=== PATIENT | female | born 1950 | race Caucasian/White ===

== ENCOUNTER 2017-02-07 00:13 | Observation (INO) | payer MEDICARE, OTHER ==
[2017-02-07] MEDS ORDERED: Diltiazem 25 MG/5 ML SDV ONE (00:27)
[2017-02-07] MEDS ORDERED: Diltiazem 25 MG/5 ML SDV IVPUSH ONE (00:31)
--- NOTE | 2017-02-07 00:31 | EDM.PDOC ---
ED HPI GENERAL MEDICAL PROBLEM - General Chief Complaint: General Stated Complaint: WEAK Time Seen by Provider: 02/07/17 00:27 - History of Present Illness INITIAL COMMENTS - FREE TEXT/NARRATIVE: HISTORY AND PHYSICAL: History of present illness: Patient 66-year-old white female with past medical history significant for diabetes and atrial fibrillation presents with a concern of palpitations and rapid heart rate she states she's just felt generally poor since this morning she denies chest pain nausea vomiting fever chills patient did have one episode of emesis denies other complaints Review of systems: As per history of present illness and below otherwise all systems reviewed and negative. Past medical history: As per history of present illness and as reviewed below otherwise noncontributory. Surgical history: As per history of present illness and as reviewed below otherwise noncontributory. Social history: No reported history of drug or alcohol abuse. Family history: As per history of present illness and as reviewed below otherwise noncontributory. Physical exam: HEENT: Atraumatic, normocephalic, pupils reactive, negative for conjunctival pallor or scleral icterus, mucous membranes moist, throat clear, neck supple, nontender, trachea midline. Lungs: Clear to auscultation, breath sounds equal bilaterally, chest nontender. Heart: S1S2, irregularly irregular in rate between 140 and 180, negative for clicks, rubs, or JVD. Abdomen: Soft, nondistended, nontender. Negative for masses or hepatosplenomegaly. Negative for costovertebral tenderness. Pelvis: Stable nontender. Genitourinary: Deferred. Rectal: Deferred. Extremities: Atraumatic, negative for cords or calf pain. Neurovascular unremarkable. Neuro: Awake, alert, oriented. Cranial nerves II through XII unremarkable. Cerebellum unremarkable. Motor and sensory unremarkable throughout. Exam nonfocal. Diagnostics: CBC CMP troponin PT/INR chest x-ray EKG Therapeutics: IV O2 monitor Cardizem 25 mg IV Impression: #1 atrial fibrillation with rapid ventricular response Definitive disposition and diagnosis as appropriate pending reevaluation and review of above. - Related Data Allergies Allergy/AdvReac Type Severity Reaction Status Date / Time No Known Allergies Allergy Verified 02/07/17 00:16 Home Meds: Home Meds Allopurinol [Zyloprim] 02/07/17 [History] Warfarin [Coumadin] 6 mg PO DAILY 02/07/17 [History] atorvaSTATin [Lipitor] 10 mg PO BEDTIME 02/07/17 [History] metFORMIN [Glucophage XR] 500 mg PO BIDMEALS 02/07/17 [History] Past Medical History Cardiovascular History: Reports: High Cholesterol Endocrine/Metabolic History: Reports: Diabetes, Type II - Infectious Disease History Infectious Disease History: Reports: Chicken Pox, Measles Social & Family History - Tobacco Use Smoking Status *Q: Never Smoker Second Hand Smoke Exposure: No - Recreational Drug Use Recreational Drug Use: No ED ROS GENERAL - Review of Systems Review Of Systems: ROS reveals no pertinent complaints other than HPI. ED EXAM, GENERAL - Physical Exam Exam: See Below (See dictation) Course - Vital Signs Last Recorded V/S: Last Vital Signs Temp 35.8 C 02/07/17 00:19 Pulse 111 H 02/07/17 02:05 Resp 16 02/07/17 02:05 BP 120/58 L 02/07/17 02:05 Pulse Ox 95 02/07/17 02:05 - Orders/Labs/Meds Orders: Active Orders 24 hr Category Date Time Status Cardiac Monitoring [RC] . DIRECTED Care 02/07/17 00:33 Active EKG 12 Lead [EKG Documentation Completion] [RC] STAT Care 02/07/17 00:36 Active EKG Documentation Completion [RC] STAT Care 02/07/17 00:33 Active Chest 1V Frontal [CR] Stat Exams 02/07/17 00:34 Taken Head wo Cont [CT] Stat Exams 02/07/17 01:09 Taken TYPE AND SCREEN [BBK] Stat Lab 02/07/17 01:40 Received Diltiazem [Cardizem] Med 02/07/17 02:30 Active 30 mg PO Q6HR Diltiazem [Cardizem] 100 mg Med 02/07/17 02:15 Active Sodium Chloride 0.9% [Normal Saline] 100 ml IV TITRATE Magnesium Sulfate/Water [Magnesium Sulfate 4 GM in Med 02/07/17 02:23 Active Water 100 ML] 4 gm Premix Bag 1 bag IV ONETIME Phytonadione [AquaMephyton] Med 02/07/17 02:00 Once 5 mg PO NOW ONE Medication Orders Diltiazem HCl (Cardizem) 30 mg PO Q6HR SOULEYMANE Diltiazem HCl 100 mg/ Sodium (Chloride) 100 mls @ 10 mls/hr IV TITRATE SOULEYMANE; 10 MG/HR PRN Reason: Protocol Magnesium Sulfate 4 gm/ Premix 100 mls @ 50 mls/hr IV ONETIME ONE Stop: 02/07/17 04:22 Phytonadione (Aquamephyton) 5 mg PO NOW ONE Stop: 02/07/17 02:30 Last Admin: 02/07/17 02:05 Dose: 5 mg Labs: Laboratory Tests 02/07/17 02/07/17 02/07/17 Range/Units 00:25 00:25 00:25 WBC 8.77 (4.0-11.0) K/uL RBC 4.46 (4.30-5.90) M/uL Hgb 14.9 (12.0-16.0) g/dL Hct 41.4 (36.0-46.0) % MCV 92.8 (80.0-98.0) fL MCH 33.4 H (27.0-32.0) pg MCHC 36.0 (31.0-37.0) g/dL RDW Std Deviation 46.5 (28.0-62.0) fl RDW Coeff of Aruna 14 (11.0-15.0) % Plt Count 196 (150-400) K/uL MPV 11.60 (7.40-12.00) fL Add Manual Diff YES Neutrophils % (Manual) 79 (48.0-80.0) % Lymphocytes % (Manual) 13 L (16.0-40.0) % Monocytes % (Manual) 7 (0.0-15.0) % Basophils % (Manual) 1 (0.0-1.5) % Absolute Seg Neuts 6.9 Lymphocytes # (Manual) 1.1 Monocytes # (Manual) 0.6 Basophils # (Manual) 0 INR > 12.40 H* (0.86-1.11) Sodium 140 (136-146) mmol/L Potassium 3.7 (3.5-5.1) mmol/L Chloride 97 L (98-110) mmol/L Carbon Dioxide 23 (21-31) mmol/L BUN 9 (6.0-23.0) mg/dL Creatinine 0.8 (0.6-1.5) mg/dL Est Cr Clr Drug Dosing 63.09 mL/min Estimated GFR (MDRD) > 60.0 ml/min Glucose 165 H (60-110) mg/dL Calcium 10.0 (8.8-10.8) mg/dL Magnesium (1.5-2.3) mEq/L Total Bilirubin 2.7 H (0.1-1.5) mg/dL AST 43 H (5-40) IU/L ALT 31 (8-54) IU/L Alkaline Phosphatase 141 (40-150) Creatine Kinase 166 (9-236) IU/L CK-MB (CK-2) 1.1 (0-6.6) ng/ml Troponin I (0.0-0.29) NG/ML Total Protein 8.1 H (6.0-8.0) g/dL Albumin 4.6 (3.4-4.8) g/dL Globulin 3.5 (2.0-3.5) g/dL Albumin/Globulin Ratio 1.3 (1.3-2.8) Digoxin (0.8-2.0) ng/mL 02/07/17 02/07/17 Range/Units 00:25 00:25 WBC (4.0-11.0) K/uL RBC (4.30-5.90) M/uL Hgb (12.0-16.0) g/dL Hct (36.0-46.0) % MCV (80.0-98.0) fL MCH (27.0-32.0) pg MCHC (31.0-37.0) g/dL RDW Std Deviation (28.0-62.0) fl RDW Coeff of Aruna (11.0-15.0) % Plt Count (150-400) K/uL MPV (7.40-12.00) fL Add Manual Diff Neutrophils % (Manual) (48.0-80.0) % Lymphocytes % (Manual) (16.0-40.0) % Monocytes % (Manual) (0.0-15.0) % Basophils % (Manual) (0.0-1.5) % Absolute Seg Neuts Lymphocytes # (Manual) Monocytes # (Manual) Basophils # (Manual) INR (0.86-1.11) Sodium (136-146) mmol/L Potassium (3.5-5.1) mmol/L Chloride (98-110) mmol/L Carbon Dioxide (21-31) mmol/L BUN (6.0-23.0) mg/dL Creatinine (0.6-1.5) mg/dL Est Cr Clr Drug Dosing mL/min Estimated GFR (MDRD) ml/min Glucose (60-110) mg/dL Calcium (8.8-10.8) mg/dL Magnesium 1.1 L (1.5-2.3) mEq/L Total Bilirubin (0.1-1.5) mg/dL AST (5-40) IU/L ALT (8-54) IU/L Alkaline Phosphatase (40-150) Creatine Kinase (9-236) IU/L CK-MB (CK-2) (0-6.6) ng/ml Troponin I < 0.10 (0.0-0.29) NG/ML Total Protein (6.0-8.0) g/dL Albumin (3.4-4.8) g/dL Globulin (2.0-3.5) g/dL Albumin/Globulin Ratio (1.3-2.8) Digoxin < 0.15 L (0.8-2.0) ng/mL Meds: Medications Generic Name Dose Route Start Last Admin Trade Name Freq PRN Reason Stop Dose Admin Diltiazem HCl 30 mg 02/07/17 02:30 Cardizem PO Q6HR SOULEYMANE Diltiazem HCl 100 mg/ Sodium 100 mls @ 10 mls/hr 02/07/17 02:15 Chloride IV TITRATE SOULEYMANE Protocol 10 MG/HR Magnesium Sulfate 4 gm/ Premix 100 mls @ 50 mls/hr 02/07/17 02:23 IV 02/07/17 04:22 ONETIME ONE Phytonadione 5 mg 02/07/17 02:00 02/07/17 02:05 Aquamephyton PO 02/07/17 02:30 5 mg NOW ONE Administration Discontinued Medications Generic Name Dose Route Start Last Admin Trade Name Freq PRN Reason Stop Dose Admin Diltiazem HCl Confirm 02/07/17 00:27 02/07/17 00:36 Diltiazem Administered 02/07/17 00:28 Not Given Dose 25 mg .ROUTE .STK-MED ONE Diltiazem HCl 25 mg 02/07/17 00:31 02/07/17 00:28 Diltiazem IVPUSH 02/07/17 00:32 25 mg ONETIME ONE Administration Diltiazem HCl Confirm 02/07/17 02:21 Cardizem Administered 02/07/17 02:22 Dose 100 mg .ROUTE .STK-MED ONE Sodium Chloride Confirm 02/07/17 02:22 Normal Saline Administered 02/07/17 02:23 Dose 100 mls @ as directed .ROUTE .STK-MED ONE Ondansetron HCl 4 mg 02/07/17 01:30 02/07/17 01:34 Zofran IVPUSH 02/07/17 01:31 4 mg ONETIME ONE Administration Phytonadione 5 mg 02/07/17 01:17 02/07/17 02:06 Mephyton PO 02/07/17 01:18 Not Given ONETIME ONE Departure - Departure Time of Disposition: 02:26 Disposition: Refer to Observation Condition: Good Clinical Impression: Atrial fibrillation with rapid ventricular response, Coumadin toxicity - Discharge Information Referrals: PCP,None [Primary Care Provider] - Forms: ED Department Discharge - My Orders Last 24 Hours: My Active Orders 02/07/17 00:33 Cardiac Monitoring [RC] . DIRECTED EKG Documentation Completion [RC] STAT 02/07/17 00:34 Chest 1V Frontal [CR] Stat 02/07/17 00:36 EKG 12 Lead [EKG Documentation Completion] [RC] STAT 02/07/17 01:09 Head wo Cont [CT] Stat 02/07/17 01:40 TYPE AND SCREEN [BBK] Stat 02/07/17 02:00 Phytonadione [AquaMephyton] 5 mg PO NOW ONE 02/07/17 02:15 Diltiazem [Cardizem] 100 mg Sodium Chloride 0.9% [Normal Saline] 100 ml IV TITRATE - Assessment/Plan Last 24 Hours: My Active Orders 02/07/17 00:33 Cardiac Monitoring [RC] . DIRECTED EKG Documentation Completion [RC] STAT 02/07/17 00:34 Chest 1V Frontal [CR] Stat 02/07/17 00:36 EKG 12 Lead [EKG Documentation Completion] [RC] STAT 02/07/17 01:09 Head wo Cont [CT] Stat 02/07/17 01:40 TYPE AND SCREEN [BBK] Stat 02/07/17 02:00 Phytonadione [AquaMephyton] 5 mg PO NOW ONE 02/07/17 02:15 Diltiazem [Cardizem] 100 mg Sodium Chloride 0.9% [Normal Saline] 100 ml IV TITRATE
[2017-02-07 00:58] LABS: CHLORIDE,CL 97 mmol/L (98-110); SODIUM,NA 140 mmol/L (136-146)
[2017-02-07] MEDS ORDERED: Phytonadione 5 MG Tab PO ONE (01:17)
[2017-02-07] MEDS ORDERED: Ondansetron 4 MG/2 ML SDV IVPUSH ONE (01:30)
[2017-02-07] MEDS ORDERED: Diltiazem 100 MG in Sodium Chloride 0.9% 100 ML IV SCH (02:15)
[2017-02-07] MEDS ORDERED: Diltiazem 100 MG AdvVial ONE (02:21)
[2017-02-07] MEDS ORDERED: Sodium Chloride 0.9% 100 ML ONE (02:22)
[2017-02-07] MEDS ORDERED: Magnesium Sulfate/Water 4 GM in Premix Bag 1 BAG IV ONE (02:23)
[2017-02-07] MEDS ORDERED: Ondansetron 4 MG/2 ML SDV IVPUSH PRN (02:24)
[2017-02-07] MEDS: Diltiazem IR 30 MG Tab PO SCH ×4 (05:08→18:24)
[2017-02-07] MEDS: Insulin Aspart 100 Units/ML 3 ML Pen SUBCUT SCH ×4 (05:08→16:56)
[2017-02-07 05:37] LABS: CHLORIDE,CL 96 mmol/L (98-110); SODIUM,NA 137 mmol/L (136-146)
[2017-02-07] MEDS ORDERED: Levothyroxine 100 MCG Tab PO SCH (07:30)
[2017-02-07] MEDS: Acetaminophen 325 MG Tab PO PRN (07:53)
[2017-02-07] MEDS ORDERED: metFORMIN 500 MG Tab.ER PO SCH (08:00)
[2017-02-07] MEDS ORDERED: Allopurinol 100 MG Tab PO SCH (09:00)
[2017-02-07] MEDS ORDERED: Digoxin 125 MCG Tab PO SCH (09:00)
[2017-02-07] MEDS: METFORMIN 500 MG PO SCH ×2 (10:23→17:09)
[2017-02-07] MEDS ORDERED: LORazepam 2 MG/ML MDV IVPUSH PRN (10:43)
[2017-02-07] MEDS ORDERED: Thiamine 200 MG/2 ML MDV IV SCH (10:45)
--- NOTE | 2017-02-07 11:43 | PCM.HP ---
H&P History of Present Illness - General Admit Problem/Dx: Admission Diagnosis/Problem Admission Diagnosis/Problem Atrial fibrillation - History of Present Illness Initial Comments - Free Text/Narative: 66 yo female with pmh of atrial fibrillation on Coumadin and diabetes who presents with heart palpitations. She also reports nausea but denies any chest pain or shortness of breath. When evaluated in the ED she was noted to be in atrial fibrillation with heart rate on 160s. Her laboratory values were significant for an INR of greater than 12 Her sister is present and is concerned about alcohol use. Family reports patient has been forgetful. She has a history of rehab for alchol use five years ago. Patient reports drinking a 2-3 fingers of liqour 2-3 times a week. Patient reports drinks more than she does but sister reports may be more reliable. Patient's INR the past month has been at times higher than 12 and despite reduction in doses she still remains elevated. Patient has multiple pill bottles of different dosing of coumadin. According to pharmacy who reviewed the medications with her , she is not taking her coumadin as instructed from [facility]. - Related Data Allergies/Adverse Reactions: Allergies Allergy/AdvReac Type Severity Reaction Status Date / Time No Known Allergies Allergy Verified 02/07/17 00:16 Home Medications: Home Meds Allopurinol [Zyloprim] 100 mg PO DAILY 02/07/17 [History] Cholecalciferol (Vitamin D3) [Vitamin D3] 1,000 unit PO BID 02/07/17 [History] Digoxin 0.125 mg PO DAILY 02/07/17 [History] Levothyroxine [Synthroid] 100 mcg PO DAILY 02/07/17 [History] Lisinopril 10 mg PO DAILY 02/07/17 [History] Warfarin [Coumadin] 6 mg PO DAILY 02/07/17 [History] atorvaSTATin [Lipitor] 40 mg PO BEDTIME 02/07/17 [History] metFORMIN [Glucophage] 500 mg PO BIDMEALS 02/07/17 [History] Past Medical History Cardiovascular History: Reports: High Cholesterol 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: Endocrine/Metabolic History: Reports: Diabetes, Type II Hematologic History: Reports: Blood Transfusion(s) - Infectious Disease History Infectious Disease History: Reports: Chicken Pox, Measles - Past Surgical History Other HEENT Surgeries/Procedures: wears eyeglasses Social & Family History - Family History Family Medical History: Noncontributory - Tobacco Use Smoking Status *Q: Never Smoker Second Hand Smoke Exposure: No - Alcohol Use Days Per Week of Alcohol Use: 0 Number of Drinks Per Day: 1 Total Drinks Per Week: 0 - Recreational Drug Use Recreational Drug Use: No H&P Review of Systems - Review of Systems: Review Of Systems: ROS reveals no pertinent complaints other than HPI. Exam - Exam Exam: See Below - Vital Signs Vital Signs: Last Vital Signs Temp 36.9 C 02/07/17 06:00 Pulse 100 02/07/17 05:37 Resp 11 L 02/07/17 10:00 BP 118/76 02/07/17 10:00 Pulse Ox 96 02/07/17 10:00 Weight: 74.5 kg - Exam General: Alert, Cooperative. No: Mild Distress HEENT: Mucosa Moist & [place] Lungs: Clear to Auscultation, Normal Respiratory Effort Cardiovascular: Regular Rate, Irregular Rhythm GI/Abdominal Exam: Normal Bowel Sounds, Soft, Non-Tender, No Organomegaly, No Distention, No Abnormal Bruit, No Mass, Pelvis Stable Extremities: Normal Inspection, Normal Range of Motion, Non-Tender Skin: Warm, Dry, Intact - Patient Data Lab Results Last 24 hrs: Laboratory Results - last 24 hr 02/07/17 02/07/17 02/07/17 Range/Units 05:04 05:04 05:04 WBC 8.81 (4.0-11.0) K/uL RBC 4.22 L (4.30-5.90) M/uL Hgb 14.2 (12.0-16.0) g/dL Hct 39.5 (36.0-46.0) % MCV 93.6 (80.0-98.0) fL MCH 33.6 H (27.0-32.0) pg MCHC 35.9 (31.0-37.0) g/dL RDW Std Deviation 49.0 (28.0-62.0) fl RDW Coeff of Aruna 14 (11.0-15.0) % Plt Count 161 (150-400) K/uL MPV 10.70 (7.40-12.00) fL Neut % (Auto) 86.4 H (48.0-80.0) % Lymph % (Auto) 5.6 L (16.0-40.0) % Caroline % (Auto) 7.7 (0.0-15.0) % Eos % (Auto) 0.0 (0.0-7.0) % Baso % (Auto) 0.3 (0.0-1.5) % Neut # (Auto) 7.6 H (1.4-5.7) K/uL Lymph # (Auto) 0.5 L (0.6-2.4) K/uL Caroline # (Auto) 0.7 (0.0-0.8) K/uL Eos # (Auto) 0.0 (0.0-0.7) K/uL Baso # (Auto) 0.0 (0.0-0.1) K/uL Nucleated RBC % 0.0 /100WBC Nucleated RBCs # 0 K/uL INR 6.62 H (0.86-1.11) Sodium 137 (136-146) mmol/L Potassium 3.8 (3.5-5.1) mmol/L Chloride 96 L (98-110) mmol/L Carbon Dioxide 27 (21-31) mmol/L BUN 10 (6.0-23.0) mg/dL Creatinine 0.7 (0.6-1.5) mg/dL Est Cr Clr Drug Dosing 72.10 mL/min Estimated GFR (MDRD) > 60.0 ml/min Glucose 147 H (60-110) mg/dL POC Glucose (60-110) mg/dL Calcium 9.4 (8.8-10.8) mg/dL 02/07/17 Range/Units 06:18 WBC (4.0-11.0) K/uL RBC (4.30-5.90) M/uL Hgb (12.0-16.0) g/dL Hct (36.0-46.0) % MCV (80.0-98.0) fL MCH (27.0-32.0) pg MCHC (31.0-37.0) g/dL RDW Std Deviation (28.0-62.0) fl RDW Coeff of Aruna (11.0-15.0) % Plt Count (150-400) K/uL MPV (7.40-12.00) fL Neut % (Auto) (48.0-80.0) % Lymph % (Auto) (16.0-40.0) % Caroline % (Auto) (0.0-15.0) % Eos % (Auto) (0.0-7.0) % Baso % (Auto) (0.0-1.5) % Neut # (Auto) (1.4-5.7) K/uL Lymph # (Auto) (0.6-2.4) K/uL Caroline # (Auto) (0.0-0.8) K/uL Eos # (Auto) (0.0-0.7) K/uL Baso # (Auto) (0.0-0.1) K/uL Nucleated RBC % /100WBC Nucleated RBCs # K/uL INR (0.86-1.11) Sodium (136-146) mmol/L Potassium (3.5-5.1) mmol/L Chloride (98-110) mmol/L Carbon Dioxide (21-31) mmol/L BUN (6.0-23.0) mg/dL Creatinine (0.6-1.5) mg/dL Est Cr Clr Drug Dosing mL/min Estimated GFR (MDRD) ml/min Glucose (60-110) mg/dL POC Glucose 145 H (60-110) mg/dL Calcium (8.8-10.8) mg/dL Result Diagrams: 02/07/17 05:04 02/07/17 05:04 *Q Meaningful Use (ADM) - VTE *Q VTE Criteria *Q: - Stroke *Q Stroke Criteria *Q: - AMI *Q AMI Criteria *Q: Problem List Initiated/Reviewed/Updated: Yes Orders Last 24hrs: Active Orders 24 hr Category Date Time Status Consult to Brush Machine Setter [Consult to Diabetic Nurse Cons 02/07/17 10:28 Active Specialist] [CONS] Routine Acetaminophen [Tylenol] Med 02/07/17 07:31 Active 650 mg PO Q6H PRN Diltiazem [Cardizem] Med 02/07/17 10:56 Active 45 mg PO Q6HR Folic Acid Med 02/07/17 10:45 Active 1 mg SUBCUT DAILY LORazepam [Ativan] Med 02/07/17 10:43 Active See Protocol IVPUSH Q4H PRN Patient's Own Medication [Ptom] Med 02/08/17 07:30 Active 1 each PO ACBREAKFAST Patient's Own Medication [Ptom] Med 02/07/17 21:00 Active 1 each PO BEDTIME Patient's Own Medication [Ptom] Med 02/07/17 08:00 Active 1 each PO BIDMEALS Patient's Own Medication [Ptom] Med 02/07/17 09:00 Active 1 each PO DAILY Patient's Own Medication [Ptom] Med 02/07/17 09:00 Active 1 each PO DAILY Thiamine [Vitamin B-1] Med 02/07/17 10:45 Active 100 mg IV DAILY Medication Orders Acetaminophen (Tylenol) 650 mg PO Q6H PRN PRN Reason: Pain Last Admin: 02/07/17 07:53 Dose: 650 mg Diltiazem HCl (Cardizem) 45 mg PO Q6HR SOULEYMANE Folic Acid (Folic Acid) 1 mg SUBCUT DAILY SOULEYMANE Diltiazem HCl 100 mg/ Sodium (Chloride) 100 mls @ 10 mls/hr IV TITRATE SOULEYMANE; 10 MG/HR PRN Reason: Protocol Last Titration: 02/07/17 07:25 Dose: 5 mg/hr, 5 mls/hr Admin: 02/07/17 02:25 Dose: 10 mg/hr, 10 mls/hr Insulin Aspart (Novolog) 0 unit SUBCUT TIDAC SOULEYMANE PRN Reason: Protocol Last Admin: 02/07/17 07:20 Dose: Not Given Admin: 02/07/17 05:08 Dose: Not Given Lorazepam (Ativan) 0 mg IVPUSH Q4H PRN; Protocol PRN Reason: Agitation Ondansetron HCl (Zofran) 4 mg IVPUSH Q4H PRN PRN Reason: Nausea Allopurinol 100 Mg 1 each PO DAILY [facility] Last Admin: 02/07/17 10:23 Dose: 1 each Atorvastatin 40 Mg 1 each PO BEDTIME SOULEYMANE Digoxin 0.125 Mg 1 each PO DAILY [facility] Last Admin: 02/07/17 10:23 Dose: 1 each Metformin 500 Mg 1 each PO BIDMEALS [facility] Last Admin: 02/07/17 10:23 Dose: 1 each Levothyroxine 0.1 Mg 1 each PO ACBREAKFAST SOULEYMANE Thiamine HCl (Vitamin B-1) 100 mg IV DAILY SOULEYMANE Assessment/Plan Comment:: 66 yo female admitted for a.fib with RVR and supratheraputic INR. A.fib with RVR: rate controlled on diltiazem drip with increase oral diltiazem in attempts to wean off drip. continue digoxin Supratheraputic INR: Will hold coumadin, 5mg of Vit K given Alcohol abuse: patient may be drinking more than she admits. Will place on CIWA protocol, thiamin and folic acid. DM: on metformin and sliding scale insulin.
[2017-02-07] MEDS: Folic Acid 50 MG/10 ML MDV SUBCUT SCH (11:58)
[2017-02-07] MEDS: Thiamine 100 MG in Sodium Chloride 0.9% 100 ML IV SCH (12:56)
--- NOTE | 2017-02-07 13:59 | CR ---
EXAM DATE: 02/07/17 PATIENT'S AGE: 66 Patient: JOSÉ ANTONIO SILVA Facility: [place], [place] Site . Site : 1950 Study: XRay Chest [id number]/[id number] 12:53:05 AM Ordering Physician: Foreign De La Garza Final Report: INDICATION: WEAKNESS TECHNIQUE: Chest radiograph 1 view COMPARISON: None FINDINGS: The study is moderately limited by body habitus. Cardiovascular and mediastinum: The cardiac silhouette is normal in appearance and size. Mediastinum is within normal limits. Lungs and pleural space: Both lungs are unremarkable in appearance. No sign of pleural effusion. No pneumothorax is seen. Bones and soft tissues: No significant findings. IMPRESSION: 1. No acute cardiopulmonary disease seen. Dictated by: Refugio Phan MD @ 02/07/2017 00:58:32 (Electronic Signature) Report Signed by Proxy. [facility]ITALJavi
--- NOTE | 2017-02-07 14:00 | CT ---
EXAM DATE: 02/07/17 PATIENT'S AGE: 66 Patient: JOSÉ ANTONIO SILVA Facility: [place], [place] Site . Site : 1950 Study: CT Head [id number]/30/2017 1:27:02 AM Ordering Physician: Foreign De La Garza Final Report: INDICATION: HX OF MEMORY LOSS/WEAKNESS TECHNIQUE: CT Head without i.v. contrast. COMPARISON: None FINDINGS: CSF spaces: Within normal limits for age. Brain parenchyma: The brain parenchyma is normal in appearance with preservation of the hernandez-white matter junction. No sign of mass, hemorrhage, or midline shift. Skull base and calvarium: The visualized paranasal sinuses are well aerated. The mastoid air cells are clear. The visualized orbits are grossly unremarkable. No skull fractures are seen. IMPRESSION: 1. No CT evidence of acute infarct, hemorrhage, or mass effect seen. Dictated by: Refugio Phan MD @ 02/07/2017 01:34:37 (Electronic Signature) Report Signed by Proxy. JUAN ANTONIO
[2017-02-07] MEDS ORDERED: Magnesium Sulfate/Water 2 GM in Premix Bag 1 BAG IV ONE (20:03)
[2017-02-07] MEDS ORDERED: Bisacodyl 5 MG Tab PO PRN (20:23)
[2017-02-07] MEDS ORDERED: Digoxin 500 MCG/2 ML Amp IVPUSH ONE (20:48)
[2017-02-07] MEDS ORDERED: atorvaSTATin 40 MG Tab PO SCH (21:00)
[2017-02-08] MEDS: Diltiazem IR 30 MG Tab PO SCH ×2 (00:03→05:56)
[2017-02-08] MEDS: Acetaminophen 325 MG Tab PO PRN (04:51)
[2017-02-08 05:12] LABS: CHLORIDE,CL 98 mmol/L (98-110); SODIUM,NA 138 mmol/L (136-146)
[2017-02-08] MEDS: Insulin Aspart 100 Units/ML 3 ML Pen SUBCUT SCH (06:43)
[2017-02-08] MEDS ORDERED: LEVOTHYROXINE 0.1 MG PO SCH (07:30)
[2017-02-08] MEDS: Folic Acid 50 MG/10 ML MDV SUBCUT SCH (08:29)
[2017-02-08] MEDS: METFORMIN 500 MG PO SCH (08:31)
[2017-02-08] MEDS: Thiamine 100 MG in Sodium Chloride 0.9% 100 ML IV SCH (08:37)
[2017-02-08 09:21] VITALS: BP 117/51
--- NOTE | 2017-02-08 09:28 | PCM.DCSUM1 ---
Discharge Summary - Discharge Data Discharge Date: 02/08/17 Discharge Disposition: Home, Self-Care 01 Condition: Good - Patient Summary/Data Consults: Consultations 02/07/17 10:28 Consult to Storage Facility Rental Clerk [Consult to Diabetic Nurse Specialist] [CONS] Routine Hospital Course: Admission diagnosis Atrial fibrillation with RVR Supratheraputic INR Hospital Course: 66 yo female with pmh of diabetes, and atrial fibrillation on Coumadin. who presents with heart palpitations. When evaluated in the ED she was noted to be in atrial fibrillation with heart rate on 160s. Her laboratory values were significant for an INR of greater than. Family reports patient has been forgetful and there was some concern of alcohol use. Patient's INR the past month has been at times higher than 12 and despite reduction in doses she still remains elevated. Patient appears not to understand which medications she is taking or how much she should take. Which is likely why she is supratheraputic as well as rate uncontrolled. She was given 5mg of Vitamin K and following day INR was 1.24. She was placed on diltiazem drip and then weened off when her oral diltiazem and digoxin were resumed. Prior to discharge medications were again review with her and will get family to help with medications. Patient is to follow up with her PCP next week. Her coumadin was discontinued and she was switch to Xarelto. - Patient Instructions Diet: Usual Diet as Tolerated Activity: As Tolerated - Discharge Plan Prescriptions/Med Rec: Diltiazem HCl [Cartia Xt] 240 mg PO DAILY #30 cap.er.24h Rivaroxaban [Xarelto] 20 mg PO DAILY #30 tablet Home Medications: Home Meds Allopurinol [Zyloprim] 100 mg PO DAILY 02/07/17 [History] Cholecalciferol (Vitamin D3) [Vitamin D3] 1,000 unit PO BID 02/07/17 [History] Digoxin 0.125 mg PO DAILY 02/07/17 [History] Levothyroxine [Synthroid] 100 mcg PO DAILY 02/07/17 [History] atorvaSTATin [Lipitor] 40 mg PO BEDTIME 02/07/17 [History] metFORMIN [Glucophage] 500 mg PO BIDMEALS 02/07/17 [History] Diltiazem HCl [Cartia Xt] 240 mg PO DAILY #30 cap.er.24h 02/08/17 [Rx] Rivaroxaban [Xarelto] 20 mg PO DAILY #30 tablet 02/08/17 [Rx] Patient Handouts: Warfarin: What You Need to Know, Warfarin tablets, Prothrombin Time, International Normalized Ratio Test, Diltiazem tablets, Atrial Fibrillation, [id number] Referrals: [facility] [Outside] Raheem Mcguire PA [Physician Assistant Principal] - 02/16/17 10:15 am Porfirio Adkins MD [Physician] - 02/16/17 8:30 am - Patient Data Vitals - Most Recent: Last Vital Signs Temp 36.1 C 02/08/17 08:00 Pulse 83 02/07/17 21:10 Resp 17 02/08/17 08:00 BP 119/56 L 02/08/17 08:00 Pulse Ox 96 02/08/17 08:00 Weight - Most Recent: 75.4 kg I&O - Last 24 hours: Intake & Output 02/07/17 02/08/17 02/08/17 22:59 06:59 14:59 Intake Total 1020 950 Output Total 200 855 Balance 820 95 Lab Results - Last 24 hrs: Laboratory Results - last 24 hr 02/07/17 02/07/17 02/07/17 Range/Units 11:50 16:55 18:09 WBC (4.0-11.0) K/uL RBC (4.30-5.90) M/uL Hgb (12.0-16.0) g/dL Hct (36.0-46.0) % MCV (80.0-98.0) fL MCH (27.0-32.0) pg MCHC (31.0-37.0) g/dL RDW Std Deviation (28.0-62.0) fl RDW Coeff of Aruna (11.0-15.0) % Plt Count (150-400) K/uL MPV (7.40-12.00) fL Neut % (Auto) (48.0-80.0) % Lymph % (Auto) (16.0-40.0) % [place] % (Auto) (0.0-15.0) % Eos % (Auto) (0.0-7.0) % Baso % (Auto) (0.0-1.5) % Neut # (Auto) (1.4-5.7) K/uL Lymph # (Auto) (0.6-2.4) K/uL [place] # (Auto) (0.0-0.8) K/uL Eos # (Auto) (0.0-0.7) K/uL Baso # (Auto) (0.0-0.1) K/uL Nucleated RBC % /100WBC Nucleated RBCs # K/uL INR (0.86-1.11) Sodium (136-146) mmol/L Potassium (3.5-5.1) mmol/L Chloride (98-110) mmol/L Carbon Dioxide (21-31) mmol/L BUN (6.0-23.0) mg/dL Creatinine (0.6-1.5) mg/dL Est Cr Clr Drug Dosing mL/min Estimated GFR (MDRD) ml/min Glucose (60-110) mg/dL POC Glucose 141 H 124 H (60-110) mg/dL Calcium (8.8-10.8) mg/dL Magnesium 1.7 (1.5-2.3) mEq/L 02/08/17 02/08/17 02/08/17 Range/Units 04:39 04:39 04:39 WBC 4.56 (4.0-11.0) K/uL RBC 3.86 L (4.30-5.90) M/uL Hgb 12.5 (12.0-16.0) g/dL Hct 37.1 (36.0-46.0) % MCV 96.1 (80.0-98.0) fL MCH 32.4 H (27.0-32.0) pg MCHC 33.7 (31.0-37.0) g/dL RDW Std Deviation 50.2 (28.0-62.0) fl RDW Coeff of Aruna 14 (11.0-15.0) % Plt Count 127 L (150-400) K/uL MPV 10.60 (7.40-12.00) fL Neut % (Auto) 65.7 (48.0-80.0) % Lymph % (Auto) 18.9 (16.0-40.0) % [place] % (Auto) 13.8 (0.0-15.0) % Eos % (Auto) 0.7 (0.0-7.0) % Baso % (Auto) 0.9 (0.0-1.5) % Neut # (Auto) 3.0 (1.4-5.7) K/uL Lymph # (Auto) 0.9 (0.6-2.4) K/uL [place] # (Auto) 0.6 (0.0-0.8) K/uL Eos # (Auto) 0.0 (0.0-0.7) K/uL Baso # (Auto) 0.0 (0.0-0.1) K/uL Nucleated RBC % 0.0 /100WBC Nucleated RBCs # 0 K/uL INR 1.24 H (0.86-1.11) Sodium 138 (136-146) mmol/L Potassium 3.6 (3.5-5.1) mmol/L Chloride 98 (98-110) mmol/L Carbon Dioxide 31 (21-31) mmol/L BUN 9 (6.0-23.0) mg/dL Creatinine 0.7 (0.6-1.5) mg/dL Est Cr Clr Drug Dosing 71.98 mL/min Estimated GFR (MDRD) > 60.0 ml/min Glucose 118 H (60-110) mg/dL POC Glucose (60-110) mg/dL Calcium 9.0 (8.8-10.8) mg/dL Magnesium (1.5-2.3) mEq/L 02/08/17 Range/Units 06:42 WBC (4.0-11.0) K/uL RBC (4.30-5.90) M/uL Hgb (12.0-16.0) g/dL Hct (36.0-46.0) % MCV (80.0-98.0) fL MCH (27.0-32.0) pg MCHC (31.0-37.0) g/dL RDW Std Deviation (28.0-62.0) fl RDW Coeff of Aruna (11.0-15.0) % Plt Count (150-400) K/uL MPV (7.40-12.00) fL Neut % (Auto) (48.0-80.0) % Lymph % (Auto) (16.0-40.0) % [place] % (Auto) (0.0-15.0) % Eos % (Auto) (0.0-7.0) % Baso % (Auto) (0.0-1.5) % Neut # (Auto) (1.4-5.7) K/uL Lymph # (Auto) (0.6-2.4) K/uL [place] # (Auto) (0.0-0.8) K/uL Eos # (Auto) (0.0-0.7) K/uL Baso # (Auto) (0.0-0.1) K/uL Nucleated RBC % /100WBC Nucleated RBCs # K/uL INR (0.86-1.11) Sodium (136-146) mmol/L Potassium (3.5-5.1) mmol/L Chloride (98-110) mmol/L Carbon Dioxide (21-31) mmol/L BUN (6.0-23.0) mg/dL Creatinine (0.6-1.5) mg/dL Est Cr Clr Drug Dosing mL/min Estimated GFR (MDRD) ml/min Glucose (60-110) mg/dL POC Glucose 109 (60-110) mg/dL Calcium (8.8-10.8) mg/dL Magnesium (1.5-2.3) mEq/L Med Orders - Current: Current Medications Acetaminophen (Tylenol) 650 mg PO Q6H PRN PRN Reason: Pain Last Admin: 02/08/17 04:51 Dose: 650 mg Bisacodyl (Dulcolax) 10 mg PO DAILY PRN PRN Reason: Constipation Last Admin: 02/08/17 08:39 Dose: 10 mg Diltiazem HCl (Cardizem) 45 mg PO Q6HR SOULEYMANE Last Admin: 02/08/17 05:56 Dose: 45 mg Folic Acid (Folic Acid) 1 mg SUBCUT DAILY SOULEYMANE Last Admin: 02/08/17 08:29 Dose: 1 mg Diltiazem HCl 100 mg/ Sodium (Chloride) 100 mls @ 10 mls/hr IV TITRATE SOULEYMANE; 10 MG/HR PRN Reason: Protocol Last Titration: 02/07/17 12:30 Dose: 0 mg/hr, 0 mls/hr Thiamine HCl 100 mg/ Sodium (Chloride) 101 mls @ 202 mls/hr IV DAILY SOULEYMANE Last Admin: 02/08/17 08:37 Dose: 202 mls/hr Insulin Aspart (Novolog) 0 unit SUBCUT TIDAC SOULEYMANE PRN Reason: Protocol Last Admin: 02/08/17 06:43 Dose: Not Given Lorazepam (Ativan) 0 mg IVPUSH Q4H PRN; Protocol PRN Reason: Agitation Ondansetron HCl (Zofran) 4 mg IVPUSH Q4H PRN PRN Reason: Nausea Allopurinol 100 Mg 1 each PO DAILY [facility] Last Admin: 02/08/17 08:32 Dose: 1 each Atorvastatin 40 Mg 1 each PO BEDTIME [facility] Last Admin: 02/07/17 21:00 Dose: 1 each Digoxin 0.125 Mg 1 each PO DAILY [facility] Last Admin: 02/08/17 08:33 Dose: 1 each Metformin 500 Mg 1 each PO BIDMEALS [facility] Last Admin: 02/08/17 08:31 Dose: 1 each Levothyroxine 0.1 Mg 1 each PO ACBREAKFAST [facility] Last Admin: 02/08/17 06:36 Dose: 1 each Discontinued Medications Allopurinol (Zyloprim) 100 mg PO DAILY [facility] Atorvastatin Calcium (Lipitor) 40 mg PO BEDTIME [facility] Digoxin (Lanoxin) 125 mcg PO DAILY [facility] Digoxin (Lanoxin) 250 mcg IVPUSH ONETIME ONE Stop: 02/07/17 20:49 Last Admin: 02/07/17 21:10 Dose: 250 mcg Diltiazem HCl (Diltiazem) Confirm Administered Dose 25 mg .ROUTE .STK-MED ONE Stop: 02/07/17 00:28 Last Admin: 02/07/17 00:36 Dose: Not Given Diltiazem HCl (Diltiazem) 25 mg IVPUSH ONETIME ONE Stop: 02/07/17 00:32 Last Admin: 02/07/17 00:28 Dose: 25 mg Diltiazem HCl (Cardizem) 30 mg PO Q6HR [facility] Last Admin: 02/07/17 06:09 Dose: 30 mg Diltiazem HCl (Cardizem) Confirm Administered Dose 100 mg .ROUTE .STK-MED ONE Stop: 02/07/17 02:22 Last Admin: 02/07/17 02:26 Dose: Not Given Magnesium Sulfate 4 gm/ Premix 100 mls @ 50 mls/hr IV ONETIME ONE Stop: 02/07/17 04:22 Last Admin: 02/07/17 02:33 Dose: 50 mls/hr Sodium Chloride (Normal Saline) Confirm Administered Dose 100 mls @ as directed .ROUTE .STK-MED ONE Stop: 02/07/17 02:23 Last Admin: 02/07/17 02:29 Dose: Not Given Magnesium Sulfate 2 gm/ Premix 50 mls @ 50 mls/hr IV ONETIME ONE Stop: 02/07/17 21:02 Last Admin: 02/07/17 20:32 Dose: 50 mls/hr Levothyroxine Sodium (Synthroid) 100 mcg PO ACBREAKFAST SOULEYMANE Last Admin: 02/07/17 07:53 Dose: 100 mcg Ondansetron HCl (Zofran) 4 mg IVPUSH ONETIME ONE Stop: 02/07/17 01:31 Last Admin: 02/07/17 01:34 Dose: 4 mg Phytonadione (Mephyton) 5 mg PO ONETIME ONE Stop: 02/07/17 01:18 Last Admin: 02/07/17 02:06 Dose: Not Given Phytonadione (Aquamephyton) 5 mg PO NOW ONE Stop: 02/07/17 02:30 Last Admin: 02/07/17 02:05 Dose: 5 mg Thiamine HCl (Vitamin B-1) 100 mg IV DAILY SOULEYMANE Last Admin: 02/07/17 13:17 Dose: Not Given *Q Meaningful Use (DIS) - VTE *Q VTE Criteria *Q: - Stroke *Q Stroke Criteria *Q: - AMI *Q AMI Criteria *Q:
== END 2017-02-08 10:49 | disposition home or self-care (01) ==
LOC: MW.ED 00:13 → MW.ICU 02:35
PROVIDERS: ADMIT Internal Medicine; ATTEND Internal Medicine
DX: I48.91 Unspecified atrial fibrillation (principal); E11.9 Type 2 diabetes mellitus without complications; E78.00 Pure hypercholesterolemia, unspecified; Z79.01 Long term (current) use of anticoagulants; Z79.84 Long term (current) use of oral hypoglycemic drugs; Z79.899 Other long term (current) drug therapy
CPT/HCPCS: 36415; 70450; 71010; 80048; 80053; 80162; 82550; 82553; 82962; 83735; 84484; 85025; 85610; 86850; 86900; 86901; 93005; 96365; 96366; 96367; 96368; 96375; 96376; 99285; A9270; G0378; J1160; J1815; J2405; J3411; J3430; J3475; J3490; J7030; 99284

== ENCOUNTER 2017-08-10 11:20 | Observation (INO) | payer MEDICARE, OTHER ==
[2017-08-10] MEDS ORDERED: Sodium Chloride 0.9% 2.5 ML Syringe FLUSH PRN (12:07)
[2017-08-10] MEDS ORDERED: Sodium Chloride 0.9% 10 ML Syringe FLUSH PRN (12:07)
[2017-08-10] MEDS ORDERED: Sodium Chloride 0.9% 1,000 ML IV SCH (12:15)
--- NOTE | 2017-08-10 12:15 | EDM.PDOC ---
ED HPI GENERAL MEDICAL PROBLEM - General Chief Complaint: Neuro Symptoms/Deficits Stated Complaint: CONFUSION Time Seen by Provider: 08/10/17 11:51 - History of Present Illness INITIAL COMMENTS - FREE TEXT/NARRATIVE: HISTORY AND PHYSICAL: History of present illness: The patient is a 67-year-old female with a history of A. 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 Caldwell, hypothyroidism hypercholesterolemia non-insulin dependent diabetes and presents with family initially stating that she started having confusion and "feeling fuzzy" at about 12 midnight last night. In talking with the and sister at bedside this is actually been going on for the last one month waxing and waning in intensity and they feel like it got worse last evening. According to the she woke up at 12 midnight to go to the bathroom and she was picking up the phone trying to make a phone call to her old job in [place]. The patient tells me she thought maybe she would be going to the fair and that's why she felt fuzzy because she knew that the fair was not going on at night. According to the sister she had a conversation with the patient yesterday at 3 PM and the patient thought that the month was January. The sister and her spouse due to me that this waxes and wanes and they've been trying to get her into see a provider and in the past she has seen Lorena Erwin in our clinic but she was being resistant to coming in for help. They feel that it has worsened over the last few days. The patient has not had any falls according to the family nor has she hit her head or passed out. She denies any headache chest pain shortness of breath fever chills nausea vomiting urinary symptoms or diarrhea. She denies any neck or back pain. The family has not noticed any focal weakness and her speech is not slurred nor she had a facial droop. During the course of my evaluation of the patient and examination I did notice some old bruising at the anterior aspect of her left hip and she tells me that she had a fall a few days ago. She must of had a fall a month or 2 ago because in the computer she does have an old healing fibula fracture and according to the family she is supposed to be wearing a walking boot which she is not wearing. The family also tells me she is not eating and drinking much and she has had some nausea according to the in the last few weeks but the patient does not admit to that but says she just doesn't have an appetite. In fact today she has only had one small glass of orange juice. She denies any abdominal pain. The family tells me that this occurred once before in the past and she was diagnosed with a low magnesium level. Review of systems: As per history of present illness and below otherwise all systems reviewed and negative. Past medical history: As per history of present illness and as reviewed below otherwise noncontributory. Surgical history: As per history of present illness and as reviewed below otherwise noncontributory. Social history: No reported history of drug or alcohol abuse. Family history: As per history of present illness and as reviewed below otherwise noncontributory. Physical exam: Gen.: Well-developed well-nourished female who is speaking clearly and easily and vital signs are noted by me. HEENT: Atraumatic, normocephalic, pupils reactive, negative for conjunctival pallor or scleral icterus, mucous membranes moist, throat clear, neck supple, nontender, trachea midline. Lungs: Clear to auscultation, breath sounds equal bilaterally, chest nontender. Heart: S1S2, regular rate on my evaluation but irregular rhythm consistent with her A. fib history, negative for clicks, rubs, or JVD. Abdomen: Soft, nondistended, nontender. Negative for masses or hepatosplenomegaly. Negative for costovertebral tenderness. Pelvis: Stable nontender. Genitourinary: Deferred. Rectal: Deferred. Extremities: Atraumatic, negative for cords or calf pain. Neurovascular unremarkable. Full range of motion without defects or deficits and no pedal edema. At the anterior aspect of the left hip area there is a resolving old looking ecchymosis without any palpable bony deformities and the patient has full range of motion of the left hip. Neuro: Awake, alert, oriented. Cranial nerves II through XII unremarkable. Cerebellum unremarkable. Motor and sensory unremarkable throughout. Exam nonfocal. Paediatric Surgeon strength and motor is intact 5/5 throughout dorsi and plantar flexion is intact 5/5 and patient moves easily without assistance. Back: there are no midline step-offs tenderness defects of the cervical thoracic or lumbar spine no posterior rib or posterior pelvis tenderness and no soft tissue injuries are seen. Skin: Turgor is normal and there is no evidence of any bruising rashes or lesions seen with the exception of the anterior left hip as documented above Diagnostics: EKG CT scan of the head chest x-ray CBC CMP INR magnesium level troponin UA TSH NIHSS digoxin level and phosphorus level Prior EKG from February 07, 2017 was also reviewed Therapeutics: IV O2 monitor gentle IV fluids magnesium 1315: Case was discussed with our hospitalist Dr. Aguilera who would like me to add a phosphorus level to the labs and is aware that the dig level and UA is still pending. He is aware of all testing results and that I will be giving magnesium 2 g IV he requested I place the patient in observation admission Impression: Progressive confusion, poor appetite and by mouth intake, hypomagnesemia, abnormal TSH with history of hypothyroidism Definitive disposition and diagnosis as appropriate pending reevaluation and review of above. - Related Data Allergies Allergy/AdvReac Type Severity Reaction Status Date / Time No Known Allergies Allergy Verified 08/10/17 11:47 Home Meds: Home Meds Allopurinol [Zyloprim] 100 mg PO DAILY 02/07/17 [History] Cholecalciferol (Vitamin D3) [Vitamin D3] 1,000 unit PO BID 02/07/17 [History] Digoxin 0.125 mg PO DAILY 02/07/17 [History] Levothyroxine [Synthroid] 100 mcg PO DAILY 02/07/17 [History] atorvaSTATin [Lipitor] 40 mg PO BEDTIME 02/07/17 [History] metFORMIN [Glucophage] 500 mg PO BIDMEALS 02/07/17 [History] Diltiazem HCl [Cartia Xt] 240 mg PO DAILY #30 cap.er.24h 02/08/17 [Rx] Rivaroxaban [Xarelto] 20 mg PO DAILY #30 tablet 02/08/17 [Rx] Calcium Carbonate [Calcium] 1,200 mg PO BID 08/10/17 [History] Past Medical History Cardiovascular History: Reports: Arrhythmia, High Cholesterol 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: Endocrine/Metabolic History: Reports: Diabetes, Type II Hematologic History: Reports: Blood Transfusion(s) - Infectious Disease History Infectious Disease History: Reports: Chicken Pox, Measles - Past Surgical History HEENT Surgical History: Reports: Other (See Below) Other HEENT Surgeries/Procedures: wears eyeglasses Cardiovascular Surgical History: Reports: None Social & Family History - Family History Family Medical History: Noncontributory - Tobacco Use Smoking Status *Q: Never Smoker Second Hand Smoke Exposure: No - Caffeine Use Caffeine Use: Reports: None - Alcohol Use Days Per Week of Alcohol Use: 0 Number of Drinks Per Day: 1 Total Drinks Per Week: 0 - Recreational Drug Use Recreational Drug Use: No ED ROS GENERAL - Review of Systems Review Of Systems: ROS reveals no pertinent complaints other than HPI. ED EXAM, GENERAL - Physical Exam Exam: See Below (The dictation) Course - Vital Signs Last Recorded V/S: Last Vital Signs Temp 37.0 C 08/10/17 11:48 Pulse 100 08/10/17 11:48 Resp 16 08/10/17 11:48 BP 123/74 08/10/17 11:48 Pulse Ox 95 08/10/17 11:48 - Orders/Labs/Meds Orders: Active Orders 24 hr Category Date Time Status Cardiac Monitoring [RC] . DIRECTED Care 08/10/17 12:06 Active Communication Order [RC] STAT Care 08/10/17 12:07 Active EKG Documentation Completion [RC] STAT Care 08/10/17 12:06 Active Oxygen Therapy, ED [RC] ASDIRECTED Care 08/10/17 12:06 Active Pulse Oximetry [RC] ASDIRECTED Care 08/10/17 12:06 Active DIGOXIN [CHEM] Stat Lab 08/10/17 13:16 Ordered PHOSPHORUS [CHEM] Stat Lab 08/10/17 13:20 Ordered UA W/MICROSCOPIC [URIN] Stat Lab 08/10/17 12:06 Ordered Magnesium Sulfate/Water [Magnesium Sulfate 2 GM in Med 08/10/17 13:14 Active Water 50 ML] 2 gm Premix Bag 1 bag IV ONETIME Sodium Chloride 0.9% [Normal Saline] 1,000 ml Med 08/10/17 12:15 Active IV ASDIRECTED Sodium Chloride 0.9% [Saline Flush] Med 08/10/17 12:07 Active 10 ml FLUSH ASDIRECTED PRN Sodium Chloride 0.9% [Saline Flush] Med 08/10/17 12:07 Active 2.5 ml FLUSH ASDIRECTED PRN Saline Lock Insert [OM.PC] Stat Oth 08/10/17 12:06 Ordered Medication Orders Sodium Chloride (Normal Saline) 1,000 mls @ 125 mls/hr IV ASDIRECTED SOULEYMANE Last Admin: 03/02/18 12:13 Dose: 125 mls/hr Magnesium Sulfate 2 gm/ Premix 50 mls @ 25 mls/hr IV ONETIME ONE Stop: 08/10/17 15:13 Sodium Chloride (Saline Flush) 10 ml FLUSH ASDIRECTED PRN PRN Reason: Keep Vein Open Sodium Chloride (Saline Flush) 2.5 ml FLUSH ASDIRECTED PRN PRN Reason: Keep Vein Open Labs: Laboratory Tests 08/10/17 08/10/17 08/10/17 Range/Units 12:15 12:15 12:15 WBC 7.38 (4.0-11.0) K/uL RBC 4.20 L (4.30-5.90) M/uL Hgb 14.8 (12.0-16.0) g/dL Hct 41.6 (36.0-46.0) % MCV 99.0 H (80.0-98.0) fL MCH 35.2 H (27.0-32.0) pg MCHC 35.6 (31.0-37.0) g/dL RDW Std Deviation 55.2 (28.0-62.0) fl RDW Coeff of Aruna 15 (11.0-15.0) % Plt Count 216 (150-400) K/uL MPV 10.50 (7.40-12.00) fL Neut % (Auto) 81.8 H (48.0-80.0) % Lymph % (Auto) 7.0 L (16.0-40.0) % [place] % (Auto) 11.1 (0.0-15.0) % Eos % (Auto) 0.0 (0.0-7.0) % Baso % (Auto) 0.1 (0.0-1.5) % Neut # (Auto) 6.0 H (1.4-5.7) K/uL Lymph # (Auto) 0.5 L (0.6-2.4) K/uL [place] # (Auto) 0.8 (0.0-0.8) K/uL Eos # (Auto) 0.0 (0.0-0.7) K/uL Baso # (Auto) 0.0 (0.0-0.1) K/uL Nucleated RBC % 0.0 /100WBC Nucleated RBCs # 0 K/uL INR 1.05 Sodium 132 L (136-145) mmol/L Potassium 3.4 L (3.5-5.1) mmol/L Chloride 91 L (98-107) mmol/L Carbon Dioxide 29.9 (21.0-32.0) mmol/L BUN 12 (7.0-18.0) mg/dL Creatinine 0.9 (0.6-1.0) mg/dL Est Cr Clr Drug Dosing TNP Estimated GFR (MDRD) > 60.0 ml/min Glucose 148 H (74-106) mg/dL Calcium 10.6 H (8.5-10.1) mg/dL Magnesium 0.7 L (1.5-2.0) mg/dL Total Bilirubin 1.8 H (0.2-1.0) mg/dL AST 55 H (15-37) U/L ALT 59 (14-63) U/L Alkaline Phosphatase 120 H (46-116) U/L Troponin I < 0.050 (0.000-0.056) ng/mL Total Protein 7.2 (6.4-8.2) g/dL Albumin 4.0 (3.4-5.0) g/dL Globulin 3.2 (2.0-3.5) g/dL Albumin/Globulin Ratio 1.3 (1.3-2.8) TSH 3rd Generation 4.61 H (0.36-3.74) uIU/mL Meds: Medications Generic Name Dose Route Start Last Admin Trade Name Freq PRN Reason Stop Dose Admin Sodium Chloride 1,000 mls @ 125 mls/hr 08/10/17 12:15 08/10/17 12:13 Normal Saline IV 125 mls/hr ASDIRECTED SOULEYMANE Administration Magnesium Sulfate 2 gm/ Premix 50 mls @ 25 mls/hr 08/10/17 13:14 IV 08/10/17 15:13 ONETIME ONE Sodium Chloride 10 ml 08/10/17 12:07 Saline Flush FLUSH ASDIRECTED PRN Keep Vein Open Sodium Chloride 2.5 ml 08/10/17 12:07 Saline Flush FLUSH ASDIRECTED PRN Keep Vein Open Departure - Departure Time of Disposition: 13:23 Disposition: Refer to Observation Condition: Good Clinical Impression: Confusion, Hypomagnesemia, Abnormal thyroid function test - Discharge Information Referrals: PCP,None [Primary Care Provider] - Forms: ED Department Discharge - My Orders Last 24 Hours: My Active Orders 08/10/17 12:06 Cardiac Monitoring [RC] . DIRECTED EKG Documentation Completion [RC] STAT Oxygen Therapy, ED [RC] ASDIRECTED Pulse Oximetry [RC] ASDIRECTED UA W/MICROSCOPIC [URIN] Stat Saline Lock Insert [OM.PC] Stat 08/10/17 12:07 Communication Order [RC] STAT Sodium Chloride 0.9% [Saline Flush] 10 ml FLUSH ASDIRECTED PRN Sodium Chloride 0.9% [Saline Flush] 2.5 ml FLUSH ASDIRECTED PRN 08/10/17 12:15 Sodium Chloride 0.9% [Normal Saline] 1,000 ml IV ASDIRECTED 08/10/17 13:14 Magnesium Sulfate/Water [Magnesium Sulfate 2 GM in Water 50 ML] 2 gm Premix Bag 1 bag IV ONETIME 08/10/17 13:16 DIGOXIN [CHEM] Stat 08/10/17 13:20 PHOSPHORUS [CHEM] Stat - Assessment/Plan Last 24 Hours: My Active Orders 08/10/17 12:06 Cardiac Monitoring [RC] . DIRECTED EKG Documentation Completion [RC] STAT Oxygen Therapy, ED [RC] ASDIRECTED Pulse Oximetry [RC] ASDIRECTED UA W/MICROSCOPIC [URIN] Stat Saline Lock Insert [OM.PC] Stat 08/10/17 12:07 Communication Order [RC] STAT Sodium Chloride 0.9% [Saline Flush] 10 ml FLUSH ASDIRECTED PRN Sodium Chloride 0.9% [Saline Flush] 2.5 ml FLUSH ASDIRECTED PRN 08/10/17 12:15 Sodium Chloride 0.9% [Normal Saline] 1,000 ml IV ASDIRECTED 08/10/17 13:14 Magnesium Sulfate/Water [Magnesium Sulfate 2 GM in Water 50 ML] 2 gm Premix Bag 1 bag IV ONETIME 08/10/17 13:16 DIGOXIN [CHEM] Stat 08/10/17 13:20 PHOSPHORUS [CHEM] Stat
--- NOTE | 2017-08-10 12:55 | CR ---
EXAMINATION: Portable chest radiograph. HISTORY: Shortness of breath. FINDINGS: The trachea is midline. The cardiomediastinal silhouette is within normal limits. No pulmonary infilt rates, effusions or pneumothorax. Osseous structures appear unremarkable. IMPRESSION: No acute cardiopulmonary process.
[2017-08-10 12:56] LABS: CHLORIDE,CL 91 mmol/L (98-107); SODIUM,NA 132 mmol/L (136-145)
--- NOTE | 2017-08-10 12:58 | CT ---
EXAMINATION: Non contrast CT head. Coronal and sagittal reformats. HISTORY: Pain FINDINGS: No evidence of intra or extra axial hemorrhage, mass, midline shift, hydrocephalus or edema. Mild ge neralized atrophy. Old lacunar infarcts are noted. No hypoattenuation changes in the major vascular territories to suggest acute infarct. No abnormal intracranial calcifications are detected. Mild vascular calcifications. Paranasal sinuses and mastoid air cells are well aerated without substantial findings. Moderate dege nerative changes noted within the right temporomandibular joint. Pituitary fossa appears unremarkable. Calvarium is intact. No evidence of skull fracture. IMPRESSION: 1. No acute intracranial findings. 2. Moderate generalized atrophy. 3. Tiny old lacunar infarcts within the basal ganglia.
[2017-08-10] MEDS ORDERED: Magnesium Sulfate/Water 2 GM in Premix Bag 1 BAG IV ONE (13:14)
[2017-08-10] MEDS: Insulin Aspart 100 Units/ML 3 ML Pen SUBCUT SCH (17:05)
[2017-08-10] MEDS ORDERED: Potassium Chloride 20 MEQ Tab.ER PO ONE (17:51)
[2017-08-10] MEDS ORDERED: Magnesium Sulfate/Water 4 GM in Premix Bag 1 BAG IV ONE (17:51)
[2017-08-10] MEDS: Phosphorus #1 250 MG Tab PO SCH (18:19)
[2017-08-10] MEDS ORDERED: LORazepam 2 MG/ML SDV IVPUSH PRN (19:32)
[2017-08-10] MEDS ORDERED: Ondansetron 4 MG/2 ML SDV IVPUSH PRN (19:33)
--- NOTE | 2017-08-10 19:36 | PCM.HP ---
H&P History of Present Illness - History of Present Illness Initial Comments - Free Text/Narative: 67 yo female with pmh of atrial fibrillation who was brought to the ED due to concerns of and sister. They report over the past a decline in her memory and increase in confusion. Today she thought she was in [place]. She does have a history of alcohol use and has been cutting back recently. The reports he took away her alcohol last week. She reports dizziness and generalized weakness. She thinks she has been in the hospital for two days but she has only just been admitted. Family reports she has a poor apatite and has lost weight over the past several months. - Related Data Allergies/Adverse Reactions: Allergies Allergy/AdvReac Type Severity Reaction Status Date / Time No Known Allergies Allergy Verified 08/10/17 11:47 Home Medications: Home Meds Allopurinol [Zyloprim] 100 mg PO DAILY 02/07/17 [History] Cholecalciferol (Vitamin D3) [Vitamin D3] 1,000 unit PO BID 02/07/17 [History] Digoxin 0.125 mg PO DAILY 02/07/17 [History] Levothyroxine [Synthroid] 100 mcg PO DAILY 02/07/17 [History] atorvaSTATin [Lipitor] 40 mg PO BEDTIME 02/07/17 [History] metFORMIN [Glucophage] 500 mg PO BIDMEALS 02/07/17 [History] Diltiazem HCl [Cartia Xt] 240 mg PO DAILY #30 cap.er.24h 02/08/17 [Rx] Rivaroxaban [Xarelto] 20 mg PO DAILY #30 tablet 02/08/17 [Rx] Calcium Carbonate [Calcium] 1,200 mg PO BID 08/10/17 [History] Past Medical History Cardiovascular History: Reports: Arrhythmia, High Cholesterol 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: Endocrine/Metabolic History: Reports: Diabetes, Type II Hematologic History: Reports: Blood Transfusion(s) - Infectious Disease History Infectious Disease History: Reports: Chicken Pox, Measles - Past Surgical History HEENT Surgical History: Reports: Other (See Below) Other HEENT Surgeries/Procedures: wears eyeglasses Cardiovascular Surgical History: Reports: None Social & Family History - Family History Family Medical History: Noncontributory - Tobacco Use Smoking Status *Q: Never Smoker Second Hand Smoke Exposure: No - Caffeine Use Caffeine Use: Reports: None - Alcohol Use Days Per Week of Alcohol Use: 0 Number of Drinks Per Day: 1 Total Drinks Per Week: 0 - Recreational Drug Use Recreational Drug Use: No H&P Review of Systems - Review of Systems: Review Of Systems: ROS reveals no pertinent complaints other than HPI. Exam - Exam Exam: See Below - Vital Signs Vital Signs: Last Vital Signs Temp 36.1 C 08/10/17 16:00 Pulse 67 08/10/17 16:00 Resp 16 08/10/17 16:00 BP 123/74 08/10/17 16:00 Pulse Ox 98 08/10/17 16:00 Weight: 65.272 kg - Exam General: Oriented (to year and town) HEENT: Mucosa Moist & [place] Neck: Supple, Trachea Midline Lungs: Clear to Auscultation, Normal Respiratory Effort - Patient Data Lab Results Last 24 hrs: Laboratory Results - last 24 hr 08/10/17 Range/Units 17:07 Magnesium 1.3 L (1.5-2.0) mg/dL Result Diagrams: 08/12/17 05:37 08/12/17 05:11 *Q Meaningful Use (ADM) - VTE *Q VTE Criteria *Q: - Stroke *Q Stroke Criteria *Q: - AMI *Q AMI Criteria *Q: Problem List Initiated/Reviewed/Updated: Yes Orders Last 24hrs: Active Orders 24 hr Category Date Time Status Antiembolic Devices [RC] PER UNIT ROUTINE Care 08/10/17 19:34 Ordered Blood Glucose Check, Bedside [RC] TIDAC Care 08/10/17 17:00 Active Oxygen Therapy [RC] PRN Care 08/10/17 19:33 Ordered VTE/DVT Education [RC] PER UNIT ROUTINE Care 08/10/17 19:33 Ordered Vital Signs [RC] Q4H Care 08/10/17 19:33 Ordered ADA Diabetic [[place] [employer] Diet] [DIET Diet 08/10/17 Dinner Active ] CBC W/O DIFF,HEMOGRAM [HEME] AM Lab 08/11/17 05:11 Ordered COMPREHENSIVE METABOLIC PN,CMP [CHEM] AM Lab 08/11/17 05:11 Ordered MAGNESIUM [CHEM] AM Lab 08/11/17 05:11 Ordered PHOSPHORUS [CHEM] AM Lab 08/11/17 05:11 Ordered Acetaminophen [Tylenol] Med 08/10/17 19:33 Ordered 650 mg PO Q4H PRN Diltiazem Med 08/11/17 09:00 Ordered 240 mg PO DAILY Folic Acid Med 08/10/17 21:00 Ordered 1 mg PO BEDTIME Insulin Aspart [NovoLOG] Med 08/10/17 17:00 Active See Protocol SUBCUT TIDAC LORazepam [Ativan] Med 08/10/17 19:32 Ordered See Protocol IVPUSH Q4H PRN Levothyroxine [Synthroid] Med 08/11/17 09:00 Ordered 100 mcg PO DAILY Magnesium Sulfate/Water [Magnesium Sulfate 4 GM in Med 08/10/17 17:51 Active Water 100 ML] 4 gm Premix Bag 1 bag IV ONETIME Ondansetron [Zofran] Med 08/10/17 19:33 Ordered 4 mg IVPUSH Q4H PRN Phosphorus #1 [Neutra-Phos] Med 08/10/17 18:00 Active 250 mg PO QID Rivaroxaban [Xarelto] Med 08/11/17 09:00 Ordered 20 mg PO DAILY Thiamine [Vitamin B-1] Med 08/10/17 21:00 Ordered 100 mg PO BEDTIME atorvaSTATin [Lipitor] Med 08/10/17 21:00 Ordered 40 mg PO BEDTIME Sequential Compression Device [OM.PC] Per Unit Routine Oth 08/10/17 19:33 Ordered Resuscitation Status Routine Resus Stat 08/10/17 19:33 Ordered Medication Orders Atorvastatin Calcium (Lipitor) 40 mg PO BEDTIME [facility] Folic Acid (Folic Acid) 1 mg PO BEDTIME [facility] Magnesium Sulfate 4 gm/ Premix 100 mls @ 50 mls/hr IV ONETIME ONE Stop: 08/10/17 19:50 Last Admin: 08/10/17 18:16 Dose: 50 mls/hr Insulin Aspart (Novolog) 0 unit SUBCUT TIDAC [facility] PRN Reason: Protocol Last Admin: 08/10/17 17:05 Dose: Not Given Levothyroxine Sodium (Synthroid) 100 mcg PO DAILY [facility] Lorazepam (Ativan) 0 mg IVPUSH Q4H PRN; Protocol PRN Reason: agitation Non-Formulary Medication (Diltiazem) 240 mg PO DAILY [facility] Non-Formulary Medication (Rivaroxaban [Xarelto]) 20 mg PO DAILY [facility] Sodium Chloride (Saline Flush) 10 ml FLUSH ASDIRECTED PRN PRN Reason: Keep Vein Open Sodium Chloride (Saline Flush) 2.5 ml FLUSH ASDIRECTED PRN PRN Reason: Keep Vein Open Sodium Phosphate (Neutra-Phos) 250 mg PO QID [facility] Last Admin: 08/10/17 18:19 Dose: 250 mg Thiamine HCl (Vitamin B-1) 100 mg PO BEDTIME [facility] Assessment/Plan Comment:: 67 yo female admitted for altered mental status, this could be due to alcohol abuse, metabolic due to electrolyte abnormalities, depression, or beginning of dementia. We will replace her potassium, phosphate and magnesium. Will monitor on CIWA protocol with thiamin and folic acid.
[2017-08-10] MEDS: atorvaSTATin 40 MG Tab PO SCH (20:13)
[2017-08-10] MEDS: Folic Acid 1 MG Tab PO SCH (20:13)
[2017-08-10] MEDS: Thiamine 100 MG Tab PO SCH (20:13)
[2017-08-11] MEDS: Phosphorus #1 250 MG Tab PO SCH ×4 (00:27→17:22)
[2017-08-11] MEDS: Acetaminophen 325 MG Tab PO PRN ×2 (04:53→17:26)
[2017-08-11 06:27] LABS: CHLORIDE,CL 99 mmol/L (98-107); SODIUM,NA 138 mmol/L (136-145)
[2017-08-11] MEDS: Insulin Aspart 100 Units/ML 3 ML Pen SUBCUT SCH ×3 (07:22→17:27)
[2017-08-11] MEDS ORDERED: Levothyroxine 100 MCG Tab PO SCH (09:00)
[2017-08-11] MEDS: Rivaroxaban 10 MG Tab PO SCH (09:39)
[2017-08-11] MEDS: Diltiazem 120 MG Cap.CD PO SCH (09:39)
[2017-08-11] MEDS ORDERED: Potassium Phosphates 20 MMOLE in Sodium Chloride 0.9% 250 ML IV SCH (13:00)
--- NOTE | 2017-08-11 14:15 | PCM.PN ---
- General Info Date of Service: 08/11/17 Admission Dx/Problem (Free Text): Patient is more awake and alert currently, still slightly confused on and off, she and I spoke to her regards to her medication Asking me if I was going to restart after every couple of minutes. She is unsure as to how much alcohol she has been drinking how her family that was present since that she has been drinking quite a lot. She is complaining of left knee pain with a recent abrasion in place. - Review of Systems General: Reports: Weakness, Fatigue - Patient Data Vitals - Most Recent: Last Vital Signs Temp 36.7 C 08/11/17 12:00 Pulse 51 L 08/11/17 12:00 Resp 14 08/11/17 12:00 BP 111/62 08/11/17 12:00 Pulse Ox 93 L 08/11/17 12:00 Weight - Most Recent: 65.272 kg I&O - Last 24 Hours: Intake & Output 08/10/17 08/11/17 08/11/17 22:59 06:59 14:59 Intake Total 150 670 Output Total 550 Balance 150 120 Lab Results Last 24 Hours: Laboratory Results - last 24 hr 08/10/17 08/10/17 08/10/17 Range/Units 16:34 17:07 17:07 WBC (4.0-11.0) K/uL RBC (4.30-5.90) M/uL Hgb (12.0-16.0) g/dL Hct (36.0-46.0) % MCV (80.0-98.0) fL MCH (27.0-32.0) pg MCHC (31.0-37.0) g/dL RDW Std Deviation (28.0-62.0) fl RDW Coeff of Aruna (11.0-15.0) % Plt Count (150-400) K/uL MPV (7.40-12.00) fL Nucleated RBC % /100WBC Nucleated RBCs # K/uL Sodium (136-145) mmol/L Potassium (3.5-5.1) mmol/L Chloride (98-107) mmol/L Carbon Dioxide (21.0-32.0) mmol/L BUN (7.0-18.0) mg/dL Creatinine (0.6-1.0) mg/dL Est Cr Clr Drug Dosing mL/min Estimated GFR (MDRD) ml/min Glucose (74-106) mg/dL POC Glucose 125 H (60-110) mg/dL Calcium (8.5-10.1) mg/dL Phosphorus (2.6-4.7) mg/dL Magnesium 1.3 L (1.5-2.0) mg/dL Total Bilirubin (0.2-1.0) mg/dL AST (15-37) U/L ALT (14-63) U/L Alkaline Phosphatase (46-116) U/L Total Protein (6.4-8.2) g/dL Albumin (3.4-5.0) g/dL Globulin (2.0-3.5) g/dL Albumin/Globulin Ratio (1.3-2.8) Urine Opiates Screen (NEGATIVE) Ur Oxycodone Screen (NEGATIVE) Urine Methadone Screen (NEGATIVE) Ur Barbiturates Screen (NEGATIVE) Ur Phencyclidine Scrn (NEGATIVE) Ur Amphetamine Screen (NEGATIVE) U Methamphetamines Scrn (NEGATIVE) U Benzodiazepines Scrn (NEGATIVE) U Cocaine Metab Screen (NEGATIVE) U Marijuana (THC) Screen (NEGATIVE) Ethyl Alcohol <3 mg/dL 08/11/17 08/11/17 08/11/17 Range/Units 00:20 05:36 05:36 WBC 7.03 (4.0-11.0) K/uL RBC 3.71 L (4.30-5.90) M/uL Hgb 12.9 (12.0-16.0) g/dL Hct 37.3 (36.0-46.0) % MCV 100.5 H (80.0-98.0) fL MCH 34.8 H (27.0-32.0) pg MCHC 34.6 (31.0-37.0) g/dL RDW Std Deviation 56.3 (28.0-62.0) fl RDW Coeff of Aruna 15 (11.0-15.0) % Plt Count 206 (150-400) K/uL MPV 10.80 (7.40-12.00) fL Nucleated RBC % 0.0 /100WBC Nucleated RBCs # 0 K/uL Sodium 138 (136-145) mmol/L Potassium 3.3 L (3.5-5.1) mmol/L Chloride 99 (98-107) mmol/L Carbon Dioxide 33.4 H (21.0-32.0) mmol/L BUN 8 (7.0-18.0) mg/dL Creatinine 0.7 (0.6-1.0) mg/dL Est Cr Clr Drug Dosing 62.53 mL/min Estimated GFR (MDRD) > 60.0 ml/min Glucose 102 (74-106) mg/dL POC Glucose (60-110) mg/dL Calcium 8.8 (8.5-10.1) mg/dL Phosphorus 1.2 L (2.6-4.7) mg/dL Magnesium 1.5 (1.5-2.0) mg/dL Total Bilirubin 1.3 H (0.2-1.0) mg/dL AST 44 H (15-37) U/L ALT 54 (14-63) U/L Alkaline Phosphatase 95 (46-116) U/L Total Protein 6.3 L (6.4-8.2) g/dL Albumin 3.2 L (3.4-5.0) g/dL Globulin 3.1 (2.0-3.5) g/dL Albumin/Globulin Ratio 1.0 L (1.3-2.8) Urine Opiates Screen NEGATIVE (NEGATIVE) Ur Oxycodone Screen NEGATIVE (NEGATIVE) Urine Methadone Screen NEGATIVE (NEGATIVE) Ur Barbiturates Screen NEGATIVE (NEGATIVE) Ur Phencyclidine Scrn NEGATIVE (NEGATIVE) Ur Amphetamine Screen NEGATIVE (NEGATIVE) U Methamphetamines Scrn NEGATIVE (NEGATIVE) U Benzodiazepines Scrn NEGATIVE (NEGATIVE) U Cocaine Metab Screen NEGATIVE (NEGATIVE) U Marijuana (THC) Screen NEGATIVE (NEGATIVE) Ethyl Alcohol mg/dL 08/11/17 Range/Units 06:05 WBC (4.0-11.0) K/uL RBC (4.30-5.90) M/uL Hgb (12.0-16.0) g/dL Hct (36.0-46.0) % MCV (80.0-98.0) fL MCH (27.0-32.0) pg MCHC (31.0-37.0) g/dL RDW Std Deviation (28.0-62.0) fl RDW Coeff of Aruna (11.0-15.0) % Plt Count (150-400) K/uL MPV (7.40-12.00) fL Nucleated RBC % /100WBC Nucleated RBCs # K/uL Sodium (136-145) mmol/L Potassium (3.5-5.1) mmol/L Chloride (98-107) mmol/L Carbon Dioxide (21.0-32.0) mmol/L BUN (7.0-18.0) mg/dL Creatinine (0.6-1.0) mg/dL Est Cr Clr Drug Dosing mL/min Estimated GFR (MDRD) ml/min Glucose (74-106) mg/dL POC Glucose 99 (60-110) mg/dL Calcium (8.5-10.1) mg/dL Phosphorus (2.6-4.7) mg/dL Magnesium (1.5-2.0) mg/dL Total Bilirubin (0.2-1.0) mg/dL AST (15-37) U/L ALT (14-63) U/L Alkaline Phosphatase (46-116) U/L Total Protein (6.4-8.2) g/dL Albumin (3.4-5.0) g/dL Globulin (2.0-3.5) g/dL Albumin/Globulin Ratio (1.3-2.8) Urine Opiates Screen (NEGATIVE) Ur Oxycodone Screen (NEGATIVE) Urine Methadone Screen (NEGATIVE) Ur Barbiturates Screen (NEGATIVE) Ur Phencyclidine Scrn (NEGATIVE) Ur Amphetamine Screen (NEGATIVE) U Methamphetamines Scrn (NEGATIVE) U Benzodiazepines Scrn (NEGATIVE) U Cocaine Metab Screen (NEGATIVE) U Marijuana (THC) Screen (NEGATIVE) Ethyl Alcohol mg/dL Med Orders - Current: Current Medications Acetaminophen (Tylenol) 650 mg PO Q4H PRN PRN Reason: Pain (Mild 1-3)/fever Last Admin: 08/11/17 04:53 Dose: 650 mg Atorvastatin Calcium (Lipitor) 40 mg PO BEDTIME [facility] Last Admin: 08/10/17 20:13 Dose: 40 mg Diltiazem HCl (Cardizem Cd) 240 mg PO DAILY [facility] Last Admin: 08/11/17 09:39 Dose: 240 mg Folic Acid (Folic Acid) 1 mg PO BEDTIME [facility] Last Admin: 08/10/17 20:13 Dose: 1 mg Potassium Phosphate 20 mmole/ (Sodium Chloride) 256.6667 mls @ 42.778 mls/hr IV ONETIME [facility] Last Admin: 08/11/17 12:41 Dose: 42.778 mls/hr Insulin Aspart (Novolog) 0 unit SUBCUT TIDAC [facility] PRN Reason: Protocol Last Admin: 08/11/17 12:08 Dose: Not Given Levothyroxine Sodium (Synthroid) 100 mcg PO ACBREAKFAST [facility] Lorazepam (Ativan) 0 mg IVPUSH Q4H PRN; Protocol PRN Reason: agitation Ondansetron HCl (Zofran) 4 mg IVPUSH Q4H PRN PRN Reason: Nausea Rivaroxaban (Xarelto) 20 mg PO DAILY [facility] Last Admin: 08/11/17 09:39 Dose: 20 mg Sodium Chloride (Saline Flush) 10 ml FLUSH ASDIRECTED PRN PRN Reason: Keep Vein Open Sodium Chloride (Saline Flush) 2.5 ml FLUSH ASDIRECTED PRN PRN Reason: Keep Vein Open Sodium Phosphate (Neutra-Phos) 250 mg PO QID [facility] Last Admin: 08/11/17 11:05 Dose: 250 mg Thiamine HCl (Vitamin B-1) 100 mg PO BEDTIME [facility] Last Admin: 08/10/17 20:13 Dose: 100 mg Discontinued Medications Sodium Chloride (Normal Saline) 1,000 mls @ 125 mls/hr IV ASDIRECTED [facility] Last Infusion: 08/10/17 13:45 Dose: 999 mls/hr Magnesium Sulfate 2 gm/ Premix 50 mls @ 25 mls/hr IV ONETIME ONE Stop: 08/10/17 15:13 Last Admin: 08/10/17 13:51 Dose: 25 mls/hr Magnesium Sulfate 4 gm/ Premix 100 mls @ 50 mls/hr IV ONETIME ONE Stop: 08/10/17 19:50 Last Admin: 08/10/17 18:16 Dose: 50 mls/hr Levothyroxine Sodium (Synthroid) 100 mcg PO DAILY [facility] Last Admin: 08/11/17 09:39 Dose: 100 mcg Potassium Chloride (Klor-Con M20) 40 meq PO ONETIME ONE Stop: 08/10/17 17:52 Last Admin: 08/10/17 18:19 Dose: 40 meq - Exam Quality Assessment: Supplemental Oxygen General: Alert, Cooperative HEENT: Pupils Equal Lungs: Clear to Auscultation, Normal Respiratory Effort Cardiovascular: Regular Rate GI/Abdominal Exam: Normal Bowel Sounds Extremities: Other (Left knee abrasion) - Problem List Review Problem List Initiated/Reviewed/Updated: Yes - Plan Plan:: 67 yo female admitted for altered mental status, this could be due to alcohol abuse, metabolic due to electrolyte abnormalities, depression, or beginning of dementia. We will replace her potassium, phosphate and magnesium. Will monitor on CIWA protocol with thiamin and folic acid. Patient's low magnesium has corrected, Hypophosphatemia/hypokalemia:phosphorus at 1.2, potassium at 3.3, patient getting potassium phosphate 20 mmol IV Shall repeat a phosphorus level later in the day to assess levels. Shall continue to follow.
[2017-08-11] MEDS: atorvaSTATin 40 MG Tab PO SCH (20:07)
[2017-08-11] MEDS: Folic Acid 1 MG Tab PO SCH (20:07)
[2017-08-11] MEDS: Thiamine 100 MG Tab PO SCH (20:07)
[2017-08-12 06:02] LABS: CHLORIDE,CL 104 mmol/L (98-107); SODIUM,NA 143 mmol/L (136-145)
[2017-08-12] MEDS: Insulin Aspart 100 Units/ML 3 ML Pen SUBCUT SCH ×2 (06:47→11:51)
[2017-08-12] MEDS ORDERED: Levothyroxine 100 MCG Tab PO SCH (07:30)
[2017-08-12] MEDS: Rivaroxaban 10 MG Tab PO SCH (09:08)
[2017-08-12] MEDS: Diltiazem 120 MG Cap.CD PO SCH (09:08)
--- NOTE | 2017-08-12 12:20 | PCM.DCSUM1 ---
Discharge Summary - Discharge Data Discharge Date: 08/12/17 Discharge Disposition: Home, Self-Care 01 Condition: Good - Patient Summary/Data Hospital Course: 67 yo female with pmh of atrial fibrillation and alcohol abuse who was brought to the ED by her and sister due to concerns of altered mental status . They report over the past several months a decline in her memory and increase in confusion. She also has had a poor apatite and weight loss. Work up included a CT head, CXR, UA which were unremarkable. She was noted to have low potassium, magnesium and phosphate. Her took her alcohol away last week. She was placed on CIWA protocol but did not require any ativan or express withdrawal symptoms. Her confusion did improve but she did continue to have cognitive impairment. Family today is requesting her to be discharge home. She is to follow up with the family residency [facility]. - Patient Instructions Diet: Regular Diet as Tolerated, No Alcoholic Beverages - Discharge Plan Home Medications: Home Meds Allopurinol [Zyloprim] 100 mg PO DAILY 02/07/17 [History] Cholecalciferol (Vitamin D3) [Vitamin D3] 1,000 unit PO BID 02/07/17 [History] Digoxin 0.125 mg PO DAILY 02/07/17 [History] Levothyroxine [Synthroid] 100 mcg PO DAILY 02/07/17 [History] atorvaSTATin [Lipitor] 40 mg PO BEDTIME 02/07/17 [History] metFORMIN [Glucophage] 500 mg PO BIDMEALS 02/07/17 [History] Diltiazem HCl [Cartia Xt] 240 mg PO DAILY #30 cap.er.24h 02/08/17 [Rx] Rivaroxaban [Xarelto] 20 mg PO DAILY #30 tablet 02/08/17 [Rx] Calcium Carbonate [Calcium] 1,200 mg PO BID 08/10/17 [History] Forms: ED Department Discharge Referrals: PCP,None [Primary Care Provider] - - Patient Data Vitals - Most Recent: Last Vital Signs Temp 36.4 C 08/12/17 08:00 Pulse 69 08/12/17 09:08 Resp 12 08/12/17 08:00 BP 125/82 08/12/17 09:08 Pulse Ox 98 08/12/17 08:00 Weight - Most Recent: 65.272 kg I&O - Last 24 hours: Intake & Output 08/11/17 08/12/17 08/12/17 22:59 06:59 14:59 Intake Total 250 100 Output Total 800 Balance 250 -700 Lab Results - Last 24 hrs: Laboratory Results - last 24 hr 08/11/17 08/11/17 08/11/17 Range/Units 11:33 16:18 17:21 WBC (4.0-11.0) K/uL RBC (4.30-5.90) M/uL Hgb (12.0-16.0) g/dL Hct (36.0-46.0) % MCV (80.0-98.0) fL MCH (27.0-32.0) pg MCHC (31.0-37.0) g/dL RDW Std Deviation (28.0-62.0) fl RDW Coeff of Aruna (11.0-15.0) % Plt Count (150-400) K/uL MPV (7.40-12.00) fL Neut % (Auto) (48.0-80.0) % Lymph % (Auto) (16.0-40.0) % Leon % (Auto) (0.0-15.0) % Eos % (Auto) (0.0-7.0) % Baso % (Auto) (0.0-1.5) % Neut # (Auto) (1.4-5.7) K/uL Lymph # (Auto) (0.6-2.4) K/uL Leon # (Auto) (0.0-0.8) K/uL Eos # (Auto) (0.0-0.7) K/uL Baso # (Auto) (0.0-0.1) K/uL Nucleated RBC % /100WBC Nucleated RBCs # K/uL Sodium (136-145) mmol/L Potassium (3.5-5.1) mmol/L Chloride (98-107) mmol/L Carbon Dioxide (21.0-32.0) mmol/L BUN (7.0-18.0) mg/dL Creatinine (0.6-1.0) mg/dL Est Cr Clr Drug Dosing mL/min Estimated GFR (MDRD) ml/min Glucose (74-106) mg/dL POC Glucose 136 H 109 (60-110) mg/dL Calcium (8.5-10.1) mg/dL Phosphorus 4.2 (2.6-4.7) mg/dL 08/12/17 08/12/17 08/12/17 Range/Units 05:11 05:37 05:49 WBC 7.99 (4.0-11.0) K/uL RBC 3.90 L (4.30-5.90) M/uL Hgb 13.8 (12.0-16.0) g/dL Hct 39.9 (36.0-46.0) % MCV 102.3 H (80.0-98.0) fL MCH 35.4 H (27.0-32.0) pg MCHC 34.6 (31.0-37.0) g/dL RDW Std Deviation 57.9 (28.0-62.0) fl RDW Coeff of Aruna 15 (11.0-15.0) % Plt Count 191 (150-400) K/uL MPV 10.80 (7.40-12.00) fL Neut % (Auto) 76.7 (48.0-80.0) % Lymph % (Auto) 12.6 L (16.0-40.0) % Leon % (Auto) 8.9 (0.0-15.0) % Eos % (Auto) 1.3 (0.0-7.0) % Baso % (Auto) 0.5 (0.0-1.5) % Neut # (Auto) 6.1 H (1.4-5.7) K/uL Lymph # (Auto) 1.0 (0.6-2.4) K/uL Leon # (Auto) 0.7 (0.0-0.8) K/uL Eos # (Auto) 0.1 (0.0-0.7) K/uL Baso # (Auto) 0.0 (0.0-0.1) K/uL Nucleated RBC % 0.0 /100WBC Nucleated RBCs # 0 K/uL Sodium 143 (136-145) mmol/L Potassium 3.7 (3.5-5.1) mmol/L Chloride 104 (98-107) mmol/L Carbon Dioxide 32.7 H (21.0-32.0) mmol/L BUN 6 L (7.0-18.0) mg/dL Creatinine 0.8 (0.6-1.0) mg/dL Est Cr Clr Drug Dosing 54.71 mL/min Estimated GFR (MDRD) > 60.0 ml/min Glucose 109 H (74-106) mg/dL POC Glucose 115 H (60-110) mg/dL Calcium 9.0 (8.5-10.1) mg/dL Phosphorus (2.6-4.7) mg/dL 08/12/17 Range/Units 11:10 WBC (4.0-11.0) K/uL RBC (4.30-5.90) M/uL Hgb (12.0-16.0) g/dL Hct (36.0-46.0) % MCV (80.0-98.0) fL MCH (27.0-32.0) pg MCHC (31.0-37.0) g/dL RDW Std Deviation (28.0-62.0) fl RDW Coeff of Aruna (11.0-15.0) % Plt Count (150-400) K/uL MPV (7.40-12.00) fL Neut % (Auto) (48.0-80.0) % Lymph % (Auto) (16.0-40.0) % Leon % (Auto) (0.0-15.0) % Eos % (Auto) (0.0-7.0) % Baso % (Auto) (0.0-1.5) % Neut # (Auto) (1.4-5.7) K/uL Lymph # (Auto) (0.6-2.4) K/uL Leon # (Auto) (0.0-0.8) K/uL Eos # (Auto) (0.0-0.7) K/uL Baso # (Auto) (0.0-0.1) K/uL Nucleated RBC % /100WBC Nucleated RBCs # K/uL Sodium (136-145) mmol/L Potassium (3.5-5.1) mmol/L Chloride (98-107) mmol/L Carbon Dioxide (21.0-32.0) mmol/L BUN (7.0-18.0) mg/dL Creatinine (0.6-1.0) mg/dL Est Cr Clr Drug Dosing mL/min Estimated GFR (MDRD) ml/min Glucose (74-106) mg/dL POC Glucose 124 H (60-110) mg/dL Calcium (8.5-10.1) mg/dL Phosphorus (2.6-4.7) mg/dL Med Orders - Current: Current Medications Acetaminophen (Tylenol) 650 mg PO Q4H PRN PRN Reason: Pain (Mild 1-3)/fever Last Admin: 08/11/17 17:26 Dose: 650 mg Atorvastatin Calcium (Lipitor) 40 mg PO BEDTIME [facility] Last Admin: 08/11/17 20:07 Dose: 40 mg Diltiazem HCl (Cardizem Cd) 240 mg PO DAILY [facility] Last Admin: 08/12/17 09:08 Dose: 240 mg Folic Acid (Folic Acid) 1 mg PO BEDTIME [facility] Last Admin: 08/11/17 20:07 Dose: 1 mg Potassium Phosphate 20 mmole/ (Sodium Chloride) 256.6667 mls @ 42.778 mls/hr IV ONETIME [facility] Last Admin: 08/11/17 12:41 Dose: 42.778 mls/hr Insulin Aspart (Novolog) 0 unit SUBCUT TIDAC [facility] PRN Reason: Protocol Last Admin: 08/12/17 11:51 Dose: Not Given Levothyroxine Sodium (Synthroid) 100 mcg PO ACBREAKFAST [facility] Last Admin: 08/12/17 07:04 Dose: 100 mcg Lorazepam (Ativan) 0 mg IVPUSH Q4H PRN; Protocol PRN Reason: agitation Ondansetron HCl (Zofran) 4 mg IVPUSH Q4H PRN PRN Reason: Nausea Rivaroxaban (Xarelto) 20 mg PO DAILY [facility] Last Admin: 08/12/17 09:08 Dose: 20 mg Sodium Chloride (Saline Flush) 10 ml FLUSH ASDIRECTED PRN PRN Reason: Keep Vein Open Sodium Chloride (Saline Flush) 2.5 ml FLUSH ASDIRECTED PRN PRN Reason: Keep Vein Open Thiamine HCl (Vitamin B-1) 100 mg PO BEDTIME [facility] Last Admin: 08/11/17 20:07 Dose: 100 mg Discontinued Medications Sodium Chloride (Normal Saline) 1,000 mls @ 125 mls/hr IV ASDIRECTED [facility] Last Infusion: 08/10/17 13:45 Dose: 999 mls/hr Magnesium Sulfate 2 gm/ Premix 50 mls @ 25 mls/hr IV ONETIME ONE Stop: 08/10/17 15:13 Last Admin: 08/10/17 13:51 Dose: 25 mls/hr Magnesium Sulfate 4 gm/ Premix 100 mls @ 50 mls/hr IV ONETIME ONE Stop: 08/10/17 19:50 Last Admin: 08/10/17 18:16 Dose: 50 mls/hr Levothyroxine Sodium (Synthroid) 100 mcg PO DAILY [facility] Last Admin: 08/11/17 09:39 Dose: 100 mcg Potassium Chloride (Klor-Con M20) 40 meq PO ONETIME ONE Stop: 08/10/17 17:52 Last Admin: 08/10/17 18:19 Dose: 40 meq Sodium Phosphate (Neutra-Phos) 250 mg PO QID [facility] Last Admin: 08/11/17 17:22 Dose: 250 mg *Q Meaningful Use (DIS) - VTE *Q VTE Criteria *Q: - Stroke *Q Stroke Criteria *Q: - AMI *Q AMI Criteria *Q:
[2017-08-12 12:45] VITALS: BP 113/64
== END 2017-08-12 13:30 | disposition home or self-care (01) ==
LOC: MW.ED 11:20 → MW.MS 13:38
PROVIDERS: ADMIT Internal Medicine; ATTEND Internal Medicine
DX: E87.6 Hypokalemia (principal); E11.9 Type 2 diabetes mellitus without complications; E78.00 Pure hypercholesterolemia, unspecified; Z79.84 Long term (current) use of oral hypoglycemic drugs; Z79.899 Other long term (current) drug therapy; Z79.01 Long term (current) use of anticoagulants
CPT/HCPCS: 36415; 70450; 71045; 80048; 80053; 80162; 80305; 81001; 82962; 83735; 84100; 84443; 84484; 85025; 85027; 85610; 93005; 96361; 96365; 96366; 99285; A9270; G0378; G0480; J3475; J7040; J7050; 99284

== ENCOUNTER 2017-08-28 17:14 | Emergency (ER) | payer MEDICARE, OTHER ==
--- NOTE | 2017-08-28 17:19 | EDM.PDOC ---
ED HPI GENERAL MEDICAL PROBLEM - General Chief Complaint: Head Injury Stated Complaint: FALL/HIT HEAD Time Seen by Provider: 08/28/17 17:18 Source of Information: Reports: Patient - History of Present Illness INITIAL COMMENTS - FREE TEXT/NARRATIVE: HISTORY AND PHYSICAL: History of present illness: [Patient was awaiting an MRI of her head while in the dressing room where/ change room she fell striking her head presents to ER as such No fever nausea vomiting chills sweats no known loss of consciousness ] Review of systems: As per history of present illness and below otherwise all systems reviewed and negative. Past medical history: As per history of present illness and as reviewed below otherwise noncontributory. Surgical history: As per history of present illness and as reviewed below otherwise noncontributory. Social history: No reported history of drug or alcohol abuse. Family history: As per history of present illness and as reviewed below otherwise noncontributory. Physical exam: HEENT: Atraumatic, normocephalic, pupils reactive, negative for conjunctival pallor or scleral icterus, mucous membranes moist, throat clear, neck supple, nontender, trachea midline. Lungs: Clear to auscultation, breath sounds equal bilaterally, chest nontender. Heart: S1S2, regular, negative for clicks, rubs, or JVD. Abdomen: Soft, nondistended, nontender. Negative for masses or hepatosplenomegaly. Negative for costovertebral tenderness. Pelvis: Stable nontender. Genitourinary: Deferred. Rectal: Deferred. Extremities: Atraumatic, negative for cords or calf pain. Neurovascular unremarkable. Neuro: Awake, alert, oriented. Cranial nerves II through XII unremarkable. Cerebellum unremarkable. Motor and sensory unremarkable throughout. Exam nonfocal. Diagnostics: [Head CT ] Therapeutics: [] Impression: [Contusion Probable concussion] Definitive disposition and diagnosis as appropriate pending reevaluation and review of above. - Related Data Allergies Allergy/AdvReac Type Severity Reaction Status Date / Time No Known Allergies Allergy Verified 08/28/17 17:34 Home Meds: Home Meds Allopurinol [Zyloprim] 100 mg PO DAILY 02/07/17 [History] Cholecalciferol (Vitamin D3) [Vitamin D3] 1,000 unit PO BID 02/07/17 [History] Digoxin 0.125 mg PO DAILY 02/07/17 [History] Levothyroxine [Synthroid] 100 mcg PO DAILY 02/07/17 [History] atorvaSTATin [Lipitor] 40 mg PO BEDTIME 02/07/17 [History] metFORMIN [Glucophage] 500 mg PO BIDMEALS 02/07/17 [History] Diltiazem HCl [Cartia Xt] 240 mg PO DAILY #30 cap.er.24h 02/08/17 [Rx] Rivaroxaban [Xarelto] 20 mg PO DAILY #30 tablet 02/08/17 [Rx] Calcium Carbonate [Calcium] 1,200 mg PO BID 08/10/17 [History] Past Medical History Cardiovascular History: Reports: Arrhythmia, High Cholesterol 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: Endocrine/Metabolic History: Reports: Diabetes, Type II Hematologic History: Reports: Blood Transfusion(s) - Infectious Disease History Infectious Disease History: Reports: Chicken Pox, Measles - Past Surgical History HEENT Surgical History: Reports: Other (See Below) Other HEENT Surgeries/Procedures: wears eyeglasses Cardiovascular Surgical History: Reports: None Social & Family History - Family History Family Medical History: Noncontributory - Tobacco Use Smoking Status *Q: Never Smoker Second Hand Smoke Exposure: No - Caffeine Use Caffeine Use: Reports: None - Alcohol Use Days Per Week of Alcohol Use: 0 Number of Drinks Per Day: 1 Total Drinks Per Week: 0 - Recreational Drug Use Recreational Drug Use: No ED ROS GENERAL - Review of Systems Review Of Systems: ROS reveals no pertinent complaints other than HPI. ED EXAM, HEAD INJURY - Physical Exam Exam: See Below Course - Vital Signs Last Recorded V/S: Last Vital Signs Temp 97.4 F 08/28/17 17:45 Pulse 97 08/28/17 17:45 Resp 18 08/28/17 17:45 BP 120/69 08/28/17 17:45 Pulse Ox 92 L 08/28/17 17:45 - Orders/Labs/Meds Orders: Active Orders 24 hr Category Date Time Status Head wo Cont [CT] Stat Exams 08/28/17 17:15 Taken Departure - Departure Time of Disposition: 18:34 Disposition: Home, Self-Care 01 Condition: Good Clinical Impression: Contusion, Concussion with no loss of consciousness - Discharge Information Forms: ED Department Discharge Additional Instructions: Standard head injury precaution Follow-up with primary care as scheduled The following information is given to patients seen in the emergency department who are being discharged to home. This information is to outline your options for follow-up care. We provide all patients seen in our emergency department with a follow-up referral. The need for follow-up, as well as the timing and circumstances, are variable depending upon the specifics of your emergency department visit. If you don't have a primary care physician on staff, we will provide you with a referral. We always advise you to contact your personal physician following an emergency department visit to inform them of the circumstance of the visit and for follow-up with them and/or the need for any referrals to a consulting specialist. The emergency department will also refer you to a specialist when appropriate. This referral assures that you have the opportunity for follow-up care with a specialist. All of these measure are taken in an effort to provide you with optimal care, which includes your follow-up. Under all circumstances we always encourage you to contact your private physician who remains a resource for coordinating your care. When calling for follow-up care, please make the office aware that this follow-up is from your recent emergency room visit. If for any reason you are refused follow-up, please contact the [facility] emergency department at and asked to speak to the emergency department charge nurse. - My Orders Last 24 Hours: My Active Orders 08/28/17 17:15 Head wo Cont [CT] Stat - Assessment/Plan Last 24 Hours: My Active Orders 08/28/17 17:15 Head wo Cont [CT] Stat
[2017-08-28 18:49] VITALS: BP 125/85
--- NOTE | 2017-08-29 10:32 | CT ---
EXAM DATE: 08/28/17 PATIENT'S AGE: 67 Patient: JOSÉ ANTONIO SILVA Facility: [place], [place] Site . Site : [id number] Study: CT Head [id number] 5:37:38 PM Ordering Physician: Doctor Zacarias Final Report: HISTORY: Fell while changing. TECHNIQUE: Head was scanned in axial plane at 3 mm intervals without IV contrast. Reconstructed bone windows were obtained as well as sagittal and coronal reconstructions. COMPARISON: 10 August 2017. FINDINGS: The visualized paranasal sinuses and mastoid air cells are well aerated. The calvarium is intact. The ventricles and sulci are enlarged. Stable lacunar infarcts are present within bilateral basal ganglia. No intra-axial mass, edema or midline shift is identified. No extra-axial fluid collections are seen. Val[place]- white differentiation is preserved. IMPRESSION: 1. Atrophy with stable lacunar infarcts within bilateral basal ganglia. 2. No acute intracranial pathology or bleed. Dictated by Radha Patel MD @ 08/28/2017 6:32:18 PM Dictated by: Radha Patel MD @ 08/28/2017 18:32:42 (Electronic Signature) Report Signed by Proxy. JUAN ANTONIO
== END 2017-08-28 18:39 | disposition home or self-care (01) ==
LOC: MW.ED 17:14
DX: S06.0X0A Concussion without loss of consciousness, initial encounter (principal); T14.8XXA Other injury of unspecified body region, initial encounter; E78.00 Pure hypercholesterolemia, unspecified; E11.9 Type 2 diabetes mellitus without complications; Z79.84 Long term (current) use of oral hypoglycemic drugs; Z79.899 Other long term (current) drug therapy; W17.89XA Other fall from one level to another, initial encounter; W22.8XXA Striking against or struck by other objects, initial encounter
CPT/HCPCS: 70450; 70450-26; 70553; 70553-26; 99283; 99284-25; A9577

== ENCOUNTER 2017-11-04 13:26 | Emergency (ER) | payer MEDICARE, OTHER ==
[2017-11-04] MEDS ORDERED: Sodium Chloride 0.9% 2.5 ML Syringe FLUSH PRN (13:36)
[2017-11-04] MEDS ORDERED: Sodium Chloride 0.9% 10 ML Syringe FLUSH PRN (13:36)
--- NOTE | 2017-11-04 14:10 | EDM.PDOC ---
ED HPI GENERAL MEDICAL PROBLEM - General Chief Complaint: General Stated Complaint: SHAKINESS ALL OVER Time Seen by Provider: 11/04/17 13:39 Source of Information: Reports: Patient, Family History Limitations: Reports: No Limitations - History of Present Illness INITIAL COMMENTS - FREE TEXT/NARRATIVE: HISTORY AND PHYSICAL: []67-year-old female presenting with shakiness edema to her lower legs seen dementia History of Present Illness: []Patient has been shaky today edema in lower legs is not as prevalent as it was 2 days ago and sister in the lobby and have answered questions Review of Systems: As per history of present illness and below otherwise all systems reviewed and negative. Patient has history of atrial fibrillation Dementia Hypertension Diabetes mellitus type 2 Anticoagulant therapy Hypo-magnesium Hypothyroid Past medical history: As per history of present illness and as reviewed below otherwise noncontributory. Surgical history: As per history of present illness and as reviewed below otherwise noncontributory. Social history: No reported history of drug or alcohol abuse. Family history: As per history of present illness and as reviewed below otherwise noncontributory. Physical exam: Alert female who has confusion increased dementia is has difficulty answering questions asks for her and her sister that they can answer them. She is not short of breath when speaking and is nontoxic in appearance. Skin unenhanced is tenting when pinched together HEENT: Atraumatic, normocehpalic, pupils reactive, negative for conjunctival pallor or scleral icterus, mucous membranes dry, throat clear, neck supple, nontender, trachea midline. Lungs: Clear to auscultation, breath sounds equal bilaterally, chest non tender. Heart: S1S2, regular, negative for clicks, rubs, or JVD. Abdomen: Soft, nondistended, nontender. Negative for masses or hepatossplenmegaly. Negative for costovertebral tenderness. Pelvis: Stable nontender. Genitourinary: Deferred. Rectal: Deferred Extremities: Atraumatic, negative for cords or calf pain. 1+ edema to bilateral lower legs Neurovascular unremarkable. Neuro: Awake, alert, oriented. Cranial nerves II through XII unremarkable. Cerebellum unremarkable. Motor and sensory unremarkable throughout. Exam nonfocal. Improves with fluid given Diagnostics: []CBC CMP amylase lipase magnesium chest x-ray EKG digoxin level TSH bnp Therapeutics: [] IV fluid 500 mg Impression: []Dehydration Plan: []Discharged to home Ensure adequate intake of fluids Follow-up with your primary care provider next week/3 days Return to the emergency department distracted and discussed Definitive disposition and diagnosis as appropriate pending reevaluation and review of above. Onset: Gradual Duration: Day(s):, Getting Worse Location: Reports: Generalized Bilateral Feet Pain Score (Numeric/FACES): 5 - Related Data Allergies Allergy/AdvReac Type Severity Reaction Status Date / Time No Known Allergies Allergy Verified 11/04/17 13:42 Home Meds: Home Meds Allopurinol [Zyloprim] 100 mg PO DAILY 02/07/17 [History] Cholecalciferol (Vitamin D3) [Vitamin D3] 1,000 unit PO BID 02/07/17 [History] Digoxin 0.125 mg PO DAILY 02/07/17 [History] Levothyroxine [Synthroid] 100 mcg PO DAILY 02/07/17 [History] metFORMIN [Glucophage] 500 mg PO BIDMEALS 02/07/17 [History] Diltiazem HCl [Cartia Xt] 240 mg PO DAILY #30 cap.er.24h 02/08/17 [Rx] Rivaroxaban [Xarelto] 20 mg PO DAILY #30 tablet 02/08/17 [Rx] Calcium Carbonate [Calcium] 1,200 mg PO BID 08/10/17 [History] Allopurinol [Zyloprim] 100 mg PO DAILY 11/04/17 [History] Calcium Carbonate 600 mg PO BIDMEALS 11/04/17 [History] Gabapentin [Neurontin] 600 mg PO BID 11/04/17 [History] Rosuvastatin [Crestor] 5 mg PO DAILY 11/04/17 [History] Vitamin E 400 unit PO DAILY 11/04/17 [History] Past Medical History Cardiovascular History: Reports: Arrhythmia, High Cholesterol [employer] History: Reports: Neurological History: Reports: CVA Endocrine/Metabolic History: Reports: Diabetes, Type II Hematologic History: Reports: Blood Transfusion(s) - Infectious Disease History Infectious Disease History: Reports: Chicken Pox, Measles, Mumps - Past Surgical History HEENT Surgical History: Reports: Other (See Below) Other HEENT Surgeries/Procedures: wears eyeglasses Cardiovascular Surgical History: Reports: None Social & Family History - Family History Family Medical History: Noncontributory - Tobacco Use Smoking Status *Q: Former Smoker Used Tobacco, but Quit: Yes Month/Year Tobacco Last Used: 06/2007 Second Hand Smoke Exposure: Yes - Caffeine Use Caffeine Use: Reports: Coffee - Alcohol Use Days Per Week of Alcohol Use: 1 Number of Drinks Per Day: 2 Total Drinks Per Week: 2 - Recreational Drug Use Recreational Drug Use: No ED ROS GENERAL - Review of Systems Review Of Systems: ROS reveals no pertinent complaints other than HPI. ED EXAM, GENERAL - Physical Exam Exam: See Below (see dictation) EKG INTERPRETATION EKG Date: 11/04/17 Rhythm: A-Fib Comparison: No Change Course - Vital Signs Last Recorded V/S: Last Vital Signs Temp 37.1 C 11/04/17 13:37 Pulse 107 H 11/04/17 14:54 Resp 18 11/04/17 14:54 BP 146/91 H 11/04/17 14:54 Pulse Ox 94 L 11/04/17 14:54 - Orders/Labs/Meds Orders: Active Orders 24 hr Category Date Time Status EKG Documentation Completion [RC] STAT Care 11/04/17 13:37 Active CULTURE URINE [RM] Stat Lab 11/04/17 14:45 Ordered UA W/MICROSCOPIC [URIN] Stat Lab 11/04/17 14:45 Ordered Sodium Chloride 0.9% [Normal Saline] 500 ml Med 11/04/17 14:15 Active IV STAT Sodium Chloride 0.9% [Normal Saline] 500 ml Med 11/04/17 15:00 Active IV STAT Sodium Chloride 0.9% [Saline Flush] Med 11/04/17 13:36 Active 10 ml FLUSH ASDIRECTED PRN Sodium Chloride 0.9% [Saline Flush] Med 11/04/17 13:36 Active 2.5 ml FLUSH ASDIRECTED PRN Saline Lock Insert [OM.PC] Stat Oth 11/04/17 13:36 Ordered Medication Orders Sodium Chloride (Normal Saline) 500 mls @ 999 mls/hr IV STAT SOULEYMANE Last Admin: 11/04/17 14:07 Dose: 999 mls/hr Sodium Chloride (Normal Saline) 500 mls @ 999 mls/hr IV STAT SOULEYMANE Last Admin: 11/04/17 14:53 Dose: 999 mls/hr Sodium Chloride (Saline Flush) 10 ml FLUSH ASDIRECTED PRN PRN Reason: Keep Vein Open Sodium Chloride (Saline Flush) 2.5 ml FLUSH ASDIRECTED PRN PRN Reason: Keep Vein Open Labs: Laboratory Tests 11/04/17 11/04/17 11/04/17 Range/Units 13:51 13:51 13:51 WBC 4.58 (4.0-11.0) K/uL RBC 3.87 L (4.30-5.90) M/uL Hgb 13.7 (12.0-16.0) g/dL Hct 40.5 (36.0-46.0) % MCV 104.7 H (80.0-98.0) fL MCH 35.4 H (27.0-32.0) pg MCHC 33.8 (31.0-37.0) g/dL RDW Std Deviation 55.2 (28.0-62.0) fl RDW Coeff of Aruna 15 (11.0-15.0) % Plt Count 220 (150-400) K/uL MPV 9.90 (7.40-12.00) fL Neut % (Auto) 67.6 (48.0-80.0) % Lymph % (Auto) 17.5 (16.0-40.0) % [place] % (Auto) 13.8 (0.0-15.0) % Eos % (Auto) 0.2 (0.0-7.0) % Baso % (Auto) 0.9 (0.0-1.5) % Neut # (Auto) 3.1 (1.4-5.7) K/uL Lymph # (Auto) 0.8 (0.6-2.4) K/uL [place] # (Auto) 0.6 (0.0-0.8) K/uL Eos # (Auto) 0.0 (0.0-0.7) K/uL Baso # (Auto) 0.0 (0.0-0.1) K/uL Nucleated RBC % 0.0 /100WBC Nucleated RBCs # 0 K/uL Sodium 138 (136-145) mmol/L Potassium 4.7 (3.5-5.1) mmol/L Chloride 100 (98-107) mmol/L Carbon Dioxide 29.9 (21.0-32.0) mmol/L BUN 7 (7.0-18.0) mg/dL Creatinine 1.0 (0.6-1.0) mg/dL Est Cr Clr Drug Dosing 47.79 mL/min Estimated GFR (MDRD) 55.5 ml/min Glucose 129 H (74-106) mg/dL Calcium 9.6 (8.5-10.1) mg/dL Magnesium 1.4 L (1.5-2.0) mg/dL Total Bilirubin 0.8 (0.2-1.0) mg/dL AST 50 H (15-37) IU/L ALT 45 (14-63) IU/L Alkaline Phosphatase 159 H (46-116) U/L Troponin I < 0.050 (0.000-0.056) ng/mL B-Natriuretic Peptide 66 (<100) PG/ML Total Protein 7.7 (6.4-8.2) g/dL Albumin 3.7 (3.4-5.0) g/dL Globulin 4.0 H (2.0-3.5) g/dL Albumin/Globulin Ratio 0.9 L (1.3-2.8) Amylase 27 (25-115) U/L Lipase 127 (73-393) U/L TSH 3rd Generation 0.91 (0.36-3.74) uIU/mL Urine Color Urine Appearance Urine pH (5.0-8.0) Ur Specific [place] (1.001-1.035) Urine Protein (NEGATIVE) mg/dL Urine Glucose (UA) (NEGATIVE) mg/dL Urine Ketones (NEGATIVE) mg/dL Urine Occult Blood (NEGATIVE) Urine Nitrite (NEGATIVE) Urine Bilirubin (NEGATIVE) Urine Urobilinogen (<2.0) EU/dL Ur Leukocyte Esterase (NEGATIVE) Urine RBC (0-2/HPF) Urine WBC (0-5/HPF) Ur Epithelial Cells (NONE-FEW) Urine Bacteria (NEGATIVE) Digoxin (0.9-2.0) ng/mL 11/04/17 11/04/17 Range/Units 13:57 14:45 WBC (4.0-11.0) K/uL RBC (4.30-5.90) M/uL Hgb (12.0-16.0) g/dL Hct (36.0-46.0) % MCV (80.0-98.0) fL MCH (27.0-32.0) pg MCHC (31.0-37.0) g/dL RDW Std Deviation (28.0-62.0) fl RDW Coeff of Aruna (11.0-15.0) % Plt Count (150-400) K/uL MPV (7.40-12.00) fL Neut % (Auto) (48.0-80.0) % Lymph % (Auto) (16.0-40.0) % [place] % (Auto) (0.0-15.0) % Eos % (Auto) (0.0-7.0) % Baso % (Auto) (0.0-1.5) % Neut # (Auto) (1.4-5.7) K/uL Lymph # (Auto) (0.6-2.4) K/uL [place] # (Auto) (0.0-0.8) K/uL Eos # (Auto) (0.0-0.7) K/uL Baso # (Auto) (0.0-0.1) K/uL Nucleated RBC % /100WBC Nucleated RBCs # K/uL Sodium (136-145) mmol/L Potassium (3.5-5.1) mmol/L Chloride (98-107) mmol/L Carbon Dioxide (21.0-32.0) mmol/L BUN (7.0-18.0) mg/dL Creatinine (0.6-1.0) mg/dL Est Cr Clr Drug Dosing mL/min Estimated GFR (MDRD) ml/min Glucose (74-106) mg/dL Calcium (8.5-10.1) mg/dL Magnesium (1.5-2.0) mg/dL Total Bilirubin (0.2-1.0) mg/dL AST (15-37) IU/L ALT (14-63) IU/L Alkaline Phosphatase (46-116) U/L Troponin I (0.000-0.056) ng/mL B-Natriuretic Peptide (<100) PG/ML Total Protein (6.4-8.2) g/dL Albumin (3.4-5.0) g/dL Globulin (2.0-3.5) g/dL Albumin/Globulin Ratio (1.3-2.8) Amylase (25-115) U/L Lipase (73-393) U/L TSH 3rd Generation (0.36-3.74) uIU/mL Urine Color YELLOW Urine Appearance CLEAR Urine pH 7.5 (5.0-8.0) Ur Specific [place] 1.010 (1.001-1.035) Urine Protein NEGATIVE (NEGATIVE) mg/dL Urine Glucose (UA) NEGATIVE (NEGATIVE) mg/dL Urine Ketones NEGATIVE (NEGATIVE) mg/dL Urine Occult Blood NEGATIVE (NEGATIVE) Urine Nitrite NEGATIVE (NEGATIVE) Urine Bilirubin NEGATIVE (NEGATIVE) Urine Urobilinogen 0.2 (<2.0) EU/dL Ur Leukocyte Esterase TRACE (NEGATIVE) Urine RBC 0-1 (0-2/HPF) Urine WBC 0-2 (0-5/HPF) Ur Epithelial Cells FEW (NONE-FEW) Urine Bacteria FEW (NEGATIVE) Digoxin 0.8 L (0.9-2.0) ng/mL Meds: Medications Generic Name Dose Route Start Last Admin Trade Name Freq PRN Reason Stop Dose Admin Sodium Chloride 500 mls @ 999 mls/hr 11/04/17 14:15 11/04/17 14:07 Normal Saline IV 999 mls/hr STAT SOULEYMANE Administration Sodium Chloride 500 mls @ 999 mls/hr 11/04/17 15:00 11/04/17 14:53 Normal Saline IV 999 mls/hr STAT SOULEYMANE Administration Sodium Chloride 10 ml 11/04/17 13:36 Saline Flush FLUSH ASDIRECTED PRN Keep Vein Open Sodium Chloride 2.5 ml 11/04/17 13:36 Saline Flush FLUSH ASDIRECTED PRN Keep Vein Open Departure - Departure Time of Disposition: 15:21 Disposition: Home, Self-Care 01 Clinical Impression: Mild dehydration, Confusion - Discharge Information Instructions: Dehydration, Adult, [id number] Referrals: Herman Alvarez MD [Primary Care Provider] - Forms: ED Department Discharge Additional Instructions: The following information is given to patients seen in the emergency department who are being discharged to home. This information is to outline your options for follow-up care. We provide all patients seen in our emergency department with a follow-up referral. The need for follow-up, as well as the timing and circumstances, are variable depending upon the specifics of your emergency department visit. If you don't have a primary care physician on staff, we will provide you with a referral. We always advise you to contact your personal physician following an emergency department visit to inform them of the circumstance of the visit and for follow-up with them and/or the need for any referrals to a consulting specialist. The emergency department will also refer you to a specialist when appropriate. This referral assures that you have the opportunity for followup care with a specialist. All of these measure are taken in an effort to provide you with optimal care, which includes your followup. Under all circumstances we always encourage you to contact your private physician who remains a resource for coordinating your care. When calling for followup care, please make the office aware that this follow-up is from your recent emergency room visit. If for any reason you are refused follow-up, please contact the [facility] emergency department at and asked to speak to the emergency department charge nurse. Here found to be mildly dehydrated Follow-up with Dr. alvarez in the next 3 days Return to the emergency department as directed and discussed - My Orders Last 24 Hours: My Active Orders 11/04/17 13:36 Sodium Chloride 0.9% [Saline Flush] 10 ml FLUSH ASDIRECTED PRN Sodium Chloride 0.9% [Saline Flush] 2.5 ml FLUSH ASDIRECTED PRN Saline Lock Insert [OM.PC] Stat 11/04/17 13:37 EKG Documentation Completion [RC] STAT 11/04/17 14:15 Sodium Chloride 0.9% [Normal Saline] 500 ml IV STAT 11/04/17 14:45 CULTURE URINE [RM] Stat UA W/MICROSCOPIC [URIN] Stat 11/04/17 15:00 Sodium Chloride 0.9% [Normal Saline] 500 ml IV STAT - Assessment/Plan Last 24 Hours: My Active Orders 11/04/17 13:36 Sodium Chloride 0.9% [Saline Flush] 10 ml FLUSH ASDIRECTED PRN Sodium Chloride 0.9% [Saline Flush] 2.5 ml FLUSH ASDIRECTED PRN Saline Lock Insert [OM.PC] Stat 11/04/17 13:37 EKG Documentation Completion [RC] STAT 11/04/17 14:15 Sodium Chloride 0.9% [Normal Saline] 500 ml IV STAT 11/04/17 14:45 CULTURE URINE [RM] Stat UA W/MICROSCOPIC [URIN] Stat 11/04/17 15:00 Sodium Chloride 0.9% [Normal Saline] 500 ml IV STAT
[2017-11-04] MEDS ORDERED: Sodium Chloride 0.9% 500 ML IV SCH ×2 (14:15→15:00)
[2017-11-04 14:27] LABS: CHLORIDE,CL 100 mmol/L (98-107); SODIUM,NA 138 mmol/L (136-145)
[2017-11-04 15:53] VITALS: BP 146/89
== END 2017-11-04 15:40 | disposition home or self-care (01) ==
LOC: MW.ED 13:26
DX: E86.0 Dehydration (principal); R41.0 Disorientation, unspecified; E11.9 Type 2 diabetes mellitus without complications; Z79.84 Long term (current) use of oral hypoglycemic drugs; E78.00 Pure hypercholesterolemia, unspecified; Z87.891 Personal history of nicotine dependence; Z79.899 Other long term (current) drug therapy
CPT/HCPCS: 80053; 80162; 81001; 82150; 83690; 83735; 83880; 84443; 84484; 85025; 87086; 93005; 96360; 99284; J7040

== ENCOUNTER 2018-02-13 11:14 | Emergency (ER) | payer MEDICARE, OTHER ==
--- NOTE | 2018-02-13 11:30 | EDM.PDOC ---
ED HPI GENERAL MEDICAL PROBLEM - General Chief Complaint: Upper Extremity Injury/Pain Stated Complaint: RIGHT WRIST AND LEG PAIN Time Seen by Provider: 02/13/18 11:18 - History of Present Illness INITIAL COMMENTS - FREE TEXT/NARRATIVE: HISTORY AND PHYSICAL: History of present illness: Patient is 67-year-old white female who presents 3 weeks status post fall which injured her right wrist and right ankle she's had persistent pain and some small swelling since and was concerned about possible fracture she denies any head or neck pain or trauma or other concern. Review of systems: As per history of present illness and below otherwise all systems reviewed and negative. Past medical history: As per history of present illness and as reviewed below otherwise noncontributory. Surgical history: As per history of present illness and as reviewed below otherwise noncontributory. Social history: No reported history of drug or alcohol abuse. Family history: As per history of present illness and as reviewed below otherwise noncontributory. Physical exam: HEENT: Atraumatic, normocephalic, pupils reactive, negative for conjunctival pallor or scleral icterus, mucous membranes moist, throat clear, neck supple, nontender, trachea midline. Lungs: Clear to auscultation, breath sounds equal bilaterally, chest nontender. Heart: S1S2, negative for clicks, rubs, or JVD. Abdomen: Soft, nondistended, nontender. Negative for masses or hepatosplenomegaly. Negative for costovertebral tenderness. Pelvis: Stable nontender. Genitourinary: Deferred. Rectal: Deferred. Extremities: Patient is a mild tenderness and swelling over the dorsal lateral aspect of her right wrist is no gross deformity no point tenderness neurovascular exams unremarkable right ankle also has some small swelling in the lateral aspect of dictation or point tenderness Achilles tendons intact CMS and neurovascular exam is also unremarkable Neuro: Awake, alert, oriented. Cranial nerves II through XII unremarkable. Cerebellum unremarkable. Motor and sensory unremarkable throughout. Exam nonfocal. Diagnostics: X-ray right wrist/ankle Therapeutics: To be determined Impression: #1 right wrist/ankle injury Definitive disposition and diagnosis as appropriate pending reevaluation and review of above. right wrist Pain Score (Numeric/FACES): 5 - Related Data Allergies Allergy/AdvReac Type Severity Reaction Status Date / Time No Known Allergies Allergy Verified 02/13/18 11:26 Home Meds: Home Meds Allopurinol [Zyloprim] 100 mg PO DAILY 02/07/17 [History] Cholecalciferol (Vitamin D3) [Vitamin D3] 1,000 unit PO BID 02/07/17 [History] Digoxin 0.125 mg PO DAILY 02/07/17 [History] Levothyroxine [Synthroid] 100 mcg PO DAILY 02/07/17 [History] metFORMIN [Glucophage] 500 mg PO BIDMEALS 02/07/17 [History] Diltiazem HCl [Cartia Xt] 240 mg PO DAILY #30 cap.er.24h 02/08/17 [Rx] Rivaroxaban [Xarelto] 20 mg PO DAILY #30 tablet 02/08/17 [Rx] Calcium Carbonate [Calcium] 1,200 mg PO BID 08/10/17 [History] Allopurinol [Zyloprim] 100 mg PO DAILY 11/04/17 [History] Calcium Carbonate 600 mg PO BIDMEALS 11/04/17 [History] Gabapentin [Neurontin] 600 mg PO BID 11/04/17 [History] Rosuvastatin [Crestor] 5 mg PO DAILY 11/04/17 [History] Vitamin E 400 unit PO DAILY 11/04/17 [History] Past Medical History Cardiovascular History: Reports: Afib, Arrhythmia, High Cholesterol 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: Neurological History: Reports: CVA Psychiatric History: Reports: Dementia Endocrine/Metabolic History: Reports: Diabetes, Type II Hematologic History: Reports: Blood Transfusion(s) - Infectious Disease History Infectious Disease History: Reports: Chicken Pox, Measles, Mumps - Past Surgical History HEENT Surgical History: Reports: Tonsillectomy, Other (See Below) Other HEENT Surgeries/Procedures: wears eyeglasses Cardiovascular Surgical History: Reports: None Female Surgical History: Reports: Hysterectomy Social & Family History - Family History Family Medical History: Noncontributory - Caffeine Use Caffeine Use: Reports: Coffee Review of Systems - Review of Systems Review Of Systems: ROS reveals no pertinent complaints other than HPI. ED EXAM, GENERAL - Physical Exam Exam: See Below (See dictated) Course - Vital Signs Last Recorded V/S: Last Vital Signs Temp 35.8 C 02/13/18 11:26 Pulse 94 02/13/18 11:26 Resp 20 02/13/18 11:26 BP 132/68 02/13/18 11:26 Pulse Ox 96 02/13/18 11:26 Departure - Departure Time of Disposition: 12:10 Disposition: Home, Self-Care 01 Condition: Good Clinical Impression: Wrist injury, Ankle injury - Discharge Information *PRESCRIPTION DRUG MONITORING PROGRAM REVIEWED*: Not Applicable *COPY OF PRESCRIPTION DRUG MONITORING REPORT IN PATIENT CLEM: Not Applicable Referrals: PCP,None [Primary Care Provider] - Forms: ED Department Discharge Additional Instructions: The following information is given to patients seen in the emergency department who are being discharged to home. This information is to outline your options for follow-up care. We provide all patients seen in our emergency department with a follow-up referral. The need for follow-up, as well as the timing and circumstances, are variable depending upon the specifics of your emergency department visit. If you don't have a primary care physician on staff, we will provide you with a referral. We always advise you to contact your personal physician following an emergency department visit to inform them of the circumstance of the visit and for follow-up with them and/or the need for any referrals to a consulting specialist. The emergency department will also refer you to a specialist when appropriate. This referral assures that you have the opportunity for followup care with a specialist. All of these measure are taken in an effort to provide you with optimal care, which includes your followup. Under all circumstances we always encourage you to contact your private physician who remains a resource for coordinating your care. When calling for followup care, please make the office aware that this follow-up is from your recent emergency room visit. If for any reason you are refused follow-up, please contact the [facility] emergency department at and asked to speak to the emergency department charge nurse. Follow-up primary medical doctor as needed as discussed return as needed as discussed
[2018-02-13 11:40] VITALS: BP 132/68
--- NOTE | 2018-02-13 12:01 | CR ---
EXAMINATION: Right wrist HISTORY: Injury COMPARISON: None TECHNIQUE: 3 views FINDINGS: There is no acute osseous abnormality, dislocation, or fracture. Bone mineralization appear s mildly osteopenic. Advanced joint space narrowing and degenerative changes noted at the first CMC j oint. Radiocarpal alignment is preserved. IMPRESSION: 1. Advanced degenerative changes at the first CMC joint without acute osseous abnormality.
--- NOTE | 2018-02-13 12:04 | CR ---
EXAMINATION: Right ankle HISTORY: Pain COMPARISON: 07/17/2017 TECHNIQUE: 3 views FINDINGS/IMPRESSION: There is no acute osseous abnormality, dislocation, or fracture. Old healed dist al fibular injury noted. Ankle mortise and talar dome appear preserved. Generalized osteopenia.
== END 2018-02-13 12:25 | disposition home or self-care (01) ==
LOC: MW.ED 11:14
DX: S99.911A Unspecified injury of right ankle, initial encounter (principal); S69.91XA Unspecified injury of right wrist, hand and finger(s), initial encounter; E11.9 Type 2 diabetes mellitus without complications; Z79.899 Other long term (current) drug therapy; W19.XXXA Unspecified fall, initial encounter
CPT/HCPCS: 73110-26-RT; 73110-RT; 73610-26-RT; 73610-RT; 99283

== ENCOUNTER 2018-07-01 10:40 | Inpatient (IN) | payer MEDICARE, OTHER ==
--- NOTE | 2018-07-01 11:02 | EDM.PDOC ---
ED HPI GENERAL MEDICAL PROBLEM - General Chief Complaint: Lower Extremity Injury/Pain Stated Complaint: leg pain and swelling Time Seen by Provider: 07/01/18 10:44 - History of Present Illness INITIAL COMMENTS - FREE TEXT/NARRATIVE: HISTORY AND PHYSICAL: History of present illness: Patient history 67-year-old white female with an extensive past medical history including alcohol abuse atrial fibrillation who presents with a concern of multiple falls and altered mental status both these problems have been subacute but if worsened recently. She is on Xarelto amongst multiple other medications for her chronic medical problems. She is here at the request of her sister for this altered mental status she does not recall recent falls including last night. She denies headache denies neck pain denies known head trauma or other concern no chest pain or shortness of breath Review of systems: As per history of present illness and below otherwise all systems reviewed and negative. Past medical history: As per history of present illness and as reviewed below otherwise noncontributory. Surgical history: As per history of present illness and as reviewed below otherwise noncontributory. Social history: No reported history of drug or alcohol abuse. Family history: As per history of present illness and as reviewed below otherwise noncontributory. Physical exam: HEENT: Atraumatic, normocephalic, pupils reactive, mild conjunctival pallor and mild scleral icterus, mucous membranes moist, throat clear, neck supple, nontender, trachea midline. Lungs: Clear to auscultation, breath sounds equal bilaterally, chest nontender. Heart: S1S2, regular, negative for clicks, rubs, or JVD. Abdomen: Soft, nondistended, nontender. Negative for masses or hepatosplenomegaly. Negative for costovertebral tenderness. Pelvis: Stable nontender. Genitourinary: Deferred. Rectal: Deferred. Extremities: Atraumatic, negative for cords or calf pain. Neurovascular unremarkable. 1-2+ peripheral edema noted Neuro: Awake, alert, follows commands moves all extremities limited grossly nonfocal exam Diagnostics: CBC CMP troponin PT/INR ammonia level urine drug screen EtOH chest x-ray EKG CT brain blood culture 2 lactic acid UA magnesium and ammonia x-ray pelvis Therapeutics: IV O2 monitor Impression: #1 altered mental status #2 history of alcohol abuse #3 history of non-insulin diabetes #4 history of intervertebral #5 history of frequent falls Definitive disposition and diagnosis as appropriate pending reevaluation and review of above. - Related Data Allergies Allergy/AdvReac Type Severity Reaction Status Date / Time No Known Allergies Allergy Verified 02/13/18 11:26 Home Meds: Home Meds Cholecalciferol (Vitamin D3) [Vitamin D3] 1,000 unit PO DAILY 02/07/17 [History] Digoxin 125 mcg PO DAILY 02/07/17 [History] Levothyroxine [Synthroid] 100 mcg PO DAILY 02/07/17 [History] metFORMIN [Glucophage] 500 mg PO DAILY 02/07/17 [History] Calcium Carbonate 600 mg PO BID 11/04/17 [History] Gabapentin [Neurontin] 600 mg PO TID 11/04/17 [History] Vitamin E 400 unit PO DAILY 11/04/17 [History] Diltiazem HCl [Diltiazem ER] 360 mg PO DAILY 07/01/18 [History] Furosemide 20 mg PO DAILY PRN 07/01/18 [History] Magnesium Oxide 500 mg PO TID 07/01/18 [History] Potassium Chloride [Klor-Con 10] 10 meq PO DAILY 07/01/18 [History] Rivaroxaban [Xarelto] 20 mg PO DAILY 07/01/18 [History] Past Medical History Cardiovascular History: Reports: Afib, 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: Neurological History: Reports: CVA Other Neuro History: demenita Psychiatric History: Reports: Dementia Endocrine/Metabolic History: Reports: Diabetes, Type II Hematologic History: Reports: Blood Transfusion(s) - Infectious Disease History Infectious Disease History: Reports: Chicken Pox, Measles, Mumps - Past Surgical History HEENT Surgical History: Reports: Tonsillectomy, Other (See Below) Other HEENT Surgeries/Procedures: wears eyeglasses Cardiovascular Surgical History: Reports: None Female Surgical History: Reports: Hysterectomy Social & Family History - Family History Family Medical History: Noncontributory - Caffeine Use Caffeine Use: Reports: Tea Review of Systems - Review of Systems Review Of Systems: ROS reveals no pertinent complaints other than HPI. ED EXAM, GENERAL - Physical Exam Exam: See Below (See dictation) Course - Vital Signs Last Recorded V/S: Last Vital Signs Temp 36.8 C 07/01/18 10:54 Pulse 101 H 07/01/18 10:54 Resp 18 07/01/18 10:54 BP 111/83 07/01/18 10:54 Pulse Ox 99 07/01/18 10:54 - Orders/Labs/Meds Orders: Active Orders 24 hr Category Date Time Status Cardiac Monitoring [RC] . DIRECTED Care 07/01/18 11:03 Active EKG 12 Lead [EKG Documentation Completion] [RC] STAT Care 07/01/18 11:02 Active CULTURE BLOOD [BC] Stat Lab 07/01/18 11:10 Received CULTURE BLOOD [BC] Stat Lab 07/01/18 11:30 Received CULTURE URINE [RM] Stat Lab 07/01/18 11:40 Received Blood Culture x2 Reflex Set [OM.PC] Stat Oth 07/01/18 10:58 Ordered Labs: Laboratory Tests 07/01/18 07/01/18 07/01/18 Range/Units 11:10 11:10 11:10 WBC 6.56 (4.0-11.0) K/uL RBC 2.87 L (4.30-5.90) M/uL Hgb 11.1 L (12.0-16.0) g/dL Hct 31.8 L (36.0-46.0) % MCV 110.8 H (80.0-98.0) fL MCH 38.7 H (27.0-32.0) pg MCHC 34.9 (31.0-37.0) g/dL RDW Std Deviation 57.6 (28.0-62.0) fl RDW Coeff of Aruna 14 (11.0-15.0) % Plt Count 197 (150-400) K/uL MPV 10.70 (7.40-12.00) fL Nucleated RBC % 0.0 /100WBC Nucleated RBCs # 0 K/uL INR 1.70 Sodium 134 L (136-145) mmol/L Potassium 4.3 (3.5-5.1) mmol/L Chloride 98 (98-107) mmol/L Carbon Dioxide 28.7 (21.0-32.0) mmol/L BUN 9 (7.0-18.0) mg/dL Creatinine 1.2 H (0.6-1.0) mg/dL Est Cr Clr Drug Dosing 41.50 mL/min Estimated GFR (MDRD) 44.9 ml/min Glucose 107 H (74-106) mg/dL Calcium 9.3 (8.5-10.1) mg/dL Magnesium 1.8 (1.8-2.4) mg/dL Total Bilirubin 3.4 H (0.2-1.0) mg/dL AST 69 H (15-37) IU/L ALT 53 (14-63) IU/L Alkaline Phosphatase 298 H (46-116) U/L Ammonia (19-54) ug/dL Creatine Kinase 172 (26-308) U/L Troponin I < 0.050 (0.000-0.056) ng/mL Total Protein 5.9 L (6.4-8.2) g/dL Albumin 2.3 L (3.4-5.0) g/dL Globulin 3.6 (2.6-4.0) g/dL Albumin/Globulin Ratio 0.6 L (0.9-1.6) Urine Color Urine Appearance Urine pH (5.0-8.0) Ur Specific Cliff (1.001-1.035) Urine Protein (NEGATIVE) mg/dL Urine Glucose (UA) (NEGATIVE) mg/dL Urine Ketones (NEGATIVE) mg/dL Urine Occult Blood (NEGATIVE) Urine Nitrite (NEGATIVE) Urine Bilirubin (NEGATIVE) Urine Urobilinogen (<2.0) EU/dL Ur Leukocyte Esterase (NEGATIVE) Urine RBC (0-2/HPF) Urine WBC (0-5/HPF) Ur Epithelial Cells (NONE-FEW) Urine Bacteria (NEGATIVE) Digoxin 2.2 H (0.9-2.0) ng/mL Urine Opiates Screen (NEGATIVE) Ur Oxycodone Screen (NEGATIVE) Urine Methadone Screen (NEGATIVE) Ur Barbiturates Screen (NEGATIVE) Ur Phencyclidine Scrn (NEGATIVE) Ur Amphetamine Screen (NEGATIVE) U Methamphetamines Scrn (NEGATIVE) U Benzodiazepines Scrn (NEGATIVE) U Cocaine Metab Screen (NEGATIVE) U Marijuana (THC) Screen (NEGATIVE) Ethyl Alcohol < 3.0 mg/dL 07/01/18 07/01/18 07/01/18 Range/Units 11:10 11:40 11:40 WBC (4.0-11.0) K/uL RBC (4.30-5.90) M/uL Hgb (12.0-16.0) g/dL Hct (36.0-46.0) % MCV (80.0-98.0) fL MCH (27.0-32.0) pg MCHC (31.0-37.0) g/dL RDW Std Deviation (28.0-62.0) fl RDW Coeff of Aruna (11.0-15.0) % Plt Count (150-400) K/uL MPV (7.40-12.00) fL Nucleated RBC % /100WBC Nucleated RBCs # K/uL INR Sodium (136-145) mmol/L Potassium (3.5-5.1) mmol/L Chloride (98-107) mmol/L Carbon Dioxide (21.0-32.0) mmol/L BUN (7.0-18.0) mg/dL Creatinine (0.6-1.0) mg/dL Est Cr Clr Drug Dosing mL/min Estimated GFR (MDRD) ml/min Glucose (74-106) mg/dL Calcium (8.5-10.1) mg/dL Magnesium (1.8-2.4) mg/dL Total Bilirubin (0.2-1.0) mg/dL AST (15-37) IU/L ALT (14-63) IU/L Alkaline Phosphatase (46-116) U/L Ammonia 42 (19-54) ug/dL Creatine Kinase (26-308) U/L Troponin I (0.000-0.056) ng/mL Total Protein (6.4-8.2) g/dL Albumin (3.4-5.0) g/dL Globulin (2.6-4.0) g/dL Albumin/Globulin Ratio (0.9-1.6) Urine Color YELLOW Urine Appearance CLEAR Urine pH 6.5 (5.0-8.0) Ur Specific Cliff 1.010 (1.001-1.035) Urine Protein NEGATIVE (NEGATIVE) mg/dL Urine Glucose (UA) NEGATIVE (NEGATIVE) mg/dL Urine Ketones NEGATIVE (NEGATIVE) mg/dL Urine Occult Blood SMALL H (NEGATIVE) Urine Nitrite NEGATIVE (NEGATIVE) Urine Bilirubin NEGATIVE (NEGATIVE) Urine Urobilinogen 0.2 (<2.0) EU/dL Ur Leukocyte Esterase NEGATIVE (NEGATIVE) Urine RBC 0-1 (0-2/HPF) Urine WBC 1-2 (0-5/HPF) Ur Epithelial Cells RARE (NONE-FEW) Urine Bacteria RARE (NEGATIVE) Digoxin (0.9-2.0) ng/mL Urine Opiates Screen NEGATIVE (NEGATIVE) Ur Oxycodone Screen NEGATIVE (NEGATIVE) Urine Methadone Screen NEGATIVE (NEGATIVE) Ur Barbiturates Screen NEGATIVE (NEGATIVE) Ur Phencyclidine Scrn NEGATIVE (NEGATIVE) Ur Amphetamine Screen NEGATIVE (NEGATIVE) U Methamphetamines Scrn NEGATIVE (NEGATIVE) U Benzodiazepines Scrn NEGATIVE (NEGATIVE) U Cocaine Metab Screen NEGATIVE (NEGATIVE) U Marijuana (THC) Screen NEGATIVE (NEGATIVE) Ethyl Alcohol mg/dL Departure - Departure Time of Disposition: 13:00 Disposition: Refer to Observation Condition: Good Clinical Impression: Altered mental status, Falls frequently - Discharge Information Referrals: PCP,Unknown [Primary Care Provider] - Forms: ED Department Discharge - My Orders Last 24 Hours: My Active Orders 07/01/18 10:58 Blood Culture x2 Reflex Set [OM.PC] Stat 07/01/18 11:02 EKG 12 Lead [EKG Documentation Completion] [RC] STAT 07/01/18 11:03 Cardiac Monitoring [RC] . DIRECTED 07/01/18 11:10 CULTURE BLOOD [BC] Stat 07/01/18 11:30 CULTURE BLOOD [BC] Stat 07/01/18 11:40 CULTURE URINE [RM] Stat - Assessment/Plan Last 24 Hours: My Active Orders 07/01/18 10:58 Blood Culture x2 Reflex Set [OM.PC] Stat 07/01/18 11:02 EKG 12 Lead [EKG Documentation Completion] [RC] STAT 07/01/18 11:03 Cardiac Monitoring [RC] . DIRECTED 07/01/18 11:10 CULTURE BLOOD [BC] Stat 07/01/18 11:30 CULTURE BLOOD [BC] Stat 07/01/18 11:40 CULTURE URINE [RM] Stat
[2018-07-01 11:57] LABS: CHLORIDE,CL 98 mmol/L (98-107); SODIUM,NA 134 mmol/L (136-145)
--- NOTE | 2018-07-01 12:26 | CR ---
EXAMINATION: Portable chest radiograph. HISTORY: Chest pain. FINDINGS: The trachea is midline. The cardiomediastinal silhouette is within normal limits. No pulmonary infiltrates, effusions or pneumothorax. Osseous structures appear unremarkable. IMPRESSION: No acute cardiopulmonary process.
--- NOTE | 2018-07-01 12:32 | CT ---
EXAMINATION: Non contrast CT head. Coronal and sagittal reformats. HISTORY: Recurrent falls FINDINGS: No evidence of intra or extra axial hemorrhage, mass, midline shift, hydrocephalus or edema. Moderate generalized atrophy and mild periventricular and subcortical white matter hypodensities noted. Likely old right lacunar infarct in the subinsular region. No hypoattenuation changes in the major vascular territories to suggest acute infarct. No abnormal intracranial calcifications are detected. No evidence of substantial vascular calcifications. Small amount of fluid within the right maxillary sinus. Pituitary fossa appears unremarkable. The calvarium is intact. No evidence of skull fracture. IMPRESSION: 1. No acute intracranial findings. 2. Moderate generalized atrophy and mild small vessel ischemic changes. 3. Trace fluid within the right maxillary sinus.
--- NOTE | 2018-07-01 12:57 | CR ---
EXAMINATION: Pelvis HISTORY: Fall COMPARISON: None TECHNIQUE: AP view FINDINGS: There is no acute osseous abnormality, dislocation, or fracture. Bone mineralization and joint spaces are preserved. Mild degenerative changes noted within the lower lumbar spine. Rounded calcification projects over the right flank. IMPRESSION: No acute osseous abnormality identified.
[2018-07-01] MEDS ORDERED: Ondansetron 4 MG/2 ML SDV IVPUSH PRN (14:33)
[2018-07-01] MEDS ORDERED: Furosemide 20 MG Tab PO PRN (14:40)
[2018-07-01] MEDS ORDERED: Non-Formulary Medication 1 Each (Calcium Carbonate 600 MG) PO SCH (14:45)
[2018-07-01] MEDS ORDERED: Non-Formulary Medication 1 Each (Cholecalciferol (Vitamin D3) [Vitamin D3] 1,000 UNIT) PO SCH (14:45)
[2018-07-01] MEDS ORDERED: LORazepam 2 MG/ML SDV IVPUSH PRN (14:55)
--- NOTE | 2018-07-01 15:08 | PCM.HP ---
H&P History of Present Illness - General Date of Service: 07/01/18 Admit Problem/Dx: Admission Diagnosis/Problem Admission Diagnosis/Problem Altered mental status Source of Information: Family History Limitations: Reports: Altered Mental Status - History of Present Illness Initial Comments - Free Text/Narative: 67F hx of A. Fibrillation, ambulatory dysfunction, alcohol abuse that presented to the ER w/ family after having a fall late last night. Patient's daughter in law was at the bedside. She tells me that the patient has a history of dementia and increasing # of falls over the past week. She says that her found her down on the floor last night; unaware of how long she was down for or reason for the fall. Patient also has increasing urinary incontinence. Patient also has a lengthy hx of alcohol misuse, drinking upwards to 2 8oz glasses of wine daily as per daughter in law. Patient denies fever, chills, pain. bilateral legs Pain Score (Numeric/FACES): 10 - Related Data Allergies/Adverse Reactions: Allergies Allergy/AdvReac Type Severity Reaction Status Date / Time No Known Allergies Allergy Verified 02/13/18 11:26 Home Medications: Home Meds Cholecalciferol (Vitamin D3) [Vitamin D3] 1,000 unit PO DAILY 02/07/17 [History] Digoxin 125 mcg PO DAILY 02/07/17 [History] Levothyroxine [Synthroid] 100 mcg PO DAILY 02/07/17 [History] metFORMIN [Glucophage] 500 mg PO DAILY 02/07/17 [History] Calcium Carbonate 600 mg PO BID 11/04/17 [History] Gabapentin [Neurontin] 600 mg PO TID 11/04/17 [History] Vitamin E 400 unit PO DAILY 11/04/17 [History] Diltiazem HCl [Diltiazem ER] 360 mg PO DAILY 07/01/18 [History] Furosemide 20 mg PO DAILY PRN 07/01/18 [History] Magnesium Oxide 500 mg PO TID 07/01/18 [History] Potassium Chloride [Klor-Con 10] 10 meq PO DAILY 07/01/18 [History] Rivaroxaban [Xarelto] 20 mg PO DAILY 07/01/18 [History] Past Medical History Cardiovascular History: Reports: Afib, Arrhythmia [employer] History: Reports: Neurological History: Reports: CVA Other Neuro History: demenita Psychiatric History: Reports: Dementia Endocrine/Metabolic History: Reports: Diabetes, Type II Hematologic History: Reports: Blood Transfusion(s) - Infectious Disease History Infectious Disease History: Reports: Chicken Pox, Measles, Mumps - Past Surgical History HEENT Surgical History: Reports: Tonsillectomy, Other (See Below) Other HEENT Surgeries/Procedures: wears eyeglasses Cardiovascular Surgical History: Reports: None Female Surgical History: Reports: Hysterectomy Social & Family History - Family History Family Medical History: Noncontributory - Tobacco Use Smoking Status *Q: Never Smoker - Caffeine Use Caffeine Use: Reports: Tea - Recreational Drug Use Recreational Drug Use: No H&P Review of Systems - Review of Systems: Review Of Systems: ROS reveals no pertinent complaints other than HPI. Exam - Exam Exam: See Below - Vital Signs Vital Signs: Last Vital Signs Temp 36.8 C 07/01/18 10:54 Pulse 101 H 07/01/18 10:54 Resp 18 07/01/18 10:54 BP 111/83 07/01/18 10:54 Pulse Ox 99 07/01/18 10:54 Weight: 68.039 kg - Exam General: Alert, Oriented, Lethargic HEENT: PERRLA, Hearing Intact, Mucosa Moist & Colon, Nares Patent, Normal Nasal Septum, Posterior Pharynx Clear, Conjunctiva Clear, EOMI, EACs Clear, TMs Clear Neck: Supple, Trachea Midline, 2 Lungs: Clear to Auscultation, Normal Respiratory Effort Cardiovascular: Regular Rate, Regular Rhythm GI/Abdominal Exam: Normal Bowel Sounds, Soft, Non-Tender, No Organomegaly, No Distention, No Abnormal Bruit, No Mass, Pelvis Stable (Female) Exam: Normal External Exam, Normal Speculum Exam, Normal Bimanual Exam Back Exam: Normal Inspection, Full Range of Motion, NT Extremities: Normal Inspection, Normal Range of Motion, Non-Tender, Normal Capillary Refill, Other (1+ pitting edema bilaterally ) Skin: Warm, Dry, Intact Neuro Extensive - Motor, Sensory, Reflexes: CN II-XII Intact, Normal Gait, Normal Reflexes Psychiatric: Alert, Normal Affect, Normal Mood - Patient Data Lab Results Last 24 hrs: Laboratory Results - last 24 hr 07/01/18 07/01/18 07/01/18 Range/Units 11:10 11:10 11:10 WBC 6.56 (4.0-11.0) K/uL RBC 2.87 L (4.30-5.90) M/uL Hgb 11.1 L (12.0-16.0) g/dL Hct 31.8 L (36.0-46.0) % MCV 110.8 H (80.0-98.0) fL MCH 38.7 H (27.0-32.0) pg MCHC 34.9 (31.0-37.0) g/dL RDW Std Deviation 57.6 (28.0-62.0) fl RDW Coeff of Aruna 14 (11.0-15.0) % Plt Count 197 (150-400) K/uL MPV 10.70 (7.40-12.00) fL Nucleated RBC % 0.0 /100WBC Nucleated RBCs # 0 K/uL INR 1.70 Sodium 134 L (136-145) mmol/L Potassium 4.3 (3.5-5.1) mmol/L Chloride 98 (98-107) mmol/L Carbon Dioxide 28.7 (21.0-32.0) mmol/L BUN 9 (7.0-18.0) mg/dL Creatinine 1.2 H (0.6-1.0) mg/dL Est Cr Clr Drug Dosing 41.50 mL/min Estimated GFR (MDRD) 44.9 ml/min Glucose 107 H (74-106) mg/dL Calcium 9.3 (8.5-10.1) mg/dL Magnesium 1.8 (1.8-2.4) mg/dL Total Bilirubin 3.4 H (0.2-1.0) mg/dL AST 69 H (15-37) IU/L ALT 53 (14-63) IU/L Alkaline Phosphatase 298 H (46-116) U/L Ammonia (19-54) ug/dL Creatine Kinase 172 (26-308) U/L Troponin I < 0.050 (0.000-0.056) ng/mL Total Protein 5.9 L (6.4-8.2) g/dL Albumin 2.3 L (3.4-5.0) g/dL Globulin 3.6 (2.6-4.0) g/dL Albumin/Globulin Ratio 0.6 L (0.9-1.6) Urine Color Urine Appearance Urine pH (5.0-8.0) Ur Specific [place] (1.001-1.035) Urine Protein (NEGATIVE) mg/dL Urine Glucose (UA) (NEGATIVE) mg/dL Urine Ketones (NEGATIVE) mg/dL Urine Occult Blood (NEGATIVE) Urine Nitrite (NEGATIVE) Urine Bilirubin (NEGATIVE) Urine Urobilinogen (<2.0) EU/dL Ur Leukocyte Esterase (NEGATIVE) Urine RBC (0-2/HPF) Urine WBC (0-5/HPF) Ur Epithelial Cells (NONE-FEW) Urine Bacteria (NEGATIVE) Digoxin 2.2 H (0.9-2.0) ng/mL Urine Opiates Screen (NEGATIVE) Ur Oxycodone Screen (NEGATIVE) Urine Methadone Screen (NEGATIVE) Ur Barbiturates Screen (NEGATIVE) Ur Phencyclidine Scrn (NEGATIVE) Ur Amphetamine Screen (NEGATIVE) U Methamphetamines Scrn (NEGATIVE) U Benzodiazepines Scrn (NEGATIVE) U Cocaine Metab Screen (NEGATIVE) U Marijuana (THC) Screen (NEGATIVE) Ethyl Alcohol < 3.0 mg/dL 07/01/18 07/01/18 07/01/18 Range/Units 11:10 11:40 11:40 WBC (4.0-11.0) K/uL RBC (4.30-5.90) M/uL Hgb (12.0-16.0) g/dL Hct (36.0-46.0) % MCV (80.0-98.0) fL MCH (27.0-32.0) pg MCHC (31.0-37.0) g/dL RDW Std Deviation (28.0-62.0) fl RDW Coeff of Aruna (11.0-15.0) % Plt Count (150-400) K/uL MPV (7.40-12.00) fL Nucleated RBC % /100WBC Nucleated RBCs # K/uL INR Sodium (136-145) mmol/L Potassium (3.5-5.1) mmol/L Chloride (98-107) mmol/L Carbon Dioxide (21.0-32.0) mmol/L BUN (7.0-18.0) mg/dL Creatinine (0.6-1.0) mg/dL Est Cr Clr Drug Dosing mL/min Estimated GFR (MDRD) ml/min Glucose (74-106) mg/dL Calcium (8.5-10.1) mg/dL Magnesium (1.8-2.4) mg/dL Total Bilirubin (0.2-1.0) mg/dL AST (15-37) IU/L ALT (14-63) IU/L Alkaline Phosphatase (46-116) U/L Ammonia 42 (19-54) ug/dL Creatine Kinase (26-308) U/L Troponin I (0.000-0.056) ng/mL Total Protein (6.4-8.2) g/dL Albumin (3.4-5.0) g/dL Globulin (2.6-4.0) g/dL Albumin/Globulin Ratio (0.9-1.6) Urine Color YELLOW Urine Appearance CLEAR Urine pH 6.5 (5.0-8.0) Ur Specific [place] 1.010 (1.001-1.035) Urine Protein NEGATIVE (NEGATIVE) mg/dL Urine Glucose (UA) NEGATIVE (NEGATIVE) mg/dL Urine Ketones NEGATIVE (NEGATIVE) mg/dL Urine Occult Blood SMALL H (NEGATIVE) Urine Nitrite NEGATIVE (NEGATIVE) Urine Bilirubin NEGATIVE (NEGATIVE) Urine Urobilinogen 0.2 (<2.0) EU/dL Ur Leukocyte Esterase NEGATIVE (NEGATIVE) Urine RBC 0-1 (0-2/HPF) Urine WBC 1-2 (0-5/HPF) Ur Epithelial Cells RARE (NONE-FEW) Urine Bacteria RARE (NEGATIVE) Digoxin (0.9-2.0) ng/mL Urine Opiates Screen NEGATIVE (NEGATIVE) Ur Oxycodone Screen NEGATIVE (NEGATIVE) Urine Methadone Screen NEGATIVE (NEGATIVE) Ur Barbiturates Screen NEGATIVE (NEGATIVE) Ur Phencyclidine Scrn NEGATIVE (NEGATIVE) Ur Amphetamine Screen NEGATIVE (NEGATIVE) U Methamphetamines Scrn NEGATIVE (NEGATIVE) U Benzodiazepines Scrn NEGATIVE (NEGATIVE) U Cocaine Metab Screen NEGATIVE (NEGATIVE) U Marijuana (THC) Screen NEGATIVE (NEGATIVE) Ethyl Alcohol mg/dL Result Diagrams: 07/01/18 11:10 07/01/18 11:10 Problem List Initiated/Reviewed/Updated: Yes Orders Last 24hrs: Active Orders 24 hr Category Date Time Status Patient Status [ADT] Stat ADT 07/01/18 14:57 Ordered Cardiac Monitoring [RC] . DIRECTED Care 07/01/18 11:03 Active EKG 12 Lead [EKG Documentation Completion] [RC] STAT Care 07/01/18 11:02 Active Oxygen Therapy [RC] PRN Care 07/01/18 14:38 Ordered Up With Assistance [RC] ASDIRECTED Care 07/01/18 14:33 Ordered VTE/DVT Education [RC] PER UNIT ROUTINE Care 07/01/18 14:38 Ordered Vital Signs [RC] Q4H Care 07/01/18 14:38 Ordered Heart Healthy Diet [DIET] Diet 07/01/18 Dinner Ordered CBC W/O DIFF,HEMOGRAM [HEME] AM Lab 07/02/18 05:11 Ordered COMPREHENSIVE METABOLIC PN,CMP [CHEM] AM Lab 07/02/18 05:11 Ordered CULTURE BLOOD [BC] Stat Lab 07/01/18 11:10 Received CULTURE BLOOD [BC] Stat Lab 07/01/18 11:30 Received CULTURE URINE [RM] Stat Lab 07/01/18 11:40 Received VITAMIN B12 [CHEM] Stat Lab 07/01/18 14:43 Ordered Calcium Carbonate Med 07/01/18 14:45 Ordered 600 mg PO BID Cholecalciferol (Vitamin D3) [Vitamin D3] Med 07/01/18 14:45 Ordered 1,000 unit PO DAILY Digoxin [Lanoxin] Med 07/02/18 09:00 Ordered 125 mcg PO DAILY Diltiazem HCl [Diltiazem ER] Med 07/02/18 09:00 Ordered 360 mg PO DAILY Folic Acid Med 07/01/18 14:45 Ordered 1 mg PO DAILY Furosemide [Lasix] Med 07/01/18 14:40 Ordered 20 mg PO DAILY PRN Gabapentin Med 07/01/18 22:00 Ordered 600 mg PO TID LORazepam [Ativan] Med 07/01/18 14:55 Ordered See Protocol IVPUSH Q4H PRN Levothyroxine [Synthroid] Med 07/02/18 09:00 Ordered 100 mcg PO DAILY Magnesium Oxide Med 07/01/18 22:00 Ordered 500 mg PO TID Ondansetron [Zofran] Med 07/01/18 14:33 Ordered 4 mg IVPUSH Q4H PRN Rivaroxaban [Xarelto] Med 07/02/18 09:00 Ordered 20 mg PO DAILY Sodium Chloride 0.9% [Normal Saline] 1,000 ml Med 07/01/18 15:00 Active IV ASDIRECTED Thiamine [Vitamin B-1] Med 07/01/18 21:00 Ordered 100 mg PO BEDTIME Vitamin E [Vitamin E] Med 07/02/18 09:00 Ordered 400 unit PO DAILY metFORMIN [Glucophage] Med 07/02/18 09:00 Ordered 500 mg PO DAILY Blood Culture x2 Reflex Set [OM.PC] Stat Oth 07/01/18 10:58 Ordered Resuscitation Status Routine Resus Stat 07/01/18 14:33 Ordered Medication Orders Digoxin (Lanoxin) 125 mcg PO DAILY [facility] Folic Acid (Folic Acid) 1 mg PO DAILY [facility] Furosemide (Lasix) 20 mg PO DAILY PRN PRN Reason: Edema Sodium Chloride (Normal Saline) 1,000 mls @ 125 mls/hr IV ASDIRECTED [facility] Levothyroxine Sodium (Synthroid) 100 mcg PO DAILY [facility] Lorazepam (Ativan) 0 mg IVPUSH Q4H PRN; Protocol PRN Reason: Withdrawal Symptoms Metformin HCl (Glucophage) 500 mg PO DAILY [facility] Non-Formulary Medication (Calcium Carbonate) 600 mg PO BID [facility] Non-Formulary Medication (Cholecalciferol (Vitamin D3) [Vitamin D3]) 1,000 unit PO DAILY [facility] Non-Formulary Medication (Diltiazem Hcl [Diltiazem Er]) 360 mg PO DAILY [facility] Non-Formulary Medication (Gabapentin) 600 mg PO TID [facility] Non-Formulary Medication (Magnesium Oxide) 500 mg PO TID [facility] Non-Formulary Medication (Rivaroxaban [Xarelto]) 20 mg PO DAILY [facility] Non-Formulary Medication (Vitamin E [Vitamin E]) 400 unit PO DAILY [facility] Ondansetron HCl (Zofran) 4 mg IVPUSH Q4H PRN PRN Reason: Nausea Thiamine HCl (Vitamin B-1) 100 mg PO BEDTIME [facility] Assessment/Plan Comment:: Assessment: #1. Ambulatory dysfunction #2. Altered mental status #3. GIDEON from acute dehydration #4. History of A. Fibrillation, alcohol abuse, t2dm, neuropathy Plan: #1. Admit to the floor as inpatient. Vitals per floor. Continue Xarelto for DVT Prophylaxis. Cardiac telemetry. #2. Thiamine, folic acid. Ativan per [facility] protocol #3. PT for evaluation/treatment #4. Continue home medications, hold metformin #5. Anticipate assisted living facility disposition
[2018-07-01] MEDS: Folic Acid 1 MG Tab PO SCH (16:41)
[2018-07-01] MEDS: Sodium Chloride 0.9% 1,000 ML IV SCH (18:47)
[2018-07-01] MEDS: Thiamine 100 MG Tab PO SCH (20:47)
[2018-07-01] MEDS: Calcium Carbonate/Vitamin D3 1500 MG-400 Units Tab PO SCH (20:52)
[2018-07-01] MEDS: Gabapentin 300 MG Cap PO SCH (21:04)
[2018-07-01] MEDS: Magnesium Oxide 400 MG Tab PO SCH (21:04)
[2018-07-02] MEDS: Sodium Chloride 0.9% 1,000 ML IV SCH ×2 (02:42→11:17)
[2018-07-02 06:19] LABS: CHLORIDE,CL 104 mmol/L (98-107); SODIUM,NA 139 mmol/L (136-145)
[2018-07-02] MEDS: Magnesium Oxide 400 MG Tab PO SCH ×3 (07:23→21:17)
[2018-07-02] MEDS: Levothyroxine 100 MCG Tab PO SCH (07:23)
[2018-07-02] MEDS: Gabapentin 300 MG Cap PO SCH ×3 (07:23→21:17)
[2018-07-02] MEDS ORDERED: Potassium Chloride 20 MEQ Tab.ER PO ONE (07:56)
[2018-07-02] MEDS ORDERED: Magnesium Sulfate/Water 4 GM in Premix Bag 1 BAG IV ONE (07:57)
[2018-07-02] MEDS ORDERED: Sodium Chloride 0.9% 1,000 ML IV ONE (08:08)
[2018-07-02] MEDS: Cholecalciferol (Vitamin D3) 1,000 Unit Tab PO SCH (08:48)
[2018-07-02] MEDS: Rivaroxaban 10 MG Tab PO SCH (08:48)
[2018-07-02] MEDS: Vitamin E (dl-alpha-tocopherol acetate) 400 Unit Cap PO SCH (08:48)
[2018-07-02] MEDS: Folic Acid 1 MG Tab PO SCH (08:48)
[2018-07-02] MEDS: Calcium Carbonate/Vitamin D3 1500 MG-400 Units Tab PO SCH ×2 (08:49→21:17)
[2018-07-02] MEDS ORDERED: Diltiazem 180 MG Cap.CD PO SCH (09:00)
[2018-07-02] MEDS ORDERED: Digoxin 125 MCG Tab PO SCH (09:00)
[2018-07-02] MEDS ORDERED: metFORMIN 500 MG Tab PO SCH (09:00)
--- NOTE | 2018-07-02 11:43 | PCM.PN ---
- General Info Date of Service: 07/02/18 Subjective Update: Says she feels better today. Was notified by nursing staff about her low blood pressure. Was given IV fluid bolus. Patient denies headache, lightheadedness, dizziness, chest pain. - Review of Systems General: Reports: Other (negative except for hpi) - Patient Data Vitals - Most Recent: Last Vital Signs Temp 37.1 C 07/02/18 07:45 Pulse 60 07/02/18 08:47 Resp 18 07/02/18 07:45 BP 86/40 L 07/02/18 07:45 Pulse Ox 94 L 07/02/18 07:45 Orthostatic Blood Pressure [ 90/65 Supine] Weight - Most Recent: 68.039 kg I&O - Last 24 Hours: Intake & Output 07/01/18 07/02/18 07/02/18 22:59 06:59 14:59 Intake Total 220 1500 Output Total 300 320 Balance -80 1180 Lab Results Last 24 Hours: Laboratory Results - last 24 hr 07/01/18 07/01/18 07/01/18 Range/Units 11:10 11:10 11:10 WBC (4.0-11.0) K/uL RBC (4.30-5.90) M/uL Hgb (12.0-16.0) g/dL Hct (36.0-46.0) % MCV (80.0-98.0) fL MCH (27.0-32.0) pg MCHC (31.0-37.0) g/dL RDW Std Deviation (28.0-62.0) fl RDW Coeff of Aruna (11.0-15.0) % Plt Count (150-400) K/uL MPV (7.40-12.00) fL Nucleated RBC % /100WBC Nucleated RBCs # K/uL INR 1.70 Sodium 134 L (136-145) mmol/L Potassium 4.3 (3.5-5.1) mmol/L Chloride 98 (98-107) mmol/L Carbon Dioxide 28.7 (21.0-32.0) mmol/L BUN 9 (7.0-18.0) mg/dL Creatinine 1.2 H (0.6-1.0) mg/dL Est Cr Clr Drug Dosing 41.50 mL/min Estimated GFR (MDRD) 44.9 ml/min Glucose 107 H (74-106) mg/dL Calcium 9.3 (8.5-10.1) mg/dL Magnesium 1.8 (1.8-2.4) mg/dL Total Bilirubin 3.4 H (0.2-1.0) mg/dL AST 69 H (15-37) IU/L ALT 53 (14-63) IU/L Alkaline Phosphatase 298 H (46-116) U/L Ammonia 42 (19-54) ug/dL Creatine Kinase 172 (26-308) U/L Troponin I < 0.050 (0.000-0.056) ng/mL Total Protein 5.9 L (6.4-8.2) g/dL Albumin 2.3 L (3.4-5.0) g/dL Globulin 3.6 (2.6-4.0) g/dL Albumin/Globulin Ratio 0.6 L (0.9-1.6) Vitamin B12 (193-986) pg/mL Urine Color Urine Appearance Urine pH (5.0-8.0) Ur Specific [place] (1.001-1.035) Urine Protein (NEGATIVE) mg/dL Urine Glucose (UA) (NEGATIVE) mg/dL Urine Ketones (NEGATIVE) mg/dL Urine Occult Blood (NEGATIVE) Urine Nitrite (NEGATIVE) Urine Bilirubin (NEGATIVE) Urine Urobilinogen (<2.0) EU/dL Ur Leukocyte Esterase (NEGATIVE) Urine RBC (0-2/HPF) Urine WBC (0-5/HPF) Ur Epithelial Cells (NONE-FEW) Urine Bacteria (NEGATIVE) Digoxin 2.2 H (0.9-2.0) ng/mL Urine Opiates Screen (NEGATIVE) Ur Oxycodone Screen (NEGATIVE) Urine Methadone Screen (NEGATIVE) Ur Barbiturates Screen (NEGATIVE) Ur Phencyclidine Scrn (NEGATIVE) Ur Amphetamine Screen (NEGATIVE) U Methamphetamines Scrn (NEGATIVE) U Benzodiazepines Scrn (NEGATIVE) U Cocaine Metab Screen (NEGATIVE) U Marijuana (THC) Screen (NEGATIVE) Ethyl Alcohol < 3.0 mg/dL 07/01/18 07/01/18 07/01/18 Range/Units 11:10 11:40 11:40 WBC (4.0-11.0) K/uL RBC (4.30-5.90) M/uL Hgb (12.0-16.0) g/dL Hct (36.0-46.0) % MCV (80.0-98.0) fL MCH (27.0-32.0) pg MCHC (31.0-37.0) g/dL RDW Std Deviation (28.0-62.0) fl RDW Coeff of Aruna (11.0-15.0) % Plt Count (150-400) K/uL MPV (7.40-12.00) fL Nucleated RBC % /100WBC Nucleated RBCs # K/uL INR Sodium (136-145) mmol/L Potassium (3.5-5.1) mmol/L Chloride (98-107) mmol/L Carbon Dioxide (21.0-32.0) mmol/L BUN (7.0-18.0) mg/dL Creatinine (0.6-1.0) mg/dL Est Cr Clr Drug Dosing mL/min Estimated GFR (MDRD) ml/min Glucose (74-106) mg/dL Calcium (8.5-10.1) mg/dL Magnesium (1.8-2.4) mg/dL Total Bilirubin (0.2-1.0) mg/dL AST (15-37) IU/L ALT (14-63) IU/L Alkaline Phosphatase (46-116) U/L Ammonia (19-54) ug/dL Creatine Kinase (26-308) U/L Troponin I (0.000-0.056) ng/mL Total Protein (6.4-8.2) g/dL Albumin (3.4-5.0) g/dL Globulin (2.6-4.0) g/dL Albumin/Globulin Ratio (0.9-1.6) Vitamin B12 1559 H (193-986) pg/mL Urine Color YELLOW Urine Appearance CLEAR Urine pH 6.5 (5.0-8.0) Ur Specific [place] 1.010 (1.001-1.035) Urine Protein NEGATIVE (NEGATIVE) mg/dL Urine Glucose (UA) NEGATIVE (NEGATIVE) mg/dL Urine Ketones NEGATIVE (NEGATIVE) mg/dL Urine Occult Blood SMALL H (NEGATIVE) Urine Nitrite NEGATIVE (NEGATIVE) Urine Bilirubin NEGATIVE (NEGATIVE) Urine Urobilinogen 0.2 (<2.0) EU/dL Ur Leukocyte Esterase NEGATIVE (NEGATIVE) Urine RBC 0-1 (0-2/HPF) Urine WBC 1-2 (0-5/HPF) Ur Epithelial Cells RARE (NONE-FEW) Urine Bacteria RARE (NEGATIVE) Digoxin (0.9-2.0) ng/mL Urine Opiates Screen NEGATIVE (NEGATIVE) Ur Oxycodone Screen NEGATIVE (NEGATIVE) Urine Methadone Screen NEGATIVE (NEGATIVE) Ur Barbiturates Screen NEGATIVE (NEGATIVE) Ur Phencyclidine Scrn NEGATIVE (NEGATIVE) Ur Amphetamine Screen NEGATIVE (NEGATIVE) U Methamphetamines Scrn NEGATIVE (NEGATIVE) U Benzodiazepines Scrn NEGATIVE (NEGATIVE) U Cocaine Metab Screen NEGATIVE (NEGATIVE) U Marijuana (THC) Screen NEGATIVE (NEGATIVE) Ethyl Alcohol mg/dL 07/02/18 07/02/18 07/02/18 Range/Units 05:20 05:20 05:20 WBC 5.69 (4.0-11.0) K/uL RBC 2.47 L (4.30-5.90) M/uL Hgb 9.4 L (12.0-16.0) g/dL Hct 27.7 L (36.0-46.0) % MCV 112.1 H (80.0-98.0) fL MCH 38.1 H (27.0-32.0) pg MCHC 33.9 (31.0-37.0) g/dL RDW Std Deviation 59.0 (28.0-62.0) fl RDW Coeff of Aruna 15 (11.0-15.0) % Plt Count 174 (150-400) K/uL MPV 11.20 (7.40-12.00) fL Nucleated RBC % 0.0 /100WBC Nucleated RBCs # 0 K/uL INR Sodium 139 (136-145) mmol/L Potassium 3.0 L (3.5-5.1) mmol/L Chloride 104 (98-107) mmol/L Carbon Dioxide 31.5 (21.0-32.0) mmol/L BUN 7 (7.0-18.0) mg/dL Creatinine 0.8 (0.6-1.0) mg/dL Est Cr Clr Drug Dosing 62.14 mL/min Estimated GFR (MDRD) > 60.0 ml/min Glucose 91 (74-106) mg/dL Calcium 8.5 (8.5-10.1) mg/dL Magnesium 1.7 L (1.8-2.4) mg/dL Total Bilirubin 2.4 H (0.2-1.0) mg/dL AST 53 H (15-37) IU/L ALT 44 (14-63) IU/L Alkaline Phosphatase 219 H (46-116) U/L Ammonia (19-54) ug/dL Creatine Kinase (26-308) U/L Troponin I (0.000-0.056) ng/mL Total Protein 4.5 L (6.4-8.2) g/dL Albumin 1.7 L (3.4-5.0) g/dL Globulin 2.8 (2.6-4.0) g/dL Albumin/Globulin Ratio 0.6 L (0.9-1.6) Vitamin B12 (193-986) pg/mL Urine Color Urine Appearance Urine pH (5.0-8.0) Ur Specific [place] (1.001-1.035) Urine Protein (NEGATIVE) mg/dL Urine Glucose (UA) (NEGATIVE) mg/dL Urine Ketones (NEGATIVE) mg/dL Urine Occult Blood (NEGATIVE) Urine Nitrite (NEGATIVE) Urine Bilirubin (NEGATIVE) Urine Urobilinogen (<2.0) EU/dL Ur Leukocyte Esterase (NEGATIVE) Urine RBC (0-2/HPF) Urine WBC (0-5/HPF) Ur Epithelial Cells (NONE-FEW) Urine Bacteria (NEGATIVE) Digoxin (0.9-2.0) ng/mL Urine Opiates Screen (NEGATIVE) Ur Oxycodone Screen (NEGATIVE) Urine Methadone Screen (NEGATIVE) Ur Barbiturates Screen (NEGATIVE) Ur Phencyclidine Scrn (NEGATIVE) Ur Amphetamine Screen (NEGATIVE) U Methamphetamines Scrn (NEGATIVE) U Benzodiazepines Scrn (NEGATIVE) U Cocaine Metab Screen (NEGATIVE) U Marijuana (THC) Screen (NEGATIVE) Ethyl Alcohol mg/dL [place] Results Last 24 Hours: Microbiology 07/01/18 11:30 Aerobic Blood Culture - Preliminary Blood - Venous - Lab Draw NO GROWTH AFTER 1 DAY Anaerobic Blood Culture - Preliminary NO GROWTH AFTER 1 DAY 07/01/18 11:10 Aerobic Blood Culture - Preliminary Blood - Venous NO GROWTH AFTER 1 DAY Anaerobic Blood Culture - Preliminary NO GROWTH AFTER 1 DAY Med Orders - Current: Current Medications Calcium Carbonate (Caltrate 600+D 1500 Mg-400 Units) 1 tab PO BID [facility] Last Admin: 07/02/18 08:49 Dose: 1 tab Cholecalciferol (Vitamin D3) 1,000 units PO DAILY [facility] Last Admin: 07/02/18 08:48 Dose: 1,000 units Folic Acid (Folic Acid) 1 mg PO DAILY [facility] Last Admin: 07/02/18 08:48 Dose: 1 mg Gabapentin (Neurontin) 600 mg PO TID [facility] Last Admin: 07/02/18 07:23 Dose: 600 mg Sodium Chloride (Normal Saline) 1,000 mls @ 125 mls/hr IV ASDIRECTED [facility] Last Admin: 07/02/18 11:17 Dose: 125 mls/hr Levothyroxine Sodium (Synthroid) 100 mcg PO ACBREAKFAST [facility] Last Admin: 07/02/18 07:23 Dose: 100 mcg Lorazepam (Ativan) 0 mg IVPUSH Q4H PRN; Protocol PRN Reason: Withdrawal Symptoms Magnesium Oxide (Magnesium Oxide) 400 mg PO TID [facility] Last Admin: 07/02/18 07:23 Dose: 400 mg Ondansetron HCl (Zofran) 4 mg IVPUSH Q4H PRN PRN Reason: Nausea Rivaroxaban (Xarelto) 20 mg PO DAILY@0800 [facility] Last Admin: 07/02/18 08:48 Dose: 20 mg Thiamine HCl (Vitamin B-1) 100 mg PO BEDTIME [facility] Last Admin: 07/01/18 20:47 Dose: 100 mg Vitamin E (Vitamin E) 400 units PO DAILY [facility] Last Admin: 07/02/18 08:48 Dose: 400 units Discontinued Medications Digoxin (Lanoxin) 125 mcg PO DAILY [facility] Last Admin: 07/02/18 08:47 Dose: 125 mcg Diltiazem HCl (Cardizem Cd) 360 mg PO DAILY [facility] Last Admin: 07/02/18 10:59 Dose: Not Given Furosemide (Lasix) 20 mg PO DAILY PRN PRN Reason: Edema Stop: 07/01/18 23:59 Last Admin: 07/01/18 16:41 Dose: 20 mg Magnesium Sulfate 4 gm/ Premix 100 mls @ 50 mls/hr IV ONETIME ONE Stop: 07/02/18 09:56 Last Admin: 07/02/18 08:50 Dose: 50 mls/hr Sodium Chloride (Normal Saline) 1,000 mls @ 999 mls/hr IV STAT ONE Stop: 07/02/18 09:08 Last Admin: 07/02/18 08:47 Dose: 999 mls/hr Metformin HCl (Glucophage) 500 mg PO DAILY [facility] Non-Formulary Medication (Calcium Carbonate) 600 mg PO BID [facility] Last Admin: 07/01/18 17:44 Dose: Not Given Non-Formulary Medication (Cholecalciferol (Vitamin D3) [Vitamin D3]) 1,000 unit PO DAILY [facility] Last Admin: 07/01/18 17:44 Dose: Not Given Potassium Chloride (Klor-Con M20) 40 meq PO ONETIME ONE Stop: 07/02/18 07:57 Last Admin: 07/02/18 08:48 Dose: 40 meq - Exam General: Alert, Oriented HEENT: Pupils Equal, Pupils Reactive, EOMI, Mucous Membr. Moist/[place] Neck: Supple Lungs: Clear to Auscultation, Normal Respiratory Effort Cardiovascular: Regular Rate, Regular Rhythm GI/Abdominal Exam: Normal Bowel Sounds, Soft, Non-Tender, No Organomegaly, No Distention, No Abnormal Bruit, No Mass, Pelvis Stable (Female) Exam: Normal Speculum Exam Back Exam: Normal Inspection, Full Range of Motion Extremities: Normal Inspection, Normal Range of Motion, Non-Tender, No Pedal Edema, Normal Capillary Refill Peripheral Pulses: 2+: Dorsalis Pedis (L), Dorsalis Pedis (R) Skin: Warm, Dry, Intact Psy/Mental Status: Alert, Normal Affect, Normal Mood - Problem List Review Problem List Initiated/Reviewed/Updated: Yes - My Orders Last 24 Hours: My Active Orders 07/01/18 14:33 Up With Assistance [RC] ASDIRECTED Ondansetron [Zofran] 4 mg IVPUSH Q4H PRN Resuscitation Status Routine 07/01/18 14:38 Oxygen Therapy [RC] PRN VTE/DVT Education [RC] PER UNIT ROUTINE Vital Signs [RC] Q4H 07/01/18 14:45 Folic Acid 1 mg PO DAILY 07/01/18 14:55 LORazepam [Ativan] See Protocol IVPUSH Q4H PRN 07/01/18 14:57 Patient Status [ADT] Stat 07/01/18 15:00 Sodium Chloride 0.9% [Normal Saline] 1,000 ml IV ASDIRECTED 07/01/18 15:10 Consult to Physical Therapy [PT Evaluation and Treatment] [CONS] Stat 07/01/18 16:26 Calcium Carbonate/Vitamin D3 [Caltrate 600+D 1500 MG-400 Units] 1 tab PO BID 07/01/18 16:27 Cholecalciferol (Vitamin D3) [Vitamin D3] 1,000 units PO DAILY 07/01/18 19:00 Telemetry Monitoring [Cardiac Monitoring] [RC] Q8H 07/01/18 21:00 Thiamine [Vitamin B-1] 100 mg PO BEDTIME 07/01/18 22:00 Gabapentin [Neurontin] 600 mg PO TID Magnesium Oxide 400 mg PO TID 07/01/18 Dinner Heart Healthy Diet [DIET] 07/02/18 07:30 Levothyroxine [Synthroid] 100 mcg PO ACBREAKFAST 07/02/18 08:00 Rivaroxaban [Xarelto] 20 mg PO DAILY@0800 07/02/18 09:00 Vitamin E (dl, acetate) [Vitamin E] 400 units PO DAILY 07/03/18 05:11 BASIC METABOLIC PANEL,BMP [CHEM] AM CBC WITH AUTO DIFF [HEME] AM MAGNESIUM [CHEM] AM - Plan Plan:: Assessment: #1. Ambulatory dysfunction #2. Altered mental status #3. GIDEON from acute dehydration #4. History of A. Fibrillation, alcohol abuse, t2dm, neuropathy. Plan: #1. Continue IVF, hold anti-hypertensives #2. Work with PT #3. Anticipate discharge to SNF for temporary rehabilitation #4. CBC, BMP, magnesium tomorrow AM #5. It is to note that the patient tells me that she drinks 2-3 glasses of wine daily, and hasn't drank in over a week. She is not showing any signs of withdrawal.
[2018-07-02] MEDS: Thiamine 100 MG Tab PO SCH (21:17)
[2018-07-03] MEDS: Magnesium Oxide 400 MG Tab PO SCH ×3 (05:19→21:30)
[2018-07-03] MEDS: Gabapentin 300 MG Cap PO SCH ×3 (05:19→21:30)
[2018-07-03] MEDS: Levothyroxine 100 MCG Tab PO SCH (06:35)
[2018-07-03 06:37] LABS: CHLORIDE,CL 102 mmol/L (98-107); SODIUM,NA 138 mmol/L (136-145)
[2018-07-03] MEDS: Vitamin E (dl-alpha-tocopherol acetate) 400 Unit Cap PO SCH (08:04)
[2018-07-03] MEDS: Calcium Carbonate/Vitamin D3 1500 MG-400 Units Tab PO SCH ×2 (08:04→21:30)
[2018-07-03] MEDS: Rivaroxaban 10 MG Tab PO SCH (08:04)
[2018-07-03] MEDS: Folic Acid 1 MG Tab PO SCH (08:05)
[2018-07-03] MEDS: Cholecalciferol (Vitamin D3) 1,000 Unit Tab PO SCH (08:05)
--- NOTE | 2018-07-03 09:13 | PCM.PN ---
- General Info Date of Service: 07/03/18 Subjective Update: Appears to be more confused today, she was unaware of what city she's in and why shes in the hospital. Patient does have a history of underlying dementia. She denies any other complaints. - Review of Systems General: Reports: Other (see hpi) - Patient Data Vitals - Most Recent: Last Vital Signs Temp 36.2 C 07/03/18 07:00 Pulse 86 07/03/18 07:00 Resp 16 07/03/18 07:00 BP 114/72 07/03/18 07:00 Pulse Ox 96 07/03/18 07:00 Orthostatic Blood Pressure [ 84/50 Standing] Orthostatic Blood Pressure [ 87/48 Sitting] Orthostatic Blood Pressure [ 90/65 Supine] Weight - Most Recent: 68.039 kg I&O - Last 24 Hours: Intake & Output 07/02/18 07/03/18 07/03/18 22:59 06:59 14:59 Intake Total 3215 1958 Balance 3215 195 Lab Results Last 24 Hours: Laboratory Results - last 24 hr 07/03/18 07/03/18 Range/Units 05:30 06:00 WBC 5.79 (4.0-11.0) K/uL RBC 2.87 L (4.30-5.90) M/uL Hgb 11.1 L (12.0-16.0) g/dL Hct 32.6 L (36.0-46.0) % MCV 113.6 H (80.0-98.0) fL MCH 38.7 H (27.0-32.0) pg MCHC 34.0 (31.0-37.0) g/dL RDW Std Deviation 61.0 (28.0-62.0) fl RDW Coeff of Aruna 15 (11.0-15.0) % Plt Count 208 (150-400) K/uL MPV 10.60 (7.40-12.00) fL Neut % (Auto) 76.7 (48.0-80.0) % Lymph % (Auto) 10.2 L (16.0-40.0) % Kleberg % (Auto) 11.9 (0.0-15.0) % Eos % (Auto) 0.7 (0.0-7.0) % Baso % (Auto) 0.5 (0.0-1.5) % Neut # (Auto) 4.4 (1.4-5.7) K/uL Lymph # (Auto) 0.6 (0.6-2.4) K/uL Kleberg # (Auto) 0.7 (0.0-0.8) K/uL Eos # (Auto) 0.0 (0.0-0.7) K/uL Baso # (Auto) 0.0 (0.0-0.1) K/uL Nucleated RBC % 0.0 /100WBC Nucleated RBCs # 0 K/uL Sodium 138 (136-145) mmol/L Potassium 3.5 (3.5-5.1) mmol/L Chloride 102 (98-107) mmol/L Carbon Dioxide 28.5 (21.0-32.0) mmol/L BUN 5 L (7.0-18.0) mg/dL Creatinine 0.9 (0.6-1.0) mg/dL Est Cr Clr Drug Dosing 55.24 mL/min Estimated GFR (MDRD) > 60.0 ml/min Glucose 130 H (74-106) mg/dL Calcium 8.8 (8.5-10.1) mg/dL Magnesium 2.0 (1.8-2.4) mg/dL Anibal Results Last 24 Hours: Microbiology 07/01/18 11:40 Urine Culture - Final Urine, Clean Catch MIXED DAMIAN <1000 CFU/ML 07/01/18 11:30 Aerobic Blood Culture - Preliminary Blood - Venous - Lab Draw NO GROWTH AFTER 1 DAY Anaerobic Blood Culture - Preliminary NO GROWTH AFTER 1 DAY 07/01/18 11:10 Aerobic Blood Culture - Preliminary Blood - Venous NO GROWTH AFTER 1 DAY Anaerobic Blood Culture - Preliminary NO GROWTH AFTER 1 DAY Med Orders - Current: Current Medications Calcium Carbonate (Caltrate 600+D 1500 Mg-400 Units) 1 tab PO BID [facility] Last Admin: 07/03/18 08:04 Dose: 1 tab Cholecalciferol (Vitamin D3) 1,000 units PO DAILY [facility] Last Admin: 07/03/18 08:05 Dose: 1,000 units Folic Acid (Folic Acid) 1 mg PO DAILY [facility] Last Admin: 07/03/18 08:05 Dose: 1 mg Gabapentin (Neurontin) 600 mg PO TID [facility] Last Admin: 07/03/18 05:19 Dose: 600 mg Levothyroxine Sodium (Synthroid) 100 mcg PO ACBREAKFAST [facility] Last Admin: 07/03/18 06:35 Dose: 100 mcg Lorazepam (Ativan) 0 mg IVPUSH Q4H PRN; Protocol PRN Reason: Withdrawal Symptoms Magnesium Oxide (Magnesium Oxide) 400 mg PO TID [facility] Last Admin: 07/03/18 05:19 Dose: 400 mg Ondansetron HCl (Zofran) 4 mg IVPUSH Q4H PRN PRN Reason: Nausea Rivaroxaban (Xarelto) 20 mg PO DAILY@0800 [facility] Last Admin: 07/03/18 08:04 Dose: 20 mg Thiamine HCl (Vitamin B-1) 100 mg PO BEDTIME [facility] Last Admin: 07/02/18 21:17 Dose: 100 mg Vitamin E (Vitamin E) 400 units PO DAILY [facility] Last Admin: 07/03/18 08:04 Dose: 400 units Discontinued Medications Digoxin (Lanoxin) 125 mcg PO DAILY [facility] Last Admin: 07/02/18 08:47 Dose: 125 mcg Diltiazem HCl (Cardizem Cd) 360 mg PO DAILY [facility] Last Admin: 07/02/18 10:59 Dose: Not Given Furosemide (Lasix) 20 mg PO DAILY PRN PRN Reason: Edema Stop: 07/01/18 23:59 Last Admin: 07/01/18 16:41 Dose: 20 mg Sodium Chloride (Normal Saline) 1,000 mls @ 125 mls/hr IV ASDIRECTED [facility] Last Admin: 07/02/18 11:17 Dose: 125 mls/hr Magnesium Sulfate 4 gm/ Premix 100 mls @ 50 mls/hr IV ONETIME ONE Stop: 07/02/18 09:56 Last Admin: 07/02/18 08:50 Dose: 50 mls/hr Sodium Chloride (Normal Saline) 1,000 mls @ 999 mls/hr IV STAT ONE Stop: 07/02/18 09:08 Last Admin: 07/02/18 08:47 Dose: 999 mls/hr Metformin HCl (Glucophage) 500 mg PO DAILY [facility] Non-Formulary Medication (Calcium Carbonate) 600 mg PO BID [facility] Last Admin: 07/01/18 17:44 Dose: Not Given Non-Formulary Medication (Cholecalciferol (Vitamin D3) [Vitamin D3]) 1,000 unit PO DAILY [facility] Last Admin: 07/01/18 17:44 Dose: Not Given Potassium Chloride (Klor-Con M20) 40 meq PO ONETIME ONE Stop: 07/02/18 07:57 Last Admin: 07/02/18 08:48 Dose: 40 meq - Exam General: Alert, Oriented HEENT: Pupils Equal, Pupils Reactive, EOMI, Mucous Membr. Moist/Ranger Neck: Supple Lungs: Clear to Auscultation, Normal Respiratory Effort Cardiovascular: Regular Rate, Regular Rhythm GI/Abdominal Exam: Normal Bowel Sounds, Soft, Non-Tender, No Organomegaly, No Distention, No Abnormal Bruit, No Mass, Pelvis Stable Peripheral Pulses: 2+: Dorsalis Pedis (L), Dorsalis Pedis (R) Skin: Warm, Dry, Intact Neurological: No New Focal Deficit Psy/Mental Status: Alert, Normal Affect, Normal Mood - Problem List Review Problem List Initiated/Reviewed/Updated: Yes - My Orders Last 24 Hours: My Active Orders 07/02/18 09:00 Vitamin E (dl, acetate) [Vitamin E] 400 units PO DAILY - Plan Plan:: Assessment: #1. Ambulatory dysfunction #2. Altered mental status with a history of dementia #3. GIDEON from acute dehydration - resolved #4. History of A. Fibrillation, alcohol abuse, t2dm, neuropathy. Plan: #1. Obtain digoxin level - will start on digoxin 125mcg PO q48h, continue vital signs and monitor HR. Stop IV fluids. #2. Anticipate discharge tomorrow to [facility]
[2018-07-03] MEDS ORDERED: LORazepam 1 MG Tab PO ONE (13:49)
[2018-07-03] MEDS ORDERED: Digoxin 125 MCG Tab PO SCH (16:30)
[2018-07-03] MEDS: Thiamine 100 MG Tab PO SCH (21:29)
[2018-07-04] MEDS: Gabapentin 300 MG Cap PO SCH (06:24)
[2018-07-04] MEDS: Magnesium Oxide 400 MG Tab PO SCH (06:24)
[2018-07-04] MEDS: Levothyroxine 100 MCG Tab PO SCH (06:35)
[2018-07-04] MEDS: Calcium Carbonate/Vitamin D3 1500 MG-400 Units Tab PO SCH (09:06)
[2018-07-04] MEDS: Rivaroxaban 10 MG Tab PO SCH (09:06)
[2018-07-04] MEDS: Cholecalciferol (Vitamin D3) 1,000 Unit Tab PO SCH (09:06)
[2018-07-04] MEDS: Vitamin E (dl-alpha-tocopherol acetate) 400 Unit Cap PO SCH (09:06)
[2018-07-04] MEDS: Folic Acid 1 MG Tab PO SCH (09:06)
[2018-07-04 09:13] VITALS: BP 113/75
--- NOTE | 2018-07-04 12:28 | PCM.DCSUM1 ---
Discharge Summary - Hospital Course Free Text/Narrative:: Admission date: 07/01/2018 Discharge date: 07/04/2018 Admission diagnosis: #1. GIDEON from acute dehydration #2. Ambulatory dysfunction #3. Underlying dementia, unspecified #4. A. Fib #5. History of alcohol misuse Discharge diagnosis: #1. GIDEON from acute dehydration - resolved #2. Ambulatory dysfunction #3. Underlying dementia, unspecified #4. A. Fib #5. History of alcohol misuse #6. Macrocytic anemia - stable Hospital course: 67F with the above history was brought to the ER by her family w/ concerns of frequent falls, increased confusion beyond her baseline found to be acutely dehydrated w/ elevated creatinine. She was admitted for IVF, work with physical therapy. Given her underlying dementia, she does require a higher level of care w/ concerns of frequent falls on Xarelto. It was stated by PT that they feel she has reached her maximum point of improvement. She was started on daily folic acid. She does appear to have an underlying dementia that is unspecified, with an appointment scheduled w neurology in the near future. Disposition: [facility]. Dr. Alvarez will be following her there. - Discharge Data Discharge Date: 07/04/18 Discharge Disposition: DC/Tfer to SNF 03 Condition: Fair - Patient Summary/Data Consults: Consultations 07/01/18 15:10 Consult to Physical Therapy [PT Evaluation and Treatment] [CONS] Stat - Patient Instructions Diet: Usual Diet as Tolerated Activity: As Tolerated Notify Provider of: Fever, Increased Pain, Swelling and Redness, Drainage, Nausea and/or Vomiting - Discharge Plan Prescriptions/Med Rec: Digoxin 125 mcg PO DAILY 30 Days #30 tablet Diltiazem HCl [Diltiazem ER] 240 mg PO DAILY 14 Days #28 cap.er.deg Folic Acid 1 mg PO DAILY 30 Days #30 tablet Thiamine [Vitamin B-1] 100 mg PO BEDTIME 30 Days #30 tablet Home Medications: Home Meds Cholecalciferol (Vitamin D3) [Vitamin D3] 1,000 unit PO DAILY 02/07/17 [History] Levothyroxine [Synthroid] 100 mcg PO DAILY 02/07/17 [History] metFORMIN [Glucophage] 500 mg PO DAILY 02/07/17 [History] Calcium Carbonate 600 mg PO BID 11/04/17 [History] Gabapentin [Neurontin] 600 mg PO TID 11/04/17 [History] Furosemide 20 mg PO DAILY PRN 07/01/18 [History] Magnesium Oxide 500 mg PO TID 07/01/18 [History] Potassium Chloride [Klor-Con 10] 10 meq PO DAILY 07/01/18 [History] Rivaroxaban [Xarelto] 20 mg PO DAILY 07/01/18 [History] Digoxin 125 mcg PO DAILY 30 Days #30 tablet 07/04/18 [Rx] Diltiazem HCl [Diltiazem ER] 240 mg PO DAILY 14 Days #28 cap.er.deg 07/04/18 [Rx ] Folic Acid 1 mg PO DAILY 30 Days #30 tablet 07/04/18 [Rx] Thiamine [Vitamin B-1] 100 mg PO BEDTIME 30 Days #30 tablet 07/04/18 [Rx] Referrals: Herman Alvarez MD [Physician] - - Discharge Summary/Plan Comment DC Time >30 min.: No - Patient Data Vitals - Most Recent: Last Vital Signs Temp 36.8 C 07/04/18 09:00 Pulse 84 07/04/18 09:00 Resp 16 07/04/18 09:00 BP 113/75 07/04/18 09:00 Pulse Ox 99 07/04/18 09:00 Orthostatic Blood Pressure [ 84/50 Standing] Orthostatic Blood Pressure [ 87/48 Sitting] Orthostatic Blood Pressure [ 90/65 Supine] Weight - Most Recent: 68.039 kg I&O - Last 24 hours: Intake & Output 07/03/18 07/04/18 07/04/18 22:59 06:59 14:59 Intake Total 950 300 Balance 950 300 ANN-MARIE Results - Last 24 hrs: Microbiology 07/01/18 11:30 Aerobic Blood Culture - Preliminary Blood - Venous - Lab Draw NO GROWTH AFTER 3 DAYS Anaerobic Blood Culture - Preliminary NO GROWTH AFTER 3 DAYS 07/01/18 11:10 Aerobic Blood Culture - Preliminary Blood - Venous NO GROWTH AFTER 3 DAYS Anaerobic Blood Culture - Preliminary NO GROWTH AFTER 3 DAYS 07/01/18 11:40 Urine Culture - Final Urine, Clean Catch MIXED DAMIAN <1000 CFU/ML Med Orders - Current: Current Medications Calcium Carbonate (Caltrate 600+D 1500 Mg-400 Units) 1 tab PO BID [facility] Last Admin: 07/04/18 09:06 Dose: 1 tab Cholecalciferol (Vitamin D3) 1,000 units PO DAILY [facility] Last Admin: 07/04/18 09:06 Dose: 1,000 units Digoxin (Lanoxin) 125 mcg PO Q48H [facility] Last Admin: 07/03/18 17:24 Dose: 125 mcg Folic Acid (Folic Acid) 1 mg PO DAILY [facility] Last Admin: 07/04/18 09:06 Dose: 1 mg Gabapentin (Neurontin) 600 mg PO TID [facility] Last Admin: 07/04/18 06:24 Dose: 600 mg Levothyroxine Sodium (Synthroid) 100 mcg PO ACBREAKFAST [facility] Last Admin: 07/04/18 06:35 Dose: 100 mcg Lorazepam (Ativan) 0 mg IVPUSH Q4H PRN; Protocol PRN Reason: Withdrawal Symptoms Magnesium Oxide (Magnesium Oxide) 400 mg PO TID [facility] Last Admin: 07/04/18 06:24 Dose: 400 mg Ondansetron HCl (Zofran) 4 mg IVPUSH Q4H PRN PRN Reason: Nausea Rivaroxaban (Xarelto) 20 mg PO DAILY@0800 [facility] Last Admin: 07/04/18 09:06 Dose: 20 mg Thiamine HCl (Vitamin B-1) 100 mg PO BEDTIME [facility] Last Admin: 07/03/18 21:29 Dose: 100 mg Vitamin E (Vitamin E) 400 units PO DAILY [facility] Last Admin: 07/04/18 09:06 Dose: 400 units Discontinued Medications Digoxin (Lanoxin) 125 mcg PO DAILY [facility] Last Admin: 07/02/18 08:47 Dose: 125 mcg Diltiazem HCl (Cardizem Cd) 360 mg PO DAILY [facility] Last Admin: 07/02/18 10:59 Dose: Not Given Furosemide (Lasix) 20 mg PO DAILY PRN PRN Reason: Edema Stop: 07/01/18 23:59 Last Admin: 07/01/18 16:41 Dose: 20 mg Sodium Chloride (Normal Saline) 1,000 mls @ 125 mls/hr IV ASDIRECTED [facility] Last Admin: 07/02/18 11:17 Dose: 125 mls/hr Magnesium Sulfate 4 gm/ Premix 100 mls @ 50 mls/hr IV ONETIME ONE Stop: 07/02/18 09:56 Last Admin: 07/02/18 08:50 Dose: 50 mls/hr Sodium Chloride (Normal Saline) 1,000 mls @ 999 mls/hr IV STAT ONE Stop: 07/02/18 09:08 Last Admin: 07/02/18 08:47 Dose: 999 mls/hr Lorazepam (Ativan) 1 mg PO ONETIME ONE Stop: 07/03/18 13:50 Last Admin: 07/03/18 14:13 Dose: 1 mg Metformin HCl (Glucophage) 500 mg PO DAILY [facility] Non-Formulary Medication (Calcium Carbonate) 600 mg PO BID [facility] Last Admin: 07/01/18 17:44 Dose: Not Given Non-Formulary Medication (Cholecalciferol (Vitamin D3) [Vitamin D3]) 1,000 unit PO DAILY [facility] Last Admin: 07/01/18 17:44 Dose: Not Given Potassium Chloride (Klor-Con M20) 40 meq PO ONETIME ONE Stop: 07/02/18 07:57 Last Admin: 07/02/18 08:48 Dose: 40 meq
== END 2018-07-04 13:30 | DRG 684 ==
LOC: MW.ED 10:40 → MW.MS 13:02 → OBSVTOIN 14:57
PROVIDERS: ADMIT Internal Medicine; ATTEND Internal Medicine
DX: N17.9 Acute kidney failure, unspecified (principal); R41.82 Altered mental status, unspecified; R29.6 Repeated falls; F10.10 Alcohol abuse, uncomplicated; E11.9 Type 2 diabetes mellitus without complications; I48.91 Unspecified atrial fibrillation; R32 Unspecified urinary incontinence; E86.0 Dehydration; E11.40 Type 2 diabetes mellitus with diabetic neuropathy, unspecified; D53.9 Nutritional anemia, unspecified; F03.90 Unspecified dementia, unspecified severity, without behavioral disturbance, psychotic disturbance, mood disturbance, and anxiety; Z91.81 History of falling; Z79.899 Other long term (current) drug therapy; Z79.01 Long term (current) use of anticoagulants; Z79.84 Long term (current) use of oral hypoglycemic drugs; Z86.73 Personal history of transient ischemic attack (TIA), and cerebral infarction without residual deficits; Z90.710 Acquired absence of both cervix and uterus
CPT/HCPCS: 36415; 70450; 70450-26; 71045; 71045-26; 72170; 72170-26; 80048; 80053; 80162; 80305-QW; 81001; 82140; 82550; 82607; 83735; 84484; 85025; 85027; 85610; 87040; 87086; 93005; 97161-GP; 99285-25; A9270-GY; G0480; J3475; J7040

== ENCOUNTER 2018-07-05 08:43 | Emergency (ER) | payer MEDICARE, OTHER ==
--- NOTE | 2018-07-05 08:47 | EDM.PDOC ---
ED HPI GENERAL MEDICAL PROBLEM - General Chief Complaint: Laceration Stated Complaint: FELL Time Seen by Provider: 07/05/18 08:46 Source of Information: Reports: Patient - History of Present Illness INITIAL COMMENTS - FREE TEXT/NARRATIVE: HISTORY AND PHYSICAL: History of present illness: []A shunt [facility] today she did hit her head and sustained 5 mm simple laceration, she does take several though daily for atrial fibrillation No loss of consciousness no fever nausea vomiting chills sweats Review of systems: As per history of present illness and below otherwise all systems reviewed and negative. Past medical history: As per history of present illness and as reviewed below otherwise noncontributory. Surgical history: As per history of present illness and as reviewed below otherwise noncontributory. Social history: No reported history of drug or alcohol abuse. Family history: As per history of present illness and as reviewed below otherwise noncontributory. Physical exam: HEENT: Atraumatic, normocephalic, pupils reactive, negative for conjunctival pallor or scleral icterus, mucous membranes moist, throat clear, neck supple, nontender, trachea midline. Lungs: Clear to auscultation, breath sounds equal bilaterally, chest nontender. Heart: S1S2, regular, negative for clicks, rubs, or JVD. Abdomen: Soft, nondistended, nontender. Negative for masses or hepatosplenomegaly. Negative for costovertebral tenderness. Pelvis: Stable nontender. Genitourinary: Deferred. Rectal: Deferred. Extremities: Atraumatic, negative for cords or calf pain. Neurovascular unremarkable. Neuro: Awake, alert, oriented. Cranial nerves II through XII unremarkable. Cerebellum unremarkable. Motor and sensory unremarkable throughout. Exam nonfocal. Diagnostics: [Head and cervical spine no contrast ] Therapeutics: [Tetanus status up to date ] Is cleansed and explored #6 tone placed without complication Lidocaine for anesthesia Nigel on 5-7 days Impression: [Laceration ] lives centimeter simple laceration right temporal Definitive disposition and diagnosis as appropriate pending reevaluation and review of above. Right Frontal Head Pain Score (Numeric/FACES): 8 - Related Data Allergies Allergy/AdvReac Type Severity Reaction Status Date / Time No Known Allergies Allergy Verified 07/05/18 08:56 Home Meds: Home Meds Cholecalciferol (Vitamin D3) [Vitamin D3] 1,000 unit PO DAILY 02/07/17 [History] Levothyroxine [Synthroid] 100 mcg PO DAILY 02/07/17 [History] metFORMIN [Glucophage] 500 mg PO DAILY 02/07/17 [History] Calcium Carbonate 600 mg PO BID 11/04/17 [History] Gabapentin [Neurontin] 600 mg PO TID 11/04/17 [History] Furosemide 20 mg PO DAILY PRN 07/01/18 [History] Magnesium Oxide 500 mg PO TID 07/01/18 [History] Potassium Chloride [Klor-Con 10] 10 meq PO DAILY 07/01/18 [History] Rivaroxaban [Xarelto] 20 mg PO DAILY 07/01/18 [History] Digoxin 125 mcg PO DAILY 30 Days #30 tablet 07/04/18 [Rx] Diltiazem HCl [Diltiazem ER] 240 mg PO DAILY 14 Days #28 cap.er.deg 07/04/18 [Rx ] Folic Acid 1 mg PO DAILY 30 Days #30 tablet 07/04/18 [Rx] Thiamine [Vitamin B-1] 100 mg PO BEDTIME 30 Days #30 tablet 07/04/18 [Rx] Past Medical History Cardiovascular History: Reports: Afib, Arrhythmia 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: Neurological History: Reports: CVA Other Neuro History: demenita Psychiatric History: Reports: Dementia Endocrine/Metabolic History: Reports: Diabetes, Type II Hematologic History: Reports: Blood Transfusion(s) - Infectious Disease History Infectious Disease History: Reports: Chicken Pox, Measles, Mumps - Past Surgical History HEENT Surgical History: Reports: Tonsillectomy, Other (See Below) Other HEENT Surgeries/Procedures: wears eyeglasses Cardiovascular Surgical History: Reports: None Female Surgical History: Reports: Hysterectomy Social & Family History - Family History Family Medical History: Noncontributory - Caffeine Use Caffeine Use: Reports: Tea ED ROS GENERAL - Review of Systems Review Of Systems: See Below ED EXAM, SKIN/RASH Exam: See Below Course - Vital Signs Last Recorded V/S: Last Vital Signs Temp 97.1 F 07/05/18 08:54 Pulse 77 07/05/18 08:54 Resp 18 07/05/18 08:54 BP 131/87 07/05/18 08:54 Pulse Ox 98 07/05/18 08:54 - Orders/Labs/Meds Meds: Medications Discontinued Medications Generic Name Dose Route Start Last Admin Trade Name Saleem PRN Reason Stop Dose Admin Lidocaine HCl 10 ml 07/05/18 09:59 07/05/18 10:19 Xylocaine 1% INJECT 07/05/18 10:00 Not Given ONETIME ONE Lidocaine HCl 5 ml 07/05/18 10:18 Xylocaine-Mpf 1% INJECT 07/05/18 10:19 ONETIME ONE Departure - Departure Time of Disposition: 10:50 Disposition: Home, Self-Care 01 Condition: Good Clinical Impression: Laceration - Discharge Information Forms: ED Department Discharge Additional Instructions: Standard wound care tone out in 5-7 days The following information is given to patients seen in the emergency department who are being discharged to home. This information is to outline your options for follow-up care. We provide all patients seen in our emergency department with a follow-up referral. The need for follow-up, as well as the timing and circumstances, are variable depending upon the specifics of your emergency department visit. If you don't have a primary care physician on staff, we will provide you with a referral. We always advise you to contact your personal physician following an emergency department visit to inform them of the circumstance of the visit and for follow-up with them and/or the need for any referrals to a consulting specialist. The emergency department will also refer you to a specialist when appropriate. This referral assures that you have the opportunity for follow-up care with a specialist. All of these measure are taken in an effort to provide you with optimal care, which includes your follow-up. Under all circumstances we always encourage you to contact your private physician who remains a resource for coordinating your care. When calling for follow-up care, please make the office aware that this follow-up is from your recent emergency room visit. If for any reason you are refused follow-up, please contact the [facility] emergency department at and asked to speak to the emergency department charge nurse.
[2018-07-05 09:00] VITALS: BP 131/87
[2018-07-05] MEDS ORDERED: Lidocaine 1% 10 ML MDV INJECT ONE (09:59)
--- NOTE | 2018-07-05 10:11 | CT ---
EXAMINATION: Non contrast CT head. Coronal and sagittal reformats. HISTORY: Pain FINDINGS: No evidence of intra or extra axial hemorrhage, mass, midline shift, hydrocephalus or edema. Moderate generalized atrophy. Periventricular and subcortical white matter hypodensities are noted. Several small old lacunar infarcts noted bilaterally. No hypoattenuation changes in the major vascular territories to suggest acute infarct. No abnormal intracranial calcifications are detected. No evidence of substantial vascular calcifications. Air-fluid level noted within the right maxillary sinus. Orbits and globes appear symmetric. Pituitary fossa appears unremarkable. Calvarium is intact. No evidence of skull fracture. IMPRESSION: 1. No acute intracranial findings. 2. Generalized atrophy and small vessel ischemic changes noted. 3. Old lacunar infarcts bilaterally. 4. Air-fluid level within the right maxillary sinus, correlate for an injury versus sinusitis.
--- NOTE | 2018-07-05 10:17 | CT ---
EXAMINATION: CT cervical spine HISTORY: Pain COMPARISON: None TECHNIQUE: Axial CT imaging obtained through the cervical spine without contrast. Coronal and sagittal reconstructions obtained. FINDINGS: There is straightening of the normal cervical lordosis. The vertebral body heights appear maintained. There is no fracture or acute osseous abnormality. Bone mineralization and joint spaces are preserved. Disc space narrowing and osteophyte formation noted at multiple levels. Paravertebral soft tissues are normal. Mild scarring within the lung apices. IMPRESSION: Degenerative changes without acute findings.
== END 2018-07-05 11:18 | disposition home or self-care (01) ==
LOC: MW.ED 08:43
DX: S01.01XA Laceration without foreign body of scalp, initial encounter (principal); E11.9 Type 2 diabetes mellitus without complications; W18.00XA Striking against unspecified object with subsequent fall, initial encounter; Z79.899 Other long term (current) drug therapy
CPT/HCPCS: 70450; 70450-26; 72125; 72125-26; 99283-25

== ENCOUNTER 2019-04-01 12:42 | Emergency (ER) | payer MEDICARE, OTHER ==
[2019-04-01] MEDS ORDERED: Sodium Chloride 0.9% 2.5 ML Syringe FLUSH PRN (12:47)
[2019-04-01] MEDS ORDERED: Sodium Chloride 0.9% 10 ML Syringe FLUSH PRN (12:47)
--- NOTE | 2019-04-01 12:49 | EDM.PDOC ---
ED HPI GENERAL MEDICAL PROBLEM - General Chief Complaint: Respiratory Problem Stated Complaint: FALL Time Seen by Provider: 04/01/19 12:48 Source of Information: Reports: EMS, Family History Limitations: Reports: No Limitations - History of Present Illness INITIAL COMMENTS - FREE TEXT/NARRATIVE: HISTORY AND PHYSICAL: History of present illness: Patient is a 68-year-old female presents to the ED via EMS after being found down in bathroom. Per EMS, patient had gone to the bathroom last night, was found by the this morning in the shower approximately 14 hours later. Patient has history of dementia, atrial fibrillation on xarelto, diabetes. Patient has no complaints at this time and denies chest pain, abdominal pain, back pain, shortness of breath, headache. Unable to gather history of patient secondary to dementia. states he heard her in the bathroom around 2am, this morning he had to get up early to go to an appointment, came home and she was still in the bathroom this morning. He is uncertain if she fell. He states in the last 3 weeks she has been needing to use her walker. She did have a fall 3 weeks ago, did not seek care at that time. Patient has not seen her PCP in at least a year. Patient had been seeing oncology some time ago due to concern of possible cancer. is unable to elaborate on this but she does not have a cancer diagnosis and is not on chemotherapy or other IV therapy. Review of systems: As per history of present illness and below otherwise all systems reviewed and negative. Past medical history: As per history of present illness and as reviewed below otherwise noncontributory. Surgical history: As per history of present illness and as reviewed below otherwise noncontributory. Social history: No reported history of drug or alcohol abuse. Family history: As per history of present illness and as reviewed below otherwise noncontributory. Physical exam: General: Patient sitting comfortably in no acute distress and nontoxic appearing HEENT: Atraumatic, normocephalic, pupils reactive, negative for conjunctival pallor or scleral icterus, mucous membranes moist, throat clear, neck supple, nontender, trachea midline. No meningeal signs. Lungs: Clear to auscultation, breath sounds equal bilaterally, chest nontender. There is ecchymosis to the right posterior chest wall. Heart: S1S2, regular, negative for clicks, rubs, or overt murmur. Abdomen: There is a large umbilical hernia that is tender to palpation and non- reducible at this time. Negative for masses or hepatosplenomegaly. Negative for costovertebral tenderness. No rigidity, rebound, guarding. Pelvis: Stable nontender. Genitourinary: Deferred. Rectal: Deferred. Extremities: Atraumatic, negative for cords or calf pain. Neurovascular unremarkable. Neuro: Awake, alert, oriented. Cranial nerves II through XII unremarkable. Cerebellum unremarkable. Motor and sensory unremarkable throughout. Exam nonfocal. Notes: Discussed with Dr. Baez, he advised patient be transferred as she will likely need and longer post op admission and ICU following surgery. Diagnostics: CBC, CMP, troponin, CK, UA, EKG, CXR, pelvis x-ray, CT abdomen/pelvis Therapeutics: 1L NS IV Prescriptions: Impression: Abdominal free air, umbilical hernia Plan: Dr. Deras, general surgery, has accepted patient for transfer via ground EMS. Definitive disposition and diagnosis as appropriate pending reevaluation and review of above. - Related Data Allergies Allergy/AdvReac Type Severity Reaction Status Date / Time No Known Allergies Allergy Verified 07/05/18 08:56 Home Meds: Home Meds Cholecalciferol (Vitamin D3) [Vitamin D3] 1,000 unit PO DAILY 02/07/17 [History] Levothyroxine [Synthroid] 100 mcg PO DAILY 02/07/17 [History] metFORMIN [Glucophage] 500 mg PO DAILY 02/07/17 [History] Calcium Carbonate 600 mg PO BID 11/04/17 [History] Gabapentin [Neurontin] 600 mg PO TID 11/04/17 [History] Furosemide 20 mg PO DAILY PRN 07/01/18 [History] Magnesium Oxide 500 mg PO TID 07/01/18 [History] Potassium Chloride [Klor-Con 10] 10 meq PO DAILY 07/01/18 [History] Rivaroxaban [Xarelto] 20 mg PO DAILY 07/01/18 [History] Digoxin 125 mcg PO DAILY 30 Days #30 tablet 07/04/18 [Rx] Folic Acid 1 mg PO DAILY 30 Days #30 tablet 07/04/18 [Rx] Thiamine [Vitamin B-1] 100 mg PO BEDTIME 30 Days #30 tablet 07/04/18 [Rx] dilTIAZem HCl [Diltiazem 24Hr ER (Xr)] 240 mg PO DAILY 14 Days #28 cap.er.deg [Rx] Past Medical History Cardiovascular History: Reports: Afib, Arrhythmia [employer]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: Neurological History: Reports: CVA Other Neuro History: demenita Psychiatric History: Reports: Dementia Endocrine/Metabolic History: Reports: Diabetes, Type II Hematologic History: Reports: Blood Transfusion(s) - Infectious Disease History Infectious Disease History: Reports: Chicken Pox, Measles, Mumps - Past Surgical History HEENT Surgical History: Reports: Tonsillectomy, Other (See Below) Other HEENT Surgeries/Procedures: wears eyeglasses Cardiovascular Surgical History: Reports: None Female Surgical History: Reports: Hysterectomy Social & Family History - Family History Family Medical History: Noncontributory - Caffeine Use Caffeine Use: Reports: Tea ED ROS GENERAL - Review of Systems Review Of Systems: ROS reveals no pertinent complaints other than HPI. ED EXAM, GENERAL - Physical Exam Exam: See Below (see dictation) Course - Vital Signs Last Recorded V/S: Last Vital Signs Temp 96.1 F 04/01/19 12:45 Pulse 83 04/01/19 14:21 Resp 18 04/01/19 14:21 BP 117/86 04/01/19 14:21 Pulse Ox 97 04/01/19 14:21 - Orders/Labs/Meds Orders: Active Orders 24 hr Category Date Time Status EKG Documentation Completion [RC] STAT Care 04/01/19 12:46 Active Sodium Chloride 0.9% [Saline Flush] Med 04/01/19 12:47 Active 10 ml FLUSH ASDIRECTED PRN Sodium Chloride 0.9% [Saline Flush] Med 04/01/19 12:47 Active 2.5 ml FLUSH ASDIRECTED PRN Saline Lock Insert [OM.PC] Stat Oth 04/01/19 12:46 Ordered Medication Orders Sodium Chloride (Saline Flush) 10 ml FLUSH ASDIRECTED PRN PRN Reason: Keep Vein Open Last Admin: 04/01/19 14:34 Dose: 10 ml Sodium Chloride (Saline Flush) 2.5 ml FLUSH ASDIRECTED PRN PRN Reason: Keep Vein Open Last Admin: 04/01/19 14:33 Dose: 2.5 ml Labs: Laboratory Tests 10/22/19 10/22/19 10/22/19 Range/Units 12:56 12:56 14:21 WBC 7.11 (4.0-11.0) K/uL RBC 4.52 (4.30-5.90) M/uL Hgb 16.5 H (12.0-16.0) g/dL Hct 47.0 H (36.0-46.0) % MCV 104.0 H (80.0-98.0) fL MCH 36.5 H (27.0-32.0) pg MCHC 35.1 (31.0-37.0) g/dL RDW Std Deviation 57.6 (28.0-62.0) fl RDW Coeff of Aruna 15 (11.0-15.0) % Plt Count 119 L (150-400) K/uL MPV 11.60 (7.40-12.00) fL Add Manual Diff YES Neutrophils % (Manual) 77 (48.0-80.0) % Band Neutrophils % 1 % Lymphocytes % (Manual) 1 L (16.0-40.0) % Monocytes % (Manual) 21 H (0.0-15.0) % Nucleated RBC % 0.4 /100WBC Absolute Seg Neuts 5.5 (1.4-5.7) Band Neutrophils # 0.1 Lymphocytes # (Manual) 0.1 L (0.6-2.4) Monocytes # (Manual) 1.5 H (0.0-0.8) Nucleated RBCs # 0 K/uL Sodium 135 L (136-145) mmol/L Potassium 4.0 (3.5-5.1) mmol/L Chloride 92 L (98-107) mmol/L Carbon Dioxide 28.5 (21.0-32.0) mmol/L BUN 54 H (7.0-18.0) mg/dL Creatinine 1.2 H (0.6-1.0) mg/dL Est Cr Clr Drug Dosing 42.59 mL/min Estimated GFR (MDRD) 44.8 ml/min Glucose 137 H (74-106) mg/dL Calcium 13.6 H (8.5-10.1) mg/dL Magnesium 2.1 (1.8-2.4) mg/dL Total Bilirubin 4.4 H (0.2-1.0) mg/dL AST 109 H (15-37) IU/L ALT 91 H (14-63) IU/L Alkaline Phosphatase 275 H (46-116) U/L Creatine Kinase 250 (26-308) U/L Troponin I < 0.050 (0.000-0.056) ng/mL Total Protein 6.9 (6.4-8.2) g/dL Albumin 3.0 L (3.4-5.0) g/dL Globulin 3.9 (2.6-4.0) g/dL Albumin/Globulin Ratio 0.8 L (0.9-1.6) Urine Color DARK YELLOW Urine Appearance SLT CLOUDY Urine pH 7.5 (5.0-8.0) Ur Specific [place] 1.015 (1.001-1.035) Urine Protein NEGATIVE (NEGATIVE) mg/dL Urine Glucose (UA) NEGATIVE (NEGATIVE) mg/dL Urine Ketones TRACE H (NEGATIVE) mg/dL Urine Occult Blood NEGATIVE (NEGATIVE) Urine Nitrite NEGATIVE (NEGATIVE) Urine Bilirubin SMALL H (NEGATIVE) Urine Ictotest POSITIVE Urine Urobilinogen 0.2 (<2.0) EU/dL Ur Leukocyte Esterase NEGATIVE (NEGATIVE) Meds: Medications Generic Name Dose Route Start Last Admin Trade Name Freq PRN Reason Stop Dose Admin Sodium Chloride 10 ml 04/01/19 12:47 04/01/19 14:34 Saline Flush FLUSH 10 ml ASDIRECTED PRN Administration Keep Vein Open Sodium Chloride 2.5 ml 04/01/19 12:47 04/01/19 14:33 Saline Flush FLUSH 2.5 ml ASDIRECTED PRN Administration Keep Vein Open Discontinued Medications Generic Name Dose Route Start Last Admin Trade Name Freq PRN Reason Stop Dose Admin Sodium Chloride 1,000 mls @ 999 mls/hr 04/01/19 13:54 04/01/19 14:33 Normal Saline IV 04/01/19 14:54 999 mls/hr STAT ONE Administration Departure - Departure Time of Disposition: 15:03 Disposition: DC/Tfer to Acute Hospital 02 Condition: Good Clinical Impression: Peritoneal free air, Umbilical hernia - Discharge Information Referrals: Herman Alvarez MD [Primary Care Provider] - Forms: ED Department Discharge - My Orders Last 24 Hours: My Active Orders 04/01/19 12:46 EKG Documentation Completion [RC] STAT Saline Lock Insert [OM.PC] Stat 04/01/19 12:47 Sodium Chloride 0.9% [Saline Flush] 10 ml FLUSH ASDIRECTED PRN Sodium Chloride 0.9% [Saline Flush] 2.5 ml FLUSH ASDIRECTED PRN - Assessment/Plan Last 24 Hours: My Active Orders 04/01/19 12:46 EKG Documentation Completion [RC] STAT Saline Lock Insert [OM.PC] Stat 04/01/19 12:47 Sodium Chloride 0.9% [Saline Flush] 10 ml FLUSH ASDIRECTED PRN Sodium Chloride 0.9% [Saline Flush] 2.5 ml FLUSH ASDIRECTED PRN
[2019-04-01 13:36] LABS: BLOOD UREA NITROGEN,BUN 54 mg/dL (7.0-18.0); CARBON DIOXIDE,CO2 28.5 mmol/L (21.0-32.0); CHLORIDE,CL 92 mmol/L (98-107); GLUCOSE RANDOM 137 mg/dL (74-106); SODIUM,NA 135 mmol/L (136-145)
--- NOTE | 2019-04-01 13:47 | CR ---
Chest: Frontal view of the chest was obtained. Comparison: Prior chest x-ray of 07/01/18. Findings: Free air is identified below the right hemidiaphragm. Heart size appears within normal limits for portable technique. Upper mediastinum is normal. Lungs show no acute parenchymal change. Scoliosis is noted within the spine. No acute osseous abnormality is seen. Impression: 1. Free air beneath right hemidiaphragm. Please correlate if patient has had recent abdominal surgery. If no abdominal surgery is present, ruptured viscus is a strong possibility. 2. Other findings as noted above which are believed to be incidental. Diagnostic code #5 MTDD
--- NOTE | 2019-04-01 13:47 | CR ---
Pelvis: AP view of the pelvis was obtained. Comparison: No previous study. Joint spaces within both hips are maintained. Sacroiliac joints are slightly narrowed. Osteopenia is seen. No acute fracture or other bony abnormality is identified. Impression: 1. Slight joint space narrowing within the sacroiliac joints and osteopenia. 2. Nothing acute is seen on AP pelvis study. Diagnostic code #2 MTDD
[2019-04-01] MEDS ORDERED: Sodium Chloride 0.9% 1,000 ML IV ONE (13:54)
--- NOTE | 2019-04-01 14:36 | CT ---
Head CT Technique: Multiple axial sections through the brain were obtained. Intravenous contrast was not utilized. Comparison: No prior intracranial imaging. Findings: Ventricles along with basal cisterns and sulci over the convexities are moderately prominent. Symmetric low density findings are seen within the posterior basal ganglia on both sides. No other abnormal parenchymal densities are seen. No evidence of intracranial hemorrhage. No midline shift or mass effect is seen. Bone window settings were reviewed which show nothing acute within the mastoid sinuses or within the visualized paranasal sinuses. No acute calvarial abnormality is seen. Impression: 1. Moderate generalized atrophy. 2. Symmetric low-density findings within the posterior basal ganglia on both sides either due to symmetric old lacunar infarcts or prominent perivascular spaces. 3. No acute intracranial abnormality is appreciated. Diagnostic code #2 MTDD
--- NOTE | 2019-04-01 14:39 | CT ---
CT abdomen and pelvis Technique: Multiple axial sections were obtained from above the dome of the diaphragm inferiorly through the pubic symphysis. Intravenous and oral contrast not utilized. Findings: Areas of atelectasis are noted within both lung bases. Heart is enlarged. Prominent amount of free air is seen within the abdomen. There is bowel being seen within an anterior abdominal wall hernia with subcutaneous air being seen. There is extension of the air to the skin surface. This presumably is the etiology of the free air. Please correlate of this opening is due to chronic infection or due to previous surgery or due to necrosis from incarcerated hernia. Liver shows fatty infiltration without focal abnormality being seen within the liver. Layering gallstones seen within the gallbladder. Spleen appears within normal limits. Adrenal glands show no discrete nodule. Kidneys show no abnormal calcifications or hydronephrosis. Pancreas appears within normal limits. Aorta and iliac vessels shows atherosclerotic calcification without aneurysm. No retroperitoneal adenopathy or mesenteric abnormalities are seen. No pelvic mass or adenopathy is seen. Bone window settings were reviewed which shows mild scattered degenerative change within the spine. Impression: 1. Large amount of free air. 2. Subcutaneous air within the anterior abdomen. Abdominal wall hernia is noted. There is a loop of bowel laterally appears to extend into this hernia. There is air seen to extend to the surface of the skin. This presumably is the etiology of the free air. As mentioned above, uncertain if this is due to chronic infection or due to previous surgery or due to soft tissue necrosis due to incarcerated hernia. No bowel dilatation is seen. 3. Other findings which are felt to be of no acute significance. Diagnostic code #5 MTDD
--- NOTE | 2019-04-01 14:47 | CT ---
CT cervical spine Technique: Multiple axial sections through the cervical spine were obtained. Reconstructed coronal and sagittal images were obtained. Comparison: No prior cervical spine imaging. Findings: Block vertebra is noted between C2 and C3. Severe disc space narrowing with anterior and posterior osteophytes are seen at C4-5, C5-6 and C6- 7. Slightly lesser disc space narrowing is noted at C7-T1, T1-2 and T2-3. Diffuse anterior osteophytes are seen. Mild diffuse degenerative apophyseal change is seen. No fracture is identified. Visualized lung apices are clear. Neural foramina are fairly well preserved. No central canal stenosis is seen. No abnormal subluxation is appreciated. Degenerative change is noted within the right temporomandibular joint. Minimal scoliosis is noted. Impression: 1. Degenerative change as noted above. Other findings which are believed to be incidental. 2. Nothing acute is appreciated on CT study of the cervical spine. Diagnostic code #2 MTDD
[2019-04-01 15:20] VITALS: BP 117/75; PULSE 88
== END 2019-04-01 16:00 ==
LOC: MW.ED 12:42
DX: K42.9 Umbilical hernia without obstruction or gangrene (principal); S20.211A Contusion of right front wall of thorax, initial encounter; F03.90 Unspecified dementia, unspecified severity, without behavioral disturbance, psychotic disturbance, mood disturbance, and anxiety; E11.9 Type 2 diabetes mellitus without complications; I48.91 Unspecified atrial fibrillation; Z79.01 Long term (current) use of anticoagulants; Z79.84 Long term (current) use of oral hypoglycemic drugs; Z86.73 Personal history of transient ischemic attack (TIA), and cerebral infarction without residual deficits; X58.XXXA Exposure to other specified factors, initial encounter
CPT/HCPCS: 36415; 70450; 71045; 72125; 72170; 74176; 80053; 81003; 82550; 83735; 84484; 85025; 93005; 96360; 99285; J7040

== ENCOUNTER 2019-06-20 13:54 | Inpatient (IN) | payer MEDICARE, OTHER ==
[2019-06-20 14:52] LABS: BLOOD UREA NITROGEN,BUN 5 mg/dL (7.0-18.0); CARBON DIOXIDE,CO2 29.7 mmol/L (21.0-32.0); CHLORIDE,CL 105 mmol/L (98-107); GLUCOSE RANDOM 119 mg/dL (74-106); POTASSIUM,K 3.7 mmol/L (3.5-5.1); SODIUM,NA 145 mmol/L (136-145)
--- NOTE | 2019-06-20 14:56 | CT ---
CT cervical spine Technique: Multiple axial sections were obtained from above C1 inferiorly to the bottom of T2. Reconstructed sagittal and coronal images were reviewed. Comparison: Previous cervical spine CT study of 04/01/19. Findings: Mild spondylolisthesis is noted C2-3 due to degenerative apophyseal change. Severe disc space narrowing at C3-4, C4-5, C5-6, C6-7, C7-T1 and T1-2. Moderate disc space narrowing is partially visualized T2-3. Anterior osteophytes are seen throughout the cervical spine. Posterior osteophytes are also noted throughout the cervical spine. Scattered degenerative change is also noted throughout cervical spine. No fracture is identified. Neural foramina are fairly well patent. No bony central canal stenosis is seen. Degenerative change is also noted within the right temporomandibular joint. Impression: 1. Diffuse degenerative as noted above. 2. Nothing acute is appreciated on CT study of the cervical spine. No significant change is seen from prior CT cervical spine study. Diagnostic code #2 This report was dictated in [place] Standard Time
--- NOTE | 2019-06-20 14:56 | CT ---
Head CT Technique: Multiple axial sections through the brain were obtained. Intravenous contrast was not utilized. Comparison: No prior intracranial imaging is available. Findings: Ventricles along with basal cisterns and sulci the convexities are moderately prominent. Low density areas are seen within both posterior basal ganglia. These findings either represents symmetric old lacunar infarcts or prominent perivascular spaces. No other abnormal parenchymal densities are seen. No evidence of intracranial hemorrhage. No midline shift or mass effect is seen. Bone window settings were reviewed which showed no acute calvarial abnormality. Mastoid sinuses are clear. No acute paranasal sinus findings are appreciated. Impression: 1. Senescent change as described above. 2. No acute intracranial abnormality is identified. No evidence of intracranial hemorrhage. Diagnostic code #2 This report was dictated in [place] Standard Time
[2019-06-20] MEDS ORDERED: Sodium Chloride 0.9% 1,000 ML IV ONE (15:09)
[2019-06-20] MEDS ORDERED: Lidocaine 1% with EPINEPHrine 1:100,000 20 ML MDV INJECT ONE (15:21)
--- NOTE | 2019-06-20 15:51 | EDM.PDOC ---
ED HPI GENERAL MEDICAL PROBLEM - General Chief Complaint: Head Injury Stated Complaint: FELL AND HIT HEAD ON ASPRIN Time Seen by Provider: 06/20/19 15:00 Source of Information: Reports: Family History Limitations: Reports: Other (history of dementia) - History of Present Illness Onset: Sudden Duration: Other (unknown. Found by sitting in chair around 11:00 AM.) Location: Reports: Face (2 cm laceration to left eyebrow.) Worsens with: Reports: Other (Dementia) Associated Symptoms: Reports: Syncope (possible syncope) - Related Data Allergies Allergy/AdvReac Type Severity Reaction Status Date / Time No Known Allergies Allergy Verified 06/20/19 14:06 Home Meds: Home Meds Cholecalciferol (Vitamin D3) [Vitamin D3] 1,000 unit PO DAILY 02/07/17 [History] metFORMIN [Glucophage] 500 mg PO DAILY 02/07/17 [History] Calcium Carbonate 600 mg PO BID 11/04/17 [History] Gabapentin [Neurontin] 600 mg PO TID 11/04/17 [History] Furosemide 20 mg PO DAILY PRN 07/01/18 [History] Potassium Chloride [Klor-Con 10] 10 meq PO DAILY 07/01/18 [History] Rivaroxaban [Xarelto] 20 mg PO DAILY 07/01/18 [History] Digoxin 125 mcg PO DAILY 30 Days #30 tablet 07/04/18 [Rx] Folic Acid 1 mg PO DAILY 30 Days #30 tablet 07/04/18 [Rx] Thiamine [Vitamin B-1] 100 mg PO BEDTIME 30 Days #30 tablet 07/04/18 [Rx] dilTIAZem HCl [Diltiazem 24Hr ER (Xr)] 240 mg PO DAILY 14 Days #28 cap.er.deg [Rx] Ondansetron HCl [Ondansetron] 1 tab PO Q6H PRN 06/20/19 [History] traMADol HCl [Tramadol HCl] 1 tab PO Q6HR PRN 06/20/19 [History] Past Medical History Cardiovascular History: Reports: Afib, Arrhythmia [employer]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: Neurological History: Reports: CVA Other Neuro History: demenita Psychiatric History: Reports: Dementia Endocrine/Metabolic History: Reports: Diabetes, Type II Hematologic History: Reports: Blood Transfusion(s) - Infectious Disease History Infectious Disease History: Reports: Chicken Pox, Measles, Mumps - Past Surgical History HEENT Surgical History: Reports: Tonsillectomy, Other (See Below) Other HEENT Surgeries/Procedures: wears eyeglasses Cardiovascular Surgical History: Reports: None Female Surgical History: Reports: Hysterectomy Social & Family History - Family History Family Medical History: Noncontributory - Tobacco Use Smoking Status *Q: Former Smoker Used Tobacco, but Quit: Yes Month/Year Tobacco Last Used: unknown - Caffeine Use Caffeine Use: Reports: Tea - Recreational Drug Use Recreational Drug Use: No ED ROS GENERAL - Review of Systems Review Of Systems: See Below Constitutional: Reports: No Symptoms HEENT: Reports: No Symptoms Respiratory: Reports: No Symptoms Cardiovascular: Reports: No Symptoms Endocrine: Reports: No Symptoms GI/Abdominal: Reports: No Symptoms : Reports: No Symptoms Musculoskeletal: Reports: No Symptoms Skin: Reports: No Symptoms Neurological: Reports: Other (unable to access due to dementia.) ED EXAM, HEAD INJURY - Physical Exam Exam: See Below Exam Limited By: Altered Mental Status (dementia) General Appearance: Alert, WD/WN, No Apparent Distress Head: Normocephalic, Facial Lacerations (2 cm laceration that is superficial over the left eyebrow.) Nexus Criteria: Altered Level of Consciousness. No: Posterior, Midline Cervical Tenderness, Evidence of Intoxication, Focal Neurological Deficit, Painful Distraction Injuries Eyes: Bilateral Eye: EOMI, PERRL Ears: Normal External Exam, Normal Canal, Hearing Grossly Normal, Normal TMs Nose: Normal Inspection, Normal Mucousa, No Blood Throat/Mouth: Normal Inspection, Normal Lips, Normal Teeth, Normal Gums, Normal Oropharynx, Normal Voice, No Airway Compromise Neck: Non-Tender, Full Range of Motion, Normal Alignment, Normal Inspection Respiratory: No Respiratory Distress, Lungs Clear, Normal Breath Sounds, No Accessory Muscle Use, Chest Non-Tender Cardiovascular: Normal Peripheral Pulses, Regular Rate, Rhythm, No Edema, No Gallop, No JVD, No Murmur, No Rub GI/Abdominal Exam: Normal Bowel Sounds, Soft, Non-Tender, No Organomegaly, No Distention, No Abnormal Bruit, No Mass Back Exam: Full Range of Motion, Normal Inspection, NT Extremities: Normal Inspection, Normal Range of Motion, Non-Tender, No Pedal Edema, Normal Capillary Refill Neurologic: Other (unable to evaluate due to dementia) DTR: 2+: Patella (R), Patella (L) Skin: Normal Color, Warm/Dry - [place] Coma Score Best Eye Response ([place]): (4) Open Spontaneously Best Verbal Response ([place]): (4) Confused Conversation (has dementia) Best Motor Response ([place]): (6) Obeys Commands [place] Total: 14 ED LACERATION/WOUND & YAYA PROC - Laceration/Wound Repair Left Face Lac/wound length in cm: 2.2 Appearance: Superficial, Clean Distal NVT: Neuro & Vascular Intact Anesthetic Type: Local Local Anesthesia - Lidocaine (Xylocaine): 1% with EPI Local Anesthetic Volume: 3cc Skin Prep: Saline, Sterile Drape Exploration/Debridement/Repair: Wound Explored Suture Size: 5-0 # of Sutures: 4 Suture Type: Nylon, Running Course - Vital Signs Last Recorded V/S: Last Vital Signs Temp 97.4 F 06/20/19 13:58 Pulse 66 06/20/19 16:45 Resp 18 06/20/19 16:45 BP 101/51 L 06/20/19 16:45 Pulse Ox 98 06/20/19 16:45 - Orders/Labs/Meds Orders: Active Orders 24 hr Category Date Time Status EKG Documentation Completion [RC] STAT Care 06/20/19 16:39 Active Labs: Laboratory Tests 06/20/19 06/20/19 06/20/19 Range/Units 14:18 14:18 14:18 WBC 3.88 L (4.0-11.0) K/uL RBC 4.13 L (4.30-5.90) M/uL Hgb 13.7 (12.0-16.0) g/dL Hct 40.7 (36.0-46.0) % MCV 98.5 H (80.0-98.0) fL MCH 33.2 H (27.0-32.0) pg MCHC 33.7 (31.0-37.0) g/dL RDW Std Deviation 63.5 H (28.0-62.0) fl RDW Coeff of Aruna 18 H (11.0-15.0) % Plt Count 219 (150-400) K/uL MPV 10.20 (7.40-12.00) fL Neut % (Auto) 54.1 (48.0-80.0) % Lymph % (Auto) 34.3 (16.0-40.0) % [place] % (Auto) 9.5 (0.0-15.0) % Eos % (Auto) 0.8 (0.0-7.0) % Baso % (Auto) 1.3 (0.0-1.5) % Neut # (Auto) 2.1 (1.4-5.7) K/uL Lymph # (Auto) 1.3 (0.6-2.4) K/uL [place] # (Auto) 0.4 (0.0-0.8) K/uL Eos # (Auto) 0.0 (0.0-0.7) K/uL Baso # (Auto) 0.1 (0.0-0.1) K/uL Nucleated RBC % 0.0 /100WBC Nucleated RBCs # 0 K/uL INR 1.08 Sodium 145 (136-145) mmol/L Potassium 3.7 (3.5-5.1) mmol/L Chloride 105 (98-107) mmol/L Carbon Dioxide 29.7 (21.0-32.0) mmol/L BUN 5 L (7.0-18.0) mg/dL Creatinine 0.7 (0.6-1.0) mg/dL Est Cr Clr Drug Dosing 67.34 mL/min Estimated GFR (MDRD) > 60.0 ml/min Glucose 119 H (74-106) mg/dL Calcium 9.0 (8.5-10.1) mg/dL Total Bilirubin 0.4 (0.2-1.0) mg/dL AST 53 H (15-37) IU/L ALT 42 (14-63) IU/L Alkaline Phosphatase 186 H (46-116) U/L Troponin I (0.000-0.056) ng/mL Total Protein 7.0 (6.4-8.2) g/dL Albumin 2.9 L (3.4-5.0) g/dL Globulin 4.1 H (2.6-4.0) g/dL Albumin/Globulin Ratio 0.7 L (0.9-1.6) Digoxin (0.9-2.0) ng/mL 06/20/19 Range/Units 14:18 WBC (4.0-11.0) K/uL RBC (4.30-5.90) M/uL Hgb (12.0-16.0) g/dL Hct (36.0-46.0) % MCV (80.0-98.0) fL MCH (27.0-32.0) pg MCHC (31.0-37.0) g/dL RDW Std Deviation (28.0-62.0) fl RDW Coeff of Aruna (11.0-15.0) % Plt Count (150-400) K/uL MPV (7.40-12.00) fL Neut % (Auto) (48.0-80.0) % Lymph % (Auto) (16.0-40.0) % [place] % (Auto) (0.0-15.0) % Eos % (Auto) (0.0-7.0) % Baso % (Auto) (0.0-1.5) % Neut # (Auto) (1.4-5.7) K/uL Lymph # (Auto) (0.6-2.4) K/uL [place] # (Auto) (0.0-0.8) K/uL Eos # (Auto) (0.0-0.7) K/uL Baso # (Auto) (0.0-0.1) K/uL Nucleated RBC % /100WBC Nucleated RBCs # K/uL INR Sodium (136-145) mmol/L Potassium (3.5-5.1) mmol/L Chloride (98-107) mmol/L Carbon Dioxide (21.0-32.0) mmol/L BUN (7.0-18.0) mg/dL Creatinine (0.6-1.0) mg/dL Est Cr Clr Drug Dosing mL/min Estimated GFR (MDRD) ml/min Glucose (74-106) mg/dL Calcium (8.5-10.1) mg/dL Total Bilirubin (0.2-1.0) mg/dL AST (15-37) IU/L ALT (14-63) IU/L Alkaline Phosphatase (46-116) U/L Troponin I < 0.050 (0.000-0.056) ng/mL Total Protein (6.4-8.2) g/dL Albumin (3.4-5.0) g/dL Globulin (2.6-4.0) g/dL Albumin/Globulin Ratio (0.9-1.6) Digoxin 1.0 (0.9-2.0) ng/mL Meds: Medications Discontinued Medications Generic Name Dose Route Start Last Admin Trade Name Richardsonq PRN Reason Stop Dose Admin Sodium Chloride 1,000 mls @ 999 mls/hr 06/20/19 15:09 06/20/19 15:12 Normal Saline IV 06/20/19 16:09 999 mls/hr .Bolus ONE Administration Lidocaine/Epinephrine 20 ml 06/20/19 15:21 06/20/19 16:42 Xylocaine 1% With Epinephrine 1:100,000 INJECT 06/20/19 15:22 20 ml ONETIME ONE Administration Departure - Departure Time of Disposition: 17:26 Disposition: Refer to Observation Condition: Fair Clinical Impression: Bradycardia Atrial fibrillation Qualifiers: Atrial fibrillation type: unspecified chronic Qualified Code(s): I48.20 - Chronic atrial fibrillation, unspecified; I48.2 - Chronic atrial fibrillation Syncope Qualifiers: Syncope type: unspecified Qualified Code(s): R55 - Syncope and collapse Facial laceration Qualifiers: Encounter type: initial encounter Qualified Code(s): S01.81XA - Laceration without foreign body of other part of head, initial encounter Blunt head trauma Qualifiers: Encounter type: initial encounter Qualified Code(s): S09.8XXA - Other specified injuries of head, initial encounter - Discharge Information *PRESCRIPTION DRUG MONITORING PROGRAM REVIEWED*: Yes *COPY OF PRESCRIPTION DRUG MONITORING REPORT IN PATIENT CLEM: Yes Sepsis Event Note - Evaluation Sepsis Screening Result: No Definite Risk - Focused Exam Vital Signs: Vital Signs Temp Pulse Resp BP Pulse Ox 06/20/19 16:45 66 18 101/51 L 98 06/20/19 16:15 62 18 104/54 L 97 06/20/19 15:30 60 15 96/56 L 96 06/20/19 15:00 63 15 99/64 99 06/20/19 14:50 66 17 94/54 L 95 06/20/19 14:45 63 16 86/49 L 86 L 06/20/19 14:35 57 L 16 84/54 L 88 L 06/20/19 14:30 58 L 17 98/49 L 94 L 06/20/19 13:58 97.4 F 68 16 108/58 L 95 Date Exam was Performed: 06/20/19 Time Exam was Performed: 17:26 - My Orders Last 24 Hours: My Active Orders 06/20/19 16:39 EKG Documentation Completion [RC] STAT - Assessment/Plan Last 24 Hours: My Active Orders 06/20/19 16:39 EKG Documentation Completion [RC] STAT
[2019-06-20] MEDS ORDERED: Furosemide 20 MG Tab PO PRN (17:39)
[2019-06-20] MEDS ORDERED: Thiamine 100 MG in Sodium Chloride 0.9% 100 ML IV ONE ×2 (17:42→18:00)
--- NOTE | 2019-06-20 17:46 | PCM.HP.2 ---
<Neisha Tucker - Last Filed: 06/21/19 09:19> H&P History of Present Illness - General Date of Service: 06/20/19 Admit Problem/Dx: Admission Diagnosis/Problem Admission Diagnosis/Problem Syncope Source of Information: Family, Old Records History Limitations: Reports: Other (Dementia ) - History of Present Illness Initial Comments - Free Text/Narative: A 68-year-old female with a significant past medical history of dementia, atrial fibrillation rate controlled on diltiazem/digoxin, hypothyroidism, history of frequent falls on Eliquis; and concerns for EtOH misuse. Patient has dementia and is an unreliable historian; information is being relayed to me by patient's , Vahid. Vahid states: This morning waking up and noticing his sitting at the kitchen table, sitting upright, with a opened laceration over the left side of the face. Patient herself was unaware of mechanism of injury, whether she fell or when this had occurred. Vahid states that patient could also have been drinking some alcohol on the previous night; however states " since her last fall I have taken all the alcohol out of the house" (patient's sister however on subsequent exam questions whether this is true as she has seen alcohol in the house but cannot prove/disprove that patient has been drinking as well.) Otherwise no appreciable history on this current event could be gathered from present sources. Bedside: Patient has dementia; believes she is in the hospital for appendicitis. (Patient recently had an appendectomy after falling and being transferred from [place] to [place], [place] on previous admission) Patient does not look distressed and or concerns at this time. Sister no any changes to her medical history as far as medications are concerned. There is also some concern about CODE STATUS: Vahid, ; power of claims attorney is suggesting full code; however daughter is unsure of exact CODE STATUS. - Related Data Allergies/Adverse Reactions: Allergies Allergy/AdvReac Type Severity Reaction Status Date / Time No Known Allergies Allergy Verified 06/21/19 07:33 Home Medications: Home Meds Cholecalciferol (Vitamin D3) [Vitamin D3] 1,000 unit PO DAILY 02/07/17 [History] metFORMIN [Glucophage] 500 mg PO DAILY 02/07/17 [History] Calcium Carbonate 600 mg PO BID 11/04/17 [History] Gabapentin [Neurontin] 600 mg PO TID 11/04/17 [History] Furosemide 20 mg PO DAILY PRN 07/01/18 [History] Potassium Chloride [Klor-Con 10] 20 meq PO BID 07/01/18 [History] Rivaroxaban [Xarelto] 20 mg PO DAILY 07/01/18 [History] Digoxin 125 mcg PO DAILY 30 Days #30 tablet 07/04/18 [Rx] Folic Acid 1 mg PO DAILY 30 Days #30 tablet 07/04/18 [Rx] Thiamine [Vitamin B-1] 100 mg PO BEDTIME 30 Days #30 tablet 07/04/18 [Rx] dilTIAZem HCl [Diltiazem 24Hr ER (Xr)] 240 mg PO DAILY 14 Days #28 cap.er.deg [Rx] traMADol HCl [Tramadol HCl] 1 tab PO Q6HR PRN 06/20/19 [History] Past Medical History Cardiovascular History: Reports: Afib, 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 [employer]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: Neurological History: Reports: CVA Other Neuro History: demenita Psychiatric History: Reports: Dementia Endocrine/Metabolic History: Reports: Diabetes, Type II Hematologic History: Reports: Blood Transfusion(s) - Infectious Disease History Infectious Disease History: Reports: Chicken Pox, Measles, Mumps - Past Surgical History HEENT Surgical History: Reports: Tonsillectomy, Other (See Below) Other HEENT Surgeries/Procedures: wears eyeglasses Cardiovascular Surgical History: Reports: None Female Surgical History: Reports: Hysterectomy Social & Family History - Family History Family Medical History: Noncontributory - Tobacco Use Smoking Status *Q: Former Smoker Used Tobacco, but Quit: Yes Month/Year Tobacco Last Used: unknown - Caffeine Use Caffeine Use: Reports: Tea - Recreational Drug Use Recreational Drug Use: No H&P Review of Systems - Review of Systems: Review Of Systems: See Below Free Text/Narrative: Patient is unreliable secondary to dementia; however does answer some straightforward questions when asked; unsure of reliability however. General: Denies: Fever, Chills HEENT: Denies: Headaches, Vertigo Pulmonary: Denies: Shortness of Breath, Cough Cardiovascular: Denies: Chest Pain Gastrointestinal: Denies: Abdominal Pain, Constipation, Diarrhea Genitourinary: Denies: No Symptoms, Dysuria Musculoskeletal: Reports: No Symptoms Neurological: Reports: Pre-Existing Deficit Hematologic/Lymphatic: Reports: Easy Bleeding (unsure of reliability of information; will continue to assess ROS during stay. ) Exam - Exam Exam: See Below - Vital Signs Vital Signs: Last Vital Signs Temp 97.4 F 06/20/19 13:58 Pulse 66 06/20/19 16:45 Resp 18 06/20/19 16:45 BP 101/51 L 06/20/19 16:45 Pulse Ox 98 06/20/19 16:45 Orthostatic Blood Pressure [ 118/64 Standing] Orthostatic Blood Pressure [ 123/50 Sitting] Orthostatic Blood Pressure [ 103/60 Supine] Weight: 65.771 kg - Exam Quality Assessment: Supplemental Oxygen General: Alert, Cooperative HEENT: EOMI, TMs Clear, Other (sutures over left eye w. ecchymosis; EOM intact; no nystagmus appreciated. midl soft tissue swelling ; no orbit encrouchment. ), PERRLA Neck: Supple, Trachea Midline Lungs: Clear to Auscultation, Normal Respiratory Effort Cardiovascular: Irregular Rhythm, Bradycardia GI/Abdominal Exam: Soft, Non-Tender Extremities: Normal Inspection Neuro Extensive - Mental Status: Alert. No: Oriented x3 Psychiatric: Alert, Normal Mood. No: Anxious - Patient Data Lab Results Last 24 hrs: Laboratory Results - last 24 hr 06/20/19 06/20/19 06/20/19 Range/Units 14:18 14:18 14:18 WBC 3.88 L (4.0-11.0) K/uL RBC 4.13 L (4.30-5.90) M/uL Hgb 13.7 (12.0-16.0) g/dL Hct 40.7 (36.0-46.0) % MCV 98.5 H (80.0-98.0) fL MCH 33.2 H (27.0-32.0) pg MCHC 33.7 (31.0-37.0) g/dL RDW Std Deviation 63.5 H (28.0-62.0) fl RDW Coeff of Aruna 18 H (11.0-15.0) % Plt Count 219 (150-400) K/uL MPV 10.20 (7.40-12.00) fL Neut % (Auto) 54.1 (48.0-80.0) % Lymph % (Auto) 34.3 (16.0-40.0) % [place] % (Auto) 9.5 (0.0-15.0) % Eos % (Auto) 0.8 (0.0-7.0) % Baso % (Auto) 1.3 (0.0-1.5) % Neut # (Auto) 2.1 (1.4-5.7) K/uL Lymph # (Auto) 1.3 (0.6-2.4) K/uL [place] # (Auto) 0.4 (0.0-0.8) K/uL Eos # (Auto) 0.0 (0.0-0.7) K/uL Baso # (Auto) 0.1 (0.0-0.1) K/uL Nucleated RBC % 0.0 /100WBC Nucleated RBCs # 0 K/uL INR 1.08 Sodium 145 (136-145) mmol/L Potassium 3.7 (3.5-5.1) mmol/L Chloride 105 (98-107) mmol/L Carbon Dioxide 29.7 (21.0-32.0) mmol/L BUN 5 L (7.0-18.0) mg/dL Creatinine 0.7 (0.6-1.0) mg/dL Est Cr Clr Drug Dosing 67.34 mL/min Estimated GFR (MDRD) > 60.0 ml/min Glucose 119 H (74-106) mg/dL Calcium 9.0 (8.5-10.1) mg/dL Total Bilirubin 0.4 (0.2-1.0) mg/dL AST 53 H (15-37) IU/L ALT 42 (14-63) IU/L Alkaline Phosphatase 186 H (46-116) U/L Troponin I (0.000-0.056) ng/mL Total Protein 7.0 (6.4-8.2) g/dL Albumin 2.9 L (3.4-5.0) g/dL Globulin 4.1 H (2.6-4.0) g/dL Albumin/Globulin Ratio 0.7 L (0.9-1.6) Digoxin (0.9-2.0) ng/mL 06/20/19 Range/Units 14:18 WBC (4.0-11.0) K/uL RBC (4.30-5.90) M/uL Hgb (12.0-16.0) g/dL Hct (36.0-46.0) % MCV (80.0-98.0) fL MCH (27.0-32.0) pg MCHC (31.0-37.0) g/dL RDW Std Deviation (28.0-62.0) fl RDW Coeff of Aruna (11.0-15.0) % Plt Count (150-400) K/uL MPV (7.40-12.00) fL Neut % (Auto) (48.0-80.0) % Lymph % (Auto) (16.0-40.0) % [place] % (Auto) (0.0-15.0) % Eos % (Auto) (0.0-7.0) % Baso % (Auto) (0.0-1.5) % Neut # (Auto) (1.4-5.7) K/uL Lymph # (Auto) (0.6-2.4) K/uL [place] # (Auto) (0.0-0.8) K/uL Eos # (Auto) (0.0-0.7) K/uL Baso # (Auto) (0.0-0.1) K/uL Nucleated RBC % /100WBC Nucleated RBCs # K/uL INR Sodium (136-145) mmol/L Potassium (3.5-5.1) mmol/L Chloride (98-107) mmol/L Carbon Dioxide (21.0-32.0) mmol/L BUN (7.0-18.0) mg/dL Creatinine (0.6-1.0) mg/dL Est Cr Clr Drug Dosing mL/min Estimated GFR (MDRD) ml/min Glucose (74-106) mg/dL Calcium (8.5-10.1) mg/dL Total Bilirubin (0.2-1.0) mg/dL AST (15-37) IU/L ALT (14-63) IU/L Alkaline Phosphatase (46-116) U/L Troponin I < 0.050 (0.000-0.056) ng/mL Total Protein (6.4-8.2) g/dL Albumin (3.4-5.0) g/dL Globulin (2.6-4.0) g/dL Albumin/Globulin Ratio (0.9-1.6) Digoxin 1.0 (0.9-2.0) ng/mL Result Diagrams: 06/20/19 14:18 06/20/19 14:18 Sepsis Event Note - Evaluation Sepsis Screening Result: No Definite Risk - Focused Exam Vital Signs: Vital Signs Temp Pulse Resp BP Pulse Ox 06/20/19 16:45 66 18 101/51 L 98 06/20/19 16:15 62 18 104/54 L 97 06/20/19 15:30 60 15 96/56 L 96 06/20/19 15:00 63 15 99/64 99 06/20/19 14:50 66 17 94/54 L 95 06/20/19 14:45 63 16 86/49 L 86 L 06/20/19 14:35 57 L 16 84/54 L 88 L 06/20/19 14:30 58 L 17 98/49 L 94 L 06/20/19 13:58 97.4 F 68 16 108/58 L 95 Date Exam was Performed: 06/21/19 Time Exam was Performed: 09:19 Problem List Initiated/Reviewed/Updated: Yes Orders Last 24hrs: Active Orders 24 hr Category Date Time Status Admission Status [Patient Status] [ADT] Stat ADT 06/20/19 17:33 Active Antiembolic Devices [RC] PER UNIT ROUTINE Care 06/20/19 17:35 Active CIWAA Assessment [RC] ASDIRECTED Care 06/20/19 17:37 Active EKG Documentation Completion [RC] STAT Care 06/20/19 16:39 Active Telemetry Monitoring [Cardiac Monitoring] [RC] . Care 06/20/19 17:38 Active DIRECTED Up With Assistance [RC] ASDIRECTED Care 06/20/19 17:35 Active Consult to Physical Therapy [PT Evaluation and Cons 06/20/19 17:44 Ordered Treatment] [CONS] Urgent AMMONIA VENOUS [CHEM] Urgent Lab 06/20/19 17:43 Ordered CBC WITH AUTO DIFF [HEME] AM Lab 06/21/19 05:11 Ordered COMPREHENSIVE METABOLIC PN,CMP [CHEM] AM Lab 06/21/19 05:11 Ordered ETHANOL BLOOD MEDICAL [CHEM] Routine Lab 06/20/19 17:41 Ordered MAGNESIUM [CHEM] Routine Lab 06/20/19 17:41 Ordered URINALYSIS W/MICROSCOPIC [UA W/MICROSCOPIC] [URIN] Stat Lab 06/20/19 17:39 Ordered Digoxin [Lanoxin] Med 06/21/19 09:00 Active 125 mcg PO DAILY Folic Acid Med 06/20/19 21:00 Active 1 mg PO BEDTIME Furosemide [Lasix] Med 06/20/19 17:39 Active 20 mg PO DAILY PRN Gabapentin Med 06/20/19 22:00 Active 600 mg PO TID LORazepam [Ativan] Med 06/20/19 17:36 Active See Protocol IVPUSH Q4H PRN Rivaroxaban [Xarelto] Med 06/21/19 09:00 Active 20 mg PO DAILY dilTIAZem HCl [Diltiazem 24Hr ER (Xr)] Med 06/21/19 09:00 Active 240 mg PO DAILY traMADol [Ultram] Med 06/20/19 17:39 Active 50 mg PO Q6HR PRN SCD [Sequential Compression Device] [OM.PC] Stat Oth 06/20/19 17:35 Ordered Medication Orders Digoxin (Lanoxin) 125 mcg PO DAILY SOULEYMANE Folic Acid (Folic Acid) 1 mg PO BEDTIME SOULEYMANE Furosemide (Lasix) 20 mg PO DAILY PRN PRN Reason: Edema Lorazepam (Ativan) 0 mg IVPUSH Q4H PRN; Protocol PRN Reason: Agitation Non-Formulary Medication (Diltiazem Hcl [Diltiazem 24hr Er (Xr)]) 240 mg PO DAILY SOULEYMANE Non-Formulary Medication (Gabapentin) 600 mg PO TID SOULEYMANE Non-Formulary Medication (Rivaroxaban [Xarelto]) 20 mg PO DAILY SOULEYMANE Tramadol HCl (Ultram) 50 mg PO Q6HR PRN PRN Reason: Pain Assessment/Plan Comment:: Assessment: 1. Unwitnessed syncopal episode 2. Status post blunt head trauma with laceration 3. Chronic anticoagulant therapy secondary to A. fib; rate controlled 4. Concerns for alcohol misuse. 5. Dementia Plan Admit to observation. CODE STATUS: awaiting paperwork; family giving inconsistent requests. DVT prophylaxis: Continue Eliquis, SCDs. GI prophylaxis ; pantoprazole 40 daily. Up with assistance. Diet: Diabetic. 1. Head CT negative. Labs unremarkable. Will check digoxin levels and continue to monitor on telemetry with concerns for symptomatic bradycardia. Orthostatics: (Post 1 L bolus in ED): Supine 103/60 pulse rate of 65. Sitting BP 123/50 pulse rate 71 standing BP 118/64 pulse rate of 77; EKG: irregular w/ rate of 48 ; no st/elevations or depressions appreciated. 2. Continue Eliquis for now; next dose is tomorrow; 3. Continue rate controlling medications; will continue to monitor on Telemetry. Ordered Dig levels 4. Inconsistent ETOH use history: CIWAA and Ativan protocol; thiamine/folate daily. 5. Ambulatory dysfunction: PT/OT ordered for balance/ambulation. pt. lives at home currently. UA ordered. 6. Laceration : stable ; sutures in-situ ; no obvious sign of infection <Ed Alejo - Last Filed: 06/23/19 20:53> H&P History of Present Illness - General Admit Problem/Dx: Admission Diagnosis/Problem Admission Diagnosis/Problem Syncope Exam - Vital Signs Vital Signs: Last Vital Signs Temp 36.9 C 06/22/19 11:00 Pulse 41 L 06/21/19 23:15 Resp 9 L 06/22/19 12:00 BP 98/50 L 06/22/19 12:00 Pulse Ox 99 06/22/19 12:00 Orthostatic Blood Pressure [ 118/64 Standing] Orthostatic Blood Pressure [ 123/50 Sitting] Orthostatic Blood Pressure [ 103/60 Supine] - Patient Data Result Diagrams: 06/22/19 06:05 06/22/19 10:06 Assessment/Plan Comment:: I performed a history and physical exam of the patient and discussed management with resident. I have reviewed the residents note and agree with documented findings and plan unless otherwise specified in my note.
[2019-06-20] MEDS: traMADol 50 MG Tab PO PRN (18:43)
[2019-06-20] MEDS ORDERED: Magnesium Sulfate/Water 2 GM in Premix Bag 1 BAG IV ONE (19:50)
[2019-06-20] MEDS: Folic Acid 1 MG Tab PO SCH (20:10)
[2019-06-20] MEDS: Gabapentin 300 MG Cap PO SCH (21:55)
[2019-06-21] MEDS: LORazepam 2 MG/ML SDV IVPUSH PRN ×2 (00:37→20:16)
[2019-06-21] MEDS: Gabapentin 300 MG Cap PO SCH ×4 (05:19→22:08)
[2019-06-21 06:26] LABS: BLOOD UREA NITROGEN,BUN 8 mg/dL (7.0-18.0); CARBON DIOXIDE,CO2 30.5 mmol/L (21.0-32.0); CHLORIDE,CL 106 mmol/L (98-107); GLUCOSE RANDOM 109 mg/dL (74-106); POTASSIUM,K 4.5 mmol/L (3.5-5.1); SODIUM,NA 145 mmol/L (136-145)
[2019-06-21] MEDS: Insulin Aspart 100 Units/ML 3 ML Pen SUBCUT SCH ×3 (06:43→17:22)
[2019-06-21] MEDS: Rivaroxaban 10 MG Tab PO SCH (08:32)
[2019-06-21] MEDS ORDERED: Diltiazem 120 MG Cap.CD PO SCH (09:00)
[2019-06-21] MEDS ORDERED: Digoxin 125 MCG Tab PO SCH (09:00)
[2019-06-21] MEDS: Ondansetron 4 MG/2 ML SDV IVPUSH PRN ×2 (09:21→16:14)
--- NOTE | 2019-06-21 11:49 | PCM.PN ---
<Neisha Tucker - Last Filed: 06/21/19 11:50> - General Info Date of Service: 06/21/19 Subjective Update: pt. is a poor historian w. dementia at baseline; no acute distress appreciated. Functional Status: Reports: Pain Controlled - Review of Systems General: Denies: Fever, Chills HEENT: Reports: No Symptoms Pulmonary: Reports: No Symptoms Cardiovascular: Reports: No Symptoms. Denies: Chest Pain, Palpitations Gastrointestinal: Reports: No Symptoms Genitourinary: Reports: No Symptoms Musculoskeletal: Reports: No Symptoms Neurological: Reports: Pre-Existing Deficit Psychiatric: Reports: Confusion. Denies: Anxiety, Agitation - Patient Data Vitals - Most Recent: Last Vital Signs Temp 97.7 F 06/21/19 11:37 Pulse 68 06/21/19 11:37 Resp 16 06/21/19 11:37 BP 114/64 06/21/19 11:37 Pulse Ox 92 L 06/21/19 11:37 Orthostatic Blood Pressure [ 118/64 Standing] Orthostatic Blood Pressure [ 123/50 Sitting] Orthostatic Blood Pressure [ 103/60 Supine] Weight - Most Recent: 65.771 kg I&O - Last 24 Hours: Intake & Output 06/20/19 06/21/19 06/21/19 22:59 06:59 14:59 Intake Total 750 Output Total 150 Balance 600 Lab Results Last 24 Hours: Laboratory Results - last 24 hr 06/20/19 06/20/19 06/20/19 Range/Units 14:18 14:18 14:18 WBC 3.88 L (4.0-11.0) K/uL RBC 4.13 L (4.30-5.90) M/uL Hgb 13.7 (12.0-16.0) g/dL Hct 40.7 (36.0-46.0) % MCV 98.5 H (80.0-98.0) fL MCH 33.2 H (27.0-32.0) pg MCHC 33.7 (31.0-37.0) g/dL RDW Std Deviation 63.5 H (28.0-62.0) fl RDW Coeff of Aruna 18 H (11.0-15.0) % Plt Count 219 (150-400) K/uL MPV 10.20 (7.40-12.00) fL Neut % (Auto) 54.1 (48.0-80.0) % Lymph % (Auto) 34.3 (16.0-40.0) % [place] % (Auto) 9.5 (0.0-15.0) % Eos % (Auto) 0.8 (0.0-7.0) % Baso % (Auto) 1.3 (0.0-1.5) % Neut # (Auto) 2.1 (1.4-5.7) K/uL Lymph # (Auto) 1.3 (0.6-2.4) K/uL [place] # (Auto) 0.4 (0.0-0.8) K/uL Eos # (Auto) 0.0 (0.0-0.7) K/uL Baso # (Auto) 0.1 (0.0-0.1) K/uL Nucleated RBC % 0.0 /100WBC Nucleated RBCs # 0 K/uL INR 1.08 Sodium 145 (136-145) mmol/L Potassium 3.7 (3.5-5.1) mmol/L Chloride 105 (98-107) mmol/L Carbon Dioxide 29.7 (21.0-32.0) mmol/L BUN 5 L (7.0-18.0) mg/dL Creatinine 0.7 (0.6-1.0) mg/dL Est Cr Clr Drug Dosing 67.34 mL/min Estimated GFR (MDRD) > 60.0 ml/min Glucose 119 H (74-106) mg/dL POC Glucose (60-110) mg/dL Calcium 9.0 (8.5-10.1) mg/dL Phosphorus (2.6-4.7) mg/dL Magnesium (1.8-2.4) mg/dL Total Bilirubin 0.4 (0.2-1.0) mg/dL AST 53 H (15-37) IU/L ALT 42 (14-63) IU/L Alkaline Phosphatase 186 H (46-116) U/L Ammonia (19-54) ug/dL Troponin I (0.000-0.056) ng/mL Total Protein 7.0 (6.4-8.2) g/dL Albumin 2.9 L (3.4-5.0) g/dL Globulin 4.1 H (2.6-4.0) g/dL Albumin/Globulin Ratio 0.7 L (0.9-1.6) Free T4 (0.76-1.46) ng/dL Free T3 (2.18-3.98) pg/mL TSH 3rd Generation (0.36-3.74) uIU/mL Urine Color Urine Appearance Urine pH (5.0-8.0) Ur Specific [place] (1.001-1.035) Urine Protein (NEGATIVE) mg/dL Urine Glucose (UA) (NEGATIVE) mg/dL Urine Ketones (NEGATIVE) mg/dL Urine Occult Blood (NEGATIVE) Urine Nitrite (NEGATIVE) Urine Bilirubin (NEGATIVE) Urine Urobilinogen (<2.0) EU/dL Ur Leukocyte Esterase (NEGATIVE) Urine RBC (0-2/HPF) Urine WBC (0-5/HPF) Ur Epithelial Cells (NONE-FEW) Urine Bacteria (NEGATIVE) Digoxin (0.9-2.0) ng/mL Ethyl Alcohol mg/dL 06/20/19 06/20/19 06/20/19 Range/Units 14:18 17:10 17:10 WBC (4.0-11.0) K/uL RBC (4.30-5.90) M/uL Hgb (12.0-16.0) g/dL Hct (36.0-46.0) % MCV (80.0-98.0) fL MCH (27.0-32.0) pg MCHC (31.0-37.0) g/dL RDW Std Deviation (28.0-62.0) fl RDW Coeff of Aruna (11.0-15.0) % Plt Count (150-400) K/uL MPV (7.40-12.00) fL Neut % (Auto) (48.0-80.0) % Lymph % (Auto) (16.0-40.0) % [place] % (Auto) (0.0-15.0) % Eos % (Auto) (0.0-7.0) % Baso % (Auto) (0.0-1.5) % Neut # (Auto) (1.4-5.7) K/uL Lymph # (Auto) (0.6-2.4) K/uL Valencia # (Auto) (0.0-0.8) K/uL Eos # (Auto) (0.0-0.7) K/uL Baso # (Auto) (0.0-0.1) K/uL Nucleated RBC % /100WBC Nucleated RBCs # K/uL INR Sodium (136-145) mmol/L Potassium (3.5-5.1) mmol/L Chloride (98-107) mmol/L Carbon Dioxide (21.0-32.0) mmol/L BUN (7.0-18.0) mg/dL Creatinine (0.6-1.0) mg/dL Est Cr Clr Drug Dosing mL/min Estimated GFR (MDRD) ml/min Glucose (74-106) mg/dL POC Glucose (60-110) mg/dL Calcium (8.5-10.1) mg/dL Phosphorus (2.6-4.7) mg/dL Magnesium 1.5 L (1.8-2.4) mg/dL Total Bilirubin (0.2-1.0) mg/dL AST (15-37) IU/L ALT (14-63) IU/L Alkaline Phosphatase (46-116) U/L Ammonia (19-54) ug/dL Troponin I < 0.050 (0.000-0.056) ng/mL Total Protein (6.4-8.2) g/dL Albumin (3.4-5.0) g/dL Globulin (2.6-4.0) g/dL Albumin/Globulin Ratio (0.9-1.6) Free T4 (0.76-1.46) ng/dL Free T3 (2.18-3.98) pg/mL TSH 3rd Generation 0.13 L (0.36-3.74) uIU/mL Urine Color Urine Appearance Urine pH (5.0-8.0) Ur Specific [place] (1.001-1.035) Urine Protein (NEGATIVE) mg/dL Urine Glucose (UA) (NEGATIVE) mg/dL Urine Ketones (NEGATIVE) mg/dL Urine Occult Blood (NEGATIVE) Urine Nitrite (NEGATIVE) Urine Bilirubin (NEGATIVE) Urine Urobilinogen (<2.0) EU/dL Ur Leukocyte Esterase (NEGATIVE) Urine RBC (0-2/HPF) Urine WBC (0-5/HPF) Ur Epithelial Cells (NONE-FEW) Urine Bacteria (NEGATIVE) Digoxin 1.0 (0.9-2.0) ng/mL Ethyl Alcohol 124 mg/dL 06/20/19 06/20/19 06/21/19 Range/Units 17:50 19:30 06:00 WBC 5.08 (4.0-11.0) K/uL RBC 3.76 L (4.30-5.90) M/uL Hgb 12.2 (12.0-16.0) g/dL Hct 37.6 (36.0-46.0) % MCV 100.0 H (80.0-98.0) fL MCH 32.4 H (27.0-32.0) pg MCHC 32.4 (31.0-37.0) g/dL RDW Std Deviation 66.0 H (28.0-62.0) fl RDW Coeff of Aruna 18 H (11.0-15.0) % Plt Count 216 (150-400) K/uL MPV 10.10 (7.40-12.00) fL Neut % (Auto) 61.6 (48.0-80.0) % Lymph % (Auto) 21.3 (16.0-40.0) % [place] % (Auto) 15.9 H (0.0-15.0) % Eos % (Auto) 0.2 (0.0-7.0) % Baso % (Auto) 1.0 (0.0-1.5) % Neut # (Auto) 3.1 (1.4-5.7) K/uL Lymph # (Auto) 1.1 (0.6-2.4) K/uL [place] # (Auto) 0.8 (0.0-0.8) K/uL Eos # (Auto) 0.0 (0.0-0.7) K/uL Baso # (Auto) 0.1 (0.0-0.1) K/uL Nucleated RBC % 0.0 /100WBC Nucleated RBCs # 0 K/uL INR Sodium (136-145) mmol/L Potassium (3.5-5.1) mmol/L Chloride (98-107) mmol/L Carbon Dioxide (21.0-32.0) mmol/L BUN (7.0-18.0) mg/dL Creatinine (0.6-1.0) mg/dL Est Cr Clr Drug Dosing mL/min Estimated GFR (MDRD) ml/min Glucose (74-106) mg/dL POC Glucose (60-110) mg/dL Calcium (8.5-10.1) mg/dL Phosphorus (2.6-4.7) mg/dL Magnesium (1.8-2.4) mg/dL Total Bilirubin (0.2-1.0) mg/dL AST (15-37) IU/L ALT (14-63) IU/L Alkaline Phosphatase (46-116) U/L Ammonia < 17 L (19-54) ug/dL Troponin I (0.000-0.056) ng/mL Total Protein (6.4-8.2) g/dL Albumin (3.4-5.0) g/dL Globulin (2.6-4.0) g/dL Albumin/Globulin Ratio (0.9-1.6) Free T4 (0.76-1.46) ng/dL Free T3 (2.18-3.98) pg/mL TSH 3rd Generation (0.36-3.74) uIU/mL Urine Color YELLOW Urine Appearance CLEAR Urine pH 6.0 (5.0-8.0) Ur Specific [place] 1.020 (1.001-1.035) Urine Protein NEGATIVE (NEGATIVE) mg/dL Urine Glucose (UA) NEGATIVE (NEGATIVE) mg/dL Urine Ketones NEGATIVE (NEGATIVE) mg/dL Urine Occult Blood TRACE-INTACT H (NEGATIVE) Urine Nitrite NEGATIVE (NEGATIVE) Urine Bilirubin NEGATIVE (NEGATIVE) Urine Urobilinogen 0.2 (<2.0) EU/dL Ur Leukocyte Esterase NEGATIVE (NEGATIVE) Urine RBC 0-1 (0-2/HPF) Urine WBC 0-1 (0-5/HPF) Ur Epithelial Cells RARE (NONE-FEW) Urine Bacteria RARE (NEGATIVE) Digoxin (0.9-2.0) ng/mL Ethyl Alcohol mg/dL 06/21/19 06/21/19 06/21/19 Range/Units 06:00 06:00 06:39 WBC (4.0-11.0) K/uL RBC (4.30-5.90) M/uL Hgb (12.0-16.0) g/dL Hct (36.0-46.0) % MCV (80.0-98.0) fL MCH (27.0-32.0) pg MCHC (31.0-37.0) g/dL RDW Std Deviation (28.0-62.0) fl RDW Coeff of Aruna (11.0-15.0) % Plt Count (150-400) K/uL MPV (7.40-12.00) fL Neut % (Auto) (48.0-80.0) % Lymph % (Auto) (16.0-40.0) % [place] % (Auto) (0.0-15.0) % Eos % (Auto) (0.0-7.0) % Baso % (Auto) (0.0-1.5) % Neut # (Auto) (1.4-5.7) K/uL Lymph # (Auto) (0.6-2.4) K/uL [place] # (Auto) (0.0-0.8) K/uL Eos # (Auto) (0.0-0.7) K/uL Baso # (Auto) (0.0-0.1) K/uL Nucleated RBC % /100WBC Nucleated RBCs # K/uL INR Sodium 145 (136-145) mmol/L Potassium 4.5 (3.5-5.1) mmol/L Chloride 106 (98-107) mmol/L Carbon Dioxide 30.5 (21.0-32.0) mmol/L BUN 8 (7.0-18.0) mg/dL Creatinine 0.8 (0.6-1.0) mg/dL Est Cr Clr Drug Dosing 58.93 mL/min Estimated GFR (MDRD) > 60.0 ml/min Glucose 109 H (74-106) mg/dL POC Glucose 116 H (60-110) mg/dL Calcium 9.0 (8.5-10.1) mg/dL Phosphorus 4.4 (2.6-4.7) mg/dL Magnesium 2.1 (1.8-2.4) mg/dL Total Bilirubin (0.2-1.0) mg/dL AST (15-37) IU/L ALT (14-63) IU/L Alkaline Phosphatase (46-116) U/L Ammonia (19-54) ug/dL Troponin I < 0.050 (0.000-0.056) ng/mL Total Protein (6.4-8.2) g/dL Albumin (3.4-5.0) g/dL Globulin (2.6-4.0) g/dL Albumin/Globulin Ratio (0.9-1.6) Free T4 0.77 (0.76-1.46) ng/dL Free T3 2.98 (2.18-3.98) pg/mL TSH 3rd Generation (0.36-3.74) uIU/mL Urine Color Urine Appearance Urine pH (5.0-8.0) Ur Specific [place] (1.001-1.035) Urine Protein (NEGATIVE) mg/dL Urine Glucose (UA) (NEGATIVE) mg/dL Urine Ketones (NEGATIVE) mg/dL Urine Occult Blood (NEGATIVE) Urine Nitrite (NEGATIVE) Urine Bilirubin (NEGATIVE) Urine Urobilinogen (<2.0) EU/dL Ur Leukocyte Esterase (NEGATIVE) Urine RBC (0-2/HPF) Urine WBC (0-5/HPF) Ur Epithelial Cells (NONE-FEW) Urine Bacteria (NEGATIVE) Digoxin (0.9-2.0) ng/mL Ethyl Alcohol mg/dL 06/21/19 Range/Units 11:27 WBC (4.0-11.0) K/uL RBC (4.30-5.90) M/uL Hgb (12.0-16.0) g/dL Hct (36.0-46.0) % MCV (80.0-98.0) fL MCH (27.0-32.0) pg MCHC (31.0-37.0) g/dL RDW Std Deviation (28.0-62.0) fl RDW Coeff of Aruna (11.0-15.0) % Plt Count (150-400) K/uL MPV (7.40-12.00) fL Neut % (Auto) (48.0-80.0) % Lymph % (Auto) (16.0-40.0) % [place] % (Auto) (0.0-15.0) % Eos % (Auto) (0.0-7.0) % Baso % (Auto) (0.0-1.5) % Neut # (Auto) (1.4-5.7) K/uL Lymph # (Auto) (0.6-2.4) K/uL [place] # (Auto) (0.0-0.8) K/uL Eos # (Auto) (0.0-0.7) K/uL Baso # (Auto) (0.0-0.1) K/uL Nucleated RBC % /100WBC Nucleated RBCs # K/uL INR Sodium (136-145) mmol/L Potassium (3.5-5.1) mmol/L Chloride (98-107) mmol/L Carbon Dioxide (21.0-32.0) mmol/L BUN (7.0-18.0) mg/dL Creatinine (0.6-1.0) mg/dL Est Cr Clr Drug Dosing mL/min Estimated GFR (MDRD) ml/min Glucose (74-106) mg/dL POC Glucose 128 H (60-110) mg/dL Calcium (8.5-10.1) mg/dL Phosphorus (2.6-4.7) mg/dL Magnesium (1.8-2.4) mg/dL Total Bilirubin (0.2-1.0) mg/dL AST (15-37) IU/L ALT (14-63) IU/L Alkaline Phosphatase (46-116) U/L Ammonia (19-54) ug/dL Troponin I (0.000-0.056) ng/mL Total Protein (6.4-8.2) g/dL Albumin (3.4-5.0) g/dL Globulin (2.6-4.0) g/dL Albumin/Globulin Ratio (0.9-1.6) Free T4 (0.76-1.46) ng/dL Free T3 (2.18-3.98) pg/mL TSH 3rd Generation (0.36-3.74) uIU/mL Urine Color Urine Appearance Urine pH (5.0-8.0) Ur Specific [place] (1.001-1.035) Urine Protein (NEGATIVE) mg/dL Urine Glucose (UA) (NEGATIVE) mg/dL Urine Ketones (NEGATIVE) mg/dL Urine Occult Blood (NEGATIVE) Urine Nitrite (NEGATIVE) Urine Bilirubin (NEGATIVE) Urine Urobilinogen (<2.0) EU/dL Ur Leukocyte Esterase (NEGATIVE) Urine RBC (0-2/HPF) Urine WBC (0-5/HPF) Ur Epithelial Cells (NONE-FEW) Urine Bacteria (NEGATIVE) Digoxin (0.9-2.0) ng/mL Ethyl Alcohol mg/dL Med Orders - Current: Current Medications Diltiazem HCl (Cardizem Cd) 240 mg PO DAILY [facility] Last Admin: 06/21/19 08:32 Dose: 240 mg Folic Acid (Folic Acid) 1 mg PO BEDTIME [facility] Last Admin: 06/20/19 20:10 Dose: 1 mg Furosemide (Lasix) 20 mg PO DAILY PRN PRN Reason: Edema Gabapentin (Neurontin) 600 mg PO TID [facility] Last Admin: 06/21/19 05:19 Dose: 600 mg Insulin Aspart (Novolog) 0 unit SUBCUT TIDAC [facility]; Protocol Last Admin: 06/21/19 06:43 Dose: Not Given Lorazepam (Ativan) 0 mg IVPUSH Q4H PRN; Protocol PRN Reason: Agitation Last Admin: 06/21/19 00:37 Dose: 1 mg Metoprolol Tartrate (Lopressor) 50 mg PO Q12H [facility] Ondansetron HCl (Zofran) 4 mg IVPUSH Q4H PRN PRN Reason: Nausea/Vomiting Last Admin: 06/21/19 09:21 Dose: 4 mg Rivaroxaban (Xarelto) 20 mg PO DAILY [facility] Last Admin: 06/21/19 08:32 Dose: 20 mg Tramadol HCl (Ultram) 50 mg PO Q6HR PRN PRN Reason: Pain Last Admin: 06/20/19 18:43 Dose: 50 mg Discontinued Medications Digoxin (Lanoxin) 125 mcg PO DAILY [facility] Last Admin: 06/21/19 08:32 Dose: 125 mcg Sodium Chloride (Normal Saline) 1,000 mls @ 999 mls/hr IV .Bolus ONE Stop: 06/20/19 16:09 Last Admin: 06/20/19 15:12 Dose: 999 mls/hr Thiamine HCl 100 mg/ Sodium (Chloride) 101 mls @ 202 mls/hr IV ONETIME ONE Stop: 06/20/19 17:43 Last Admin: 06/20/19 18:32 Dose: Not Given Thiamine HCl 100 mg/ Sodium (Chloride) 101 mls @ 202 mls/hr IV ONETIME ONE Stop: 06/20/19 18:29 Last Admin: 06/20/19 18:40 Dose: 202 mls/hr Magnesium Sulfate 2 gm/ Premix 50 mls @ 50 mls/hr IV ONETIME ONE Stop: 06/20/19 20:49 Last Admin: 06/20/19 20:12 Dose: 50 mls/hr Lidocaine/Epinephrine (Xylocaine 1% With Epinephrine 1:100,000) 20 ml INJECT ONETIME ONE Stop: 06/20/19 15:22 Last Admin: 06/20/19 16:42 Dose: 20 ml - Exam General: Alert, Oriented, Cooperative HEENT: Pupils Equal, EOMI Neck: Supple Lungs: Clear to Auscultation, Normal Respiratory Effort Cardiovascular: Irregular Rhythm, Tachycardia GI/Abdominal Exam: Soft, Non-Tender Back Exam: Full Range of Motion Wound/Incisions: Healing Well, Other (ecchymosis around left orbit stable; FROM ; sutures in-situ x 5 ) Psy/Mental Status: Alert, Normal Affect, Normal Mood, Other (demntia; confued but oriented to place and person; still thinking it was from her previous hospitilization. ) Sepsis Event Note - Evaluation Sepsis Screening Result: No Definite Risk - Focused Exam Vital Signs: Vital Signs Temp Pulse Pulse Resp BP BP Pulse Ox 06/21/19 11:37 97.7 F 68 16 114/64 92 L 06/21/19 08:32 130 H 105/60 06/21/19 07:44 97.6 F 73 15 97/56 L 93 L 06/21/19 04:00 97.8 F 79 17 139/77 93 L 06/21/19 00:00 97.5 F 99 14 123/64 91 L Date Exam was Performed: 06/21/19 Time Exam was Performed: 11:50 - Problem List Review Problem List Initiated/Reviewed/Updated: Yes - My Orders Last 24 Hours: My Active Orders 06/20/19 17:35 Antiembolic Devices [RC] PER UNIT ROUTINE Up With Assistance [RC] ASDIRECTED SCD [Sequential Compression Device] [OM.PC] Stat 06/20/19 17:36 LORazepam [Ativan] See Protocol IVPUSH Q4H PRN 06/20/19 17:37 CIWAA Assessment [RC] Q4H 06/20/19 17:38 Telemetry Monitoring [Cardiac Monitoring] [RC] Q8H 06/20/19 17:39 Furosemide [Lasix] 20 mg PO DAILY PRN traMADol [Ultram] 50 mg PO Q6HR PRN 06/20/19 17:44 Consult to Physical Therapy [PT Evaluation and Treatment] [CONS] Urgent 06/20/19 17:58 Accu Check [Blood Glucose Check, Bedside] [RC] TIDMEALS 06/20/19 21:00 Folic Acid 1 mg PO BEDTIME 06/20/19 22:00 Gabapentin [Neurontin] 600 mg PO TID 06/21/19 07:30 Insulin Aspart [NovoLOG] See Protocol SUBCUT TIDAC 06/21/19 09:00 Diltiazem [Cardizem CD] 240 mg PO DAILY Rivaroxaban [Xarelto] 20 mg PO DAILY 06/21/19 09:12 Ondansetron [Zofran] 4 mg IVPUSH Q4H PRN 06/21/19 18:00 Metoprolol Tartrate [Lopressor] 50 mg PO Q12H 06/21/19 Breakfast [employer] Diet [DIET] - Plan Plan:: Assessment: 1. Unwitnessed syncopal episode 2. Status post blunt head trauma with laceration 3. Chronic anticoagulant therapy secondary to A. fib; rate controlled 4. Concerns for alcohol misuse. 5. Dementia 6. Low TSH Plan Admit to observation. Switched to Impatient CODE STATUS: full code DVT prophylaxis: Continue Eliquis, SCDs. GI prophylaxis; pantoprazole 40 daily. Up with assistance. Diet: Diabetic. Patient might require NH placement for strengthening moving forward; will reassess in 48 hours for appropriate disposition. 1. Head CT negative. Labs unremarkable. Will check digoxin levels and continue to monitor on telemetry with concerns for symptomatic bradycardia. Orthostatics: (Post 1 L bolus in ED): Supine 103/60 pulse rate of 65. Sitting BP 123/50 pulse rate 71 standing BP 118/64 pulse rate of 77; EKG: irregular w/ rate of 48 ; no st/elevations or depressions appreciated. repeat EKG : concerns for Dig toxicity (despite normal labs) vs. ETOH use vs ETOH interaction; will continue to monitor. 2. Continue Eliquis for now; next dose is tomorrow; 3. Discontinue Digoxin for now; switch to Metoprolol 50 mg tartrate bid ; first dose tonight; continue watch on telemetry. Will add a second troponin; no hx. of CP but pt. is an unreliable historian. Concern for depressed TSH: ordered t3/t4 to evaluate for hyperthyroidism 4. Inconsistent ETOH use history: CIWAA and Ativan protocol; thiamine/folate daily. 5. Ambulatory dysfunction: PT/OT ordered for balance/ambulation:continue use of walker . pt. lives at home currently. UA ordered: negative 6. Laceration : stable ; sutures in-situ ; no obvious sign of infection:monitor ; remove in 5-7 days <Ed Alejo - Last Filed: 06/23/19 20:53> - Patient Data Vitals - Most Recent: Last Vital Signs Temp 36.9 C 06/22/19 11:00 Pulse 41 L 06/21/19 23:15 Resp 9 L 06/22/19 12:00 BP 98/50 L 06/22/19 12:00 Pulse Ox 99 06/22/19 12:00 Orthostatic Blood Pressure [ 118/64 Standing] Orthostatic Blood Pressure [ 123/50 Sitting] Orthostatic Blood Pressure [ 103/60 Supine] Med Orders - Current: Current Medications Discontinued Medications Atropine Sulfate (Atropine 0.1 Mg/Ml) 0.5 mg IVPUSH ONETIME ONE Stop: 06/21/19 22:21 Last Admin: 06/21/19 22:45 Dose: 0.5 mg Digoxin (Lanoxin) 125 mcg PO DAILY [facility] Last Admin: 06/21/19 08:32 Dose: 125 mcg Diltiazem HCl (Cardizem Cd) 240 mg PO DAILY [facility] Last Admin: 06/21/19 08:32 Dose: 240 mg Folic Acid (Folic Acid) 1 mg PO BEDTIME [facility] Last Admin: 06/21/19 22:08 Dose: Not Given Furosemide (Lasix) 20 mg PO DAILY PRN PRN Reason: Edema Gabapentin (Neurontin) 600 mg PO TID [facility] Last Admin: 06/21/19 22:08 Dose: Not Given Glucagon (Glucagen) 1 mg IVPUSH ONETIME ONE Stop: 06/21/19 21:40 Last Admin: 06/21/19 22:30 Dose: 1 mg Glucagon (Glucagen) 5 mg IVPUSH ONETIME ONE Stop: 06/21/19 23:43 Last Admin: 06/22/19 00:34 Dose: 5 mg Sodium Chloride (Normal Saline) 1,000 mls @ 999 mls/hr IV .Bolus ONE Stop: 06/20/19 16:09 Last Admin: 06/20/19 15:12 Dose: 999 mls/hr Thiamine HCl 100 mg/ Sodium (Chloride) 101 mls @ 202 mls/hr IV ONETIME ONE Stop: 06/20/19 17:43 Last Admin: 06/20/19 18:32 Dose: Not Given Thiamine HCl 100 mg/ Sodium (Chloride) 101 mls @ 202 mls/hr IV ONETIME ONE Stop: 06/20/19 18:29 Last Admin: 06/20/19 18:40 Dose: 202 mls/hr Magnesium Sulfate 2 gm/ Premix 50 mls @ 50 mls/hr IV ONETIME ONE Stop: 06/20/19 20:49 Last Admin: 06/20/19 20:12 Dose: 50 mls/hr Sodium Chloride (Normal Saline) 1,000 mls @ 999 mls/hr IV .Bolus ONE Stop: 06/21/19 23:11 Last Admin: 06/21/19 22:31 Dose: 999 mls/hr Sodium Chloride (Normal Saline) 1,000 mls @ 125 mls/hr IV ASDIRECTED [facility] Last Admin: 06/22/19 00:38 Dose: 125 mls/hr Sodium Chloride (Normal Saline) 500 mls @ 500 mls/hr IV .BOLUS [facility] Last Admin: 06/22/19 02:58 Dose: 500 mls/hr Dopamine HCl/Dextrose (Dopamine In D5w 400 Mg/250 Ml) 400 mg in 250 mls @ 4.933 mls/hr IV ASDIRECTED [facility]; Protocol Last Titration: 06/22/19 09:19 Dose: 2 mcg/kg/min, 4.933 mls/hr Potassium Chloride 20 meq/ (Premix) 50 mls @ 25 mls/hr IV ONETIME ONE Stop: 06/22/19 11:32 Last Admin: 06/22/19 09:59 Dose: 25 mls/hr Lactated Ringer's (Ringers, Lactated) 1,000 mls @ 125 mls/hr IV ASDIRECTED [facility] Last Admin: 06/22/19 09:59 Dose: 125 mls/hr Thiamine HCl 100 mg/ Sodium (Chloride) 101 mls @ 202 mls/hr IV DAILY SOULEYMANE Last Admin: 06/22/19 09:59 Dose: 202 mls/hr Insulin Aspart (Novolog) 0 unit SUBCUT TIDAC [facility]; Protocol Last Admin: 06/22/19 13:29 Dose: Not Given Lidocaine/Epinephrine (Xylocaine 1% With Epinephrine 1:100,000) 20 ml INJECT ONETIME ONE Stop: 06/20/19 15:22 Last Admin: 06/20/19 16:42 Dose: 20 ml Lorazepam (Ativan) 0 mg IVPUSH Q4H PRN; Protocol PRN Reason: Agitation Last Admin: 06/22/19 10:59 Dose: 1 mg Metoprolol Tartrate (Lopressor) 50 mg PO Q12H [facility] Last Admin: 06/21/19 17:28 Dose: 50 mg Metoprolol Tartrate (Lopressor) 25 mg PO Q12H [facility] Last Admin: 06/21/19 20:12 Dose: Not Given Ondansetron HCl (Zofran) 4 mg IVPUSH Q4H PRN PRN Reason: Nausea/Vomiting Last Admin: 06/21/19 16:14 Dose: 4 mg Promethazine HCl (Phenergan) 25 mg PO Q6H PRN PRN Reason: Nausea/Vomiting Last Admin: 06/21/19 17:31 Dose: 25 mg Rivaroxaban (Xarelto) 20 mg PO DAILY [facility] Last Admin: 06/22/19 11:00 Dose: Not Given Tramadol HCl (Ultram) 50 mg PO Q6HR PRN PRN Reason: Pain Last Admin: 06/21/19 12:48 Dose: 50 mg - Plan Plan:: I have seen and evaluated the patient and agree with the residents note unless specified in my note
[2019-06-21] MEDS: traMADol 50 MG Tab PO PRN (12:48)
[2019-06-21] MEDS ORDERED: Promethazine 25 MG Tab PO PRN (16:15)
--- NOTE | 2019-06-21 17:25 | CT ---
Head CT Technique: Multiple axial sections through the brain were obtained. Intravenous contrast was not utilized. Comparison: Prior head CT study of 06/20/19. Findings: Ventricles along with basal cisterns and sulci over the convexities are moderately prominent. Well defined low density areas are seen within the posterior basal ganglia both sides which remain stable. No other abnormal parenchymal densities are seen. No evidence of intracranial hemorrhage. No midline shift or mass effect is seen. Bone window settings were reviewed. Minimal areas of mucosal thickening is seen within the ethmoid sinuses. Visualized paranasal sinuses are otherwise clear. Visualized mastoid sinuses show nothing acute. No acute calvarial abnormality is identified. Impression: 1. Minimal sinus findings which are believed to be incidental. 2. Generalized atrophy and other stable findings. 3. Nothing acute is appreciated on noncontrast head CT exam. Diagnostic code #2 This report was dictated in [place] [employer] Time
[2019-06-21] MEDS ORDERED: Metoprolol Tartrate 50 MG Tab PO SCH ×2 (18:00→19:12)
[2019-06-21] MEDS: Folic Acid 1 MG Tab PO SCH ×2 (20:11→22:08)
[2019-06-21] MEDS ORDERED: Glucagon,Human Recombinant 1 MG Vial IVPUSH ONE ×2 (21:39→23:42)
[2019-06-21] MEDS ORDERED: Sodium Chloride 0.9% 1,000 ML IV ONE (22:11)
[2019-06-21] MEDS ORDERED: Atropine 0.1 MG/ML 10 ML Syringe IVPUSH ONE (22:20)
[2019-06-21 23:03] LABS: BLOOD UREA NITROGEN,BUN 11 mg/dL (7.0-18.0); CARBON DIOXIDE,CO2 31.1 mmol/L (21.0-32.0); CHLORIDE,CL 103 mmol/L (98-107); GLUCOSE RANDOM 128 mg/dL (74-106); POTASSIUM,K 3.9 mmol/L (3.5-5.1); SODIUM,NA 141 mmol/L (136-145)
[2019-06-21] MEDS: Sodium Chloride 0.9% 1,000 ML IV SCH (23:37)
[2019-06-22] MEDS: Sodium Chloride 0.9% 1,000 ML IV SCH (00:38)
[2019-06-22 01:29] VITALS: PULSE 41
[2019-06-22] MEDS ORDERED: Sodium Chloride 0.9% 500 ML IV SCH (02:15)
[2019-06-22] MEDS: LORazepam 2 MG/ML SDV IVPUSH PRN ×2 (02:50→10:59)
[2019-06-22] MEDS ORDERED: DOPamine/Dextrose 5%-Water 400 MG/250 ML BAG IV SCH (05:30)
--- NOTE | 2019-06-22 06:32 | PN ---
[facility] Physician - Brief Progress [id number]/12/2020 06:01[facility] [place], [place] [facility] - MWN JOSÉ ANTONIO ARCEODate of Service 06/22/2019 06:01HPI/Events of Note Chart reviewed and case d/w Dr Alejo. On camera, the patient is lying in bed, asleep in NAD. Mrs Garber is a 68 yr old lady brought in after being found sitting in the kitchen with a laceration o n her forehead - therefore presumed to have fallen. The patient has dementia and cannot give any reli able history. Of note, she has been in the ER for falls several times in 2019. The patient has h/o a fib and was found in RVR, rec'd DIltiazem IV 10 mg in ED and anotehr dose eventually on the floor. On 04/11, there was some concern about possible Dig toxicity based on EKG, though the level was normal. Therefore, this was stopped and Metoprolol po was started. On 04/11 evening, the patient became bradyc ardic as low as 30s, with pauses, and intermittently hypotensive. She rec'd a total of 2L IV fluid selina luses. She rec'd Glucagon in attempt to counter the beta-london, and rec'd 0.5 mg IV Atropine htough unclear that that has helped. She was trsf to the ICU and started external pacing.PMH: dementia, a f ib on Xarelto, alcohol use.Investigations reviewed - pertinent: BMP and Mag drawn, unremarkable. TSH mildly decreased but free T4 and T3 normal.Troponin negative x2. EKG d/w Dr Alejo - a fib with slow V rate, ST depressions unchanged from previous.A/P:1. A fib, was in RVR, now bradycardic.This could be related to medications (DIltiazem, Dig, Metoprolol), vs underlying tachy-thanh syndrome.By now, I have ordered another 500 mL of NS bolus without improvement in her BP, therefore ordered Dopamine gtt .Needs Echo in AM and back sewer evaluation/possible transfer for pacemaker placement.Of note: due to multiple falls within one year, recommend re-assessing long-term anticoagulation which may not be appropriate for this patient, due to significant risk of bleeding when falling. Strongly recommend r e-evaluation of anticoagulation and discussing high risk with her family.2. ETOHPatient's alcohol lev el was 124 on admission. Unclear when and how much she is drinking.This should be addressed with her , whom she lives with. It should be discussed whether it is appropriate for the patinet to ret urn home without 24/7 supervision.Interventions Major-Arrhythmia - evaluation and management, Other: alcohol use
[2019-06-22 06:51] LABS: BLOOD UREA NITROGEN,BUN 10 mg/dL (7.0-18.0); CARBON DIOXIDE,CO2 29.4 mmol/L (21.0-32.0); CHLORIDE,CL 111 mmol/L (98-107); GLUCOSE RANDOM 107 mg/dL (74-106); POTASSIUM,K 3.3 mmol/L (3.5-5.1); SODIUM,NA 147 mmol/L (136-145)
[2019-06-22] MEDS: Insulin Aspart 100 Units/ML 3 ML Pen SUBCUT SCH ×2 (08:16→13:29)
[2019-06-22] MEDS ORDERED: Potassium Chloride Riders 20 MEQ in Premix Bag 1 BAG IV ONE (09:33)
[2019-06-22] MEDS ORDERED: Lactated Ringers 1,000 ML IV SCH (09:45)
[2019-06-22] MEDS ORDERED: Thiamine 100 MG in Sodium Chloride 0.9% 100 ML IV SCH (09:45)
--- NOTE | 2019-06-22 09:45 | PN ---
[facility] Physician - Brief Progress [id number]/12/2020 09:38[facility] Travis [place], [place] [facility] - MWN JOHNYJOSÉ ANTONIO SILVASilasDate of Service 06/22/2019 09:38HPI/Events of Note eICU Progress [id number] found to have head wound, confused, admitted to ICU with ETOH withdraw al. Patient also had hypotension and bradycardia, was on lopressor PO, diltiazem CD 240 mg, digoxin. Digoxin level 1.0. Atropine given 0.5 mg @ 2221 Dementia w/ suspected fall r/t ETOH. Remained hy potensive, bradycardia overnight, was on ext pacer and was started on Dopamine at 0500. > 500ml PVR per nurse, who I discussed the case with. Seen on camera, dev.eICU Recommendations:1. If br adycardia persists, suggest transfer for evaluation for possible pacemaker.2. Continue holding beta- blockers, calcium channel blockers, and digoxin.3. On Xarelto, no need for further DVT prophylaxis.4 . Change IVF to LR with hypokalemia and hypernatremia.5. Replete low K+, recheck labs at 1200.6. R ule out ACS, check echo.7. Continue thiamine + folic acid + CIWA with PRN Ativan per protocol.Thank you for allowing us to participate in the care of your patient.Interventions Intermediate-Arrhythmia - evaluation and management, Communication with other healthcare providers and/or family, Diagnostic test evaluation, Electrolyte abnormality - evaluation and management, Medication change / dose adjust ment
[2019-06-22 10:41] LABS: CARBON DIOXIDE,CO2 30.2 mmol/L (21.0-32.0); POTASSIUM,K 3.1 mmol/L (3.5-5.1)
--- NOTE | 2019-06-22 10:43 | PCM.PN ---
- General Info Date of Service: 06/22/19 - Patient Data Vitals - Most Recent: Last Vital Signs Temp 36.7 C 06/22/19 04:00 Pulse 41 L 06/21/19 23:15 Resp 14 06/22/19 07:00 BP 91/43 L 06/22/19 07:00 Pulse Ox 98 06/22/19 07:00 Orthostatic Blood Pressure [ 118/64 Standing] Orthostatic Blood Pressure [ 123/50 Sitting] Orthostatic Blood Pressure [ 103/60 Supine] Weight - Most Recent: 65.771 kg I&O - Last 24 Hours: Intake & Output 06/21/19 06/22/19 06/22/19 22:59 06:59 14:59 Intake Total 1200 4024 Output Total 1500 250 Balance -300 3774 Lab Results Last 24 Hours: Laboratory Results - last 24 hr 06/21/19 06/21/19 06/21/19 Range/Units 06:00 11:27 17:17 WBC (4.0-11.0) K/uL RBC (4.30-5.90) M/uL Hgb (12.0-16.0) g/dL Hct (36.0-46.0) % MCV (80.0-98.0) fL MCH (27.0-32.0) pg MCHC (31.0-37.0) g/dL RDW Std Deviation (28.0-62.0) fl RDW Coeff of Aruna (11.0-15.0) % Plt Count (150-400) K/uL MPV (7.40-12.00) fL Neut % (Auto) (48.0-80.0) % Lymph % (Auto) (16.0-40.0) % Price % (Auto) (0.0-15.0) % Eos % (Auto) (0.0-7.0) % Baso % (Auto) (0.0-1.5) % Neut # (Auto) (1.4-5.7) K/uL Lymph # (Auto) (0.6-2.4) K/uL Price # (Auto) (0.0-0.8) K/uL Eos # (Auto) (0.0-0.7) K/uL Baso # (Auto) (0.0-0.1) K/uL Sodium (136-145) mmol/L Potassium (3.5-5.1) mmol/L Chloride (98-107) mmol/L Carbon Dioxide (21.0-32.0) mmol/L BUN (7.0-18.0) mg/dL Creatinine (0.6-1.0) mg/dL Est Cr Clr Drug Dosing mL/min Estimated GFR (MDRD) ml/min Glucose (74-106) mg/dL POC Glucose 128 H 130 H (60-110) mg/dL Calcium (8.5-10.1) mg/dL Magnesium (1.8-2.4) mg/dL Total Bilirubin (0.2-1.0) mg/dL AST (15-37) IU/L ALT (14-63) IU/L Alkaline Phosphatase (46-116) U/L Troponin I < 0.050 (0.000-0.056) ng/mL Total Protein (6.4-8.2) g/dL Albumin (3.4-5.0) g/dL Globulin (2.6-4.0) g/dL Albumin/Globulin Ratio (0.9-1.6) Free T4 0.77 (0.76-1.46) ng/dL Free T3 2.98 (2.18-3.98) pg/mL 06/21/19 06/21/19 06/21/19 Range/Units 22:18 22:45 22:45 WBC (4.0-11.0) K/uL RBC (4.30-5.90) M/uL Hgb (12.0-16.0) g/dL Hct (36.0-46.0) % MCV (80.0-98.0) fL MCH (27.0-32.0) pg MCHC (31.0-37.0) g/dL RDW Std Deviation (28.0-62.0) fl RDW Coeff of Aruna (11.0-15.0) % Plt Count (150-400) K/uL MPV (7.40-12.00) fL Neut % (Auto) (48.0-80.0) % Lymph % (Auto) (16.0-40.0) % Price % (Auto) (0.0-15.0) % Eos % (Auto) (0.0-7.0) % Baso % (Auto) (0.0-1.5) % Neut # (Auto) (1.4-5.7) K/uL Lymph # (Auto) (0.6-2.4) K/uL Price # (Auto) (0.0-0.8) K/uL Eos # (Auto) (0.0-0.7) K/uL Baso # (Auto) (0.0-0.1) K/uL Sodium 141 (136-145) mmol/L Potassium 3.9 (3.5-5.1) mmol/L Chloride 103 (98-107) mmol/L Carbon Dioxide 31.1 (21.0-32.0) mmol/L BUN 11 (7.0-18.0) mg/dL Creatinine 0.9 (0.6-1.0) mg/dL Est Cr Clr Drug Dosing 52.38 mL/min Estimated GFR (MDRD) > 60.0 ml/min Glucose 128 H (74-106) mg/dL POC Glucose 108 (60-110) mg/dL Calcium 9.7 (8.5-10.1) mg/dL Magnesium (1.8-2.4) mg/dL Total Bilirubin (0.2-1.0) mg/dL AST (15-37) IU/L ALT (14-63) IU/L Alkaline Phosphatase (46-116) U/L Troponin I < 0.050 (0.000-0.056) ng/mL Total Protein (6.4-8.2) g/dL Albumin (3.4-5.0) g/dL Globulin (2.6-4.0) g/dL Albumin/Globulin Ratio (0.9-1.6) Free T4 (0.76-1.46) ng/dL Free T3 (2.18-3.98) pg/mL 06/21/19 06/22/19 06/22/19 Range/Units 22:45 00:32 06:05 WBC 3.22 L (4.0-11.0) K/uL RBC 3.44 L (4.30-5.90) M/uL Hgb 11.6 L (12.0-16.0) g/dL Hct 33.5 L (36.0-46.0) % MCV 97.4 (80.0-98.0) fL MCH 33.7 H (27.0-32.0) pg MCHC 34.6 (31.0-37.0) g/dL RDW Std Deviation 60.8 (28.0-62.0) fl RDW Coeff of Aruna 18 H (11.0-15.0) % Plt Count 165 (150-400) K/uL MPV 10.50 (7.40-12.00) fL Neut % (Auto) 48.1 (48.0-80.0) % Lymph % (Auto) 32.0 (16.0-40.0) % Price % (Auto) 17.1 H (0.0-15.0) % Eos % (Auto) 1.6 (0.0-7.0) % Baso % (Auto) 1.2 (0.0-1.5) % Neut # (Auto) 1.6 (1.4-5.7) K/uL Lymph # (Auto) 1.0 (0.6-2.4) K/uL Price # (Auto) 0.6 (0.0-0.8) K/uL Eos # (Auto) 0.1 (0.0-0.7) K/uL Baso # (Auto) 0.0 (0.0-0.1) K/uL Sodium (136-145) mmol/L Potassium (3.5-5.1) mmol/L Chloride (98-107) mmol/L Carbon Dioxide (21.0-32.0) mmol/L BUN (7.0-18.0) mg/dL Creatinine (0.6-1.0) mg/dL Est Cr Clr Drug Dosing mL/min Estimated GFR (MDRD) ml/min Glucose (74-106) mg/dL POC Glucose 122 H (60-110) mg/dL Calcium (8.5-10.1) mg/dL Magnesium 2.1 (1.8-2.4) mg/dL Total Bilirubin (0.2-1.0) mg/dL AST (15-37) IU/L ALT (14-63) IU/L Alkaline Phosphatase (46-116) U/L Troponin I (0.000-0.056) ng/mL Total Protein (6.4-8.2) g/dL Albumin (3.4-5.0) g/dL Globulin (2.6-4.0) g/dL Albumin/Globulin Ratio (0.9-1.6) Free T4 (0.76-1.46) ng/dL Free T3 (2.18-3.98) pg/mL 06/22/19 06/22/19 Range/Units 06:05 07:37 WBC (4.0-11.0) K/uL RBC (4.30-5.90) M/uL Hgb (12.0-16.0) g/dL Hct (36.0-46.0) % MCV (80.0-98.0) fL MCH (27.0-32.0) pg MCHC (31.0-37.0) g/dL RDW Std Deviation (28.0-62.0) fl RDW Coeff of Aruna (11.0-15.0) % Plt Count (150-400) K/uL MPV (7.40-12.00) fL Neut % (Auto) (48.0-80.0) % Lymph % (Auto) (16.0-40.0) % Price % (Auto) (0.0-15.0) % Eos % (Auto) (0.0-7.0) % Baso % (Auto) (0.0-1.5) % Neut # (Auto) (1.4-5.7) K/uL Lymph # (Auto) (0.6-2.4) K/uL Price # (Auto) (0.0-0.8) K/uL Eos # (Auto) (0.0-0.7) K/uL Baso # (Auto) (0.0-0.1) K/uL Sodium 147 H (136-145) mmol/L Potassium 3.3 L (3.5-5.1) mmol/L Chloride 111 H (98-107) mmol/L Carbon Dioxide 29.4 (21.0-32.0) mmol/L BUN 10 (7.0-18.0) mg/dL Creatinine 0.7 (0.6-1.0) mg/dL Est Cr Clr Drug Dosing 67.34 mL/min Estimated GFR (MDRD) > 60.0 ml/min Glucose 107 H (74-106) mg/dL POC Glucose 90 (60-110) mg/dL Calcium 8.5 (8.5-10.1) mg/dL Magnesium (1.8-2.4) mg/dL Total Bilirubin 0.5 (0.2-1.0) mg/dL AST 30 (15-37) IU/L ALT 28 (14-63) IU/L Alkaline Phosphatase 139 H (46-116) U/L Troponin I (0.000-0.056) ng/mL Total Protein 5.1 L (6.4-8.2) g/dL Albumin 2.1 L (3.4-5.0) g/dL Globulin 3.0 (2.6-4.0) g/dL Albumin/Globulin Ratio 0.7 L (0.9-1.6) Free T4 (0.76-1.46) ng/dL Free T3 (2.18-3.98) pg/mL Med Orders - Current: Current Medications Folic Acid (Folic Acid) 1 mg PO BEDTIME SOULEYMANE Last Admin: 06/21/19 22:08 Dose: Not Given Furosemide (Lasix) 20 mg PO DAILY PRN PRN Reason: Edema Sodium Chloride (Normal Saline) 500 mls @ 500 mls/hr IV .BOLUS SOULEYMANE Last Admin: 06/22/19 02:58 Dose: 500 mls/hr Dopamine HCl/Dextrose (Dopamine In D5w 400 Mg/250 Ml) 400 mg in 250 mls @ 4.933 mls/hr IV ASDIRECTED SOULEYMANE; Protocol Last Titration: 06/22/19 07:26 Dose: 4 mcg/kg/min, 9.866 mls/hr Potassium Chloride 20 meq/ (Premix) 50 mls @ 25 mls/hr IV ONETIME ONE Stop: 06/22/19 11:32 Last Admin: 06/22/19 09:59 Dose: 25 mls/hr Lactated Ringer's (Ringers, Lactated) 1,000 mls @ 125 mls/hr IV ASDIRECTED SOULEYMANE Last Admin: 06/22/19 09:59 Dose: 125 mls/hr Thiamine HCl 100 mg/ Sodium (Chloride) 101 mls @ 202 mls/hr IV DAILY SOULEYMANE Last Admin: 06/22/19 09:59 Dose: 202 mls/hr Insulin Aspart (Novolog) 0 unit SUBCUT TIDAC [facility]; Protocol Last Admin: 06/22/19 08:16 Dose: Not Given Lorazepam (Ativan) 0 mg IVPUSH Q4H PRN; Protocol PRN Reason: Agitation Last Admin: 06/22/19 02:50 Dose: 2 mg Ondansetron HCl (Zofran) 4 mg IVPUSH Q4H PRN PRN Reason: Nausea/Vomiting Last Admin: 06/21/19 16:14 Dose: 4 mg Promethazine HCl (Phenergan) 25 mg PO Q6H PRN PRN Reason: Nausea/Vomiting Last Admin: 06/21/19 17:31 Dose: 25 mg Rivaroxaban (Xarelto) 20 mg PO DAILY [facility] Last Admin: 06/21/19 08:32 Dose: 20 mg Tramadol HCl (Ultram) 50 mg PO Q6HR PRN PRN Reason: Pain Last Admin: 06/21/19 12:48 Dose: 50 mg Discontinued Medications Atropine Sulfate (Atropine 0.1 Mg/Ml) 0.5 mg IVPUSH ONETIME ONE Stop: 06/21/19 22:21 Last Admin: 06/21/19 22:45 Dose: 0.5 mg Digoxin (Lanoxin) 125 mcg PO DAILY [facility] Last Admin: 06/21/19 08:32 Dose: 125 mcg Diltiazem HCl (Cardizem Cd) 240 mg PO DAILY [facility] Last Admin: 06/21/19 08:32 Dose: 240 mg Gabapentin (Neurontin) 600 mg PO TID [facility] Last Admin: 06/21/19 22:08 Dose: Not Given Glucagon (Glucagen) 1 mg IVPUSH ONETIME ONE Stop: 06/21/19 21:40 Last Admin: 06/21/19 22:30 Dose: 1 mg Glucagon (Glucagen) 5 mg IVPUSH ONETIME ONE Stop: 06/21/19 23:43 Last Admin: 06/22/19 00:34 Dose: 5 mg Sodium Chloride (Normal Saline) 1,000 mls @ 999 mls/hr IV .Bolus ONE Stop: 06/20/19 16:09 Last Admin: 06/20/19 15:12 Dose: 999 mls/hr Thiamine HCl 100 mg/ Sodium (Chloride) 101 mls @ 202 mls/hr IV ONETIME ONE Stop: 06/20/19 17:43 Last Admin: 06/20/19 18:32 Dose: Not Given Thiamine HCl 100 mg/ Sodium (Chloride) 101 mls @ 202 mls/hr IV ONETIME ONE Stop: 06/20/19 18:29 Last Admin: 06/20/19 18:40 Dose: 202 mls/hr Magnesium Sulfate 2 gm/ Premix 50 mls @ 50 mls/hr IV ONETIME ONE Stop: 06/20/19 20:49 Last Admin: 06/20/19 20:12 Dose: 50 mls/hr Sodium Chloride (Normal Saline) 1,000 mls @ 999 mls/hr IV .Bolus ONE Stop: 06/21/19 23:11 Last Admin: 06/21/19 22:31 Dose: 999 mls/hr Sodium Chloride (Normal Saline) 1,000 mls @ 125 mls/hr IV ASDIRECTED [facility] Last Admin: 06/22/19 00:38 Dose: 125 mls/hr Lidocaine/Epinephrine (Xylocaine 1% With Epinephrine 1:100,000) 20 ml INJECT ONETIME ONE Stop: 06/20/19 15:22 Last Admin: 06/20/19 16:42 Dose: 20 ml Metoprolol Tartrate (Lopressor) 50 mg PO Q12H [facility] Last Admin: 06/21/19 17:28 Dose: 50 mg Metoprolol Tartrate (Lopressor) 25 mg PO Q12H [facility] Last Admin: 06/21/19 20:12 Dose: Not Given Sepsis Event Note - Evaluation Sepsis Screening Result: No Definite Risk - Focused Exam Vital Signs: Vital Signs Temp Pulse Resp BP Pulse Ox 06/22/19 07:00 14 91/43 L 98 06/22/19 06:00 14 87/47 L 96 06/22/19 05:00 14 75/40 L 96 06/22/19 04:00 36.7 C 14 78/47 L 96 06/22/19 03:00 19 112/56 L 93 L 06/22/19 02:00 12 87/47 L 92 L 06/22/19 01:00 12 90/50 L 100 06/22/19 00:00 36.8 C 12 103/58 L 95 06/21/19 23:15 41 L 12 103/51 L 94 L Date Exam was Performed: 06/22/19 Time Exam was Performed: 10:43 - My Orders Last 24 Hours: My Active Orders 06/21/19 22:36 Echo 2D wo Cont [US] Routine - Plan Plan:: Assessment: 1. Unwitnessed syncopal episode 2. Status post blunt head trauma with laceration 3. Chronic anticoagulant therapy secondary to A. fib; rate controlled 4. Concerns for alcohol misuse. 5. Dementia 6. Low TSH Plan Admit to observation. Switched to Impatient CODE STATUS: full code DVT prophylaxis: Continue Eliquis, SCDs. GI prophylaxis; pantoprazole 40 daily. Up with assistance. Diet: Diabetic. Patient might require NH placement for strengthening moving forward; will reassess in 48 hours for appropriate disposition. 1. Head CT negative. Labs unremarkable. Will check digoxin levels and continue to monitor on telemetry with concerns for symptomatic bradycardia. Orthostatics: (Post 1 L bolus in ED): Supine 103/60 pulse rate of 65. Sitting BP 123/50 pulse rate 71 standing BP 118/64 pulse rate of 77; EKG: irregular w/ rate of 48 ; no st/elevations or depressions appreciated. repeat EKG : concerns for Dig toxicity (despite normal labs) vs. ETOH use vs ETOH interaction; will continue to monitor. 2. Continue Eliquis for now; next dose is tomorrow; 3. Discontinue Digoxin for now; switch to Metoprolol 50 mg tartrate bid ; first dose tonight; continue watch on telemetry. Will add a second troponin; no hx. of CP but pt. is an unreliable historian. Concern for depressed TSH: ordered t3/t4 to evaluate for hyperthyroidism 4. Inconsistent ETOH use history: CIWAA and Ativan protocol; thiamine/folate daily. 5. Ambulatory dysfunction: PT/OT ordered for balance/ambulation:continue use of walker . pt. lives at home currently. UA ordered: negative 6. Laceration : stable ; sutures in-situ ; no obvious sign of infection:monitor ; remove in 5-7 days
--- NOTE | 2019-06-22 10:59 | PCM.DCSUM1 ---
Discharge Summary - Hospital Course HPI Initial Comments: Patient is a 68 y/o F with PMH of Afib on Xarelto, dementia, alcohol abuse who was bought in after unwitnessed fall and laceration to forehead. Patient has early stages on dementia per family and is a poor historian. CT scan of head in ER was negative for acute bleed. Patient was found to be in Afib RVR, received Diltiazem IV 10 mg in ED and another dose on the med-surg floor for rate control. On 06/21 morning there was a concern of digitoxicity due to ST changes on tele which improved in next few hours, patient also had an episode of vomiting, repeat CT was done to r/o delayed bleeding, which was negative. Troponin was negative, no complains of chest pain, Dig level was 1.0. Dig was held, and therefore Metoprolol tartrate po was started for rate control. In the evening patient started to be bradycardic to 30s -40s, BP was 80/60, patient was lethargic. Patient received glucagon, atropine and IV Fluid bolus for resuscitation and transferred to ICU, Family was updated. EKG was done showing anterolateral ST depressions, which was unchanged from admission EKG, Repeat Troponin was negative. BP improved with fluids. Started on External pacing due to persistent bradycardia.Electrolytes were checked, all came back normal. Overnight patient became hypotensive again, was not responsive to fluid bolus so dopamine gtt was started to help the low BP. Patient responded well to the dopamine. After discussion with E-ICU decision as made that patient likely needs a pacemaker for persistent bradycardia. Spoke to [facility] cardiology , he agrees with the transfer. Family was updated about the transfer,agree with the plan. - Discharge Data Discharge Date: 06/22/19 Discharge Disposition: DC/Tfer to Acute Hospital 02 Condition: Serious - Referral to Home Health Primary Care Physician: Herman Alvarez MD - Patient Summary/Data Consults: Consultations 06/20/19 17:44 Consult to Physical Therapy [PT Evaluation and Treatment] [CONS] Urgent - Discharge Plan *PRESCRIPTION DRUG MONITORING PROGRAM REVIEWED*: Yes *COPY OF PRESCRIPTION DRUG MONITORING REPORT IN PATIENT CLEM: Yes Home Medications: Home Meds Cholecalciferol (Vitamin D3) [Vitamin D3] 1,000 unit PO DAILY 02/07/17 [History] metFORMIN [Glucophage] 500 mg PO DAILY 02/07/17 [History] Calcium Carbonate 600 mg PO BID 11/04/17 [History] Gabapentin [Neurontin] 600 mg PO TID 11/04/17 [History] Furosemide 20 mg PO DAILY PRN 07/01/18 [History] Potassium Chloride [Klor-Con 10] 20 meq PO BID 07/01/18 [History] Rivaroxaban [Xarelto] 20 mg PO DAILY 07/01/18 [History] Digoxin 125 mcg PO DAILY 30 Days #30 tablet 07/04/18 [Rx] Folic Acid 1 mg PO DAILY 30 Days #30 tablet 07/04/18 [Rx] Thiamine [Vitamin B-1] 100 mg PO BEDTIME 30 Days #30 tablet 07/04/18 [Rx] dilTIAZem HCl [Diltiazem 24Hr ER (Xr)] 240 mg PO DAILY 14 Days #28 cap.er.deg [Rx] traMADol HCl [Tramadol HCl] 1 tab PO Q6HR PRN 06/20/19 [History] - Discharge Summary/Plan Comment DC Time >30 min.: Yes - General Info Admission Dx/Problem (Free Text: Admission Diagnosis/Problem Admission Diagnosis/Problem Syncope Subjective Update: More awake this AM, denied any c/p, sob - Patient Data Vitals - Most Recent: Last Vital Signs Temp 36.7 C 06/22/19 04:00 Pulse 41 L 06/21/19 23:15 Resp 14 06/22/19 07:00 BP 91/43 L 06/22/19 07:00 Pulse Ox 98 06/22/19 07:00 Orthostatic Blood Pressure [ 118/64 Standing] Orthostatic Blood Pressure [ 123/50 Sitting] Orthostatic Blood Pressure [ 103/60 Supine] Weight - Most Recent: 65.771 kg I&O - Last 24 hours: Intake & Output 06/21/19 06/22/19 06/22/19 22:59 06:59 14:59 Intake Total 1200 4024 Output Total 1500 250 Balance -300 3774 Lab Results - Last 24 hrs: Laboratory Results - last 24 hr 06/21/19 06/21/19 06/21/19 Range/Units 06:00 11:27 17:17 WBC (4.0-11.0) K/uL RBC (4.30-5.90) M/uL Hgb (12.0-16.0) g/dL Hct (36.0-46.0) % MCV (80.0-98.0) fL MCH (27.0-32.0) pg MCHC (31.0-37.0) g/dL RDW Std Deviation (28.0-62.0) fl RDW Coeff of Aruna (11.0-15.0) % Plt Count (150-400) K/uL MPV (7.40-12.00) fL Neut % (Auto) (48.0-80.0) % Lymph % (Auto) (16.0-40.0) % [place] % (Auto) (0.0-15.0) % Eos % (Auto) (0.0-7.0) % Baso % (Auto) (0.0-1.5) % Neut # (Auto) (1.4-5.7) K/uL Lymph # (Auto) (0.6-2.4) K/uL [place] # (Auto) (0.0-0.8) K/uL Eos # (Auto) (0.0-0.7) K/uL Baso # (Auto) (0.0-0.1) K/uL Sodium (136-145) mmol/L Potassium (3.5-5.1) mmol/L Chloride (98-107) mmol/L Carbon Dioxide (21.0-32.0) mmol/L Anion Gap BUN (7.0-18.0) mg/dL Creatinine (0.6-1.0) mg/dL Est Cr Clr Drug Dosing mL/min Estimated GFR (MDRD) ml/min Glucose (74-106) mg/dL POC Glucose 128 H 130 H (60-110) mg/dL Calcium (8.5-10.1) mg/dL Phosphorus (2.6-4.7) mg/dL Magnesium (1.8-2.4) mg/dL Total Bilirubin (0.2-1.0) mg/dL AST (15-37) IU/L ALT (14-63) IU/L Alkaline Phosphatase (46-116) U/L Troponin I < 0.050 (0.000-0.056) ng/mL Total Protein (6.4-8.2) g/dL Albumin (3.4-5.0) g/dL Globulin (2.6-4.0) g/dL Albumin/Globulin Ratio (0.9-1.6) Free T4 0.77 (0.76-1.46) ng/dL Free T3 2.98 (2.18-3.98) pg/mL 06/21/19 06/21/19 06/21/19 Range/Units 22:18 22:45 22:45 WBC (4.0-11.0) K/uL RBC (4.30-5.90) M/uL Hgb (12.0-16.0) g/dL Hct (36.0-46.0) % MCV (80.0-98.0) fL MCH (27.0-32.0) pg MCHC (31.0-37.0) g/dL RDW Std Deviation (28.0-62.0) fl RDW Coeff of Aruna (11.0-15.0) % Plt Count (150-400) K/uL MPV (7.40-12.00) fL Neut % (Auto) (48.0-80.0) % Lymph % (Auto) (16.0-40.0) % [place] % (Auto) (0.0-15.0) % Eos % (Auto) (0.0-7.0) % Baso % (Auto) (0.0-1.5) % Neut # (Auto) (1.4-5.7) K/uL Lymph # (Auto) (0.6-2.4) K/uL [place] # (Auto) (0.0-0.8) K/uL Eos # (Auto) (0.0-0.7) K/uL Baso # (Auto) (0.0-0.1) K/uL Sodium 141 (136-145) mmol/L Potassium 3.9 (3.5-5.1) mmol/L Chloride 103 (98-107) mmol/L Carbon Dioxide 31.1 (21.0-32.0) mmol/L Anion Gap BUN 11 (7.0-18.0) mg/dL Creatinine 0.9 (0.6-1.0) mg/dL Est Cr Clr Drug Dosing 52.38 mL/min Estimated GFR (MDRD) > 60.0 ml/min Glucose 128 H (74-106) mg/dL POC Glucose 108 (60-110) mg/dL Calcium 9.7 (8.5-10.1) mg/dL Phosphorus (2.6-4.7) mg/dL Magnesium (1.8-2.4) mg/dL Total Bilirubin (0.2-1.0) mg/dL AST (15-37) IU/L ALT (14-63) IU/L Alkaline Phosphatase (46-116) U/L Troponin I < 0.050 (0.000-0.056) ng/mL Total Protein (6.4-8.2) g/dL Albumin (3.4-5.0) g/dL Globulin (2.6-4.0) g/dL Albumin/Globulin Ratio (0.9-1.6) Free T4 (0.76-1.46) ng/dL Free T3 (2.18-3.98) pg/mL 06/21/19 06/22/19 06/22/19 Range/Units 22:45 00:32 06:05 WBC 3.22 L (4.0-11.0) K/uL RBC 3.44 L (4.30-5.90) M/uL Hgb 11.6 L (12.0-16.0) g/dL Hct 33.5 L (36.0-46.0) % MCV 97.4 (80.0-98.0) fL MCH 33.7 H (27.0-32.0) pg MCHC 34.6 (31.0-37.0) g/dL RDW Std Deviation 60.8 (28.0-62.0) fl RDW Coeff of Aruna 18 H (11.0-15.0) % Plt Count 165 (150-400) K/uL MPV 10.50 (7.40-12.00) fL Neut % (Auto) 48.1 (48.0-80.0) % Lymph % (Auto) 32.0 (16.0-40.0) % [place] % (Auto) 17.1 H (0.0-15.0) % Eos % (Auto) 1.6 (0.0-7.0) % Baso % (Auto) 1.2 (0.0-1.5) % Neut # (Auto) 1.6 (1.4-5.7) K/uL Lymph # (Auto) 1.0 (0.6-2.4) K/uL [place] # (Auto) 0.6 (0.0-0.8) K/uL Eos # (Auto) 0.1 (0.0-0.7) K/uL Baso # (Auto) 0.0 (0.0-0.1) K/uL Sodium (136-145) mmol/L Potassium (3.5-5.1) mmol/L Chloride (98-107) mmol/L Carbon Dioxide (21.0-32.0) mmol/L Anion Gap BUN (7.0-18.0) mg/dL Creatinine (0.6-1.0) mg/dL Est Cr Clr Drug Dosing mL/min Estimated GFR (MDRD) ml/min Glucose (74-106) mg/dL POC Glucose 122 H (60-110) mg/dL Calcium (8.5-10.1) mg/dL Phosphorus (2.6-4.7) mg/dL Magnesium 2.1 (1.8-2.4) mg/dL Total Bilirubin (0.2-1.0) mg/dL AST (15-37) IU/L ALT (14-63) IU/L Alkaline Phosphatase (46-116) U/L Troponin I (0.000-0.056) ng/mL Total Protein (6.4-8.2) g/dL Albumin (3.4-5.0) g/dL Globulin (2.6-4.0) g/dL Albumin/Globulin Ratio (0.9-1.6) Free T4 (0.76-1.46) ng/dL Free T3 (2.18-3.98) pg/mL 06/22/19 06/22/19 06/22/19 Range/Units 06:05 07:37 10:06 WBC (4.0-11.0) K/uL RBC (4.30-5.90) M/uL Hgb (12.0-16.0) g/dL Hct (36.0-46.0) % MCV (80.0-98.0) fL MCH (27.0-32.0) pg MCHC (31.0-37.0) g/dL RDW Std Deviation (28.0-62.0) fl RDW Coeff of Aruna (11.0-15.0) % Plt Count (150-400) K/uL MPV (7.40-12.00) fL Neut % (Auto) (48.0-80.0) % Lymph % (Auto) (16.0-40.0) % [place] % (Auto) (0.0-15.0) % Eos % (Auto) (0.0-7.0) % Baso % (Auto) (0.0-1.5) % Neut # (Auto) (1.4-5.7) K/uL Lymph # (Auto) (0.6-2.4) K/uL [place] # (Auto) (0.0-0.8) K/uL Eos # (Auto) (0.0-0.7) K/uL Baso # (Auto) (0.0-0.1) K/uL Sodium 147 H (136-145) mmol/L Potassium 3.3 L (3.5-5.1) mmol/L Chloride 111 H (98-107) mmol/L Carbon Dioxide 29.4 (21.0-32.0) mmol/L Anion Gap BUN 10 (7.0-18.0) mg/dL Creatinine 0.7 (0.6-1.0) mg/dL Est Cr Clr Drug Dosing 67.34 mL/min Estimated GFR (MDRD) > 60.0 ml/min Glucose 107 H (74-106) mg/dL POC Glucose 90 (60-110) mg/dL Calcium 8.5 (8.5-10.1) mg/dL Phosphorus (2.6-4.7) mg/dL Magnesium (1.8-2.4) mg/dL Total Bilirubin 0.5 (0.2-1.0) mg/dL AST 30 (15-37) IU/L ALT 28 (14-63) IU/L Alkaline Phosphatase 139 H (46-116) U/L Troponin I < 0.050 (0.000-0.056) ng/mL Total Protein 5.1 L (6.4-8.2) g/dL Albumin 2.1 L (3.4-5.0) g/dL Globulin 3.0 (2.6-4.0) g/dL Albumin/Globulin Ratio 0.7 L (0.9-1.6) Free T4 (0.76-1.46) ng/dL Free T3 (2.18-3.98) pg/mL 06/22/19 Range/Units 10:06 WBC (4.0-11.0) K/uL RBC (4.30-5.90) M/uL Hgb (12.0-16.0) g/dL Hct (36.0-46.0) % MCV (80.0-98.0) fL MCH (27.0-32.0) pg MCHC (31.0-37.0) g/dL RDW Std Deviation (28.0-62.0) fl RDW Coeff of Aruna (11.0-15.0) % Plt Count (150-400) K/uL MPV (7.40-12.00) fL Neut % (Auto) (48.0-80.0) % Lymph % (Auto) (16.0-40.0) % [place] % (Auto) (0.0-15.0) % Eos % (Auto) (0.0-7.0) % Baso % (Auto) (0.0-1.5) % Neut # (Auto) (1.4-5.7) K/uL Lymph # (Auto) (0.6-2.4) K/uL [place] # (Auto) (0.0-0.8) K/uL Eos # (Auto) (0.0-0.7) K/uL Baso # (Auto) (0.0-0.1) K/uL Sodium 145 (136-145) mmol/L Potassium 3.1 L (3.5-5.1) mmol/L Chloride 108 H (98-107) mmol/L Carbon Dioxide 30.2 (21.0-32.0) mmol/L Anion Gap 9.9 BUN (7.0-18.0) mg/dL Creatinine (0.6-1.0) mg/dL Est Cr Clr Drug Dosing mL/min Estimated GFR (MDRD) ml/min Glucose (74-106) mg/dL POC Glucose (60-110) mg/dL Calcium (8.5-10.1) mg/dL Phosphorus 3.2 (2.6-4.7) mg/dL Magnesium 1.7 L (1.8-2.4) mg/dL Total Bilirubin (0.2-1.0) mg/dL AST (15-37) IU/L ALT (14-63) IU/L Alkaline Phosphatase (46-116) U/L Troponin I (0.000-0.056) ng/mL Total Protein (6.4-8.2) g/dL Albumin (3.4-5.0) g/dL Globulin (2.6-4.0) g/dL Albumin/Globulin Ratio (0.9-1.6) Free T4 (0.76-1.46) ng/dL Free T3 (2.18-3.98) pg/mL Med Orders - Current: Current Medications Folic Acid (Folic Acid) 1 mg PO BEDTIME SOULEYMANE Last Admin: 06/21/19 22:08 Dose: Not Given Furosemide (Lasix) 20 mg PO DAILY PRN PRN Reason: Edema Sodium Chloride (Normal Saline) 500 mls @ 500 mls/hr IV .BOLUS SOULEYMANE Last Admin: 06/22/19 02:58 Dose: 500 mls/hr Dopamine HCl/Dextrose (Dopamine In D5w 400 Mg/250 Ml) 400 mg in 250 mls @ 4.933 mls/hr IV ASDIRECTED [facility]; Protocol Last Titration: 06/22/19 07:26 Dose: 4 mcg/kg/min, 9.866 mls/hr Potassium Chloride 20 meq/ (Premix) 50 mls @ 25 mls/hr IV ONETIME ONE Stop: 06/22/19 11:32 Last Admin: 06/22/19 09:59 Dose: 25 mls/hr Lactated Ringer's (Ringers, Lactated) 1,000 mls @ 125 mls/hr IV ASDIRECTED [facility] Last Admin: 06/22/19 09:59 Dose: 125 mls/hr Thiamine HCl 100 mg/ Sodium (Chloride) 101 mls @ 202 mls/hr IV DAILY SOULEYMANE Last Admin: 06/22/19 09:59 Dose: 202 mls/hr Insulin Aspart (Novolog) 0 unit SUBCUT TIDAC [facility]; Protocol Last Admin: 06/22/19 08:16 Dose: Not Given Lorazepam (Ativan) 0 mg IVPUSH Q4H PRN; Protocol PRN Reason: Agitation Last Admin: 06/22/19 02:50 Dose: 2 mg Ondansetron HCl (Zofran) 4 mg IVPUSH Q4H PRN PRN Reason: Nausea/Vomiting Last Admin: 06/21/19 16:14 Dose: 4 mg Promethazine HCl (Phenergan) 25 mg PO Q6H PRN PRN Reason: Nausea/Vomiting Last Admin: 06/21/19 17:31 Dose: 25 mg Rivaroxaban (Xarelto) 20 mg PO DAILY [facility] Last Admin: 06/21/19 08:32 Dose: 20 mg Tramadol HCl (Ultram) 50 mg PO Q6HR PRN PRN Reason: Pain Last Admin: 06/21/19 12:48 Dose: 50 mg Discontinued Medications Atropine Sulfate (Atropine 0.1 Mg/Ml) 0.5 mg IVPUSH ONETIME ONE Stop: 06/21/19 22:21 Last Admin: 06/21/19 22:45 Dose: 0.5 mg Digoxin (Lanoxin) 125 mcg PO DAILY [facility] Last Admin: 06/21/19 08:32 Dose: 125 mcg Diltiazem HCl (Cardizem Cd) 240 mg PO DAILY [facility] Last Admin: 06/21/19 08:32 Dose: 240 mg Gabapentin (Neurontin) 600 mg PO TID [facility] Last Admin: 06/21/19 22:08 Dose: Not Given Glucagon (Glucagen) 1 mg IVPUSH ONETIME ONE Stop: 06/21/19 21:40 Last Admin: 06/21/19 22:30 Dose: 1 mg Glucagon (Glucagen) 5 mg IVPUSH ONETIME ONE Stop: 06/21/19 23:43 Last Admin: 06/22/19 00:34 Dose: 5 mg Sodium Chloride (Normal Saline) 1,000 mls @ 999 mls/hr IV .Bolus ONE Stop: 06/20/19 16:09 Last Admin: 06/20/19 15:12 Dose: 999 mls/hr Thiamine HCl 100 mg/ Sodium (Chloride) 101 mls @ 202 mls/hr IV ONETIME ONE Stop: 06/20/19 17:43 Last Admin: 06/20/19 18:32 Dose: Not Given Thiamine HCl 100 mg/ Sodium (Chloride) 101 mls @ 202 mls/hr IV ONETIME ONE Stop: 06/20/19 18:29 Last Admin: 06/20/19 18:40 Dose: 202 mls/hr Magnesium Sulfate 2 gm/ Premix 50 mls @ 50 mls/hr IV ONETIME ONE Stop: 06/20/19 20:49 Last Admin: 06/20/19 20:12 Dose: 50 mls/hr Sodium Chloride (Normal Saline) 1,000 mls @ 999 mls/hr IV .Bolus ONE Stop: 06/21/19 23:11 Last Admin: 06/21/19 22:31 Dose: 999 mls/hr Sodium Chloride (Normal Saline) 1,000 mls @ 125 mls/hr IV ASDIRECTED [facility] Last Admin: 06/22/19 00:38 Dose: 125 mls/hr Lidocaine/Epinephrine (Xylocaine 1% With Epinephrine 1:100,000) 20 ml INJECT ONETIME ONE Stop: 06/20/19 15:22 Last Admin: 06/20/19 16:42 Dose: 20 ml Metoprolol Tartrate (Lopressor) 50 mg PO Q12H [facility] Last Admin: 06/21/19 17:28 Dose: 50 mg Metoprolol Tartrate (Lopressor) 25 mg PO Q12H [facility] Last Admin: 06/21/19 20:12 Dose: Not Given
[2019-06-22] MEDS: Rivaroxaban 10 MG Tab PO SCH (11:00)
[2019-06-22 15:19] VITALS: BP 98/50
== END 2019-06-22 12:15 | DRG 897 ==
LOC: MW.ED 13:54 → MW.MS 17:33 → MW.ED 18:16 → OBSVTOIN 06-21 11:49 → MW.ICU 06-21 23:20
PROVIDERS: ADMIT Student in an Organized Health Care Education/Training Program; ATTEND Student in an Organized Health Care Education/Training Program
DX: S01.112A Laceration without foreign body of left eyelid and periocular area, initial encounter (principal); F10.239 Alcohol dependence with withdrawal, unspecified; X58.XXXA Exposure to other specified factors, initial encounter; R55 Syncope and collapse; I48.20 Chronic atrial fibrillation, unspecified; E87.0 Hyperosmolality and hypernatremia; R00.1 Bradycardia, unspecified; I95.9 Hypotension, unspecified; Z79.84 Long term (current) use of oral hypoglycemic drugs; S01.81XA Laceration without foreign body of other part of head, initial encounter; Z90.710 Acquired absence of both cervix and uterus; Z87.891 Personal history of nicotine dependence; F03.90 Unspecified dementia, unspecified severity, without behavioral disturbance, psychotic disturbance, mood disturbance, and anxiety; E87.6 Hypokalemia; E11.9 Type 2 diabetes mellitus without complications; Y90.6 Blood alcohol level of 120-199 mg/100 ml; Z79.01 Long term (current) use of anticoagulants; Z86.73 Personal history of transient ischemic attack (TIA), and cerebral infarction without residual deficits; Z79.899 Other long term (current) drug therapy; W01.10XA Fall on same level from slipping, tripping and stumbling with subsequent striking against unspecified object, initial encounter
CPT/HCPCS: 36415 ×2; 70450; 72125; 80048; 80053; 80162; 81001; 82140; 82962 ×2; 83735 ×2; 84100; 84439; 84443; 84481; 84484 ×2; 85025 ×2; 85610; 93005; 97161; A9270 ×7; G0480; J2060; J2405; J3411; J3475; J7030; J7050; 12011; 51702; 80051; 96360; 96361; 96365; 96366; 96367; 96375; 99284-25; G0378; J0461; J1265; J1610; J3480; J7040; J7120

== ENCOUNTER 2020-11-08 20:01 | Inpatient (IN) | payer MEDICARE, OTHER ==
--- NOTE | 2020-11-08 20:19 | EDM.PDOC ---
ED HPI GENERAL MEDICAL PROBLEM - General Chief Complaint: Head Injury Stated Complaint: FALL Time Seen by Provider: 11/08/20 20:06 Source of Information: Reports: Patient History Limitations: Reports: No Limitations - History of Present Illness INITIAL COMMENTS - FREE TEXT/NARRATIVE: Patient is a 70-year-old female who presents today for a fall from likely standing. Police arrived and saw glass on the floor and she is with her in the house is unclear with the fall happened yesterday and few hours ago. Patient has some blood running over her left eye. Patient states that the bedside states the patient has been really drinking she really falls as well. Patient on exam seems to be slightly intoxicated but was not complaining of any localized points of pain. - Related Data Allergies Allergy/AdvReac Type Severity Reaction Status Date / Time No Known Allergies Allergy Verified 11/08/20 20:14 Home Meds: Home Meds Cholecalciferol (Vitamin D3) [Vitamin D3] 1,000 unit PO DAILY 02/07/17 [History] metFORMIN [Glucophage] 500 mg PO DAILY 02/07/17 [History] Calcium Carbonate 600 mg PO BID 11/04/17 [History] Gabapentin [Neurontin] 600 mg PO TID 11/04/17 [History] Furosemide 20 mg PO DAILY PRN 07/01/18 [History] Potassium Chloride [Klor-Con 10] 20 meq PO BID 07/01/18 [History] Rivaroxaban [Xarelto] 20 mg PO DAILY 07/01/18 [History] Digoxin 125 mcg PO DAILY 30 Days #30 tablet 07/04/18 [Rx] Folic Acid 1 mg PO DAILY 30 Days #30 tablet 07/04/18 [Rx] Thiamine [Vitamin B-1] 100 mg PO BEDTIME 30 Days #30 tablet 07/04/18 [Rx] dilTIAZem HCl [Diltiazem 24Hr ER (Xr)] 240 mg PO DAILY 14 Days #28 cap.er.deg 07/04/18 [Rx] traMADol HCl [Tramadol HCl] 1 tab PO Q6HR PRN 06/20/19 [History] Past Medical History Cardiovascular History: Reports: Afib, Arrhythmia [employer]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: Neurological History: Reports: CVA Other Neuro History: demenita Psychiatric History: Reports: Dementia Endocrine/Metabolic History: Reports: Diabetes, Type II Hematologic History: Reports: Blood Transfusion(s) - Infectious Disease History Infectious Disease History: Reports: Chicken Pox, Measles, Mumps - Past Surgical History HEENT Surgical History: Reports: Tonsillectomy, Other (See Below) Other HEENT Surgeries/Procedures: wears eyeglasses Cardiovascular Surgical History: Reports: None Female Surgical History: Reports: Hysterectomy Social & Family History - Family History Family Medical History: No Pertinent Family History Cardiac: Reports: Afib, Hypertension GI: Reports: Irritable Bowel Syndrome OBGYN: Reports: Musculoskeletal: Reports: Arthritis Neurological: Reports: CVA, TIA Endocrine/Metabolic: Reports: Diabetes, Type I, Diabetes, type II Oncologic: Reports: Colon, Liver - Caffeine Use Caffeine Use: Reports: Tea ED ROS GENERAL - Review of Systems Review Of Systems: Unable To Obtain Reason Not Obtained: etoh use ED EXAM, HEAD INJURY - Physical Exam Exam: See Below Exam Limited By: Intoxication General Appearance: Other Ears: Normal External Exam, Normal TMs Respiratory: No Respiratory Distress, Lungs Clear, Normal Breath Sounds Cardiovascular: Normal Peripheral Pulses, Regular Rate, Rhythm GI/Abdominal Exam: Normal Bowel Sounds, Soft, Non-Tender Back Exam: Normal Inspection, Full Range of Motion. 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 As Tested, No Motor/Sensory Deficits, Alert, Normal Mood/Affect, Oriented x 3 - Sylvain Coma Score Best Eye Response (Sylvain): (4) Open Spontaneously Best Verbal Response ([place]): (5) Oriented Best Motor Response (Sylvain): (6) Obeys Commands #1 Interpretation EKG Date: 11/08/20 Time: 19:59 Rhythm: A-Fib Rate (Beats/Min): 73 ST-T: Normal Course - Vital Signs Last Recorded V/S: Last Vital Signs Temp 97.8 F 11/08/20 20:05 Pulse 60 11/08/20 21:55 Resp 15 11/08/20 21:55 BP 146/91 H 11/08/20 21:55 Pulse Ox 98 11/08/20 21:55 - Orders/Labs/Meds Labs: Laboratory Tests 11/08/20 11/08/20 11/08/20 Range/Units 20:05 20:05 23:14 WBC 6.85 (4.0-11.0) K/uL RBC 4.65 (4.30-5.90) M/uL Hgb 15.3 (12.0-16.0) g/dL Hct 45.0 (36.0-46.0) % MCV 96.8 (80.0-98.0) fL MCH 32.9 H (27.0-32.0) pg MCHC 34.0 (31.0-37.0) g/dL RDW Std Deviation 51.9 (28.0-62.0) fl RDW Coeff of Aruna 15 (11.0-15.0) % Plt Count 309 (150-400) K/uL MPV 11.00 (7.40-12.00) fL Neut % (Auto) 55.5 (48.0-80.0) % Lymph % (Auto) 32.7 (16.0-40.0) % [place] % (Auto) 9.5 (0.0-15.0) % Eos % (Auto) 1.3 (0.0-7.0) % Baso % (Auto) 1.0 (0.0-1.5) % Neut # (Auto) 3.8 (1.4-5.7) K/uL Lymph # (Auto) 2.2 (0.6-2.4) K/uL [place] # (Auto) 0.7 (0.0-0.8) K/uL Eos # (Auto) 0.1 (0.0-0.7) K/uL Baso # (Auto) 0.1 (0.0-0.1) K/uL Nucleated RBC % 0.0 /100WBC Nucleated RBCs # 0 K/uL Sodium 136 (136-145) mmol/L Potassium 4.5 (3.5-5.1) mmol/L Chloride 100 (98-107) mmol/L Carbon Dioxide 26.6 (21.0-32.0) mmol/L BUN 11 (7.0-18.0) mg/dL Creatinine 0.7 (0.6-1.0) mg/dL Est Cr Clr Drug Dosing TNP Estimated GFR (MDRD) > 60.0 ml/min Glucose 126 H (74-106) mg/dL Calcium 9.0 (8.5-10.1) mg/dL Ethyl Alcohol 270 mg/dL SARS-CoV-2 RNA (RUSSELL) NEGATIVE (NEGATIVE) Meds: Medications Discontinued Medications Generic Name Dose Route Start Last Admin Trade Name Saleem PRN Reason Stop Dose Admin Midazolam HCl 1 mg 11/08/20 20:25 11/08/20 20:53 Midazolam 1 Mg/Ml 2 Ml Sdv IVPUSH 11/08/20 20:26 1 mg ONETIME ONE Administration Midazolam HCl Confirm 11/08/20 20:25 11/08/20 20:31 Midazolam 1 Mg/Ml 2 Ml Sdv Administered 11/08/20 20:26 Not Given Dose 2 mg .ROUTE .STK-MED ONE Midazolam HCl 1 mg 11/08/20 20:30 11/08/20 20:31 Midazolam 1 Mg/Ml 2 Ml Sdv IVPUSH 11/08/20 20:31 Not Given ONETIME STA - Re-Assessments/Exams Free Text/Narrative Re-Assessment/Exam: 11/09/20 00:06 Patient admitted to the hospital for further care and possible placement. Departure - Departure Time of Disposition: 00:06 Disposition: Admitted As Inpatient 67 Condition: Good Clinical Impression: Alcohol intoxication, Head injury - Discharge Information *PRESCRIPTION DRUG MONITORING PROGRAM REVIEWED*: Not Applicable *COPY OF PRESCRIPTION DRUG MONITORING REPORT IN PATIENT CLEM: Not Applicable Instructions: Head Injury, Adult Referrals: PCP,None [Primary Care Provider] - Forms: ED Department Discharge Critical Care Note - Critical Care Note Total Time (mins): 40 Comments: Critical Care Procedure Note Authorized and Performed by: Dr. Kelley Total critical care time: Approximately Due to a high probability of clinically significant, life threatening deterioration, the patient required my highest level of preparedness to intervene emergently and I personally spent this critical care time directly and personally managing the patient. This critical care time included obtaining a history; examining the patient; pulse oximetry; ordering and review of studies; arranging urgent treatment with development of a management plan; evaluation of patient's response to treatment; frequent reassessment; and, discussions with other providers. This critical care time was performed to assess and manage the high probability of imminent, life-threatening deterioration that could result in multi-organ failure. It was exclusive of separately billable procedures and treating other patients and teaching time. Sepsis Event Note (ED) - Focused Exam Vital Signs: Vital Signs Temp Pulse Resp BP Pulse Ox 11/08/20 21:55 60 15 146/91 H 98 11/08/20 20:46 57 L 12 136/87 98 11/08/20 20:05 97.8 F 67 18 117/83 97 - Assessment/Plan Plan: Patient is a 70-year-old female presents today from a fall from a possibly earlier today. Patient states is baseline since patient rarely drinks her and normally falls. Will obtain labs CT and reassess.
[2020-11-08] MEDS ORDERED: Midazolam 1 MG/ML 2 ML SDV ONE (20:25)
[2020-11-08] MEDS ORDERED: Midazolam 1 MG/ML 2 ML SDV IVPUSH ONE (20:25)
[2020-11-08] MEDS ORDERED: Midazolam 1 MG/ML 2 ML SDV IVPUSH STA (20:30)
[2020-11-08 20:31] LABS: BLOOD UREA NITROGEN,BUN 11 mg/dL (7.0-18.0); CARBON DIOXIDE,CO2 26.6 mmol/L (21.0-32.0); CHLORIDE,CL 100 mmol/L (98-107); GLUCOSE RANDOM 126 mg/dL (74-106); POTASSIUM,K 4.5 mmol/L (3.5-5.1); SODIUM,NA 136 mmol/L (136-145)
--- NOTE | 2020-11-08 21:12 | CT ---
Indication: Pain following trauma. Technique: CT Head: Performed without IV contrast CT Cervical Spine: Performed without IV contrast. Comparison: Cervical CT 06/20/2019. CT head 06/21/2019. Findings: Head: No intracranial hemorrhage. No brain edema or ischemia is identified. No fractures. Mild symmetric cerebral atrophy and small perivascular spaces at the base of the lateral basal ganglia on both sides, unchanged from 06/20/2019. The calvarium and skull base are unremarkable, with normal aeration of the petrous temporal bones and paranasal sinuses on both sides. Cervical Spine: Numerous segmentation anomalies. Superimposed spondylosis, including advanced disc degeneration and facet osteoarthritis at several locations. No traumatic subluxation identified. No evidence for fracture. These findings are unchanged from 06/20/2019. The paraspinal soft tissues are grossly negative. Impression: CT Head: 1. No hemorrhage, brain contusion or fracture is identified. 2. Mild cerebral atrophy is unchanged from 06/20/2019. CT Cervical Spine: 1. No fracture or traumatic subluxation identified. 2. Cervical segmentation anomalies. Multilevel spondylosis. These findings are unchanged from 06/20/2019. Please note that all CT scans at this facility use dose modulation, iterative reconstruction, and/or weight-based dosing when appropriate to reduce radiation dose to as low as reasonably achievable. Dictated by Allen Clifton MD @ 11/08/2020 9:10:[address] Allen Clifton @ Nov 08 2020 9:10PM
[2020-11-09] MEDS ORDERED: Glucagon,Human Recombinant 1 MG Vial IM PRN (00:29)
[2020-11-09] MEDS ORDERED: LORazepam 2 MG/ML SDV IVPUSH PRN (00:29)
[2020-11-09] MEDS ORDERED: 50% Dextrose in Water 50 ML Syringe IV PRN (00:29)
--- NOTE | 2020-11-09 00:40 | PCM.HP.2 ---
H&P History of Present Illness - General Date of Service: 11/09/20 Admit Problem/Dx: Admission Diagnosis/Problem Admission Diagnosis/Problem Alcohol intoxication - History of Present Illness Initial Comments - Free Text/Narative: 70 yo female with pmh of dementia, atrial fibrillation, hypothyroidism, diabetes, and ETOH abuse who is brought to the ED by EMS after falling at home. Patient was noted to have some swelling and abrasion above right eye. PAtient denies ever falling and reports no symptoms. I spoke with sister over phone who reports patient has been falling at home frequent and it has all been alcohol related. is also an alcoholic and supplies patient with alcohol. In June Patient was transferred to [place] due to bradycardia and hypotension. according to sister they did not place a pacemaker. At discharge there was discussion of placement in [facility] facility but there was no beds available and opted to bring patient home. Sister reports that the police today were going to report there concerns for her safety at home to social work. - Related Data Allergies/Adverse Reactions: Allergies Allergy/AdvReac Type Severity Reaction Status Date / Time No Known Allergies Allergy Verified 11/08/20 20:14 Home Medications: Home Meds Cholecalciferol (Vitamin D3) [Vitamin D3] 1,000 unit PO DAILY 02/07/17 [History] metFORMIN [Glucophage] 500 mg PO DAILY 02/07/17 [History] Calcium Carbonate 600 mg PO BID 11/04/17 [History] Gabapentin [Neurontin] 600 mg PO DAILY 11/04/17 [History] Furosemide 20 mg PO DAILY PRN 07/01/18 [History] Potassium Chloride [Klor-Con 10] 20 meq PO BID 07/01/18 [History] Rivaroxaban [Xarelto] 20 mg PO DAILY 07/01/18 [History] Folic Acid 1 mg PO DAILY 30 Days #30 tablet 07/04/18 [Rx] Thiamine [Vitamin B-1] 100 mg PO BEDTIME 30 Days #30 tablet 07/04/18 [Rx] dilTIAZem HCl [Diltiazem 24Hr ER (Xr)] 240 mg PO DAILY 14 Days #28 cap.er.deg 07/04/18 [Rx] traMADol HCl [Tramadol HCl] 1 tab PO Q6HR PRN 06/20/19 [History] Digoxin 0.125 mg PO DAILY 11/09/20 [History] Furosemide 20 mg PO DAILY 11/09/20 [History] Levothyroxine [Synthroid] 100 mcg PO ACBREAKFAST 11/09/20 [History] Liothyronine [Cytomel] 25 mcg PO DAILY 11/09/20 [History] Memantine HCl 5 mg PO DAILY 11/09/20 [History] Past Medical History Cardiovascular History: Reports: Afib, Arrhythmia, High Cholesterol, Hypertension Genitourinary History: Reports: None 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: Neurological History: Reports: CVA Other Neuro History: dementia Psychiatric History: Reports: Dementia Endocrine/Metabolic History: Reports: Diabetes, Type II Hematologic History: Reports: Blood Transfusion(s) - Infectious Disease History Infectious Disease History: Reports: Chicken Pox, Measles, Mumps - Past Surgical History HEENT Surgical History: Reports: Tonsillectomy, Other (See Below) Other HEENT Surgeries/Procedures: wears eyeglasses Cardiovascular Surgical History: Reports: None GI Surgical History: Reports: Appendectomy Female Surgical History: Reports: Hysterectomy Social & Family History - Family History Family Medical History: No Pertinent Family History Cardiac: Reports: Afib, Hypertension GI: Reports: Irritable Bowel Syndrome OBGYN: Reports: Musculoskeletal: Reports: Arthritis Neurological: Reports: CVA, TIA Endocrine/Metabolic: Reports: Diabetes, Type I, Diabetes, type II Oncologic: Reports: Colon, Liver - Tobacco Use Tobacco Use Status *Q: Unknown Ever Used Tobacco - Caffeine Use Caffeine Use: Reports: Tea H&P Review of Systems - Review of Systems: Review Of Systems: Comprehensive ROS is negative, except as noted in HPI. Exam - Exam Exam: See Below - Vital Signs Vital Signs: Last Vital Signs Temp 36.6 C 11/08/20 20:05 Pulse 60 11/08/20 21:55 Resp 15 11/08/20 21:55 BP 146/91 H 11/08/20 21:55 Pulse Ox 98 11/08/20 21:55 Weight: 70.1 kg - Exam General: Cooperative. No: Mild Distress HEENT: Mucosa Moist & [place], Other (mild edema obove right eye) Neck: Supple Lungs: Clear to Auscultation, Normal Respiratory Effort Cardiovascular: Regular Rate, Regular Rhythm GI/Abdominal Exam: Soft, Non-Tender, No Distention Extremities: Non-Tender, No Pedal Edema Skin: Warm, Dry, Intact Neurological: Cranial Nerves Intact, Strength Equal Bilateral, Normal Speech, Normal Tone, Sensation Intact. No: Focal Deficit - Patient Data Lab Results Last 24 hrs: Laboratory Results - last 24 hr 11/08/20 11/08/20 11/08/20 Range/Units 20:05 20:05 23:14 WBC 6.85 (4.0-11.0) K/uL RBC 4.65 (4.30-5.90) M/uL Hgb 15.3 (12.0-16.0) g/dL Hct 45.0 (36.0-46.0) % MCV 96.8 (80.0-98.0) fL MCH 32.9 H (27.0-32.0) pg MCHC 34.0 (31.0-37.0) g/dL RDW Std Deviation 51.9 (28.0-62.0) fl RDW Coeff of Aruna 15 (11.0-15.0) % Plt Count 309 (150-400) K/uL MPV 11.00 (7.40-12.00) fL Neut % (Auto) 55.5 (48.0-80.0) % Lymph % (Auto) 32.7 (16.0-40.0) % [place] % (Auto) 9.5 (0.0-15.0) % Eos % (Auto) 1.3 (0.0-7.0) % Baso % (Auto) 1.0 (0.0-1.5) % Neut # (Auto) 3.8 (1.4-5.7) K/uL Lymph # (Auto) 2.2 (0.6-2.4) K/uL [place] # (Auto) 0.7 (0.0-0.8) K/uL Eos # (Auto) 0.1 (0.0-0.7) K/uL Baso # (Auto) 0.1 (0.0-0.1) K/uL Nucleated RBC % 0.0 /100WBC Nucleated RBCs # 0 K/uL Sodium 136 (136-145) mmol/L Potassium 4.5 (3.5-5.1) mmol/L Chloride 100 (98-107) mmol/L Carbon Dioxide 26.6 (21.0-32.0) mmol/L BUN 11 (7.0-18.0) mg/dL Creatinine 0.7 (0.6-1.0) mg/dL Est Cr Clr Drug Dosing TNP Estimated GFR (MDRD) > 60.0 ml/min Glucose 126 H (74-106) mg/dL Calcium 9.0 (8.5-10.1) mg/dL Ethyl Alcohol 270 mg/dL SARS-CoV-2 RNA (RUSSELL) NEGATIVE (NEGATIVE) Result Diagrams: 11/10/20 05:00 11/10/20 05:00 Sepsis Event Note - Evaluation Sepsis Screening Result: No Definite Risk - Focused Exam Vital Signs: Vital Signs Temp Pulse Resp BP Pulse Ox 11/08/20 21:55 60 15 146/91 H 98 11/08/20 20:46 57 L 12 136/87 98 11/08/20 20:05 36.6 C 67 18 117/83 97 Problem List Initiated/Reviewed/Updated: Yes Orders Last 24hrs: Active Orders 24 hr Category Date Time Status Patient Status [ADT] Routine ADT 11/09/20 00:08 Active Antiembolic Devices [RC] PER UNIT ROUTINE Care 11/09/20 00:27 Ordered Blood Glucose Check, Bedside [RC] TIDAC Care 11/09/20 00:29 Ordered Cardiac Monitoring [RC] . DIRECTED Care 11/09/20 00:29 Ordered Oxygen Therapy [RC] PRN Care 11/09/20 00:26 Ordered Up ad Rosa [RC] ASDIRECTED Care 11/09/20 00:26 Ordered VTE/DVT Education [RC] PER UNIT ROUTINE Care 11/09/20 00:26 Ordered Vital Signs [RC] Q4H Care 11/09/20 00:26 Ordered Consult to Case Management/Venue Coordinator [CONS] Cons 11/09/20 00:26 Ordered Routine PT Evaluation and Treatment [CONS] Routine Cons 11/09/20 00:26 Ordered [place] Citizen [employer] Diet [DIET] Diet 11/09/20 Breakfast Ordered CBC WITH AUTO DIFF [HEME] AM Lab 11/09/20 05:11 Ordered COMPREHENSIVE METABOLIC PN,CMP [CHEM] AM Lab 11/09/20 05:11 Ordered DIGOXIN [CHEM] AM Lab 11/09/20 05:11 Ordered DRUG SCREEN, URINE [URCHEM] Stat Lab 11/09/20 00:28 Ordered TSH [CHEM] AM Lab 11/09/20 05:11 Ordered UA RFX ANN-MARIE AND CULT IF INDIC [URIN] Routine Lab 11/09/20 00:28 Ordered Dextrose 50% in Water Med 11/09/20 00:29 Ordered 50 ml IV ASDIRECTED PRN Folic Acid Med 11/09/20 00:30 Ordered 1 mg SUBCUT DAILY Glucagon,Human Recombinant [GlucaGen] Med 11/09/20 00:29 Ordered 1 mg IM ASDIRECTED PRN Insulin Aspart [NovoLOG] Med 11/09/20 07:30 Ordered See Protocol SUBCUT TIDAC LORazepam [Ativan] Med 11/09/20 00:29 Ordered See Protocol IVPUSH Q4H PRN Thiamine [Vitamin B-1] Med 11/09/20 00:30 Ordered 100 mg IVPUSH DAILY Sequential Compression Device [OM.PC] Per Unit Routine Oth 11/09/20 00:26 Ordered Resuscitation Status Routine Resus Stat 11/09/20 00:26 Ordered Medication Orders Dextrose/Water (50% Dextrose In Water 50 Ml Syringe) 50 ml IV ASDIRECTED PRN PRN Reason: Hypoglycemia Folic Acid (Folic Acid 50 Mg/10 Ml Mdv) 1 mg SUBCUT DAILY SOULEYMANE Glucagon (Glucagon,Human Recombinant 1 Mg Vial) 1 mg IM ASDIRECTED PRN PRN Reason: Hypoglycemia Insulin Aspart (Insulin Aspart 100 Units/Ml 3 Ml Pen) 0 unit SUBCUT TIDAC SOULEYMANE; Protocol Lorazepam (Lorazepam 2 Mg/Ml Sdv) 0 mg IVPUSH Q4H PRN; Protocol PRN Reason: CIWAA Thiamine HCl (Thiamine 200 Mg/2 Ml Mdv) 100 mg IVPUSH DAILY SOULEYMANE Assessment/Plan Comment:: 70 yo female with acute ETOH intoxication admitted following fall. We will monitor overnight and consult case management in the morning.
[2020-11-09] MEDS: Thiamine 200 MG/2 ML MDV IVPUSH SCH ×2 (02:22→09:55)
[2020-11-09] MEDS: Folic Acid 50 MG/10 ML MDV SUBCUT SCH ×2 (02:29→09:54)
[2020-11-09 06:46] LABS: BLOOD UREA NITROGEN,BUN 8 mg/dL (7.0-18.0); CARBON DIOXIDE,CO2 26.8 mmol/L (21.0-32.0); CHLORIDE,CL 105 mmol/L (98-107); GLUCOSE RANDOM 102 mg/dL (74-106); POTASSIUM,K 3.7 mmol/L (3.5-5.1); SODIUM,NA 142 mmol/L (136-145)
[2020-11-09] MEDS ORDERED: Sodium Chloride 0.9% 2.5 ML Syringe FLUSH PRN (07:56)
--- NOTE | 2020-11-09 07:56 | PCM.PN ---
- General Info Date of Service: 11/09/20 Admission Dx/Problem (Free Text): Admission Diagnosis/Problem Admission Diagnosis/Problem Alcohol intoxication Subjective Update: Patient alert but not oriented to place. Denies any pain currently denies any chest pain or shortness of breath. Denies any overt hallucinations or tremors at this time. Denies any palpitations. Awaiting sister and to arrive to discuss possible options for rehabilitation as an inpatient versus outpatient. Functional Status: Reports: Pain Controlled, Tolerating Diet, Ambulating (With assistance slight ataxia noted) - Review of Systems General: Reports: Weakness (Generalized) HEENT: Reports: No Symptoms. Denies: Headaches, Sore Throat, Visual Changes Pulmonary: Reports: No Symptoms. Denies: Shortness of Breath Cardiovascular: Reports: No Symptoms. Denies: Chest Pain Gastrointestinal: Reports: No Symptoms. Denies: Abdominal Pain, Nausea, Vomiting Genitourinary: Reports: No Symptoms Musculoskeletal: Reports: No Symptoms Skin: Reports: No Symptoms Neurological: Reports: No Symptoms Psychiatric: Reports: No Symptoms - Patient Data Vitals - Most Recent: Last Vital Signs Temp 96.8 F L 11/09/20 04:37 Pulse 72 11/09/20 04:37 Resp 14 11/09/20 04:37 BP 113/77 11/09/20 04:37 Pulse Ox 97 11/09/20 04:37 Weight - Most Recent: 73.618 kg I&O - Last 24 Hours: Intake & Output 11/08/20 11/09/20 11/09/20 22:59 06:59 14:59 Intake Total 0 Output Total 400 Balance -400 Lab Results Last 24 Hours: Laboratory Results - last 24 hr 11/08/20 11/08/20 11/08/20 Range/Units 20:05 20:05 23:14 WBC 6.85 (4.0-11.0) K/uL RBC 4.65 (4.30-5.90) M/uL Hgb 15.3 (12.0-16.0) g/dL Hct 45.0 (36.0-46.0) % MCV 96.8 (80.0-98.0) fL MCH 32.9 H (27.0-32.0) pg MCHC 34.0 (31.0-37.0) g/dL RDW Std Deviation 51.9 (28.0-62.0) fl RDW Coeff of Aruna 15 (11.0-15.0) % Plt Count 309 (150-400) K/uL MPV 11.00 (7.40-12.00) fL Neut % (Auto) 55.5 (48.0-80.0) % Lymph % (Auto) 32.7 (16.0-40.0) % Cole % (Auto) 9.5 (0.0-15.0) % Eos % (Auto) 1.3 (0.0-7.0) % Baso % (Auto) 1.0 (0.0-1.5) % Neut # (Auto) 3.8 (1.4-5.7) K/uL Lymph # (Auto) 2.2 (0.6-2.4) K/uL Cole # (Auto) 0.7 (0.0-0.8) K/uL Eos # (Auto) 0.1 (0.0-0.7) K/uL Baso # (Auto) 0.1 (0.0-0.1) K/uL Nucleated RBC % 0.0 /100WBC Nucleated RBCs # 0 K/uL Sodium 136 (136-145) mmol/L Potassium 4.5 (3.5-5.1) mmol/L Chloride 100 (98-107) mmol/L Carbon Dioxide 26.6 (21.0-32.0) mmol/L BUN 11 (7.0-18.0) mg/dL Creatinine 0.7 (0.6-1.0) mg/dL Est Cr Clr Drug Dosing TNP Estimated GFR (MDRD) > 60.0 ml/min Glucose 126 H (74-106) mg/dL Calcium 9.0 (8.5-10.1) mg/dL Total Bilirubin (0.2-1.0) mg/dL AST (15-37) IU/L ALT (14-63) IU/L Alkaline Phosphatase (46-116) U/L Total Protein (6.4-8.2) g/dL Albumin (3.4-5.0) g/dL Globulin (2.6-4.0) g/dL Albumin/Globulin Ratio (0.9-1.6) TSH 3rd Generation (0.36-3.74) uIU/mL Urine Color Urine Appearance Urine pH (5.0-8.0) Ur Specific Silex (1.001-1.035) Urine Protein (NEGATIVE) mg/dL Urine Glucose (UA) (NEGATIVE) mg/dL Urine Ketones (NEGATIVE) mg/dL Urine Occult Blood (NEGATIVE) Urine Nitrite (NEGATIVE) Urine Bilirubin (NEGATIVE) Urine Urobilinogen (<2.0) EU/dL Ur Leukocyte Esterase (NEGATIVE) Digoxin (0.9-2.0) ng/mL Urine Opiates Screen (NEGATIVE) Ur Oxycodone Screen (NEGATIVE) Urine Methadone Screen (NEGATIVE) Ur Barbiturates Screen (NEGATIVE) Ur Phencyclidine Scrn (NEGATIVE) Ur Amphetamine Screen (NEGATIVE) U Methamphetamines Scrn (NEGATIVE) U Benzodiazepines Scrn (NEGATIVE) U Cocaine Metab Screen (NEGATIVE) U Marijuana (THC) Screen (NEGATIVE) Ethyl Alcohol 270 mg/dL SARS-CoV-2 RNA (RUSSELL) NEGATIVE (NEGATIVE) 11/09/20 11/09/20 11/09/20 Range/Units 04:00 04:00 05:15 WBC 4.45 (4.0-11.0) K/uL RBC 4.63 (4.30-5.90) M/uL Hgb 15.1 (12.0-16.0) g/dL Hct 45.0 (36.0-46.0) % MCV 97.2 (80.0-98.0) fL MCH 32.6 H (27.0-32.0) pg MCHC 33.6 (31.0-37.0) g/dL RDW Std Deviation 51.8 (28.0-62.0) fl RDW Coeff of Aruna 15 (11.0-15.0) % Plt Count 250 (150-400) K/uL MPV 10.60 (7.40-12.00) fL Neut % (Auto) 44.4 L (48.0-80.0) % Lymph % (Auto) 40.4 H (16.0-40.0) % Cole % (Auto) 9.2 (0.0-15.0) % Eos % (Auto) 3.1 (0.0-7.0) % Baso % (Auto) 2.9 H (0.0-1.5) % Neut # (Auto) 2.0 (1.4-5.7) K/uL Lymph # (Auto) 1.8 (0.6-2.4) K/uL Cole # (Auto) 0.4 (0.0-0.8) K/uL Eos # (Auto) 0.1 (0.0-0.7) K/uL Baso # (Auto) 0.1 (0.0-0.1) K/uL Nucleated RBC % 0.0 /100WBC Nucleated RBCs # 0 K/uL Sodium (136-145) mmol/L Potassium (3.5-5.1) mmol/L Chloride (98-107) mmol/L Carbon Dioxide (21.0-32.0) mmol/L BUN (7.0-18.0) mg/dL Creatinine (0.6-1.0) mg/dL Est Cr Clr Drug Dosing Estimated GFR (MDRD) ml/min Glucose (74-106) mg/dL Calcium (8.5-10.1) mg/dL Total Bilirubin (0.2-1.0) mg/dL AST (15-37) IU/L ALT (14-63) IU/L Alkaline Phosphatase (46-116) U/L Total Protein (6.4-8.2) g/dL Albumin (3.4-5.0) g/dL Globulin (2.6-4.0) g/dL Albumin/Globulin Ratio (0.9-1.6) TSH 3rd Generation (0.36-3.74) uIU/mL Urine Color YELLOW Urine Appearance CLEAR Urine pH 6.0 (5.0-8.0) Ur Specific Silex <= 1.005 (1.001-1.035) Urine Protein NEGATIVE (NEGATIVE) mg/dL Urine Glucose (UA) NEGATIVE (NEGATIVE) mg/dL Urine Ketones NEGATIVE (NEGATIVE) mg/dL Urine Occult Blood NEGATIVE (NEGATIVE) Urine Nitrite NEGATIVE (NEGATIVE) Urine Bilirubin NEGATIVE (NEGATIVE) Urine Urobilinogen 0.2 (<2.0) EU/dL Ur Leukocyte Esterase NEGATIVE (NEGATIVE) Digoxin (0.9-2.0) ng/mL Urine Opiates Screen NEGATIVE (NEGATIVE) Ur Oxycodone Screen NEGATIVE (NEGATIVE) Urine Methadone Screen NEGATIVE (NEGATIVE) Ur Barbiturates Screen NEGATIVE (NEGATIVE) Ur Phencyclidine Scrn NEGATIVE (NEGATIVE) Ur Amphetamine Screen NEGATIVE (NEGATIVE) U Methamphetamines Scrn NEGATIVE (NEGATIVE) U Benzodiazepines Scrn NEGATIVE (NEGATIVE) U Cocaine Metab Screen NEGATIVE (NEGATIVE) U Marijuana (THC) Screen NEGATIVE (NEGATIVE) Ethyl Alcohol mg/dL SARS-CoV-2 RNA (RUSSELL) (NEGATIVE) 11/09/20 Range/Units 05:15 WBC (4.0-11.0) K/uL RBC (4.30-5.90) M/uL Hgb (12.0-16.0) g/dL Hct (36.0-46.0) % MCV (80.0-98.0) fL MCH (27.0-32.0) pg MCHC (31.0-37.0) g/dL RDW Std Deviation (28.0-62.0) fl RDW Coeff of Aruna (11.0-15.0) % Plt Count (150-400) K/uL MPV (7.40-12.00) fL Neut % (Auto) (48.0-80.0) % Lymph % (Auto) (16.0-40.0) % Cole % (Auto) (0.0-15.0) % Eos % (Auto) (0.0-7.0) % Baso % (Auto) (0.0-1.5) % Neut # (Auto) (1.4-5.7) K/uL Lymph # (Auto) (0.6-2.4) K/uL Cole # (Auto) (0.0-0.8) K/uL Eos # (Auto) (0.0-0.7) K/uL Baso # (Auto) (0.0-0.1) K/uL Nucleated RBC % /100WBC Nucleated RBCs # K/uL Sodium 142 (136-145) mmol/L Potassium 3.7 (3.5-5.1) mmol/L Chloride 105 (98-107) mmol/L Carbon Dioxide 26.8 (21.0-32.0) mmol/L BUN 8 (7.0-18.0) mg/dL Creatinine 0.6 (0.6-1.0) mg/dL Est Cr Clr Drug Dosing TNP Estimated GFR (MDRD) > 60.0 ml/min Glucose 102 (74-106) mg/dL Calcium 8.9 (8.5-10.1) mg/dL Total Bilirubin 0.4 (0.2-1.0) mg/dL AST 22 (15-37) IU/L ALT 28 (14-63) IU/L Alkaline Phosphatase 111 (46-116) U/L Total Protein 7.3 (6.4-8.2) g/dL Albumin 3.4 (3.4-5.0) g/dL Globulin 3.9 (2.6-4.0) g/dL Albumin/Globulin Ratio 0.9 (0.9-1.6) TSH 3rd Generation 4.65 H (0.36-3.74) uIU/mL Urine Color Urine Appearance Urine pH (5.0-8.0) Ur Specific Silex (1.001-1.035) Urine Protein (NEGATIVE) mg/dL Urine Glucose (UA) (NEGATIVE) mg/dL Urine Ketones (NEGATIVE) mg/dL Urine Occult Blood (NEGATIVE) Urine Nitrite (NEGATIVE) Urine Bilirubin (NEGATIVE) Urine Urobilinogen (<2.0) EU/dL Ur Leukocyte Esterase (NEGATIVE) Digoxin 0.4 L (0.9-2.0) ng/mL Urine Opiates Screen (NEGATIVE) Ur Oxycodone Screen (NEGATIVE) Urine Methadone Screen (NEGATIVE) Ur Barbiturates Screen (NEGATIVE) Ur Phencyclidine Scrn (NEGATIVE) Ur Amphetamine Screen (NEGATIVE) U Methamphetamines Scrn (NEGATIVE) U Benzodiazepines Scrn (NEGATIVE) U Cocaine Metab Screen (NEGATIVE) U Marijuana (THC) Screen (NEGATIVE) Ethyl Alcohol mg/dL SARS-CoV-2 RNA (RUSSELL) (NEGATIVE) Med Orders - Current: Current Medications Dextrose/Water (50% Dextrose In Water 50 Ml Syringe) 50 ml IV ASDIRECTED PRN PRN Reason: Hypoglycemia Folic Acid (Folic Acid 50 Mg/10 Ml Mdv) 1 mg SUBCUT DAILY SOULEYMANE Last Admin: 11/09/20 02:29 Dose: 1 mg Documented by: Glucagon (Glucagon,Human Recombinant 1 Mg Vial) 1 mg IM ASDIRECTED PRN PRN Reason: Hypoglycemia Insulin Aspart (Insulin Aspart 100 Units/Ml 3 Ml Pen) 0 unit SUBCUT TIDAC SOULEYMANE; Protocol Lorazepam (Lorazepam 2 Mg/Ml Sdv) 0 mg IVPUSH Q4H PRN; Protocol PRN Reason: CIWAA Sodium Chloride (Sodium Chloride 0.9% 2.5 Ml Syringe) 2.5 ml FLUSH ASDIRECTED PRN PRN Reason: Keep Vein Open Thiamine HCl (Thiamine 200 Mg/2 Ml Mdv) 100 mg IVPUSH DAILY SOULEYMANE Last Admin: 11/09/20 02:22 Dose: 100 mg Documented by: Discontinued Medications Midazolam HCl (Midazolam 1 Mg/Ml 2 Ml Sdv) 1 mg IVPUSH ONETIME ONE Stop: 11/08/20 20:26 Last Admin: 11/08/20 20:53 Dose: 1 mg Documented by: Midazolam HCl (Midazolam 1 Mg/Ml 2 Ml Sdv) Confirm Administered Dose 2 mg .ROUTE .STK-MED ONE Stop: 11/08/20 20:26 Last Admin: 11/08/20 20:31 Dose: Not Given Documented by: Midazolam HCl (Midazolam 1 Mg/Ml 2 Ml Sdv) 1 mg IVPUSH ONETIME STA Stop: 11/08/20 20:31 Last Admin: 11/08/20 20:31 Dose: Not Given Documented by: - Exam Quality Assessment: DVT Prophylaxis. No: Supplemental Oxygen General: Alert, Cooperative, No Acute Distress. No: Oriented Lungs: Clear to Auscultation, Normal Respiratory Effort Cardiovascular: Irregular Rhythm GI/Abdominal Exam: Normal Bowel Sounds, Soft, Non-Tender Extremities: Normal Inspection, Normal Range of Motion, Non-Tender, No Pedal Edema Neurological: Normal Speech, Strength Equal Bilateral. No: Normal Gait (Slight ataxia noted) Psy/Mental Status: Alert, Withdrawal Symptoms - Patient Data Lab Results Last 24 hrs: Laboratory Results - last 24 hr 11/08/20 11/08/20 11/08/20 Range/Units 20:05 20:05 23:14 WBC 6.85 (4.0-11.0) K/uL RBC 4.65 (4.30-5.90) M/uL Hgb 15.3 (12.0-16.0) g/dL Hct 45.0 (36.0-46.0) % MCV 96.8 (80.0-98.0) fL MCH 32.9 H (27.0-32.0) pg MCHC 34.0 (31.0-37.0) g/dL RDW Std Deviation 51.9 (28.0-62.0) fl RDW Coeff of Aruna 15 (11.0-15.0) % Plt Count 309 (150-400) K/uL MPV 11.00 (7.40-12.00) fL Neut % (Auto) 55.5 (48.0-80.0) % Lymph % (Auto) 32.7 (16.0-40.0) % Cole % (Auto) 9.5 (0.0-15.0) % Eos % (Auto) 1.3 (0.0-7.0) % Baso % (Auto) 1.0 (0.0-1.5) % Neut # (Auto) 3.8 (1.4-5.7) K/uL Lymph # (Auto) 2.2 (0.6-2.4) K/uL Cole # (Auto) 0.7 (0.0-0.8) K/uL Eos # (Auto) 0.1 (0.0-0.7) K/uL Baso # (Auto) 0.1 (0.0-0.1) K/uL Nucleated RBC % 0.0 /100WBC Nucleated RBCs # 0 K/uL Sodium 136 (136-145) mmol/L Potassium 4.5 (3.5-5.1) mmol/L Chloride 100 (98-107) mmol/L Carbon Dioxide 26.6 (21.0-32.0) mmol/L BUN 11 (7.0-18.0) mg/dL Creatinine 0.7 (0.6-1.0) mg/dL Est Cr Clr Drug Dosing TNP Estimated GFR (MDRD) > 60.0 ml/min Glucose 126 H (74-106) mg/dL Calcium 9.0 (8.5-10.1) mg/dL Total Bilirubin (0.2-1.0) mg/dL AST (15-37) IU/L ALT (14-63) IU/L Alkaline Phosphatase (46-116) U/L Total Protein (6.4-8.2) g/dL Albumin (3.4-5.0) g/dL Globulin (2.6-4.0) g/dL Albumin/Globulin Ratio (0.9-1.6) TSH 3rd Generation (0.36-3.74) uIU/mL Urine Color Urine Appearance Urine pH (5.0-8.0) Ur Specific Silex (1.001-1.035) Urine Protein (NEGATIVE) mg/dL Urine Glucose (UA) (NEGATIVE) mg/dL Urine Ketones (NEGATIVE) mg/dL Urine Occult Blood (NEGATIVE) Urine Nitrite (NEGATIVE) Urine Bilirubin (NEGATIVE) Urine Urobilinogen (<2.0) EU/dL Ur Leukocyte Esterase (NEGATIVE) Digoxin (0.9-2.0) ng/mL Urine Opiates Screen (NEGATIVE) Ur Oxycodone Screen (NEGATIVE) Urine Methadone Screen (NEGATIVE) Ur Barbiturates Screen (NEGATIVE) Ur Phencyclidine Scrn (NEGATIVE) Ur Amphetamine Screen (NEGATIVE) U Methamphetamines Scrn (NEGATIVE) U Benzodiazepines Scrn (NEGATIVE) U Cocaine Metab Screen (NEGATIVE) U Marijuana (THC) Screen (NEGATIVE) Ethyl Alcohol 270 mg/dL SARS-CoV-2 RNA (RUSSELL) NEGATIVE (NEGATIVE) 11/09/20 11/09/20 11/09/20 Range/Units 04:00 04:00 05:15 WBC 4.45 (4.0-11.0) K/uL RBC 4.63 (4.30-5.90) M/uL Hgb 15.1 (12.0-16.0) g/dL Hct 45.0 (36.0-46.0) % MCV 97.2 (80.0-98.0) fL MCH 32.6 H (27.0-32.0) pg MCHC 33.6 (31.0-37.0) g/dL RDW Std Deviation 51.8 (28.0-62.0) fl RDW Coeff of Aruna 15 (11.0-15.0) % Plt Count 250 (150-400) K/uL MPV 10.60 (7.40-12.00) fL Neut % (Auto) 44.4 L (48.0-80.0) % Lymph % (Auto) 40.4 H (16.0-40.0) % Cole % (Auto) 9.2 (0.0-15.0) % Eos % (Auto) 3.1 (0.0-7.0) % Baso % (Auto) 2.9 H (0.0-1.5) % Neut # (Auto) 2.0 (1.4-5.7) K/uL Lymph # (Auto) 1.8 (0.6-2.4) K/uL Cole # (Auto) 0.4 (0.0-0.8) K/uL Eos # (Auto) 0.1 (0.0-0.7) K/uL Baso # (Auto) 0.1 (0.0-0.1) K/uL Nucleated RBC % 0.0 /100WBC Nucleated RBCs # 0 K/uL Sodium (136-145) mmol/L Potassium (3.5-5.1) mmol/L Chloride (98-107) mmol/L Carbon Dioxide (21.0-32.0) mmol/L BUN (7.0-18.0) mg/dL Creatinine (0.6-1.0) mg/dL Est Cr Clr Drug Dosing Estimated GFR (MDRD) ml/min Glucose (74-106) mg/dL Calcium (8.5-10.1) mg/dL Total Bilirubin (0.2-1.0) mg/dL AST (15-37) IU/L ALT (14-63) IU/L Alkaline Phosphatase (46-116) U/L Total Protein (6.4-8.2) g/dL Albumin (3.4-5.0) g/dL Globulin (2.6-4.0) g/dL Albumin/Globulin Ratio (0.9-1.6) TSH 3rd Generation (0.36-3.74) uIU/mL Urine Color YELLOW Urine Appearance CLEAR Urine pH 6.0 (5.0-8.0) Ur Specific [place]ilex <= 1.005 (1.001-1.035) Urine Protein NEGATIVE (NEGATIVE) mg/dL Urine Glucose (UA) NEGATIVE (NEGATIVE) mg/dL Urine Ketones NEGATIVE (NEGATIVE) mg/dL Urine Occult Blood NEGATIVE (NEGATIVE) Urine Nitrite NEGATIVE (NEGATIVE) Urine Bilirubin NEGATIVE (NEGATIVE) Urine Urobilinogen 0.2 (<2.0) EU/dL Ur Leukocyte Esterase NEGATIVE (NEGATIVE) Digoxin (0.9-2.0) ng/mL Urine Opiates Screen NEGATIVE (NEGATIVE) Ur Oxycodone Screen NEGATIVE (NEGATIVE) Urine Methadone Screen NEGATIVE (NEGATIVE) Ur Barbiturates Screen NEGATIVE (NEGATIVE) Ur Phencyclidine Scrn NEGATIVE (NEGATIVE) Ur Amphetamine Screen NEGATIVE (NEGATIVE) U Methamphetamines Scrn NEGATIVE (NEGATIVE) U Benzodiazepines Scrn NEGATIVE (NEGATIVE) U Cocaine Metab Screen NEGATIVE (NEGATIVE) U Marijuana (THC) Screen NEGATIVE (NEGATIVE) Ethyl Alcohol mg/dL SARS-CoV-2 RNA (RUSSELL) (NEGATIVE) 11/09/20 Range/Units 05:15 WBC (4.0-11.0) K/uL RBC (4.30-5.90) M/uL Hgb (12.0-16.0) g/dL Hct (36.0-46.0) % MCV (80.0-98.0) fL MCH (27.0-32.0) pg MCHC (31.0-37.0) g/dL RDW Std Deviation (28.0-62.0) fl RDW Coeff of Aruna (11.0-15.0) % Plt Count (150-400) K/uL MPV (7.40-12.00) fL Neut % (Auto) (48.0-80.0) % Lymph % (Auto) (16.0-40.0) % Cole % (Auto) (0.0-15.0) % Eos % (Auto) (0.0-7.0) % Baso % (Auto) (0.0-1.5) % Neut # (Auto) (1.4-5.7) K/uL Lymph # (Auto) (0.6-2.4) K/uL Cole # (Auto) (0.0-0.8) K/uL Eos # (Auto) (0.0-0.7) K/uL Baso # (Auto) (0.0-0.1) K/uL Nucleated RBC % /100WBC Nucleated RBCs # K/uL Sodium 142 (136-145) mmol/L Potassium 3.7 (3.5-5.1) mmol/L Chloride 105 (98-107) mmol/L Carbon Dioxide 26.8 (21.0-32.0) mmol/L BUN 8 (7.0-18.0) mg/dL Creatinine 0.6 (0.6-1.0) mg/dL Est Cr Clr Drug Dosing TNP Estimated GFR (MDRD) > 60.0 ml/min Glucose 102 (74-106) mg/dL Calcium 8.9 (8.5-10.1) mg/dL Total Bilirubin 0.4 (0.2-1.0) mg/dL AST 22 (15-37) IU/L ALT 28 (14-63) IU/L Alkaline Phosphatase 111 (46-116) U/L Total Protein 7.3 (6.4-8.2) g/dL Albumin 3.4 (3.4-5.0) g/dL Globulin 3.9 (2.6-4.0) g/dL Albumin/Globulin Ratio 0.9 (0.9-1.6) TSH 3rd Generation 4.65 H (0.36-3.74) uIU/mL Urine Color Urine Appearance Urine pH (5.0-8.0) Ur Specific Silex (1.001-1.035) Urine Protein (NEGATIVE) mg/dL Urine Glucose (UA) (NEGATIVE) mg/dL Urine Ketones (NEGATIVE) mg/dL Urine Occult Blood (NEGATIVE) Urine Nitrite (NEGATIVE) Urine Bilirubin (NEGATIVE) Urine Urobilinogen (<2.0) EU/dL Ur Leukocyte Esterase (NEGATIVE) Digoxin 0.4 L (0.9-2.0) ng/mL Urine Opiates Screen (NEGATIVE) Ur Oxycodone Screen (NEGATIVE) Urine Methadone Screen (NEGATIVE) Ur Barbiturates Screen (NEGATIVE) Ur Phencyclidine Scrn (NEGATIVE) Ur Amphetamine Screen (NEGATIVE) U Methamphetamines Scrn (NEGATIVE) U Benzodiazepines Scrn (NEGATIVE) U Cocaine Metab Screen (NEGATIVE) U Marijuana (THC) Screen (NEGATIVE) Ethyl Alcohol mg/dL SARS-CoV-2 RNA (RUSSELL) (NEGATIVE) Result Diagrams: 11/09/20 05:15 11/09/20 05:15 Sepsis Event Note - Evaluation Sepsis Screening Result: No Definite Risk - Focused Exam Vital Signs: Vital Signs Temp Pulse Resp BP Pulse Ox Pulse Ox 11/09/20 04:37 96.8 F L 72 14 113/77 97 11/09/20 01:20 97.7 F 67 16 122/71 94 L 94 L 11/08/20 21:55 60 15 146/91 H 98 11/08/20 20:46 57 L 12 136/87 98 11/08/20 20:05 97.8 F 67 18 117/83 97 - Problem List & Annotations (1) Alcohol intoxication SNOMED Code(s): 21948314 Code(s): F10.929 - ALCOHOL USE, UNSPECIFIED WITH INTOXICATION, UNSPECIFIED Status: Acute Current Visit: Yes (2) Dementia SNOMED Code(s): 35321306 Code(s): F03.90 - UNSPECIFIED DEMENTIA WITHOUT BEHAVIORAL DISTURBANCE Sta tus: Chronic Current Visit: Yes (3) Alcohol abuse SNOMED Code(s): 07799945 Code(s): F10.10 - ALCOHOL ABUSE, UNCOMPLICATED Status: Chronic Current Visit: Yes (4) History of CVA (cerebrovascular accident) SNOMED Code(s): 567489535 Code(s): Z86.73 - PRSNL HX OF TIA (TIA), AND CEREB INFRC W/O RESID DEFICITS Status: Chronic Current Visit: Yes (5) Hypertension SNOMED Code(s): 40823195 Code(s): I10 - ESSENTIAL (PRIMARY) HYPERTENSION Status: Chronic Current Visit: Yes (6) Type 2 diabetes mellitus SNOMED Code(s): 77494765 Code(s): E11.9 - TYPE 2 DIABETES MELLITUS WITHOUT COMPLICATIONS Status: C hronic Current Visit: Yes (7) Atrial fibrillation SNOMED Code(s): 66870280 Code(s): I48.91 - UNSPECIFIED ATRIAL FIBRILLATION Status: Chronic Current Visit: No Qualifiers: Atrial fibrillation type: unspecified chronic Qualified Code(s): I48.20 - Chronic atrial fibrillation, unspecified; I48.2 - Chronic atrial fibrillation - Problem List Review Problem List Initiated/Reviewed/Updated: Yes - My Orders Last 24 Hours: My Active Orders 11/09/20 07:54 Obtain Home Medication List [OM.PC] Urgent 11/09/20 07:55 CIWAA Assessment [RC] Q4H Intake and Output [RC] QSHIFT Seizure Precautions [OM.PC] Routine 11/09/20 07:56 Sodium Chloride 0.9% [Saline Flush] 2.5 ml FLUSH ASDIRECTED PRN Saline Lock Insert [OM.PC] Routine - Plan Plan:: 70 yo female with acute ETOH intoxication admitted following fall. 1. Alcohol intoxication -Family having significant concerns regarding alcohol consumption patient unable to clearly give amounts of use at home. has continued to buy her wine which is her alcohol of choice. Sister Malathi as well as brother are present in the room on rounds today. They have significant concerns as they feel that there are safety concerns with Sierra and Vahid at home. Vahid Sierra's continues to drink as well and is feeling significantly frustrated with Sierra's mental decline from dementia. He is unable to also give exact amounts of drinking reports that she drinks in binges and then stops for couple days and gets significantly irritated and tremulous. Sister Malathi who lives in town is helping intermittently but is called in crisis situations as of last night when police were notified. She is becoming very intolerable of situations and wants to help but his alcohol continues to be a cornerstone of Sierra and Vahid's lives then her and her brother are unwilling to continue to help. In-depth conversation had between brother sister along with Sierra and Vahid in the presence of Dr. Aguilera and myself. The decision came to that ultimately inpatient rehab would be the best choice. The concern is that Sierra's competency to make decisions for herself with her moderate dementia. Sierra is either in severe denial or due to her dementia she is completely unaware of the amount of alcohol she is drinking. Alcohol level last evening was 240 she reports that she drank 2 small juice glasses of wine and that is it. Currently the plan moving forward would be to complete inpatient detox and then transition to inpatient rehab considering possibly [facility] who recommends patient to be detoxed prior to admission and patient there. Family was notified of this and are okay with this. I will speak with Dr. Pfeiffer, psychiatrist with [facility] to see if he can evaluate patient for competency as well as speak with her neurologist Dr. Barber who has been caring for her with her dementia. -Case management has been consulted. Adult Protective Services have been notified as of this morning they were unaware of police report from last evening they keep in contact with [facility], social work 2. Alcohol abuse/withdrawal -Continue CIWAA assessments -Ativan as needed for CIWAA -Thiamine and folic acid supplementation -Possibly arrange inpatient rehab once detox complete 3. Falls -Likely exacerbated by significant alcohol use at home -Consult physical therapy 4. Atrial fibrillation -Rates have been elevated this morning could be component of patient not obtaining medications this morning as well as alcohol detox -Continue to monitor restarted home medications including diltiazem and digoxin -Continue Xarelto -Dig level level on admission 0.4 -Monitor potassium and magnesium 5. Dementia -Review Dr. Barber's notes. Last saw patient July 2020 MoCA scores have consistently decreased since 2018 - reporting having difficulty caring for patient at home as he is unable to manage well with her dementia VTE prophylaxis: Xarelto GI prophylaxis Protonix CODE STATUS: Full code Dispo 2 to 3 days pending improvement in possible transfer to inpatient rehabilitation
[2020-11-09] MEDS: Insulin Aspart 100 Units/ML 3 ML Pen SUBCUT SCH ×3 (08:36→16:56)
[2020-11-09] MEDS: Diltiazem 120 MG Cap.CD PO SCH (09:54)
[2020-11-09] MEDS: Digoxin 125 MCG Tab PO SCH (09:54)
[2020-11-09] MEDS ORDERED: Diltiazem 25 MG/5 ML SDV IVPUSH ONE (11:14)
[2020-11-09] MEDS: Gabapentin 300 MG Cap PO SCH (14:36)
[2020-11-09] MEDS: Acetaminophen 325 MG Tab PO PRN (16:55)
[2020-11-09] MEDS: Rivaroxaban 10 MG Tab PO SCH (16:55)
[2020-11-10 06:06] LABS: BLOOD UREA NITROGEN,BUN 24 mg/dL (7.0-18.0); CARBON DIOXIDE,CO2 26.8 mmol/L (21.0-32.0); CHLORIDE,CL 105 mmol/L (98-107); GLUCOSE RANDOM 126 mg/dL (74-106); POTASSIUM,K 4.1 mmol/L (3.5-5.1); SODIUM,NA 141 mmol/L (136-145)
[2020-11-10] MEDS: Levothyroxine 100 MCG Tab PO SCH (06:54)
--- NOTE | 2020-11-10 07:46 | PCM.PN ---
- General Info Date of Service: 11/10/20 Admission Dx/Problem (Free Text): Admission Diagnosis/Problem Admission Diagnosis/Problem Alcohol intoxication Subjective Update: Sitting up in the chair eating breakfast. Denies any chest pain or shortness of breath. Reports she is having chronic back pain. Is alert and oriented to self and place but not time. Patient feeling that remote events are more recent reporting that she recently moved to [place] from [place] but she has been here for years. No other concerns we did discuss plans for inpatient alcohol kamron jeremy but does not recall any conversations from the previous day with family or . Functional Status: Reports: Pain Controlled, Tolerating Diet, Ambulating, Urinating - Review of Systems General: Denies: Weakness, Fatigue HEENT: Reports: No Symptoms. Denies: Headaches, Sore Throat, Visual Changes Pulmonary: Reports: No Symptoms. Denies: Shortness of Breath Cardiovascular: Reports: No Symptoms. Denies: Chest Pain Gastrointestinal: Reports: No Symptoms. Denies: Abdominal Pain, Nausea, Vomiting Genitourinary: Reports: No Symptoms. Denies: Dysuria, Frequency Musculoskeletal: Reports: Back Pain Skin: Reports: No Symptoms (Chronic no changes) Neurological: Reports: No Symptoms Psychiatric: Reports: No Symptoms - Patient Data Vitals - Most Recent: Last Vital Signs Temp 97.3 F 11/10/20 04:00 Pulse 87 11/10/20 04:00 Resp 18 11/10/20 04:00 BP 117/65 11/10/20 04:00 Pulse Ox 93 L 11/10/20 04:00 Weight - Most Recent: 73.618 kg I&O - Last 24 Hours: Intake & Output 11/09/20 11/10/20 11/10/20 22:59 06:59 14:59 Intake Total 550 400 Output Total 650 200 Balance -100 200 Lab Results Last 24 Hours: Laboratory Results - last 24 hr 11/09/20 11/09/20 11/09/20 Range/Units 07:57 11:35 16:51 WBC (4.0-11.0) K/uL RBC (4.30-5.90) M/uL Hgb (12.0-16.0) g/dL Hct (36.0-46.0) % MCV (80.0-98.0) fL MCH (27.0-32.0) pg MCHC (31.0-37.0) g/dL RDW Std Deviation (28.0-62.0) fl RDW Coeff of Aruna (11.0-15.0) % Plt Count (150-400) K/uL MPV (7.40-12.00) fL Neut % (Auto) (48.0-80.0) % Lymph % (Auto) (16.0-40.0) % Redwood % (Auto) (0.0-15.0) % Eos % (Auto) (0.0-7.0) % Baso % (Auto) (0.0-1.5) % Neut # (Auto) (1.4-5.7) K/uL Lymph # (Auto) (0.6-2.4) K/uL Redwood # (Auto) (0.0-0.8) K/uL Eos # (Auto) (0.0-0.7) K/uL Baso # (Auto) (0.0-0.1) K/uL Nucleated RBC % /100WBC Nucleated RBCs # K/uL Sodium (136-145) mmol/L Potassium (3.5-5.1) mmol/L Chloride (98-107) mmol/L Carbon Dioxide (21.0-32.0) mmol/L BUN (7.0-18.0) mg/dL Creatinine (0.6-1.0) mg/dL Est Cr Clr Drug Dosing Estimated GFR (MDRD) ml/min Glucose (74-106) mg/dL POC Glucose 95 104 H 160 H (70-99) mg/dL Calcium (8.5-10.1) mg/dL Phosphorus (2.6-4.7) mg/dL Magnesium (1.8-2.4) mg/dL Total Bilirubin (0.2-1.0) mg/dL AST (15-37) IU/L ALT (14-63) IU/L Alkaline Phosphatase (46-116) U/L Total Protein (6.4-8.2) g/dL Albumin (3.4-5.0) g/dL Globulin (2.6-4.0) g/dL Albumin/Globulin Ratio (0.9-1.6) 11/10/20 11/10/20 Range/Units 05:00 05:00 WBC 6.75 (4.0-11.0) K/uL RBC 4.47 (4.30-5.90) M/uL Hgb 14.4 (12.0-16.0) g/dL Hct 44.0 (36.0-46.0) % MCV 98.4 H (80.0-98.0) fL MCH 32.2 H (27.0-32.0) pg MCHC 32.7 (31.0-37.0) g/dL RDW Std Deviation 53.3 (28.0-62.0) fl RDW Coeff of Aruna 15 (11.0-15.0) % Plt Count 244 (150-400) K/uL MPV 10.90 (7.40-12.00) fL Neut % (Auto) 61.0 (48.0-80.0) % Lymph % (Auto) 25.9 (16.0-40.0) % Redwood % (Auto) 10.4 (0.0-15.0) % Eos % (Auto) 1.5 (0.0-7.0) % Baso % (Auto) 1.2 (0.0-1.5) % Neut # (Auto) 4.1 (1.4-5.7) K/uL Lymph # (Auto) 1.8 (0.6-2.4) K/uL Redwood # (Auto) 0.7 (0.0-0.8) K/uL Eos # (Auto) 0.1 (0.0-0.7) K/uL Baso # (Auto) 0.1 (0.0-0.1) K/uL Nucleated RBC % 0.0 /100WBC Nucleated RBCs # 0 K/uL Sodium 141 (136-145) mmol/L Potassium 4.1 (3.5-5.1) mmol/L Chloride 105 (98-107) mmol/L Carbon Dioxide 26.8 (21.0-32.0) mmol/L BUN 24 H (7.0-18.0) mg/dL Creatinine 1.0 (0.6-1.0) mg/dL Est Cr Clr Drug Dosing TNP Estimated GFR (MDRD) 55.0 ml/min Glucose 126 H (74-106) mg/dL POC Glucose (70-99) mg/dL Calcium 9.3 (8.5-10.1) mg/dL Phosphorus 3.9 (2.6-4.7) mg/dL Magnesium 2.0 (1.8-2.4) mg/dL Total Bilirubin 0.7 (0.2-1.0) mg/dL AST 17 (15-37) IU/L ALT 24 (14-63) IU/L Alkaline Phosphatase 106 (46-116) U/L Total Protein 7.0 (6.4-8.2) g/dL Albumin 3.2 L (3.4-5.0) g/dL Globulin 3.8 (2.6-4.0) g/dL Albumin/Globulin Ratio 0.8 L (0.9-1.6) Med Orders - Current: Current Medications Acetaminophen (Acetaminophen 325 Mg Tab) 650 mg PO Q4H PRN PRN Reason: Pain Last Admin: 11/09/20 16:55 Dose: 650 mg Documented by: Dextrose/Water (50% Dextrose In Water 50 Ml Syringe) 50 ml IV ASDIRECTED PRN PRN Reason: Hypoglycemia Digoxin (Digoxin 125 Mcg Tab) 125 mcg PO DAILY [facility] Last Admin: 11/09/20 09:54 Dose: 125 mcg Documented by: Diltiazem HCl (Diltiazem 120 Mg Cap.Cd) 240 mg PO DAILY [facility] Last Admin: 11/09/20 09:54 Dose: 240 mg Documented by: Folic Acid (Folic Acid 50 Mg/10 Ml Mdv) 1 mg SUBCUT DAILY [facility] Last Admin: 11/09/20 09:54 Dose: 1 mg Documented by: Furosemide (Furosemide 20 Mg Tab) 20 mg PO DAILY [facility] Gabapentin (Gabapentin 300 Mg Cap) 600 mg PO DAILY [facility] Last Admin: 11/09/20 14:36 Dose: 600 mg Documented by: Glucagon (Glucagon,Human Recombinant 1 Mg Vial) 1 mg IM ASDIRECTED PRN PRN Reason: Hypoglycemia Insulin Aspart (Insulin Aspart 100 Units/Ml 3 Ml Pen) 0 unit SUBCUT TIDAC [facility]; Protocol Last Admin: 11/09/20 16:56 Dose: 1 units Documented by: Levothyroxine Sodium (Levothyroxine 100 Mcg Tab) 100 mcg PO ACBREAKFAST [facility] Last Admin: 11/10/20 06:54 Dose: 100 mcg Documented by: Liothyronine Sodium (Liothyronine 25 Mcg Tab) 25 mcg PO DAILY [facility] Lorazepam (Lorazepam 2 Mg/Ml Sdv) 0 mg IVPUSH Q4H PRN; Protocol PRN Reason: CIWAA Last Admin: 11/09/20 13:19 Dose: 1 mg Documented by: Memantine (Memantine 10 Mg Tab) 5 mg PO BEDTIME [facility] Rivaroxaban (Rivaroxaban 10 Mg Tab) 20 mg PO WITHDINNER [facility] Last Admin: 11/09/20 16:55 Dose: 20 mg Documented by: Sodium Chloride (Sodium Chloride 0.9% 2.5 Ml Syringe) 2.5 ml FLUSH ASDIRECTED PRN PRN Reason: Keep Vein Open Thiamine HCl (Thiamine 200 Mg/2 Ml Mdv) 100 mg IVPUSH DAILY [facility] Last Admin: 11/09/20 09:55 Dose: 100 mg Documented by: Discontinued Medications Diltiazem HCl (Diltiazem 25 Mg/5 Ml Sdv) 10 mg IVPUSH ONETIME ONE Stop: 11/09/20 11:15 Last Admin: 11/09/20 11:28 Dose: 10 mg Documented by: Midazolam HCl (Midazolam 1 Mg/Ml 2 Ml Sdv) 1 mg IVPUSH ONETIME ONE Stop: 11/08/20 20:26 Last Admin: 11/08/20 20:53 Dose: 1 mg Documented by: Midazolam HCl (Midazolam 1 Mg/Ml 2 Ml Sdv) Confirm Administered Dose 2 mg .ROUTE .STK-MED ONE Stop: 11/08/20 20:26 Last Admin: 11/08/20 20:31 Dose: Not Given Documented by: Midazolam HCl (Midazolam 1 Mg/Ml 2 Ml Sdv) 1 mg IVPUSH ONETIME STA Stop: 11/08/20 20:31 Last Admin: 11/08/20 20:31 Dose: Not Given Documented by: - Exam Quality Assessment: DVT Prophylaxis. No: Supplemental Oxygen General: Alert, Cooperative, No Acute Distress. No: Oriented (Not oriented to time) Lungs: Clear to Auscultation, Normal Respiratory Effort Cardiovascular: Regular Rate, Irregular Rhythm GI/Abdominal Exam: Normal Bowel Sounds, Soft, Non-Tender Back Exam: Normal Inspection, Full Range of Motion Extremities: Normal Inspection, Normal Range of Motion, Non-Tender, No Pedal Edema, Normal Capillary Refill Skin: Ecchymosis (above L eye with scant abrasions, no S/S of infection. No visual changes. ) Neurological: No New Focal Deficit Psy/Mental Status: Alert, Normal Affect, Normal Mood. No: Withdrawal Symptoms - Patient Data Lab Results Last 24 hrs: Laboratory Results - last 24 hr 11/09/20 11/09/20 11/09/20 Range/Units 07:57 11:35 16:51 WBC (4.0-11.0) K/uL RBC (4.30-5.90) M/uL Hgb (12.0-16.0) g/dL Hct (36.0-46.0) % MCV (80.0-98.0) fL MCH (27.0-32.0) pg MCHC (31.0-37.0) g/dL RDW Std Deviation (28.0-62.0) fl RDW Coeff of Aruna (11.0-15.0) % Plt Count (150-400) K/uL MPV (7.40-12.00) fL Neut % (Auto) (48.0-80.0) % Lymph % (Auto) (16.0-40.0) % Redwood % (Auto) (0.0-15.0) % Eos % (Auto) (0.0-7.0) % Baso % (Auto) (0.0-1.5) % Neut # (Auto) (1.4-5.7) K/uL Lymph # (Auto) (0.6-2.4) K/uL Redwood # (Auto) (0.0-0.8) K/uL Eos # (Auto) (0.0-0.7) K/uL Baso # (Auto) (0.0-0.1) K/uL Nucleated RBC % /100WBC Nucleated RBCs # K/uL Sodium (136-145) mmol/L Potassium (3.5-5.1) mmol/L Chloride (98-107) mmol/L Carbon Dioxide (21.0-32.0) mmol/L BUN (7.0-18.0) mg/dL Creatinine (0.6-1.0) mg/dL Est Cr Clr Drug Dosing Estimated GFR (MDRD) ml/min Glucose (74-106) mg/dL POC Glucose 95 104 H 160 H (70-99) mg/dL Calcium (8.5-10.1) mg/dL Phosphorus (2.6-4.7) mg/dL Magnesium (1.8-2.4) mg/dL Total Bilirubin (0.2-1.0) mg/dL AST (15-37) IU/L ALT (14-63) IU/L Alkaline Phosphatase (46-116) U/L Total Protein (6.4-8.2) g/dL Albumin (3.4-5.0) g/dL Globulin (2.6-4.0) g/dL Albumin/Globulin Ratio (0.9-1.6) 11/10/20 11/10/20 Range/Units 05:00 05:00 WBC 6.75 (4.0-11.0) K/uL RBC 4.47 (4.30-5.90) M/uL Hgb 14.4 (12.0-16.0) g/dL Hct 44.0 (36.0-46.0) % MCV 98.4 H (80.0-98.0) fL MCH 32.2 H (27.0-32.0) pg MCHC 32.7 (31.0-37.0) g/dL RDW Std Deviation 53.3 (28.0-62.0) fl RDW Coeff of Aruna 15 (11.0-15.0) % Plt Count 244 (150-400) K/uL MPV 10.90 (7.40-12.00) fL Neut % (Auto) 61.0 (48.0-80.0) % Lymph % (Auto) 25.9 (16.0-40.0) % Redwood % (Auto) 10.4 (0.0-15.0) % Eos % (Auto) 1.5 (0.0-7.0) % Baso % (Auto) 1.2 (0.0-1.5) % Neut # (Auto) 4.1 (1.4-5.7) K/uL Lymph # (Auto) 1.8 (0.6-2.4) K/uL Redwood # (Auto) 0.7 (0.0-0.8) K/uL Eos # (Auto) 0.1 (0.0-0.7) K/uL Baso # (Auto) 0.1 (0.0-0.1) K/uL Nucleated RBC % 0.0 /100WBC Nucleated RBCs # 0 K/uL Sodium 141 (136-145) mmol/L Potassium 4.1 (3.5-5.1) mmol/L Chloride 105 (98-107) mmol/L Carbon Dioxide 26.8 (21.0-32.0) mmol/L BUN 24 H (7.0-18.0) mg/dL Creatinine 1.0 (0.6-1.0) mg/dL Est Cr Clr Drug Dosing TNP Estimated GFR (MDRD) 55.0 ml/min Glucose 126 H (74-106) mg/dL POC Glucose (70-99) mg/dL Calcium 9.3 (8.5-10.1) mg/dL Phosphorus 3.9 (2.6-4.7) mg/dL Magnesium 2.0 (1.8-2.4) mg/dL Total Bilirubin 0.7 (0.2-1.0) mg/dL AST 17 (15-37) IU/L ALT 24 (14-63) IU/L Alkaline Phosphatase 106 (46-116) U/L Total Protein 7.0 (6.4-8.2) g/dL Albumin 3.2 L (3.4-5.0) g/dL Globulin 3.8 (2.6-4.0) g/dL Albumin/Globulin Ratio 0.8 L (0.9-1.6) Result Diagrams: 11/10/20 05:00 11/10/20 05:00 Sepsis Event Note - Evaluation Sepsis Screening Result: No Definite Risk - Focused Exam Vital Signs: Vital Signs Temp Pulse Resp BP Pulse Ox 11/10/20 04:00 97.3 F 87 18 117/65 93 L 11/10/20 00:05 71 11/10/20 00:00 98.0 F 44 L 16 112/59 L 96 11/09/20 20:00 97.5 F 58 L 16 107/59 L 95 - Problem List & Annotations (1) Alcohol intoxication SNOMED Code(s): 44770988 Code(s): F10.929 - ALCOHOL USE, UNSPECIFIED WITH INTOXICATION, UNSPECIFIED Status: Acute Current Visit: Yes (2) Dementia SNOMED Code(s): 48748404 Code(s): F03.90 - UNSPECIFIED DEMENTIA WITHOUT BEHAVIORAL DISTURBANCE Status: Chronic Current Visit: Yes (3) Alcohol abuse SNOMED Code(s): 50787579 Code(s): F10.10 - ALCOHOL ABUSE, UNCOMPLICATED Status: Chronic Current Visit: Yes (4) History of CVA (cerebrovascular accident) SNOMED Code(s): 986143178 Code(s): Z86.73 - PRSNL HX OF TIA (TIA), AND CEREB INFRC W/O RESID DEFICITS Status: Chronic Current Visit: Yes (5) Hypertension SNOMED Code(s): 35846770 Code(s): I10 - ESSENTIAL (PRIMARY) HYPERTENSION Status: Chronic Current Visit: Yes (6) Type 2 diabetes mellitus SNOMED Code(s): 72420965 Code(s): E11.9 - TYPE 2 DIABETES MELLITUS WITHOUT COMPLICATIONS Status: Chronic Current Visit: Yes (7) Atrial fibrillation SNOMED Code(s): 95360832 Code(s): I48.91 - UNSPECIFIED ATRIAL FIBRILLATION Status: Chronic Current Visit: No Qualifiers: Atrial fibrillation type: unspecified chronic Qualified Code(s): I48.20 - Chronic atrial fibrillation, unspecified; I48.2 - Chronic atrial fibrillation - Problem List Review Problem List Initiated/Reviewed/Updated: Yes - My Orders Last 24 Hours: My Active Orders 11/09/20 07:54 Obtain Home Medication List [OM.PC] Urgent 11/09/20 07:55 CIWAA Assessment [RC] Q4H Intake and Output [RC] Q12H Seizure Precautions [OM.PC] Routine 11/09/20 07:56 Sodium Chloride 0.9% [Saline Flush] 2.5 ml FLUSH ASDIRECTED PRN Saline Lock Insert [OM.PC] Routine 11/09/20 09:45 Digoxin [Lanoxin] 125 mcg PO DAILY 11/09/20 10:00 Diltiazem [Cardizem CD] 240 mg PO DAILY 11/09/20 14:00 Gabapentin [Neurontin] 600 mg PO DAILY 11/09/20 16:12 Acetaminophen [TylenoL] 650 mg PO Q4H PRN 11/09/20 17:30 Rivaroxaban [Xarelto] 20 mg PO WITHDINNER 11/10/20 07:30 Levothyroxine [Synthroid] 100 mcg PO ACBREAKFAST 11/10/20 09:00 Furosemide [Lasix] 20 mg PO DAILY Liothyronine [CytomeL] 25 mcg PO DAILY 11/10/20 21:00 Memantine [Namenda] 5 mg PO BEDTIME 11/11/20 05:11 CBC WITH AUTO DIFF [HEME] AM COMPREHENSIVE METABOLIC PN,CMP [CHEM] AM MAGNESIUM [CHEM] AM PHOSPHORUS [CHEM] AM - Plan Plan:: 70 yo female with acute ETOH intoxication admitted following fall. 1. Alcohol intoxication/Alcohol abuse/withdrawal -No longer intoxicated -Continue to seek inpatient care. Monitor patient today for further withdrawal symptoms anticipate possible transfer to inpatient rehabilitation in the next 1 to 2 days. -Case management has been consulted. Adult Protective Services have been notified as of this morning they were unaware of police report from last evening they keep in contact with [facility], social work -Continue CIWAA assessments -Ativan as needed for CIWAA -Thiamine and folic acid supplementation -Dr. Pfeiffer consulted and saw patient this morning awaiting recommendations and evaluation for competency. 2. Falls -Likely exacerbated by significant alcohol use at home -Consult physical therapy 3. Atrial fibrillation -Rates better controlled today we will continue to monitor -Continue to monitor restarted home medications including diltiazem and digoxin -Continue Xarelto -Dig level level on admission 0.4 -Monitor potassium and magnesium 4. Dementia -Review Dr. Barber's notes. Last saw patient July 2020 MoCA scores have consistently decreased since 2018 - reporting having difficulty caring for patient at home as he is unable to manage well with her dementia VTE prophylaxis: Xarelto GI prophylaxis Protonix CODE STATUS: Full code Dispo 2 to 3 days pending improvement in possible transfer to inpatient rehabilitation
[2020-11-10] MEDS: Insulin Aspart 100 Units/ML 3 ML Pen SUBCUT SCH ×3 (08:17→17:13)
[2020-11-10] MEDS: Gabapentin 300 MG Cap PO SCH (08:53)
[2020-11-10] MEDS: Diltiazem 120 MG Cap.CD PO SCH (08:55)
[2020-11-10] MEDS: Furosemide 20 MG Tab PO SCH (08:55)
[2020-11-10] MEDS: Digoxin 125 MCG Tab PO SCH (08:55)
[2020-11-10] MEDS: Folic Acid 50 MG/10 ML MDV SUBCUT SCH (08:56)
[2020-11-10] MEDS: Thiamine 200 MG/2 ML MDV IVPUSH SCH (08:56)
[2020-11-10] MEDS: Rivaroxaban 10 MG Tab PO SCH (17:13)
[2020-11-10] MEDS: Memantine 10 MG Tab PO SCH (20:18)
[2020-11-11 06:14] LABS: BLOOD UREA NITROGEN,BUN 18 mg/dL (7.0-18.0); CARBON DIOXIDE,CO2 27.7 mmol/L (21.0-32.0); CHLORIDE,CL 104 mmol/L (98-107); GLUCOSE RANDOM 132 mg/dL (74-106); POTASSIUM,K 3.7 mmol/L (3.5-5.1); SODIUM,NA 139 mmol/L (136-145)
[2020-11-11] MEDS: Pantoprazole 40 MG Tab.CR PO SCH (06:48)
[2020-11-11] MEDS: Levothyroxine 100 MCG Tab PO SCH (06:48)
[2020-11-11] MEDS: Acetaminophen 325 MG Tab PO PRN (06:53)
[2020-11-11] MEDS: Insulin Aspart 100 Units/ML 3 ML Pen SUBCUT SCH ×3 (07:38→17:03)
[2020-11-11] MEDS: Diltiazem 120 MG Cap.CD PO SCH (09:04)
[2020-11-11] MEDS: Folic Acid 50 MG/10 ML MDV SUBCUT SCH (09:05)
[2020-11-11] MEDS: Digoxin 125 MCG Tab PO SCH (09:06)
[2020-11-11] MEDS: Furosemide 20 MG Tab PO SCH (09:06)
[2020-11-11] MEDS: Gabapentin 300 MG Cap PO SCH (09:07)
[2020-11-11] MEDS: Thiamine 200 MG/2 ML MDV IVPUSH SCH (09:24)
--- NOTE | 2020-11-11 14:16 | PCM.PN ---
- General Info Date of Service: 11/11/20 - Review of Systems Systems Review Comment:: no complaints, no fevers, no tremors, - Patient Data Vitals - Most Recent: Last Vital Signs Temp 36.6 C 11/11/20 11:24 Pulse 72 11/11/20 11:24 Resp 16 11/11/20 11:24 BP 120/72 11/11/20 11:24 Pulse Ox 96 11/11/20 11:24 Weight - Most Recent: 73.618 kg I&O - Last 24 Hours: Intake & Output 11/10/20 11/11/20 11/11/20 22:59 06:59 14:59 Intake Total 750 650 Output Total 800 Balance -50 650 Lab Results Last 24 Hours: Laboratory Results - last 24 hr 11/10/20 11/11/20 11/11/20 Range/Units 17:09 05:15 05:15 WBC 5.77 (4.0-11.0) K/uL RBC 4.32 (4.30-5.90) M/uL Hgb 13.9 (12.0-16.0) g/dL Hct 42.0 (36.0-46.0) % MCV 97.2 (80.0-98.0) fL MCH 32.2 H (27.0-32.0) pg MCHC 33.1 (31.0-37.0) g/dL RDW Std Deviation 51.6 (28.0-62.0) fl RDW Coeff of Aruna 14 (11.0-15.0) % Plt Count 237 (150-400) K/uL MPV 10.90 (7.40-12.00) fL Neut % (Auto) 65.9 (48.0-80.0) % Lymph % (Auto) 23.2 (16.0-40.0) % [place] % (Auto) 9.0 (0.0-15.0) % Eos % (Auto) 0.9 (0.0-7.0) % Baso % (Auto) 1.0 (0.0-1.5) % Neut # (Auto) 3.8 (1.4-5.7) K/uL Lymph # (Auto) 1.3 (0.6-2.4) K/uL [place] # (Auto) 0.5 (0.0-0.8) K/uL Eos # (Auto) 0.1 (0.0-0.7) K/uL Baso # (Auto) 0.1 (0.0-0.1) K/uL Nucleated RBC % 0.0 /100WBC Nucleated RBCs # 0 K/uL Sodium 139 (136-145) mmol/L Potassium 3.7 (3.5-5.1) mmol/L Chloride 104 (98-107) mmol/L Carbon Dioxide 27.7 (21.0-32.0) mmol/L BUN 18 (7.0-18.0) mg/dL Creatinine 0.8 (0.6-1.0) mg/dL Est Cr Clr Drug Dosing TNP Estimated GFR (MDRD) > 60.0 ml/min Glucose 132 H (74-106) mg/dL POC Glucose 126 H (70-99) mg/dL Calcium 9.0 (8.5-10.1) mg/dL Phosphorus 3.6 (2.6-4.7) mg/dL Magnesium 1.7 L (1.8-2.4) mg/dL Total Bilirubin 0.9 (0.2-1.0) mg/dL AST 18 (15-37) IU/L ALT 25 (14-63) IU/L Alkaline Phosphatase 104 (46-116) U/L Total Protein 7.0 (6.4-8.2) g/dL Albumin 3.3 L (3.4-5.0) g/dL Globulin 3.7 (2.6-4.0) g/dL Albumin/Globulin Ratio 0.9 (0.9-1.6) 11/11/20 11/11/20 Range/Units 06:46 11:24 WBC (4.0-11.0) K/uL RBC (4.30-5.90) M/uL Hgb (12.0-16.0) g/dL Hct (36.0-46.0) % MCV (80.0-98.0) fL MCH (27.0-32.0) pg MCHC (31.0-37.0) g/dL RDW Std Deviation (28.0-62.0) fl RDW Coeff of Aruna (11.0-15.0) % Plt Count (150-400) K/uL MPV (7.40-12.00) fL Neut % (Auto) (48.0-80.0) % Lymph % (Auto) (16.0-40.0) % [place] % (Auto) (0.0-15.0) % Eos % (Auto) (0.0-7.0) % Baso % (Auto) (0.0-1.5) % Neut # (Auto) (1.4-5.7) K/uL Lymph # (Auto) (0.6-2.4) K/uL [place] # (Auto) (0.0-0.8) K/uL Eos # (Auto) (0.0-0.7) K/uL Baso # (Auto) (0.0-0.1) K/uL Nucleated RBC % /100WBC Nucleated RBCs # K/uL Sodium (136-145) mmol/L Potassium (3.5-5.1) mmol/L Chloride (98-107) mmol/L Carbon Dioxide (21.0-32.0) mmol/L BUN (7.0-18.0) mg/dL Creatinine (0.6-1.0) mg/dL Est Cr Clr Drug Dosing Estimated GFR (MDRD) ml/min Glucose (74-106) mg/dL POC Glucose 113 H 126 H (70-99) mg/dL Calcium (8.5-10.1) mg/dL Phosphorus (2.6-4.7) mg/dL Magnesium (1.8-2.4) mg/dL Total Bilirubin (0.2-1.0) mg/dL AST (15-37) IU/L ALT (14-63) IU/L Alkaline Phosphatase (46-116) U/L Total Protein (6.4-8.2) g/dL Albumin (3.4-5.0) g/dL Globulin (2.6-4.0) g/dL Albumin/Globulin Ratio (0.9-1.6) Med Orders - Current: Current Medications Acetaminophen (Acetaminophen 325 Mg Tab) 650 mg PO Q4H PRN PRN Reason: Pain Last Admin: 11/11/20 06:53 Dose: 650 mg Documented by: Dextrose/Water (50% Dextrose In Water 50 Ml Syringe) 50 ml IV ASDIRECTED PRN PRN Reason: Hypoglycemia Digoxin (Digoxin 125 Mcg Tab) 125 mcg PO DAILY [facility] Last Admin: 11/11/20 09:06 Dose: 125 mcg Documented by: Diltiazem HCl (Diltiazem 120 Mg Cap.Cd) 240 mg PO DAILY [facility] Last Admin: 11/11/20 09:04 Dose: 240 mg Documented by: Folic Acid (Folic Acid 50 Mg/10 Ml Mdv) 1 mg SUBCUT DAILY [facility] Last Admin: 11/11/20 09:05 Dose: 1 mg Documented by: Furosemide (Furosemide 20 Mg Tab) 20 mg PO DAILY [facility] Last Admin: 11/11/20 09:06 Dose: 20 mg Documented by: Gabapentin (Gabapentin 300 Mg Cap) 600 mg PO DAILY [facility] Last Admin: 11/11/20 09:07 Dose: 600 mg Documented by: Glucagon (Glucagon,Human Recombinant 1 Mg Vial) 1 mg IM ASDIRECTED PRN PRN Reason: Hypoglycemia Insulin Aspart (Insulin Aspart 100 Units/Ml 3 Ml Pen) 0 unit SUBCUT TIDAC [facility]; Protocol Last Admin: 11/11/20 11:27 Dose: Not Given Documented by: Levothyroxine Sodium (Levothyroxine 100 Mcg Tab) 100 mcg PO ACBREAKFAST [facility] Last Admin: 11/11/20 06:48 Dose: 100 mcg Documented by: Liothyronine Sodium (Liothyronine 25 Mcg Tab) 25 mcg PO DAILY [facility] Last Admin: 11/11/20 09:05 Dose: 25 mcg Documented by: Lorazepam (Lorazepam 2 Mg/Ml Sdv) 0 mg IVPUSH Q4H PRN; Protocol PRN Reason: CIWAA Last Admin: 11/09/20 13:19 Dose: 1 mg Documented by: Memantine (Memantine 10 Mg Tab) 5 mg PO BEDTIME [facility] Last Admin: 11/10/20 20:18 Dose: 5 mg Documented by: Pantoprazole Sodium (Pantoprazole 40 Mg Tab.Cr) 40 mg PO ACBREAKFAST [facility] Last Admin: 11/11/20 06:48 Dose: 40 mg Documented by: Rivaroxaban (Rivaroxaban 10 Mg Tab) 20 mg PO WITHDINNER [facility] Last Admin: 11/10/20 17:13 Dose: 20 mg Documented by: Sodium Chloride (Sodium Chloride 0.9% 2.5 Ml Syringe) 2.5 ml FLUSH ASDIRECTED PRN PRN Reason: Keep Vein Open Thiamine HCl (Thiamine 200 Mg/2 Ml Mdv) 100 mg IVPUSH DAILY [facility] Last Admin: 11/11/20 09:24 Dose: 100 mg Documented by: Discontinued Medications Diltiazem HCl (Diltiazem 25 Mg/5 Ml Sdv) 10 mg IVPUSH ONETIME ONE Stop: 11/09/20 11:15 Last Admin: 11/09/20 11:28 Dose: 10 mg Documented by: Midazolam HCl (Midazolam 1 Mg/Ml 2 Ml Sdv) 1 mg IVPUSH ONETIME ONE Stop: 11/08/20 20:26 Last Admin: 11/08/20 20:53 Dose: 1 mg Documented by: Midazolam HCl (Midazolam 1 Mg/Ml 2 Ml Sdv) Confirm Administered Dose 2 mg .ROUTE .STK-MED ONE Stop: 11/08/20 20:26 Last Admin: 11/08/20 20:31 Dose: Not Given Documented by: Midazolam HCl (Midazolam 1 Mg/Ml 2 Ml Sdv) 1 mg IVPUSH ONETIME STA Stop: 11/08/20 20:31 Last Admin: 11/08/20 20:31 Dose: Not Given Documented by: - Exam General: Alert, Oriented, Cooperative, No Acute Distress Lungs: Clear to Auscultation, Normal Respiratory Effort Cardiovascular: Regular Rate, Regular Rhythm GI/Abdominal Exam: Normal Bowel Sounds, Soft, Non-Tender Extremities: Non-Tender, No Pedal Edema Skin: Warm, Dry, Intact Neurological: No New Focal Deficit - Patient Data Lab Results Last 24 hrs: Laboratory Results - last 24 hr 11/10/20 11/11/20 11/11/20 Range/Units 17:09 05:15 05:15 WBC 5.77 (4.0-11.0) K/uL RBC 4.32 (4.30-5.90) M/uL Hgb 13.9 (12.0-16.0) g/dL Hct 42.0 (36.0-46.0) % MCV 97.2 (80.0-98.0) fL MCH 32.2 H (27.0-32.0) pg MCHC 33.1 (31.0-37.0) g/dL RDW Std Deviation 51.6 (28.0-62.0) fl RDW Coeff of Aruna 14 (11.0-15.0) % Plt Count 237 (150-400) K/uL MPV 10.90 (7.40-12.00) fL Neut % (Auto) 65.9 (48.0-80.0) % Lymph % (Auto) 23.2 (16.0-40.0) % [place] % (Auto) 9.0 (0.0-15.0) % Eos % (Auto) 0.9 (0.0-7.0) % Baso % (Auto) 1.0 (0.0-1.5) % Neut # (Auto) 3.8 (1.4-5.7) K/uL Lymph # (Auto) 1.3 (0.6-2.4) K/uL [place] # (Auto) 0.5 (0.0-0.8) K/uL Eos # (Auto) 0.1 (0.0-0.7) K/uL Baso # (Auto) 0.1 (0.0-0.1) K/uL Nucleated RBC % 0.0 /100WBC Nucleated RBCs # 0 K/uL Sodium 139 (136-145) mmol/L Potassium 3.7 (3.5-5.1) mmol/L Chloride 104 (98-107) mmol/L Carbon Dioxide 27.7 (21.0-32.0) mmol/L BUN 18 (7.0-18.0) mg/dL Creatinine 0.8 (0.6-1.0) mg/dL Est Cr Clr Drug Dosing TNP Estimated GFR (MDRD) > 60.0 ml/min Glucose 132 H (74-106) mg/dL POC Glucose 126 H (70-99) mg/dL Calcium 9.0 (8.5-10.1) mg/dL Phosphorus 3.6 (2.6-4.7) mg/dL Magnesium 1.7 L (1.8-2.4) mg/dL Total Bilirubin 0.9 (0.2-1.0) mg/dL AST 18 (15-37) IU/L ALT 25 (14-63) IU/L Alkaline Phosphatase 104 (46-116) U/L Total Protein 7.0 (6.4-8.2) g/dL Albumin 3.3 L (3.4-5.0) g/dL Globulin 3.7 (2.6-4.0) g/dL Albumin/Globulin Ratio 0.9 (0.9-1.6) 11/11/20 11/11/20 Range/Units 06:46 11:24 WBC (4.0-11.0) K/uL RBC (4.30-5.90) M/uL Hgb (12.0-16.0) g/dL Hct (36.0-46.0) % MCV (80.0-98.0) fL MCH (27.0-32.0) pg MCHC (31.0-37.0) g/dL RDW Std Deviation (28.0-62.0) fl RDW Coeff of Aruna (11.0-15.0) % Plt Count (150-400) K/uL MPV (7.40-12.00) fL Neut % (Auto) (48.0-80.0) % Lymph % (Auto) (16.0-40.0) % [place] % (Auto) (0.0-15.0) % Eos % (Auto) (0.0-7.0) % Baso % (Auto) (0.0-1.5) % Neut # (Auto) (1.4-5.7) K/uL Lymph # (Auto) (0.6-2.4) K/uL [place] # (Auto) (0.0-0.8) K/uL Eos # (Auto) (0.0-0.7) K/uL Baso # (Auto) (0.0-0.1) K/uL Nucleated RBC % /100WBC Nucleated RBCs # K/uL Sodium (136-145) mmol/L Potassium (3.5-5.1) mmol/L Chloride (98-107) mmol/L Carbon Dioxide (21.0-32.0) mmol/L BUN (7.0-18.0) mg/dL Creatinine (0.6-1.0) mg/dL Est Cr Clr Drug Dosing Estimated GFR (MDRD) ml/min Glucose (74-106) mg/dL POC Glucose 113 H 126 H (70-99) mg/dL Calcium (8.5-10.1) mg/dL Phosphorus (2.6-4.7) mg/dL Magnesium (1.8-2.4) mg/dL Total Bilirubin (0.2-1.0) mg/dL AST (15-37) IU/L ALT (14-63) IU/L Alkaline Phosphatase (46-116) U/L Total Protein (6.4-8.2) g/dL Albumin (3.4-5.0) g/dL Globulin (2.6-4.0) g/dL Albumin/Globulin Ratio (0.9-1.6) Result Diagrams: 11/11/20 05:15 11/11/20 05:15 Sepsis Event Note - Evaluation Sepsis Screening Result: No Definite Risk - Focused Exam Vital Signs: Vital Signs Temp Pulse Pulse Resp BP BP Pulse Ox 11/11/20 11:24 36.6 C 72 16 120/72 96 11/11/20 09:06 66 11/11/20 09:04 66 127/73 11/11/20 07:10 36.3 C 72 16 129/60 11/11/20 04:00 36.6 C 84 18 133/78 96 - Problem List Review Problem List Initiated/Reviewed/Updated: Yes - Plan Plan:: 70 yo female with acute ETOH intoxication admitted following fall. Discussed case with Dr. Pfeiffer who felt patient had capacity to make decisions. and patients sister wants patient to go to inpatient chemical dependence treatment program. Will call [facility] to check if these is feasible.
[2020-11-11] MEDS: Rivaroxaban 10 MG Tab PO SCH (17:03)
[2020-11-11] MEDS: Memantine 10 MG Tab PO SCH (20:05)
[2020-11-12] MEDS: Acetaminophen 325 MG Tab PO PRN (03:07)
[2020-11-12] MEDS: Levothyroxine 100 MCG Tab PO SCH (06:30)
[2020-11-12] MEDS: Pantoprazole 40 MG Tab.CR PO SCH (06:30)
[2020-11-12] MEDS: Insulin Aspart 100 Units/ML 3 ML Pen SUBCUT SCH ×2 (07:15→11:53)
[2020-11-12] MEDS: Folic Acid 50 MG/10 ML MDV SUBCUT SCH (08:00)
[2020-11-12] MEDS: Thiamine 200 MG/2 ML MDV IVPUSH SCH (08:01)
[2020-11-12] MEDS: Gabapentin 300 MG Cap PO SCH (08:02)
[2020-11-12] MEDS: Furosemide 20 MG Tab PO SCH (08:03)
[2020-11-12] MEDS: Diltiazem 120 MG Cap.CD PO SCH (08:03)
[2020-11-12] MEDS: Digoxin 125 MCG Tab PO SCH (08:03)
--- NOTE | 2020-11-12 12:58 | PCM.DCSUM1 ---
Discharge Summary - Discharge Data Discharge Date: 11/12/20 Discharge Disposition: Home, Self-Care 01 Condition: Good - Referral to Home Health Primary Care Physician: PCP None - Patient Summary/Data Consults: Consultations 11/09/20 00:26 Consult to Case Management/Licensed Pharmacist [CONS] Routine PT Evaluation and Treatment [CONS] Routine 11/10/20 10:13 Consult to Physician [CONS] Routine Hospital Course: 70 yo female with pmh of dementia, atrial fibrillation, hypothyroidism, diabetes, and ETOH abuse who is brought to the ED by EMS after falling at home. Patient was noted to have some swelling and abrasion above right eye. CT scan of head and laboratory work was unremarkable except for a ETOH level of 270. Patient was monitor on CIWAA protocol but never developed significant withdrawal symptoms. Dr. Pfeiffer was consulted and evaluated the patient. It was felt the patient although expressing at times significant short term memory loss does have capacity. I had multiple conversations regarding the need for ETOH cessation with patient and family. Sister and was wanting placement of patient for ETOH treatment or senior living care. I spoke with Dr. Beck the psychiatrist at [facility] regarding inpatient chemical dependence treatment. Dr. Beck stated that she would need an outpatient evaluation first. Her dementia may limit the benefit of extensive therapy and family counseling regarding harm reduction may be the best alternative. Patient at this time has no skilled needs. does seem frustrated with patient's memory deficits but is slow to accept that he is making the problem worse as he is the only source of ETOH for the patient. Discussed the need for harm reduction by removing alcohol from her house. Discussed with patient and the need for ETOH cessation as there will be a time where she may need senior living care for her dementia but her alcohol use would limit her options of placement. Patient was discharged home to have follow up with her PCP and [facility]. - Patient Instructions Diet: Usual Diet as Tolerated Activity: As Tolerated Other/Special Instructions: [facility]. - Discharge Plan *PRESCRIPTION DRUG MONITORING PROGRAM REVIEWED*: Not Applicable *COPY OF PRESCRIPTION DRUG MONITORING REPORT IN PATIENT CLEM: Not Applicable Home Medications: Home Meds Cholecalciferol (Vitamin D3) [Vitamin D3] 1,000 unit PO DAILY 02/07/17 [History] metFORMIN [Glucophage] 500 mg PO DAILY 02/07/17 [History] Calcium Carbonate 600 mg PO BID 11/04/17 [History] Gabapentin [Neurontin] 600 mg PO DAILY 11/04/17 [History] Furosemide 20 mg PO DAILY PRN 07/01/18 [History] Potassium Chloride [Klor-Con 10] 20 meq PO BID 07/01/18 [History] Rivaroxaban [Xarelto] 20 mg PO DAILY 07/01/18 [History] Folic Acid 1 mg PO DAILY 30 Days #30 tablet 07/04/18 [Rx] Thiamine [Vitamin B-1] 100 mg PO BEDTIME 30 Days #30 tablet 07/04/18 [Rx] dilTIAZem HCl [Diltiazem 24Hr ER (Xr)] 240 mg PO DAILY 14 Days #28 cap.er.deg 07/04/18 [Rx] traMADol HCl [Tramadol HCl] 1 tab PO Q6HR PRN 06/20/19 [History] Digoxin 0.125 mg PO DAILY 11/09/20 [History] Furosemide 20 mg PO DAILY 11/09/20 [History] Levothyroxine [Synthroid] 100 mcg PO ACBREAKFAST 11/09/20 [History] Liothyronine [Cytomel] 25 mcg PO DAILY 11/09/20 [History] Memantine HCl 5 mg PO DAILY 11/09/20 [History] Patient Handouts: Head Injury, Adult Referrals: Herman Alvarez MD [Physician] - 11/25/20 9:00 am - Discharge Summary/Plan Comment DC Time >30 min.: No - Patient Data Vitals - Most Recent: Last Vital Signs Temp 36.2 C 11/12/20 07:10 Pulse 62 11/12/20 08:03 Resp 16 11/12/20 07:10 BP 134/90 11/12/20 08:03 Pulse Ox 99 11/12/20 07:10 Weight - Most Recent: 73.618 kg I&O - Last 24 hours: Intake & Output 11/11/20 11/12/20 11/12/20 22:59 06:59 14:59 Intake Total 800 700 Output Total 500 300 Balance 300 400 Lab Results - Last 24 hrs: Laboratory Results - last 24 hr 11/11/20 11/12/20 Range/Units 15:59 11:44 POC Glucose 124 H 134 H (70-99) mg/dL Med Orders - Current: Current Medications Acetaminophen (Acetaminophen 325 Mg Tab) 650 mg PO Q4H PRN PRN Reason: Pain Last Admin: 11/12/20 03:07 Dose: 650 mg Documented by: Dextrose/Water (50% Dextrose In Water 50 Ml Syringe) 50 ml IV ASDIRECTED PRN PRN Reason: Hypoglycemia Digoxin (Digoxin 125 Mcg Tab) 125 mcg PO DAILY [facility] Last Admin: 11/12/20 08:03 Dose: 125 mcg Documented by: Diltiazem HCl (Diltiazem 120 Mg Cap.Cd) 240 mg PO DAILY [facility] Last Admin: 11/12/20 08:03 Dose: 240 mg Documented by: Folic Acid (Folic Acid 50 Mg/10 Ml Mdv) 1 mg SUBCUT DAILY [facility] Last Admin: 11/12/20 08:00 Dose: 1 mg Documented by: Furosemide (Furosemide 20 Mg Tab) 20 mg PO DAILY [facility] Last Admin: 11/12/20 08:03 Dose: 20 mg Documented by: Gabapentin (Gabapentin 300 Mg Cap) 600 mg PO DAILY [facility] Last Admin: 11/12/20 08:02 Dose: 600 mg Documented by: Glucagon (Glucagon,Human Recombinant 1 Mg Vial) 1 mg IM ASDIRECTED PRN PRN Reason: Hypoglycemia Insulin Aspart (Insulin Aspart 100 Units/Ml 3 Ml Pen) 0 unit SUBCUT TIDAC [facility]; Protocol Last Admin: 11/12/20 11:53 Dose: Not Given Documented by: Levothyroxine Sodium (Levothyroxine 100 Mcg Tab) 100 mcg PO ACBREAKFAST [facility] Last Admin: 11/12/20 06:30 Dose: 100 mcg Documented by: Liothyronine Sodium (Liothyronine 25 Mcg Tab) 25 mcg PO DAILY [facility] Last Admin: 11/12/20 08:04 Dose: 25 mcg Documented by: Lorazepam (Lorazepam 2 Mg/Ml Sdv) 0 mg IVPUSH Q4H PRN; Protocol PRN Reason: CIWAA Last Admin: 11/09/20 13:19 Dose: 1 mg Documented by: Memantine (Memantine 10 Mg Tab) 5 mg PO BEDTIME [facility] Last Admin: 11/11/20 20:05 Dose: 5 mg Documented by: Pantoprazole Sodium (Pantoprazole 40 Mg Tab.Cr) 40 mg PO ACBREAKFAST [facility] Last Admin: 11/12/20 06:30 Dose: 40 mg Documented by: Rivaroxaban (Rivaroxaban 10 Mg Tab) [facility] Last Admin: 11/11/20 17:03 Dose: 20 mg Documented by: Sodium Chloride (Sodium Chloride 0.9% 2.5 Ml Syringe) 2.5 ml FLUSH ASDIRECTED PRN PRN Reason: Keep Vein Open Thiamine HCl (Thiamine 200 Mg/2 Ml Mdv) 100 mg IVPUSH DAILY [facility] Last Admin: 11/12/20 08:01 Dose: 100 mg Documented by: Discontinued Medications Diltiazem HCl (Diltiazem 25 Mg/5 Ml Sdv) 10 mg IVPUSH ONETIME ONE Stop: 11/09/20 11:15 Last Admin: 11/09/20 11:28 Dose: 10 mg Documented by: Midazolam HCl (Midazolam 1 Mg/Ml 2 Ml Sdv) 1 mg IVPUSH ONETIME ONE Stop: 11/08/20 20:26 Last Admin: 11/08/20 20:53 Dose: 1 mg Documented by: Midazolam HCl (Midazolam 1 Mg/Ml 2 Ml Sdv) Confirm Administered Dose 2 mg .ROUTE .STK-MED ONE Stop: 11/08/20 20:26 Last Admin: 11/08/20 20:31 Dose: Not Given Documented by: Midazolam HCl (Midazolam 1 Mg/Ml 2 Ml Sdv) 1 mg IVPUSH ONETIME STA Stop: 11/08/20 20:31 Last Admin: 11/08/20 20:31 Dose: Not Given Documented by:
[2020-11-12 13:14] VITALS: BP 124/61; PULSE 89
== END 2020-11-12 13:45 | disposition home or self-care (01) | DRG 897 ==
LOC: MW.ED 20:01 → MW.MS 11-09 00:08
PROVIDERS: ADMIT Internal Medicine; ATTEND Internal Medicine
DX: F10.129 Alcohol abuse with intoxication, unspecified (principal); I48.20 Chronic atrial fibrillation, unspecified; F03.90 Unspecified dementia, unspecified severity, without behavioral disturbance, psychotic disturbance, mood disturbance, and anxiety; S09.90XA Unspecified injury of head, initial encounter; Y90.9 Presence of alcohol in blood, level not specified; I48.91 Unspecified atrial fibrillation; I10 Essential (primary) hypertension; E11.9 Type 2 diabetes mellitus without complications; Z20.822 Contact with and (suspected) exposure to COVID-19; E03.9 Hypothyroidism, unspecified; E78.00 Pure hypercholesterolemia, unspecified; Y90.8 Blood alcohol level of 240 mg/100 ml or more; R41.3 Other amnesia; Z79.890 Hormone replacement therapy; Z86.73 Personal history of transient ischemic attack (TIA), and cerebral infarction without residual deficits; Z79.899 Other long term (current) drug therapy; Z98.890 Other specified postprocedural states; Z90.710 Acquired absence of both cervix and uterus; Z91.81 History of falling; Z79.01 Long term (current) use of anticoagulants; Z79.84 Long term (current) use of oral hypoglycemic drugs; W19.XXXA Unspecified fall, initial encounter
CPT/HCPCS: 36415; 70450; 70450-26; 72125; 72125-26; 80048; 80053; 80162; 80305-QW; 80307; 81003; 82947; 83735; 84100; 84443; 85025; 93005; 96374; 97161-GP; 99285-25; A9270-GY; J1815-GY; J2060; J2250; J3411; J3490; U0002

== ENCOUNTER 2020-12-29 07:33 | Day surgery (SDC) | payer MEDICARE, OTHER ==
[~2020-12-29 07:33] MED LIST: Sodium Chloride 0.9% 1,000 ML IV SCH
[2020-12-29] MEDS ORDERED: Propofol 200 MG/20 ML SDV ONE (07:54)
--- NOTE | 2020-12-29 08:08 | PCM.PREANE ---
Preanesthetic Assessment - Anesthesia/Transfusion/Family Hx Anesthesia History: Prior Anesthesia Without Reaction Family History of Anesthesia Reaction: No Transfusion History: Prior Transfusion Without Reaction - Physical Assessment NPO Status Date: 12/29/20 NPO Status Time: 00:05 Vital Signs: Last Vital Signs Temp Pulse 72 12/29/20 07:58 Resp 16 12/29/20 07:58 BP 102/65 12/29/20 07:58 Pulse Ox 93 L 12/29/20 07:58 Height: 1.68 m Weight: 69.853 kg - Lab Values: Laboratory Last Values POC Glucose 134 mg/dL (70-99) H 12/29/20 07:56 - Allergies Allergies/Adverse Reactions: Allergies Allergy/AdvReac Type Severity Reaction Status Date / Time No Known Allergies Allergy Verified 12/23/20 08:36 - Acknowledgements Anesthesia Type Planned: General Anesthesia Pt an Appropriate Candidate for the Planned Anesthesia: Yes Alternatives and Risks of Anesthesia Discussed w Pt/Guardian: Yes Pt/Guardian Understands and Agrees with Anesthesia Plan: Yes Additional Comments: Hx A Fib HTN Former Smoker NIDDM PreAnesthesia Questionnaire HEENT History: Reports: Other (See Below) Other HEENT History: wears glasses Cardiovascular History: Reports: Afib, Arrhythmia, High Cholesterol, Hypertension Respiratory History: Reports: None Gastrointestinal History: Reports: Other (See Below) Other Gastrointestinal History: elevated LFT's, has incisional hernia Genitourinary History: Reports: None DYE ROOM HELPER History: Reports: Musculoskeletal History: Reports: Arthritis Other Musculoskeletal History: hx fx bones to foot Neurological History: Reports: CVA Other Neuro History: dementia Psychiatric History: Reports: Dementia Endocrine/Metabolic History: Reports: Diabetes, Type II Hematologic History: Reports: Blood Transfusion(s) Immunologic History: Reports: None Oncologic (Cancer) History: Reports: None Dermatologic History: Reports: None - Infectious Disease History Infectious Disease History: Reports: Chicken Pox, Measles, Mumps - Past Surgical History Other HEENT Surgeries/Procedures: wears eyeglasses GI Surgical History: Reports: Appendectomy - SUBSTANCE USE Tobacco Use Status *Q: Former Tobacco User Tobacco Use Within Last Twelve Months: No - HOME MEDS Home Medications: Home Meds Cholecalciferol (Vitamin D3) [Vitamin D3] 2,000 unit PO DAILY 02/07/17 [History] metFORMIN [Glucophage] 500 mg PO DAILY 02/07/17 [History] Gabapentin [Neurontin] 600 mg PO TID 11/04/17 [History] Furosemide 20 mg PO DAILY 07/01/18 [History] Potassium Chloride [Klor-Con 10] 20 meq PO BID 07/01/18 [History] Rivaroxaban [Xarelto] 20 mg PO DAILY 07/01/18 [History] Folic Acid 1 mg PO DAILY 30 Days #30 tablet 07/04/18 [Rx] Digoxin 125 mcg PO DAILY 11/09/20 [History] Levothyroxine [Synthroid] 100 mcg PO ACBREAKFAST 11/09/20 [History] Liothyronine [Cytomel] 25 mcg PO DAILY 11/09/20 [History] Memantine HCl 5 mg PO BID 11/09/20 [History] Alpha Betic 200 mg PO DAILY 12/23/20 [History] Calcium Carb, Citrate/Vit D3 [Calcium + D3 ER Tablet] 1 tab CHEW DAILY 12/23/20 [History] Magnesium Oxide 2 tab PO BID 12/23/20 [History] Multivit-Min/Iron/Folic/Lutein [Centrum Silver Women Tablet] 1 tab PO DAILY 12/23/20 [History] Prevagen Extra Strength 1 g PO DAILY 12/23/20 [History] Vitamin E Acid Succinate [Vitamin E] 1 tab PO DAILY 12/23/20 [History] dilTIAZem HCL [Cartia Xt] 180 mg PO DAILY 12/23/20 [History] - CURRENT (IN HOUSE) MEDS Current Meds: Current Medications Sodium Chloride (Normal Saline) 1,000 mls @ 125 mls/hr IV ASDIRECTED [facility] Discontinued Medications Lidocaine HCl (Lidocaine 1% 5 Ml Sdv) Confirm Administered Dose 5 ml .ROUTE .STK-MED ONE Stop: 12/29/20 07:53 Propofol (Propofol 200 Mg/20 Ml Sdv) Confirm Administered Dose 400 mg .ROUTE .STK-MED ONE Stop: 12/29/20 07:55
--- NOTE | 2020-12-29 08:50 | PCM.OPNOTE ---
- General Post-Op/Procedure Note Date of Surgery/Procedure: 12/29/20 Operative Procedure(s): colonoscopy with biopsies Findings: irritated right colon dictation number [id number] Pre Op Diagnosis: Screening colonoscopy Post-Op Diagnosis: irritated right colon Primary Surgeon: Kevin Aguilera Pathology: colonic biopsies Complications: None Condition: Good
--- NOTE | 2020-12-29 09:03 | PCM.POSTAN ---
POST ANESTHESIA ASSESSMENT - MENTAL STATUS Mental Status: Alert, Oriented - VITAL SIGNS Vital Signs: Last Vital Signs Temp Pulse 45 L 12/29/20 09:00 Resp 16 12/29/20 09:00 BP 94/50 L 12/29/20 09:00 Pulse Ox 92 L 12/29/20 09:00 - RESPIRATORY Respiratory Status: Respiratory Rate WNL, Airway Patent, O2 Saturation Stable - CARDIOVASCULAR CV Status: Pulse Rate WNL, Blood Pressure Stable, Slow Pulse Rate - GASTROINTESTINAL GI Status: No Symptoms - POST OP HYDRATION Hydration Status: Adequate & Stable
--- NOTE | 2020-12-29 09:04 | PCM48HPAN ---
Post Anesthesia Note - EVALUATION WITHIN 48HRS OF ANESTHETIC Vital Signs in Normal Range: Yes Patient Participated in Evaluation: Yes Respiratory Function Stable: Yes Airway Patent: Yes Cardiovascular Function Stable: Yes Hydration Status Stable: Yes Pain Control Satisfactory: Yes Nausea and Vomiting Control Satisfactory: Yes Mental Status Recovered: Yes Vital Signs: Last Vital Signs Temp Pulse 45 L 12/29/20 09:00 Resp 16 12/29/20 09:00 BP 94/50 L 12/29/20 09:00 Pulse Ox 92 L 12/29/20 09:00
[2020-12-29 09:14] VITALS: BP 100/64; PULSE 68
--- NOTE | 2020-12-30 07:15 | OR ---
SURGEON: JENNIFER GLORIA MD DATE OF PROCEDURE: 12/29/2020 PREOPERATIVE DIAGNOSIS: Screening colonoscopy. POSTOPERATIVE DIAGNOSIS: Somewhat irritated right colon, more in the cecum, with just some reddened irritated colonic mucosa. PROCEDURES PERFORMED: 1. Colonoscopy. 2. Cold biopsies. EXTENT OF COLONOSCOPY: To the cecum and terminal ileum. BOWEL PREP: Good. LIMITATIONS: The patient's bowel prep was not the greatest, but with quite a bit of suction and irrigation, did get fairly good look at the mucosa. A very small lesion or polyp could have been missed. REASON FOR PROCEDURE: The patient is a pleasant 70-year-old female. Her last colonoscopy was 10 years ago. She reports it is normal. She denies any change in her bowel habits or blood in her stool. PROCEDURE IN DETAIL: Physical exam was performed. The major risks and benefits associated with the procedure were explained to the patient in detail. The patient verbalized understanding and was in agreement with the same. The patient was then connected to the appropriate monitoring devices, and IV was started. EKG, pulse oximetry, blood pressure, and capnography were monitored throughout the entire procedure. Oxygen and sedation were provided by the anesthesiologist. The patient was placed in the left lateral decubitus position. Sedation began. After adequate sedation was achieved, digital rectal exam was performed. No rectal masses or polyps were felt. Now, a well-lubricated Olympus colonoscope was inserted into the rectum and advanced under direct visualization to the level of the cecum. The cecum was identified by both visual and anatomic landmarks. Terminal ileum was intubated. The patient did have some liquid stool and organic material still in the colon, but with quite a bit of suction and irrigation, I did get okay looks of the mucosa, although a very small polyp or lesion could have been missed. In the cecum, mucosa looked a little more reddened and irritated. Did do several random biopsies. This irritation appeared to go all the way up through the ascending colon and into even the transverse, but then lightened up and the mucosa through the descending and sigmoid and rectum all appeared normal. I did do biopsies of the entirety of the colon, but sent in two bottles, one right sided, one left-sided colon. No other polyps or lesions were noted. The scope was retroflexed in the rectum. Scope was completely removed and the procedure was terminated. ENDOSCOPIC DIAGNOSIS: Somewhat irritated right colon. RECOMMENDATIONS: Followup colonoscopy based on pathology, most likely another one in 5 years, sooner if she develops signs and symptoms such as change in bowel habits or blood in her stool. LINK / JESSICA /[id number]
== END 2020-12-29 09:46 | disposition home or self-care (01) ==
LOC: MW.SDS 07:33
PROVIDERS: ATTEND Surgery
DX: Z12.11 Encounter for screening for malignant neoplasm of colon (principal); K63.89 Other specified diseases of intestine; K43.2 Incisional hernia without obstruction or gangrene; I11.0 Hypertensive heart disease with heart failure; I50.9 Heart failure, unspecified; M10.9 Gout, unspecified; E11.9 Type 2 diabetes mellitus without complications; Z79.899 Other long term (current) drug therapy; E78.5 Hyperlipidemia, unspecified; Z79.84 Long term (current) use of oral hypoglycemic drugs; Z87.891 Personal history of nicotine dependence
CPT/HCPCS: 45380; 82947; 88305; J2704; 00812

== ENCOUNTER 2021-01-07 12:40 | Emergency (ER) | payer MEDICARE, OTHER ==
[2021-01-07] MEDS ORDERED: Sodium Chloride 0.9% 10 ML Syringe FLUSH PRN (13:13)
[2021-01-07] MEDS ORDERED: Sodium Chloride 0.9% 2.5 ML Syringe FLUSH PRN (13:13)
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
--- NOTE | 2021-01-07 14:04 | CR ---
INDICATION: Chest pain. TECHNIQUE: Upright portable AP image of the chest. COMPARISON: 04/01/2019. FINDINGS: Lungs clear. No pleural effusion or pneumothorax. Heart size and pulmonary vasculature within normal limits. No obvious rib fracture or other significant osseous abnormality. IMPRESSION: Negative chest. Dictated by Robert العلي MD @ 01/07/2021 2:04:[address] Robert العلي @ Jan 07 2021 2:04PM
[2021-01-07 14:06] LABS: BLOOD UREA NITROGEN,BUN 8 mg/dL (7.0-18.0); CARBON DIOXIDE,CO2 29.8 mmol/L (21.0-32.0); CHLORIDE,CL 104 mmol/L (98-107); GLUCOSE RANDOM 116 mg/dL (74-106); SODIUM,NA 141 mmol/L (136-145)
--- NOTE | 2021-01-07 15:05 | CT ---
INDICATION: Altered mental status TECHNIQUE: Head CT without contrast. COMPARISON: November 08, 2020 FINDINGS: CSF spaces: Within normal limits for age. Brain parenchyma: There are nonspecific low attenuation white matter changes consistent with chronic microvascular disease. No sign of mass, hemorrhage, or midline shift. Old left basal ganglia lacunar infarction. Skull base and calvarium: The visualized paranasal sinuses and mastoid air cells demonstrate no acute or significant findings. The visualized orbits are grossly unremarkable. No skull fractures. There is intracranial atherosclerosis. IMPRESSION: 1. No acute findings. 2. Nonspecific white matter disease, typical of chronic microvascular disease. Please note that all CT scans at this facility use dose modulation, iterative reconstruction, and/or weight-based dosing when appropriate to reduce radiation dose to as low as reasonably achievable. Dictated by Tatiana Lopez MD @ 01/07/2021 3:04:[address] Tatiana Lopez @ Jan 07 2021 3:04PM
[2021-01-07 16:36] VITALS: BP 140/66; PULSE 56
== END 2021-01-07 16:22 | disposition home or self-care (01) ==
LOC: MW.ED 12:40
DX: F03.90 Unspecified dementia, unspecified severity, without behavioral disturbance, psychotic disturbance, mood disturbance, and anxiety (principal); R45.1 Restlessness and agitation; I48.91 Unspecified atrial fibrillation; I10 Essential (primary) hypertension; M19.90 Unspecified osteoarthritis, unspecified site; E11.42 Type 2 diabetes mellitus with diabetic polyneuropathy; E03.9 Hypothyroidism, unspecified; Z79.01 Long term (current) use of anticoagulants; Z79.84 Long term (current) use of oral hypoglycemic drugs; Z79.899 Other long term (current) drug therapy; Z20.822 Contact with and (suspected) exposure to COVID-19
CPT/HCPCS: 36415; 70450; 71045; 80053; 80162; 80305; 80307; 81001; 83880; 84484; 85025; 85610; 85730; 93005; 99285; U0002

== ENCOUNTER 2021-12-04 14:23 | Emergency (ER) | payer MEDICARE, OTHER ==
[2021-12-04] MEDS ORDERED: Diphtheria,Pertussis(Acell),Tetanus Vaccine 0.5 ML Syringe IM ONE (14:31)
[2021-12-04] MEDS ORDERED: Acetaminophen 500 MG Tab PO ONE (15:25)
[2021-12-04 16:34] LABS: CARBON DIOXIDE,CO2 29.2 mmol/L (21.0-32.0); POTASSIUM,K 3.4 mmol/L (3.5-5.1)
[2021-12-04] MEDS ORDERED: Magnesium Oxide 400 MG Tab PO ONE (16:35)
[2021-12-04 17:12] VITALS: BP 142/81; PULSE 59
== END 2021-12-04 17:20 | disposition home or self-care (01) ==
LOC: MW.ED 14:23
DX: S42.291A Other displaced fracture of upper end of right humerus, initial encounter for closed fracture (principal); S80.211A Abrasion, right knee, initial encounter; I48.91 Unspecified atrial fibrillation; E78.00 Pure hypercholesterolemia, unspecified; I10 Essential (primary) hypertension; E11.9 Type 2 diabetes mellitus without complications; E03.9 Hypothyroidism, unspecified; Z79.01 Long term (current) use of anticoagulants; Z79.899 Other long term (current) drug therapy; Z79.84 Long term (current) use of oral hypoglycemic drugs; Z20.822 Contact with and (suspected) exposure to COVID-19; Z23 Encounter for immunization; W01.0XXA Fall on same level from slipping, tripping and stumbling without subsequent striking against object, initial encounter
CPT/HCPCS: 36415; 70450; 71045; 72125; 72170; 73030; 73060; 73562; 80053; 81003; 82550; 83735; 84443; 84484; 85025; 85610; 90471; 90715; 93005; 99284; A9270; U0002; 93010

== ENCOUNTER 2021-12-06 06:26 | Emergency (ER) | payer MEDICARE, OTHER ==
[2021-12-06 08:11] LABS: CARBON DIOXIDE,CO2 30.5 mmol/L (21.0-32.0); POTASSIUM,K 3.7 mmol/L (3.5-5.1)
[2021-12-06] MEDS ORDERED: Acetaminophen 325 MG Tab PO ONE (09:48)
[2021-12-06] MEDS ORDERED: Cephalexin 500 MG Cap PO ONE (09:48)
[2021-12-06 10:34] VITALS: BP 156/84; PULSE 90
== END 2021-12-06 10:31 | disposition home or self-care (01) ==
LOC: MW.ED 06:26
DX: S09.90XA Unspecified injury of head, initial encounter (principal); L03.031 Cellulitis of right toe; I10 Essential (primary) hypertension; E78.00 Pure hypercholesterolemia, unspecified; E11.9 Type 2 diabetes mellitus without complications; E03.9 Hypothyroidism, unspecified; Z79.84 Long term (current) use of oral hypoglycemic drugs; Z79.899 Other long term (current) drug therapy; W19.XXXA Unspecified fall, initial encounter
CPT/HCPCS: 36415; 70450; 80053; 80162; 81001; 85025; 99285; A9270